=== PATIENT | female | born 1955 | race Caucasian/White ===

== ENCOUNTER → 2018-12-07 | Outpatient (CLI) | payer BC ==
--- NOTE | 2018-12-07 13:22 | US ---
EXAMINATION TYPE: US pelvis complete transvag DATE OF EXAM: 12/07/2018 COMPARISON: NONE CLINICAL HISTORY: R10.9 Abd pain, R10.2 Pelvic/perineal pain. UTI. Patient states she had bulge in v agina region. Tubal ligation. TECHNIQUE: Transabdominal (TA). Transabdominal sonographic images of the pelvis were acquired. Transvaginal sonographic images were attempted. Due to enlarged bulge at vagina region, transvaginal ultrasound was deferred. Date of LMP: [employer]IVE, EXAM MEASUREMENTS: Uterus: Not visualized Endometrial Stripe: Not visualized Right Ovary: Not visualized Left Ovary: Not visualized 1. Uterus: Not visualized 2. Endometrium: Not visualized 3. Right Ovary: Obscured by overlying bowel gas 4. Left Ovary: Obscured by overlying bowel gas 5. Bilateral Adnexa: Peristalsing bowel 6. Posterior cul-de-sac: Peristalsing bowel IMPRESSION: The uterus nor ovaries are identified in the pelvis with transabdominal approach. Overlyi ng peristalsing bowel is noted. During attempt to perform transvaginal imaging the patient reveals a large vaginal bulge with uterine prolapse noted therefore transvaginal imaging could not be performed to evaluate the uterus and ovaries.
--- NOTE | 2018-12-07 13:26 | US ---
EXAMINATION TYPE: US abdomen complete DATE OF EXAM: 12/07/2018 COMPARISON: NONE CLINICAL HISTORY: R10.9 Abd pain, R10.2 Pelvic/perineal pain. NPO, UTI EXAM MEASUREMENTS: Liver Length: 15.9 cm Gallbladder Wall: 0.2 cm CBD: 0.2 cm Spleen: 9.2 cm Right Kidney: 10.2 x 5.1 x 3.4 cm Left Kidney: 10.0 x 4.3 x 3.5 cm Pancreas: Within normal limits Liver: wnl Gallbladder: wnl Evidence for sonographic Mir's sign: neg CBD: wnl Spleen: wnl Right Kidney: No hydronephrosis nor nephrolithiasis. Left Kidney: No hydronephrosis nor nephrolithiasis. / Upper IVC: wnl Abd Aorta: Severe atherosclerosis seen throughout mid and distal portion of Aorta The liver is homogenous. The intrahepatic portion of the IVC and proximal abdominal aorta are within normal limits. There is no evidence of cholelithiasis. Common bile duct is unremarkable. The visu alized portions of the pancreas are homogenous. The spleen is unremarkable. Kidneys are symmetric a nd free of hydronephrosis. No renal lesions are seen. IMPRESSION: 1. No hydronephrosis nor nephrolithiasis in this patient with urinary tract infection and abdominal p ain. 2. Atherosclerosis of the abdominal aorta most notable mid and distally.
== END | disposition home or self-care (01) ==
LOC: RADUSWWP 12:02
PROVIDERS: ATTEND Internal Medicine
DX: I70.0 Atherosclerosis of aorta (principal); R10.2 Pelvic and perineal pain
CPT/HCPCS: 76700; 76856

== ENCOUNTER 2024-04-13 14:32 | Inpatient (IN) | payer MEDICARE ==
--- NOTE | 2024-04-13 15:13 | ED ---
Weakness HPI - General Chief complaint: Weakness Stated complaint: Weakness Time Seen by Provider: 04/13/24 14:59 Source: patient, RN notes reviewed, old records reviewed Mode of arrival: EMS Limitations: no limitations - History of Present Illness Initial comments: This 68-year-old female with recently diagnosed cancer found in the spine with chronic back pain. Patient having multiple complaints today weakness weight loss not eating and drinking well worsening symptoms for months now. MD Complaint: generalized weakness, focal weakness -: days(s) Location: generalized Severity: severe Severity scale (1-10): 10 Quality: numbness Consistency: constant Improves with: none Worsens with: none Context: recent illness, history of similar Associated Symptoms: confusion, other (0) - Related Data Home Medications Medication Instructions Recorded Confirmed ALPRAZolam [Xanax] 0.25 mg PO BID PRN 04/13/24 04/13/24 Escitalopram [Lexapro] 10 mg PO DIRECTED 04/13/24 04/13/24 HYDROcodone/APAP 5-325MG [[place] 1 tab PO BID 04/13/24 04/13/24 5-325] metroNIDAZOLE [Flagyl] 500 mg PO BID 04/13/24 04/13/24 Allergies Allergy/AdvReac Type Severity Reaction Status Date / Time No Known Allergies Allergy Verified 04/13/24 20:56 Review of Systems ROS Statement: Those systems with pertinent positive or pertinent negative responses have been documented in the HPI. ROS Other: All systems not noted in ROS Statement are negative. Past Medical History Past Medical History: Cancer History of Any Multi-Drug Resistant Organisms: None Reported Past Surgical History: No Surgical Hx Reported Past Psychological History: No Psychological Hx Reported Smoking Status: Never smoker Past Alcohol Use History: None Reported Past Drug Use History: None Reported General Exam Limitations: no limitations General appearance: alert, in no apparent distress Head exam: Present: atraumatic, normocephalic, normal inspection Eye exam: Present: normal appearance, PERRL, EOMI. Absent: scleral icterus, conjunctival injection, periorbital swelling ENT exam: Present: normal exam, mucous membranes moist Neck exam: Present: normal inspection. Absent: tenderness, meningismus, lymphadenopathy Respiratory exam: Present: normal lung sounds bilaterally. Absent: respiratory distress, wheezes, rales, rhonchi, stridor Cardiovascular Exam: Present: regular rate, normal rhythm, normal heart sounds. Absent: systolic murmur, diastolic murmur, rubs, gallop, clicks GI/Abdominal exam: Present: soft, normal bowel sounds. Absent: distended, tenderness, guarding, rebound, rigid Extremities exam: Present: normal inspection, full ROM, normal capillary refill. Absent: tenderness, pedal edema, joint swelling, calf tenderness Back exam: Present: normal inspection Neurological exam: Present: alert, oriented X3, CN II-XII intact Psychiatric exam: Present: normal affect, normal mood Skin exam: Present: warm, dry, intact, normal color. Absent: rash Course Vital Signs 04/13/24 04/13/24 04/13/24 14:36 18:47 20:09 Temperature 97.0 F L 99.2 F 98.5 F Pulse Rate 101 H 113 H 106 H Pulse Rate [ Left] Respiratory 16 14 16 Rate Blood Pressure 155/76 178/82 158/93 Blood Pressure [Left Arm] O2 Sat by Pulse 93 L 91 L 94 L Oximetry 04/13/24 04/14/24 04/14/24 22:55 00:21 05:57 Temperature 98.8 F 98.8 F Pulse Rate 92 90 93 Pulse Rate [ Left] Respiratory 22 20 Rate Blood Pressure 175/88 168/82 153/84 Blood Pressure [Left Arm] O2 Sat by Pulse 98 97 97 Oximetry 04/14/24 04/14/24 04/14/24 09:03 13:49 14:16 Temperature 99.0 F 98.6 F Pulse Rate 80 91 Pulse Rate [ 94 Left] Respiratory 16 18 16 Rate Blood Pressure 141/71 149/87 Blood Pressure 164/90 [Left Arm] O2 Sat by Pulse 97 96 97 Oximetry - Reevaluation(s) Reevaluation #1: 04/13/24 19:56 Records reviewed Reevaluation #2: 04/13/24 19:56 Patient's pain is improved Reevaluation #3: 04/13/24 19:57 Patient informed of results questions answered Reevaluation #4: Was pt. sent in by a medical professional or institution (, PA, DOGMAN/WOMAN, urgent care, hospital, or assisted...) When possible be specific @ -no Did you speak to anyone other than the patient for history (EMS, parent, family, police, friend...)? What history was obtained from this source @ -no Did you review nursing and triage notes (agree or disagree)? Why? @ -agree Are old charts reviewed (outside hosp., previous admission, EMS record, old EKG, old radiological studies, urgent care reports/EKG's, assisted records)? Report findings @ -yes Differential Diagnosis (chest pain, altered mental status, abdominal pain women, abdominal pain men, vaginal bleeding, weakness, fever, dyspnea, syncope, headache, dizziness, GI bleed, back pain, seizure, CVA, palpatations, mental health, musculoskeletal)? @ -prior EKG interpreted by me (3pts min.). @ -yes X-rays interpreted by me (1pt min.). @ -no CT interpreted by me (1pt min.). @ -Yes significant cancer burden with metastasis U/S interpreted by me (1pt. min.). @ -no What testing was considered but not performed or refused? (CT, X-rays, U/S, labs)? Why? @ -none What meds were considered but not given or refused? Why? @ -none Did you discuss the management of the patient with other professionals (professionals i.e. , PA, DOGMAN/WOMAN, lab, RT, psych nurse, psychotherapist social worker, manager financial planning, teacher, liaison officer, shoe caser)? Give summary @ -no Was smoking cessation discussed for >3mins.? @ -no Was critical care preformed (if so, how long)? @ -yes31 Were there social determinants of health that impacted care today? How? (Delores elessness, low income, unemployed, alcoholism, drug addiction, transportation, low edu. Level, literacy, decrease access to med. care, snf, rehab)? @ -none Was there de-escalation of care discussed even if they declined (Discuss DNR or withdrawal of care, Hospice)? DNR status @ -no What co-morbidities impacted this encounter? (DM, HTN, Smoking, COPD, CAD, Cancer, CVA, ARF, Chemo, Hep., AIDS, mental health diagnosis, sleep apnea, morbid obesity)? @ -none Was patient admitted / discharged? Hospital course, mention meds given and route, prescriptions, significant lab abnormalities, going to OR and other pertinent info. @ - 68 female to ER for evaluation of new diagnosis of cancer found with chronic back pain patient does have what appears to be a metastatic cancer that is concern for multiple myeloma will admit for pain control weight loss nausea vomiting diarrhea symptom management admitted Undiagnosed new problem with uncertain prognosis? @ -no Drug Therapy requiring intensive monitoring for toxicity (Heparin, Nitro, Insulin, Cardizem)? @ -no Were any procedures done? @ -no Diagnosis/symptom? @ -Metastatic cancer Acute, or Chronic, or Acute on Chronic? @ -Acute Uncomplicated (without systemic symptoms) or Complicated (systemic symptoms)? @ -Complicated Side effects of treatment? @ -no Exacerbation, Progression, or Severe Exacerbation? @ -exacerbation Poses a threat to life or bodily function? How? (Chest pain, USA, ME, pneumonia, PE, COPD, DKA, ARF, appy, cholecystitis, CVA, Diverticulitis, Homicidal, Suicidal, threat to staff... and all critical care pts) @ -yes significant cancer burden Reevaluation #5: Differential Back Pain: Strain, zoster, cauda equina syndrome, epidural abscess, vertebral osteomyelitis, discitis, fracture, subluxation, disc herniation, DJD, spinal stenosis, dissection, AAA, pancreatitis, peptic ulcer disease, pyelonephritis, kidney stone, this is not meant to be an all-inclusive list. - Consultations Consultation #1: Spoke with [facility] who agrees to admit this patient EKG Findings - EKG Comments: EKG Findings:: EKG is sinus tachycardia 102 [place] 146 QRS 97 QTc 4 - EKG Results: EKG: interpreted by LICHA Medical Decision Making - Medical Decision Making 68 female to ER for evaluation of new diagnosis of cancer found with chronic back pain patient does have what appears to be a metastatic cancer that is concern for multiple myeloma will admit for pain control weight loss nausea vomiting diarrhea symptom management - Lab Data Result diagrams: 04/14/24 03:45 04/17/24 05:03 Lab Results 04/13/24 04/13/24 04/13/24 Range/Units 15:44 15:44 15:44 WBC 10.1 (3.8-10.6) k/uL RBC 4.43 (3.80-5.40) m/uL Hgb 12.6 (11.4-16.0) gm/dL Hct 38.7 (34.0-46.0) % MCV 87.5 (80.0-100.0) fL MCH 28.5 (25.0-35.0) pg MCHC 32.6 (31.0-37.0) g/dL RDW 13.1 (11.5-15.5) % Plt Count 290 (150-450) k/uL MPV 7.5 Neutrophils % 78 % Lymphocytes % 13 % Monocytes % 5 % Eosinophils % 0 % Basophils % 0 % Neutrophils # 7.8 H (1.3-7.7) k/uL Lymphocytes # 1.3 (1.0-4.8) k/uL Monocytes # 0.5 (0-1.0) k/uL Eosinophils # 0.0 (0-0.7) k/uL Basophils # 0.0 (0-0.2) k/uL PT 12.0 (10.0-12.5) sec INR 1.1 (<1.2) APTT 20.1 L (22.0-30.0) sec Sodium (137-145) mmol/L Potassium (3.5-5.1) mmol/L Chloride (98-107) mmol/L Carbon Dioxide (22-30) mmol/L Anion Gap mmol/L BUN (7-17) mg/dL Creatinine (0.52-1.04) mg/dL Est GFR (CKD-EPI)AfAm (>60 ml/min/1.73 sqM) Est GFR (CKD-EPI)NonAf (>60 ml/min/1.73 sqM) Glucose (74-99) mg/dL Lactic Ac Sepsis Rflx Plasma Lactic Acid Fr[place] 3.0 H* (0.7-2.0) mmol/L Calcium (8.4-10.2) mg/dL Phosphorus (2.5-4.5) mg/dL Magnesium (1.6-2.3) mg/dL Total Bilirubin (0.2-1.3) mg/dL AST (14-36) U/L ALT (4-34) U/L Alkaline Phosphatase (38-126) U/L Troponin I (0.000-0.034) ng/mL NT-Pro-B Natriuret Pep pg/mL Total Protein (6.3-8.2) g/dL Albumin (3.5-5.0) g/dL TSH (0.465-4.680) mIU/L 02/01/2504/13/24 04/13/24 Range/Units 15:44 15:51 16:51 WBC (3.8-10.6) k/uL RBC (3.80-5.40) m/uL Hgb (11.4-16.0) gm/dL Hct (34.0-46.0) % MCV (80.0-100.0) fL MCH (25.0-35.0) pg MCHC (31.0-37.0) g/dL RDW (11.5-15.5) % Plt Count (150-450) k/uL MPV Neutrophils % % Lymphocytes % % Monocytes % % Eosinophils % % Basophils % % Neutrophils # (1.3-7.7) k/uL Lymphocytes # (1.0-4.8) k/uL Monocytes # (0-1.0) k/uL Eosinophils # (0-0.7) k/uL Basophils # (0-0.2) k/uL PT (10.0-12.5) sec INR (<1.2) APTT (22.0-30.0) sec Sodium 139 (137-145) mmol/L Potassium 4.0 (3.5-5.1) mmol/L Chloride 95 L (98-107) mmol/L Carbon Dioxide 33 H (22-30) mmol/L Anion Gap 11 mmol/L BUN 30 H (7-17) mg/dL Creatinine 0.99 (0.52-1.04) mg/dL Est GFR (CKD-EPI)AfAm 67 (>60 ml/min/1.73 sqM) Est GFR (CKD-EPI)NonAf 58 (>60 ml/min/1.73 sqM) Glucose 106 H (74-99) mg/dL Lactic Ac Sepsis Rflx Y Plasma Lactic Acid [place] (0.7-2.0) mmol/L Calcium 16.8 H* (8.4-10.2) mg/dL Phosphorus 5.0 H (2.5-4.5) mg/dL Magnesium 1.5 L (1.6-2.3) mg/dL Total Bilirubin 0.8 (0.2-1.3) mg/dL AST 114 H (14-36) U/L ALT 53 H (4-34) U/L Alkaline Phosphatase 128 H (38-126) U/L Troponin I <0.012 (0.000-0.034) ng/mL NT-Pro-B Natriuret Pep 2770 pg/mL Total Protein 7.3 (6.3-8.2) g/dL Albumin 4.5 (3.5-5.0) g/dL TSH 0.726 (0.465-4.680) mIU/L - EKG Data -: EKG Interpreted by Me (EKG is Sinus tachycardia 102 IL 146 QRS 97 QTc 420) - Radiology Data Radiology results: report reviewed (CT brain does show lytic lesions, CT chest abdomen pelvis does show liver lesions back lesions concern for multiple m yeloma), image reviewed Critical Care Time Critical Care Time: Yes Total Critical Care Time: 31 Disposition Clinical Impression: Multiple myeloma, Dehydration, Cancer, metastatic, Bone lesion, Liver lesion, Hypercalcemia Disposition: ADMITTED IP TO THIS [facility] Condition: Serious Is patient prescribed a controlled substance at d/c from ED?: No Time of Disposition: 20:00
[2024-04-13 16:02] LABS: Basophils % (A) 0 %; Eosinophils % (A) 0 %; HCT 38.7 % (34.0-46.0); HGB 12.6 gm/dL (11.4-16.0); Lymphocytes # (A) 1.3 k/uL (1.0-4.8); Lymphocytes % (A) 13 %; MCH 28.5 pg (25.0-35.0); MCHC 32.6 g/dL (31.0-37.0); MCV 87.5 fL (80.0-100.0); Mean Platelet Volume 7.5; Monocytes # (A) 0.5 k/uL (0-1.0); Monocytes % (A) 5 %; Neutrophils # (A) 7.8 k/uL (1.3-7.7); Neutrophils % (A) 78 %; Platelet Count 290 k/uL (150-450); RBC 4.43 m/uL (3.80-5.40); RDW 13.1 % (11.5-15.5); WBC 10.1 k/uL (3.8-10.6)
[2024-04-13 16:12] LABS: INR 1.1 (<1.2)
[2024-04-13 16:19] LABS: Partial Thromboplastin Time 20.1 sec (22.0-30.0)
[2024-04-13] MEDS: SODIUM CHLORIDE 0.9% 1,000 ML IV STA (16:26)
[2024-04-13 16:33] LABS: African American GFR (CKD) 67 (>60 ml/min/1.73 sqM); Albumin 4.5 g/dL (3.5-5.0); Alkaline Phosphatase 128 U/L (38-126); Anion Gap 11 mmol/L; Blood Urea Nitrogen 30 mg/dL (7-17); Carbon Dioxide 33 mmol/L (22-30); Chloride 95 mmol/L (98-107); Glucose 106 mg/dL (74-99); Magnesium 1.5 mg/dL (1.6-2.3); Non-African American GFR(CKD) 58 (>60 ml/min/1.73 sqM); Sodium 139 mmol/L (137-145); Total Bilirubin 0.8 mg/dL (0.2-1.3); Total Protein 7.3 g/dL (6.3-8.2)
[2024-04-13 16:40] LABS: NT-Pro-B-Type Natriuretic Pept 2770 pg/mL
[2024-04-13 16:52] LABS: ALT 53 U/L (4-34); AST 114 U/L (14-36); Calcium 16.8 mg/dL (8.4-10.2)
[2024-04-13] MEDS ORDERED: ONDANSETRON 4 MG/2 ML VIAL IVP PRN (17:57)
[2024-04-13] MEDS ORDERED: HYDROmorphone 1 MG/ML 1 ML SYRINGE IVP PRN (17:57)
[2024-04-13] MEDS ORDERED: NALOXONE 0.4 MG/ML 1 ML VIAL IV PRN (17:57)
[2024-04-13] MEDS: DEXTROSE 5%-0.45% NACL 1,000 ML IV SCH (18:33)
--- NOTE | 2024-04-13 18:37 | CT ---
EXAMINATION TYPE: CT brain wo con DATE OF EXAM: 04/13/2024 6:24 PM COMPARISON: None. CLINICAL INDICATION: Female, 68 years old with history of ams,ca, Increased generalized weakness and abdominal pain Pt was diagnosed with CA on Friday at PCP. CA to "bones, back mets to liver" TECHNIQUE: CT of the brain is performed utilizing 3 mm thick sections through the posterior fossa and 3 mm thick sections through the remaining calvarium. Study is performed within 24 hours of arrival to the hospital. Contrast used: mL of , (none if empty) CT DLP: Combined DLP of 2015.8 mGycm, Automated exposure control for dose reduction was used. FINDINGS: No abnormal hyperdensity is present to suggest an acute intracranial hemorrhage. No mass lesion is evident. No acute infarcts are evident. Hypodensity within the right parietal-occipital region. Subcortical infarct or vasogenic edema could be considered. Additional workup with MRI with contrast is recommended. Underlying metastasis is not excluded. Ventricles and sulci are appropriate for the patient age. Paranasal sinuses and mastoid air cells within the [id number] are clear. Hyperostosis frontalis internus, a normal variant is present. IMPRESSION: 1. Multiple hypoechoic lytic areas throughout the skull. Correlate for metastasis. Consider multiple myeloma. 2. Hypodensity within the right parietal-occipital region. Subcortical infarct or vasogenic edema cou ld be considered. Additional workup with MRI with contrast is recommended. Underlying metastasis is n ot excluded. [facility], Workstation: [facility], 04/13/2024 6:35 PM
--- NOTE | 2024-04-13 18:49 | CT ---
EXAMINATION TYPE: CT ChestAbdPelvis w con DATE OF EXAM: 04/13/2024 6:25 PM COMPARISON: None. CLINICAL INDICATION: Female, 68 years old with history of CA, Increased generalized weakness and abdo vidya pain Pt was diagnosed with CA on Friday at PCP. CA to "bones, back mets to liver" TECHNIQUE: CT ChestAbdPelvis w con , with sagittal coronal reformats. If MIP/3-D images were created, there are created on a separate workstation. Contrast used:80 ml mL of Isovue 300 with IV Contrast, (none if empty) Oral contrast used: without Oral Contrast (none if empty) CT DLP: Combined DLP of 2015.8 mGycm, Automated exposure control for dose reduction was used. FINDINGS: CT CHEST: There are couple of expansile lesions within left ribs. Note is made of a few lytic areas w ithin the lower cervical and upper thoracic vertebral bodies metastasis. Portion of the thyroid visualized is normal. No suspicious lung nodules or focal infiltrates are present. No enlarged mediastinal or hilar adenopathy is evident. The ascending aorta diameter at the level of the main pulmonary artery is 3.2 cm. The main pulmonary artery diameter at the bifurcation is 2.[address] ABDOMEN: Liver: Multiple hypodensities are scattered throughout the liver suspicious for metastatic disease. Spleen: Normal Pancreas: Normal Adrenal glands: The adrenal glands are normal. Gallbladder: Normal Kidneys: No masses are evident. No hydronephrosis is present. No cysts are present. No renal stone s are evident Aorta: Vascular calcification is within the aorta. Inferior vena cava: Normal. CT PELVIS: Loops of bowel within the abdomen and pelvis are normal. This study is without oral contrast limi ts bowel evaluation. Appendix: Not identified. No dilated tubular structures or inflammatory changes evident. Urinary bladder: Normal. Genitourinary structures: Posterior is present. Uterus is retroverted. Adnexa appear normal Osseous structures: There is extensive lytic lesions within the pelvis including the anterior right p ubic symphysis, lateral anterior superior iliac spine, posterior medial right iliac wing. Additional lumbar vertebral body lytic lesions with cortical erosion are evident. Expansile left rib lesions may be present. Additional lytic areas are within the lower cervical and within the thoracic vertebral b odies suspicious for lytic metastasis. Multiple lytic lesions are within the calvarium, see CT report same date. Metastasis likely present. Consider multiple myeloma. IMPRESSION: 1. Multiple osseous metastasis. Multiple myeloma should be considered. 2. Multiple hypodense hepatic lesions suspicious for metastatic disease. [facility], Workstation: [facility], 04/13/2024 6:47 PM
[2024-04-14 07:26] LABS: Appearance,Urine Clear (Clear); Bacteria,Urine Rare /hpf; Bilirubin,Urine Negative (Negative); Blood,Urine Small (Negative); Color,Urine Light Yellow; Glucose,Urine (UA) Negative (Negative); Ketones,Urine Negative (Negative); Leukocyte Esterase,Urine Large (Negative); Nitrite,Urine Negative (Negative); PH, Urine 5.5 (5.0-8.0); Protein,Urine Trace (Negative); RBC,Urine 3 /hpf (0-5); Specific Gravity,Urine 1.032 (1.001-1.035); Squamous Epithelial Cell,Urine 1 /hpf (0-4); Urobilinogen,Urine <2.0 mg/dL (<2.0); WBC,Urine 35 /hpf (0-5)
[2024-04-14 08:40] LABS: Basophils # (A) 0.05 X 10*3/uL (0.00-0.10); Basophils % (A) 0.6 %; Eosinophils # (A) 0.01 X 10*3/uL (0.04-0.35); Eosinophils % (A) 0.1 %; HCT 35.9 % (37.2-46.3); HGB 11.4 g/dL (12.0-15.0); Lymphocytes # (A) 1.41 X 10*3/uL (0.90-5.00); Lymphocytes % (A) 16.8 %; MCH 28.6 pg (27.0-32.0); MCHC 31.8 g/dL (32.0-37.0); Mean Platelet Volume 10.1 FL (9.5-12.2); Monocytes % (A) 8.3 %; NRBC Per 100 WBC 0 X 10*3/uL (0.00-0.01); Neutrophils # (A) 6.15 X 10*3/uL (1.80-7.70); Neutrophils % (A) 73.1 %; Platelet Count 295 X 10*3/uL (140-440); RBC 3.99 X 10*6/uL (4.10-5.20); RDW 12.8 % (11.5-14.5); WBC 8.41 X 10*3/uL (4.50-10.00)
[2024-04-14 08:54] LABS: Magnesium 1.9 mg/dL (1.5-2.4); Phosphorus 4.6 mg/dL (2.4-5.1)
[2024-04-14 09:59] LABS: ALT 53 U/L (8-44); AST 103 U/L (13-35); Albumin/Globulin Ratio 1.74 Ratio (1.60-3.17); Alkaline Phosphatase 143 U/L (41-126); BUN/Creat Ratio 21.92 Ratio (12.00-20.00); Blood Urea Nitrogen 26.3 mg/dL (9.0-27.0); Calcium 17.1 mg/dL (8.7-10.3); Carbon Dioxide 29.1 mmol/L (21.6-31.8); Chloride 98 mmol/L (96-109); Globulin 2.3 g/dL (1.6-3.3); Glucose 120 mg/dL (70-110); Potassium 3.2 mmol/L (3.5-5.5); Sodium 141 mmol/L (135-145); Total Bilirubin 0.3 mg/dL (0.3-1.2); Total Protein 6.3 g/dL (6.2-8.2)
[2024-04-14] MEDS: ZOLEDRONIC ACID 4 MG in SODIUM CHLORIDE 0.9% 100 ML IV ONE (10:02)
[2024-04-14] MEDS: SODIUM CHLORIDE 0.9% 1,000 ML IV SCH (10:55)
[2024-04-14] MEDS: traMADol 50 MG TAB PO SCH (10:56)
[2024-04-14] MEDS: SENNOSIDES-DOCUSATE SODIUM 1 EACH TAB PO SCH (10:57)
[2024-04-14] MEDS ORDERED: HYDROmorphone 0.5 MG/0.5 ML SYRINGE IVP PRN (14:07)
[2024-04-14] MEDS ORDERED: HYDROcodone/APAP 5-325MG 1 EACH TAB PO PRN (14:07)
[2024-04-14 15:08] LABS: Protein, Total 6.2 g/dL (6.2-8.2)
[2024-04-14 15:11] LABS: Immunoglobulin M 45.3 mg/dL (40.0-280.0)
[2024-04-14] MEDS: HYDROmorphone 1 MG/ML 1 ML SYRINGE IVP STA (15:51)
[2024-04-14 16:06] LABS: Carcinoembryonic Antigen 5.5 ng/mL (0.0-4.9)
--- NOTE | 2024-04-14 17:50 | P.CONS ---
History of Present Illness - Reason for Consult Consult date: 04/14/24 hypercalcemia, bone and liver lesion Requesting physician: Jay Lilly - Chief Complaint sudden onset confusion and weakness - History of Present Illness Mrs. Greene is a pleasant 68-year-old female that we have been consulted to see because of hypercalcemia-calcium level 16.8-, imaging showing bone and liver lesions. Son and daughter at the bedside. Patient does have mild confusion but she is able to answer many questions on her own. It is her daughter ropes to keep the story straight. This was of very sudden onset, patient reported a backache and did not feel very good at the end of last week, by Friday patient was not eating or drinking, this progressed to her not being able to walk, lost all of her strength, the family could not even get her up to stand. She was very weak, not sleeping well but rather lethargic. No bowel movement for almost 2 weeks. They had to call EMS to bring the patient to the hospital. Patient has no history of malignancy. Patient has not had colonoscopy, mammogram. There is no family history of malignancy, however there is autoimmune disease. Patient and family are denying any known fevers, sweats, nausea or vomiting, chest pain, swelling or bleeding. There are reports of abdominal tenderness, and co nstipation. On admission calcium noted to be 16.8. Lactic acid elevated at 3. Mildly lino vated LFTs, alk phos increased, phosphorus 5, magnesium 1.5. As of today mild anemia, hemoglobin 11.4, calcium 17.1, phosphorus and magnesium have normalized. Patient's family did not feel she is any worse but, she is not any better. CT of the chest abdomen and pelvis with contrast is reporting expansile lesions within the left ribs, few lytic areas within the lower cervical and upper thoracic vertebra. No lung nodules or mediastinal adenopathy. Multiple hypodensities throughout the liver. Review of Systems 10 point ROS is neg except as stated in HPI-some information provided by the family Past Medical History History of Any Multi-Drug Resistant Organisms: None Reported Past Surgical History: No Surgical Hx Reported Past Psychological History: No Psychological Hx Reported Smoking Status: Never smoker Past Alcohol Use History: None Reported Past Drug Use History: None Reported Medications and Allergies Home Medications Medication Instructions Recorded Confirmed Type ALPRAZolam [Xanax] 0.25 mg PO BID PRN 04/13/24 04/13/24 History Escitalopram [Lexapro] 10 mg PO DIRECTED 04/13/24 04/13/24 History HYDROcodone/APAP 5-325MG [[place] 1 tab PO BID 04/13/24 04/13/24 History 5-325] metroNIDAZOLE [Flagyl] 500 mg PO BID 04/13/24 04/13/24 History Allergies Allergy/AdvReac Type Severity Reaction Status Date / Time No Known Allergies Allergy Verified 04/13/24 20:56 Physical Exam Vitals: Vital Signs Temp Pulse Resp BP Pulse Ox 04/14/24 09:03 99.0 F 80 16 141/71 97 04/14/24 05:57 98.8 F 93 20 153/84 97 04/14/24 00:21 90 168/82 97 04/13/24 22:55 98.8 F 92 22 175/88 98 04/13/24 20:09 98.5 F 106 H 16 158/93 94 L 04/13/24 18:47 99.2 F 113 H 14 178/82 91 L 04/13/24 14:36 97.0 F L 101 H 16 155/76 93 L - Constitutional General appearance: average body habitus, cooperative, no acute distress - EENT Dry mucous membranes, coated tongue Eyes: anicteric sclerae, EOMI ENT: hearing grossly normal - Neck Neck: no lymphadenopathy - Respiratory Respiratory: bilateral: CTA - Cardiovascular Rhythm: regular Heart sounds: normal: S1, S2 Abnormal Heart Sounds: no systolic murmur, no diastolic murmur, no rub, no S3 Gallop, no S4 Gallop, no click, no other leg Peripheral Edema: bilateral: None - Gastrointestinal Mildly distended abdomen, tender to palpation, no masses palpated, hypoactive bowel sounds General gastrointestinal: soft - Musculoskeletal Musculoskeletal: generalized weakness - Psychiatric Patient is drowsy but alert, she is oriented to self place and time, her daughter does help keep her on track with the timing of events but overall pa tient judgment is intact Results CBC & Chem 7: 04/14/24 03:45 04/14/24 03:45 Labs: Abnormal Lab Results - Last 24 Hours (Table) 04/13/24 04/13/24 04/13/24 Range/Units 15:44 15:44 15:44 RBC (4.10-5.20) X 10*6/uL Hgb (12.0-15.0) g/dL Hct (37.2-46.3) % MCHC (32.0-37.0) g/dL Immature Gran # (0.00-0.04) X 10*3/uL Neutrophils # 7.8 H (1.3-7.7) k/uL Eosinophils # (0.04-0.35) X 10*3/uL APTT 20.1 L (22.0-30.0) sec Potassium (3.5-5.5) mmol/L Chloride (98-107) mmol/L Carbon Dioxide (22-30) mmol/L Anion Gap (4.00-12.00) mmol/L BUN (7-17) mg/dL Est GFR (CKD-EPI) (>=60) BUN/Creatinine Ratio (12.00-20.00) Ratio Glucose (74-99) mg/dL Plasma Lactic Acid [place] 3.0 H* (0.7-2.0) mmol/L Calcium (8.4-10.2) mg/dL Phosphorus (2.5-4.5) mg/dL Magnesium (1.6-2.3) mg/dL AST (14-36) U/L ALT (4-34) U/L Alkaline Phosphatase (38-126) U/L Urine Protein (Negative) Urine Blood (Negative) Ur Leukocyte Esterase (Negative) Urine WBC (0-5) /hpf Urine Bacteria (None) /hpf 04/13/24 04/13/24 04/14/24 Range/Units 15:51 19:49 03:45 RBC 3.99 L (4.10-5.20) X 10*6/uL Hgb 11.4 L (12.0-15.0) g/dL Hct 35.9 L (37.2-46.3) % MCHC 31.8 L (32.0-37.0) g/dL Immature Gran # 0.09 H (0.00-0.04) X 10*3/uL Neutrophils # (1.3-7.7) k/uL Eosinophils # 0.01 L (0.04-0.35) X 10*3/uL APTT (22.0-30.0) sec Potassium (3.5-5.5) mmol/L Chloride 95 L (98-107) mmol/L Carbon Dioxide 33 H (22-30) mmol/L Anion Gap (4.00-12.00) mmol/L BUN 30 H (7-17) mg/dL Est GFR (CKD-EPI) (>=60) BUN/Creatinine Ratio (12.00-20.00) Ratio Glucose 106 H (74-99) mg/dL Plasma Lactic Acid [place] 2.5 H* (0.7-2.0) mmol/L Calcium 16.8 H* (8.4-10.2) mg/dL Phosphorus 5.0 H (2.5-4.5) mg/dL Magnesium 1.5 L (1.6-2.3) mg/dL AST 114 H (14-36) U/L ALT 53 H (4-34) U/L Alkaline Phosphatase 128 H (38-126) U/L Urine Protein (Negative) Urine Blood (Negative) Ur Leukocyte Esterase (Negative) Urine WBC (0-5) /hpf Urine Bacteria (None) /hpf 04/14/24 04/14/24 Range/Units 03:45 06:00 RBC (4.10-5.20) X 10*6/uL Hgb (12.0-15.0) g/dL Hct (37.2-46.3) % MCHC (32.0-37.0) g/dL Immature Gran # (0.00-0.04) X 10*3/uL Neutrophils # (1.3-7.7) k/uL Eosinophils # (0.04-0.35) X 10*3/uL APTT (22.0-30.0) sec Potassium 3.2 L (3.5-5.5) mmol/L Chloride (98-107) mmol/L Carbon Dioxide (22-30) mmol/L Anion Gap 13.90 H (4.00-12.00) mmol/L BUN (7-17) mg/dL Est GFR (CKD-EPI) 49 L (>=60) BUN/Creatinine Ratio 21.92 H (12.00-20.00) Ratio Glucose 120 H (74-99) mg/dL Plasma Lactic Acid [place] (0.7-2.0) mmol/L Calcium 17.1 A* (8.4-10.2) mg/dL Phosphorus (2.5-4.5) mg/dL Magnesium (1.6-2.3) mg/dL AST 103 H (14-36) U/L ALT 53 H (4-34) U/L Alkaline Phosphatase 143 H (38-126) U/L Urine Protein Trace H (Negative) Urine Blood Small H (Negative) Ur Leukocyte Esterase Large H (Negative) Urine WBC 35 H (0-5) /hpf Urine Bacteria Rare H (None) /hpf CT scan - abdomen: report reviewed CT scan - chest: report reviewed CT scan - pelvis: report reviewed Assessment and Plan (1) Bone lesion Current Visit: Yes Status: Acute Code(s): M89.9 - DISORDER OF BONE, UNSPECIFIED SNOMED Code(s): 919823713 (2) Liver lesion Current Visit: Yes Status: Acute Code(s): K76.9 - LIVER DISEASE, UNSPECIFIED SNOMED Code(s): 119231837 (3) Hypercalcemia Current Visit: Yes Status: Acute Code(s): E83.52 - HYPERCALCEMIA SNOMED Code(s): 71557812 Plan: Hypercalcemia, bone lesions, liver lesions -Events leading up to hospital presentation as stated in HPI. -Patient presenting with constellation of symptoms most consistent with significant hypercalcemia-confusion, constipation, abdominal pain, restlessness. Ca++ 16.8 on admit -Imaging showing bone and liver lesions. Discussed with patient and family concerns for malignancy -Labs to workup monoclonal gammopathy ordered, tumor markers ordered -Zometa ordered stat for hypercalcemia. IV fluids increased. Calcium level twice daily. -Tramadol ordered for pain as patient has a significant fear of narcotics. -Stool softeners ordered for constipation -Interventional radiology consulted for biopsy of liver lesions -Will follow up, further recommendations to follow Doctor attests: I performed a history and physical examination of this patient, developed impression and plan of care. Discussed with dictator. I agree with dictators note, documented as a scribe.
[2024-04-14 18:46] LABS: Cancer Antigen 19-9 23.8 U/mL (0.0-34.9)
[2024-04-14] MEDS: CALCITONIN INJ 200 UNIT/ML (MDV) VIAL SQ ONE (20:39)
--- NOTE | 2024-04-15 00:38 | HP ---
HISTORY AND PHYSICAL CHIEF COMPLAINTS: Weakness, back pain, and weight loss. HISTORY OF PRESENT ILLNESS: This 68-year-old woman with no significant medical issues, was not feeling well over the past several weeks. The patient had significant weakness, weight loss. The patient is being evaluated for cancer and the patient came to [facility] and the patient had a chest, abdomen, and pelvis CT scan which was reviewed personally by me and showed multiple hypodensities in the liver and osseous metastasis. The patient is cleared for liver biopsy today. There is no history of any fever, rigors, or chills at this time. The calcium is elevated. UA noted. PAST MEDICAL HISTORY: No history of heart disease or strokes in the family. Otherwise, history of weight loss and other symptoms as mentioned earlier. HOME MEDICATIONS: Reviewed include Lexapro. Dose and rest of medications reviewed. ALLERGIES: None. FAMILY HISTORY: No history of heart disease or stroke. SOCIAL HISTORY: No history of smoking or alcohol. REVIEW OF SYSTEMS: A 14-point review of systems is negative except as mentioned earlier. PHYSICAL EXAMINATION: VITAL SIGNS: Pulse 93, blood pressure 153/84, and respirations 20. HEENT: Conjunctivae normal. NECK: No JVD. CARDIOVASCULAR: S1, S2. RESPIRATIONS: Breath sounds diminished at the bases. ABDOMEN: Soft. Diffuse hepatomegaly present, otherwise no ascites. LEGS: No edema. NERVOUS SYSTEM: Emaciated and weak. LABORATORY DATA: WBC 8.5 and hemoglobin 11.4. Rest of the labs are noted. Calcium 17.1. ASSESSMENT: 1. Metastatic malignancy with bones and liver, primary unknown for liver biopsy. 2. Severe weakness and pain and back pain. 3. Severe hypercalcemia. 4. Anemia. 5. Rule out urinary tract infection. 6. Elevated AST and ALT. RECOMMENDATION: This 68-year-old woman, who presented with multiple complex medical issues. We will monitor the patient closely. Continue the current medications. Continue with IR biopsy. Hematology and Oncology consultation. I would also recommend empiric antibiotics as well as pain management. Prognosis maybe guarded because of multiple complex medical issues. Further recommendations to follow. MMODL / IJN: [id number] /
--- NOTE | 2024-04-15 07:50 | CT ---
EXAMINATION TYPE: CT biopsy liver DATE OF EXAM: 04/14/2024 3:00 PM COMPARISON: CT CLINICAL INDICATION:Female, 68 years old with history of See IR consult for order details.; Scattered metastatic masses TECHNIQUE: CT guided percutaneous biopsy of using coaxial method. One or more CT dose reduction strategies were utilized during this examination. Total CT dose 2554 mGycm. FINDINGS: The procedure was explained to the patient including risks of bleeding, bruising, infection, damage t o nearby organs and need for additional therapy including potential surgery. All questions were answ ered and consent was obtained. The previous studies were reviewed. The patient was placed on the CT couch in the supine position. The overlying skin was marked and prepped using sterile method. Timeout was taken per protocol. Follo wing administration of local anesthesia a 17 gauge coaxial needle was introduced on the left hepatic lobe lesion. The coaxial needle tip was directed into the mass with CT guidance. Multiple 18 gauge coaxial biopsies were then obtained. Following the procedure the needle was removed and sterile dr essing was applied to the percutaneous site. Post biopsy imaging demonstrated no evidence of hemorrh age. Patient was taken for postprocedure observation in stable condition. IMPRESSIONS: Status post percutaneous left hepatic lobe mass biopsy as described above. Samples were fragmented, a ttention on Pathology results. [facility] Billie Gtz, , 04/15/2024 7:48 AM
[2024-04-15] MEDS: metroNIDAZOLE 500 MG TAB PO SCH (12:12)
[2024-04-15 12:43] LABS: Free Kappa Lt Chain Qnt, Serum 2.36 mg/dL (0.33-1.94); Free Lambda Lt Chain Qnt, Seru 1.89 mg/dL (0.57-2.63)
--- NOTE | 2024-04-15 15:04 | P.PN ---
Subjective This is a pleasant 68 years old female who was recently admitted for generalized weakness and abdominal pain, her PCP recently diagnosed her with metastasis to the bone and liver. On admission patient was severely dehydrated secondary to hypercalcemia with acute kidney injury. She has evidence of multiple osseous metastatic disease and multiple liver lesions suspicious for metastatic disease with unknown primary source. She underwent liver biopsy and result is pending Also on CT of the brain she has possible right parieto-occipital lesion which could be infarct versus vasogenic edema. Currently patient lying in bed complaining from pain in her back about 7/10, she did not have bowel movement she has poor appetite and she looks little de pressed. Multiple family members at bedside No chest pain or dyspnea. No diarrhea or urinary symptoms. She is getting normal saline at 150 mL/h. She is hemodynamically stable Hemoglobin 11.4, creatinine slightly elevated at 1.2, calcium 17, 15.2. Calcium came down today to 12.6. Patient received zoledronic acid and calcitonin. Hematology/oncology team also following closely CA 19-9 is is negative g, CA 15-[address] of the chest abdomen and pelvis showing multiple osseous metastatic lesions and multiple metastatic liver lesions CT of the brain showing lytic lesions of the skull but there is hypodensity in the right parieto-occipital region which could be subcortical infarct versus vasogenic edema EKG showing sinus tachycardia in [address]-T changes Objective - Vital Signs Vital signs: Vital Signs Temp 98.8 F 04/15/24 12:09 Pulse 85 04/15/24 12:09 Resp 17 04/15/24 12:09 BP 179/75 04/15/24 12:09 Pulse Ox 98 04/15/24 12:09 FiO2 Intake & Output 04/14/24 04/15/24 04/15/24 18:59 06:59 18:59 Intake Total 300 Output Total 900 Balance 300 -900 Weight 56.699 kg Intake: Intake, IV Titration 300 Amount Sodium Chloride 0.9% 1, 300 000 ml @ 150 mls/hr IV . Q6H40M [facility] Rx#:[id number] Output: Urine 900 Other: Voiding Method Diaper Diaper Incontinent Incontinent External Catheter External Catheter # Voids 2 - Exam -GENERAL: The patient is alert and oriented x3, not in any acute distress. Well developed, well nourished. Generally weak HEENT: Pupils are round and equally reacting to light. EOMI. No scleral icterus. No conjunctival pallor. Normocephalic, atraumatic. No pharyngeal erythema. No thyromegaly. CARDIOVASCULAR: S1 and S2 present. No murmurs, rubs, or gallops. PULMONARY: Chest is clear to auscultation, no wheezing , no crackles. ABDOMEN: Soft, nontender, nondistended, normoactive bowel sounds. No palpable organomegaly. MUSCULOSKELETAL: No joint swelling or deformity. EXTREMITIES: No cyanosis, clubbing, or pedal edema. NEUROLOGICAL: Gross neurological examination did not reveal any focal deficits. SKIN: No rashes. no petechiae. - Labs CBC & Chem 7: 04/14/24 03:45 04/14/24 03:45 Labs: Abnormal Lab Results - Last 24 Hours (Table) 04/14/24 04/14/24 04/14/24 Range/Units 09:09 09:14 18:35 Calcium 15.2 H* (8.4-10.2) mg/dL Carcinoembryonic Ag 5.5 H (0.0-4.9) ng/mL Free [place] LC, Quant 2.36 H (0.33-1.94) mg/dL 04/15/24 Range/Units 04:56 Calcium 12.6 H (8.4-10.2) mg/dL Carcinoembryonic Ag (0.0-4.9) ng/mL Free [place] LC, Quant (0.33-1.94) mg/dL Assessment and Plan Assessment: Hypercalcemia, improving Mild acute kidney injury improving Multiple osseous metastatic lesions unknown primary source Multiple liver metastatic lesion s/p liver biopsy Right parieto-occipital lesion could be acute infarct versus vasogenic edema Plan: Continue with normal saline Follow-up liver biopsy Pain management Start dexamethasone and consult neurology service for possible occipital lesion versus acute infarct versus metastatic disease Start Remeron to help with appetite and depression, discussed with the patient and family and they agreeable Further recommendation based on the clinical course GI prophylaxis Pepcid DVT prophylaxis mechanical, there is relative contraindication for subcu heparin because of the brain lesions
[2024-04-15] MEDS: DEXAMETHASONE SOD PHOSPHATE 4 MG/ML 1 ML VIAL IVP SCH (15:25)
--- NOTE | 2024-04-15 18:47 | P.PN ---
Subjective Progress Note Date: 04/15/24 Principal diagnosis: Hypercalcemia, liver and bone lesions In follow-up today patient is less lethargic, her family feels that she has improved, less belly pain and distention, she still has not had a bowel movement. She feels more clear and thinking. No fevers, nausea, vomiting, new pain to report. Objective - Vital Signs Vital signs: Vital Signs Temp 98.6 F 04/15/24 16:29 Pulse 88 04/15/24 16:29 Resp 17 04/15/24 16:29 BP 177/74 04/15/24 16:29 Pulse Ox 99 04/15/24 16:29 FiO2 Intake & Output 04/14/24 04/15/24 04/15/24 18:59 06:59 18:59 Intake Total 300 1020 Output Total 900 1200 Balance 300 -900 -180 Weight 56.699 kg Intake: Intake, IV Titration 300 Amount Sodium Chloride 0.9% 1, 300 000 ml @ 150 mls/hr IV . Q6H40M [facility] Rx#:[id number] Oral 1020 Output: Urine 900 1200 Other: Voiding Method Diaper Diaper Incontinent Incontinent External Catheter External Catheter # Voids 2 - Constitutional General appearance: Present: average body habitus, cooperative, no acute distress - EENT Eyes: Present: anicteric sclerae, EOMI ENT: Present: hearing grossly normal - Respiratory Respiratory: bilateral: CTA - Cardiovascular Rhythm: regular Heart sounds: normal: S1, S2 Abnormal Heart Sounds: Absent: systolic murmur, diastolic murmur, rub, S3 Gallop, S4 Gallop, click, other - Peripheral edema leg Peripheral Edema: bilateral: None - Gastrointestinal General gastrointestinal: Present: decreased bowel sounds, soft, tenderness (Less tender on exam today) - Neurologic Neurologic: Present: CNII-XII intact - Musculoskeletal Musculoskeletal: Present: generalized weakness - Psychiatric Psychiatric: Present: A&O x's 3, appropriate affect, intact judgment & insight - Labs CBC & Chem 7: 04/14/24 03:45 04/14/24 03:45 Labs: Abnormal Lab Results - Last 24 Hours (Table) 04/14/24 04/14/24 04/15/24 Range/Units 09:09 18:35 04:56 Calcium 15.2 H* 12.6 H (8.4-10.2) mg/dL Free [place] LC, Quant 2.36 H (0.33-1.94) mg/dL Assessment and Plan (1) Bone lesion Current Visit: Yes Status: Acute Priority: High Code(s): M89.9 - DISORDER OF BONE, UNSPECIFIED SNOMED Code(s): 407786128 (2) Liver lesion Current Visit: Yes Status: Acute Priority: High Code(s): K76.9 - LIVER DISEASE, UNSPECIFIED SNOMED Code(s): 633844416 (3) Hypercalcemia Current Visit: Yes Status: Acute Priority: High Code(s): E83.52 - HYPERCALCEMIA SNOMED Code(s): 43212646 Plan: Hypercalcemia, bone lesions, liver lesions -Events leading up to hospital presentation as stated in consult. -Patient presenting with constellation of symptoms most consistent with significant hypercalcemia-confusion, constipation, abdominal pain, restlessness. Ca++ 16.8 on admit -Imaging showing bone and liver lesions. Discussed with patient and family concerns for malignancy -Labs to workup monoclonal gammopathy ordered, no significantly abnormal results, few test still pending. Tumor markers are nondiagnostic/negative. -Interventional radiology has performed liver biopsy, pending pathology -Zometa given for hypercalcemia. Calcitonin dose given today. Patient continues on IV fluids. Calcium level today 12.6 -Tramadol ordered for pain as patient has a significant fear of narcotics. -Stool softeners ordered for constipation -Flagyl reordered for [employer] infection, patient was on prior to admission. She had 3 more days left. -Will follow up, further recommendations to follow Doctor attests: I performed a history and physical examination of this patient, developed impression and plan of care. Discussed with dictator. I agree with dictators note, documented as a scribe.
[2024-04-15] MEDS: FAMOTIDINE 20 MG/2 ML VIAL IV SCH (22:04)
[2024-04-15] MEDS: MIRTAZAPINE 15 MG TAB PO SCH (22:09)
[2024-04-15] MEDS: NYSTATIN 100,000 UNIT/ML SUSP 500,000 UNIT/5 ML CUP PO SCH (22:25)
[2024-04-16] MEDS: amLODIPine 5 MG TAB PO SCH (09:15)
--- NOTE | 2024-04-16 11:39 | P.CNNES ---
History of Present Illness Consult date: 04/16/24 Requesting physician: Parker E Sheet Reason for Consult: ct head infarct vs vasogenic edema History of Present Illness: This is a 68-year-old woman who presents to the emergency department for her generalized weakness and unable to obtain her CT imaging as an outpatient. Some of the history is obtained from the patient's daughters who are bedside. It seems that the patient in the last month or so has been having lower back pain and she had MRI of her spine as an outpatient and was found that she had spinal lesion with lesions also involving her organs. Concern for multiple myeloma. She was scheduled to have CT of chest abdomen pelvis as an outpatient for further evaluation but could not because of her generalized weakness as a result her family brought her to the hospital. Seems that she had a liver biopsy this past Friday and pending result. Seems that the patient has been confused than baseline. Seems that she had CT of the head and there is concern for lesions in the brain and concern for vasogenic edema versus stroke. Has been healthy until most recently but has not followed up with primary care physician for 25 years. Does not have any history of stroke. According to the family members since she has been on steroids her strength is improved. She is having some neuropathic pain whenever someone touches her or with IV line but her daughter feels today is better than yesterday. Some of the workup during this hospital visit consisted of: Calcium is 16.8 on presentation and currently is 12.6. Her AST and ALT are elevated AST more than ALT of 114 over 53 Phosphorus level is 5.0, magnesium is 1.5 and no signs improved CT of the head is reported as multiple hypoechoic lytic area throughout the skull. Correlate for metastasis. Consider multiple myeloma. Hypodensity within the right parietaloccipital region. Subcortical infarct or vasogenic edema could be considered. I personally reviewed the CAT scan and I do agree there is multiple lytic lesion in the skull. I do agree that the patient has hypodensity over the right occipital temporal region in my opinion. CT chest abdomen pelvis is reported as multiple osseous metastatic cysts. Multiple myeloma should be considered. Multiple hypodense hepatic lesions suspicious for metastatic disease. Review of Systems As per HPI. Past Medical History Past Medical History: Cancer History of Any Multi-Drug Resistant Organisms: None Reported Past Surgical History: No Surgical Hx Reported Past Psychological History: No Psychological Hx Reported Smoking Status: Never smoker Past Alcohol Use History: None Reported Past Drug Use History: None Reported Medications and Allergies Home Medications Medication Instructions Recorded Confirmed Type ALPRAZolam [Xanax] 0.25 mg PO BID PRN 04/13/24 04/13/24 History Escitalopram [Lexapro] 10 mg PO DIRECTED 04/13/24 04/13/24 History HYDROcodone/APAP 5-325MG [[place] 1 tab PO BID 04/13/24 04/13/24 History 5-325] metroNIDAZOLE [Flagyl] 500 mg PO BID 04/13/24 04/13/24 History Allergies Allergy/AdvReac Type Severity Reaction Status Date / Time No Known Allergies Allergy Verified 04/13/24 20:56 Physical Examination - Vital Signs Vital Signs: Vital Signs Temp Pulse Resp BP Pulse Ox 04/16/24 07:33 97 04/16/24 07:03 98.0 F 78 14 158/79 97 04/16/24 04:00 98.0 F 76 16 157/74 98 04/16/24 00:00 98.0 F 79 16 159/71 96 04/15/24 20:00 98.4 F 86 16 177/84 98 04/15/24 16:29 98.6 F 88 17 177/74 99 04/15/24 12:09 98.8 F 85 17 179/75 98 Intake and Output 04/15/24 04/16/24 04/16/24 22:59 06:59 14:59 Intake Total 1020 590 Output Total 1200 Balance -180 590 Intake: Oral 1020 590 Output: Urine 1200 Other: Voiding Method Diaper Incontinent External Catheter General: Lying in bed and is not in acute distress. Neuro: Patient is mildly drowsy but is awake able to voice. Is oriented to self and place. She was able to weakly state the current year on the second attempt. She is following simple commands appropriately. No aphasia Pupils are round about 3 to 4 mm equal and reactive to light. Visual gorman are full to confrontation. Extraocular movements intact no nystagmus. Normal facial sensation to touch. No facial weakness. No dysarthria. Tongue is midline move [id number] with any difficulty The motor: Strength patient had some effort related but her strength was equal throughout upper and lower 5 -. Sensation is normal to touch throughout Cerebellar is normal [id number] bilaterally Plantars are mute. Results - Laboratory Findings CBC and BMP: 04/14/24 03:45 04/14/24 03:45 Abnormal Lab Findings: Abnormal Labs 04/13/24 04/13/24 04/13/24 15:44 15:44 15:44 RBC Hgb Hct MCHC Immature Gran # Neutrophils # 7.8 H Eosinophils # APTT 20.1 L Potassium Chloride Carbon Dioxide Anion Gap BUN Est GFR (CKD-EPI) BUN/Creatinine Ratio Glucose Plasma Lactic Acid Fransico 3.0 H* Calcium Phosphorus Magnesium AST ALT Alkaline Phosphatase Carcinoembryonic Ag Urine Protein Urine Blood Ur Leukocyte Esterase Urine WBC Urine Bacteria Free [place]croft LC, Quant 04/13/24 04/13/24 04/14/24 15:51 19:49 03:45 RBC 3.99 L Hgb 11.4 L Hct 35.9 L MCHC 31.8 L Immature Gran # 0.09 H Neutrophils # Eosinophils # 0.01 L APTT Potassium Chloride 95 L Carbon Dioxide 33 H Anion Gap BUN 30 H Est GFR (CKD-EPI) BUN/Creatinine Ratio Glucose 106 H Plasma Lactic Acid Fransico 2.5 H* Calcium 16.8 H* Phosphorus 5.0 H Magnesium 1.5 L AST 114 H ALT 53 H Alkaline Phosphatase 128 H Carcinoembryonic Ag Urine Protein Urine Blood Ur Leukocyte Esterase Urine WBC Urine Bacteria Free [place] LC, Quant 04/14/24 04/14/24 04/14/24 03:45 06:00 09:09 RBC Hgb Hct MCHC Immature Gran # Neutrophils # Eosinophils # APTT Potassium 3.2 L Chloride Carbon Dioxide Anion Gap 13.90 H BUN Est GFR (CKD-EPI) 49 L BUN/Creatinine Ratio 21.92 H Glucose 120 H Plasma Lactic Acid Fransico Calcium 17.1 A* Phosphorus Magnesium AST 103 H ALT 53 H Alkaline Phosphatase 143 H Carcinoembryonic Ag Urine Protein Trace H Urine Blood Small H Ur Leukocyte Esterase Large H Urine WBC 35 H Urine Bacteria Rare H Free Cloudcroft LC, Quant 2.36 H 04/14/24 04/14/24 04/15/24 09:14 18:35 04:56 RBC Hgb Hct MCHC Immature Gran # Neutrophils # Eosinophils # APTT Potassium Chloride Carbon Dioxide Anion Gap BUN Est GFR (CKD-EPI) BUN/Creatinine Ratio Glucose Plasma Lactic Acid Fransico Calcium 15.2 H* 12.6 H Phosphorus Magnesium AST ALT Alkaline Phosphatase Carcinoembryonic Ag 5.5 H Urine Protein Urine Blood Ur Leukocyte Esterase Urine WBC Urine Bacteria Free Cloudcroft LC, Quant Assessment and Plan Assessment: This is a 68-year-old woman with recent suspicious of multiple myeloma with mets who presented emergency department because of generalized weakness confusion. Was found to have hypercalcemia with multiple osseous metastasis as well as multiple hypodense hepatic lesion. Also has lytic lesions on the skull with hypodensity over the right posterior region over the parietal occipital and in my opinion I felt was more occipital temporal region concerning for vasogenic edema vs cva. Hypodensity over the right posterior region concerning for vasogenic edema versus stroke. Likely multiple myeloma with metastasis to the liver (hypercalcemia, multiple lytic lesion) Altered mental status likely due to metabolic encephalopathy as well as due to above Hypercalcemia likely due to multiple myeloma Liver lesion status post biopsy on 04/14/2024 Transaminitis due to her metastasis to the liver Plan: I ordered MRI of the brain with and without I ordered a routine EEG for any seizure or discharges which is I feel is unlikely Ordered ammonia level Oncology team is on board I placed the patient on gabapentin 300 mg 1 tablet 3 times daily as needed since she is having some neuropathic pain and the family does not want her to be on it scheduled and just wanted on as needed. Patient is on Decadron 4 mg every 6 hours. I will defer modification of steroids to the oncology team Defer the rest of the medical management to primary and other specialist The plan discussed with the patient and her children who are bedside Thank you for the consultation. Time with Patient: Greater than 30
[2024-04-16 12:23] LABS: ALT 41 U/L (4-34); AST 61 U/L (14-36); African American GFR (CKD) 78 (>60 ml/min/1.73 sqM); Albumin 3.2 g/dL (3.5-5.0); Albumin/Globulin Ratio 1.3; Alkaline Phosphatase 103 U/L (38-126); Anion Gap 8 mmol/L; Blood Urea Nitrogen 25 mg/dL (7-17); Calcium 9.4 mg/dL (8.4-10.2); Carbon Dioxide 26 mmol/L (22-30); Chloride 103 mmol/L (98-107); Globulin 2.4 g/dL; Glucose 96 mg/dL (74-99); Non-African American GFR(CKD) 67 (>60 ml/min/1.73 sqM); Potassium 2.9 mmol/L (3.5-5.1); Sodium 137 mmol/L (137-145); Total Bilirubin 0.5 mg/dL (0.2-1.3); Total Protein 5.6 g/dL (6.3-8.2)
[2024-04-16] MEDS: hydrALAZINE HCL 25 MG TAB PO PRN (13:11)
[2024-04-16 13:14] LABS: Albumin 3.59 g/dL (3.80-4.90); Gamma Globulin 0.75 g/dL (0.70-1.50)
[2024-04-16 13:24] VITALS: BMI 21.4
[2024-04-16] MEDS: POTASSIUM CHLORIDE ER 20 MEQ TAB.ER PO SCH (13:52)
--- NOTE | 2024-04-16 15:27 | MR ---
INDICATION: Patient age:Female; 68 years old; Reason for study: brain mets. Also rule out cva. has cancer mets; [facility]. COMPARISON: CT brain 04/13/2024. TECHNIQUE: Multi planar, multi sequence imaging was performed through the brain. The patient was then given 5.5 cc of Gadobutrol intravenously and multi planar, T1 fat-saturation images were obtained. FINDINGS: The ibanez-white junctions, ventricular system, basal cisterns appear unremarkable. Age-appropriate cer ebral parenchymal volume. Falx calcifications corresponding to prior CT. Diffusion-weighted imaging s hows no evidence of restricted diffusion to suggest acute/subacute infarct. Intracranial arterial en w voids are maintained. Midline structures show no abnormality. Regions of T2 hyperintense vasogenic edema within the bilateral parietal and occipital lobes posteriorly. The right is slightly greater th an left. The susceptibility weighted images do not reveal any evidence for micro-hemorrhage. Left par ietal developmental venous anomaly. There is diffuse smooth pachymeningeal enhancement. Innumerable T1 hypointense/T2 hyperintense lesions throughout the calvarium. These demonstrate T2 hyp erintensity. Additional involvement of the visualized cervical vertebral bodies C2-C4. These lesions demonstrate enhancement on postcontrast imaging. No definitive extension through the inner table. Gamaliel ateral aphakia. Trace right mastoid effusion. Mild mucosal thickening of the inferior paranasal sinus es and ethmoid sinuses. IMPRESSION: 1. No evidence of acute/subacute infarct. 2. Diffuse innumerable enhancing calvarial and cervical vertebral body lesions consistent with metast asis. 3. Vasogenic edema identified within the bilateral posterior parietal and occipital lobes. No corresp onding abnormal enhancement. This could represent posterior reversible encephalopathy syndrome versus other etiologies such as hypoglycemia, gliomatosis cerebri versus other. Metastasis is thought to be less likely due to lack of enhancement. 4. Nonspecific diffuse pachymeningeal smooth enhancement. 5. Left parietal developmental venous anomaly. [facility], , 04/16/2024 3:24 PM
--- NOTE | 2024-04-16 19:23 | EEG ---
ELECTROENCEPHALOGRAM REPORT CLINICAL HISTORY: This is a 68-year-old woman with altered mental status. The routine EEG is obtained to evaluate for seizure epileptiform activity. RELEVANT MEDICATION: Xanax p.r.n. EEG TYPE: This is a routine 21-channel EEG with video using the 10/20 electrode placement system. DESCRIPTION: Wakefulness is obtained. During awake state, the background consists of [id number] voltage of 6 to 6.5 hertz activity and at rare times intermixed with delta activity. There was no physiological stage 2 sleep architecture. There is no focal slowing. Interictal and ictal is none. ACTIVATION PROCEDURE: Photic stimulation did not evoke a posterior driving response. There is no abnormality during the photic stimulation. Hyperventilation is not performed. CLINICAL INTERPRETATION: This is an abnormal routine EEG. The background slowing is suggestive of mild to moderate encephalopathy. Otherwise, there is no focal slowing, epileptiform discharge, or seizure on the EEG. Clinical correlation is recommended. EMA / BRIAN: [id number] /
[2024-04-17 10:04] LABS: ALT 35 U/L (8-44); AST 60 U/L (13-35); Albumin 3.3 g/dL (3.8-4.9); Albumin/Globulin Ratio 1.74 Ratio (1.60-3.17); Alkaline Phosphatase 107 U/L (41-126); BUN/Creat Ratio 29.71 Ratio (12.00-20.00); Blood Urea Nitrogen 20.8 mg/dL (9.0-27.0); Calcium 8.2 mg/dL (8.7-10.3); Carbon Dioxide 22.4 mmol/L (21.6-31.8); Chloride 113 mmol/L (96-109); Globulin 1.9 g/dL (1.6-3.3); Glucose 117 mg/dL (70-110); Potassium 3.7 mmol/L (3.5-5.5); Sodium 145 mmol/L (135-145); Total Bilirubin <0.2 mg/dL (0.3-1.2); Total Protein 5.2 g/dL (6.2-8.2)
--- NOTE | 2024-04-17 13:48 | P.PN ---
Subjective Progress Note Date: 04/17/24 I am following-up with patient and per family members she has episodes of confusion. She is having headache in posterior region of head bilaterally and feels it is 7/10. Denies any nausea or vomiting. Denies any new weakness. Still pending liver biopsy results. Objective - Vital Signs Vital signs: Vital Signs Temp 97.6 F 04/17/24 08:00 Pulse 95 04/17/24 08:00 Resp 18 04/17/24 08:00 BP 149/80 04/17/24 08:00 Pulse Ox 97 04/17/24 08:00 FiO2 Intake & Output 04/16/24 04/17/24 04/17/24 18:59 06:59 18:59 Intake Total 2866 Output Total 900 900 Balance 1966 - Weight 56.699 kg Intake: Oral 2866 Output: Urine 900 900 Other: Voiding Method External Catheter External Catheter - Exam General: Lying in bed and is not in acute distress. Neuro: Patient is awake, alert, oriented to self and place. She new the current month but not year. She is following simple commands appropriately. No aphasia Pupils are round about 3 to 4 mm equal and reactive to light. Visual gorman are full to confrontation. Extraocular movements intact no nystagmus. Normal facial sensation to touch. No facial weakness. No dysarthria. Tongue is midline move [id number] with any difficulty The motor: Strength patient limited in the right upper extremity because shoulder pain. Otherwise lifting extremities above gravity and appears symmetrical. Sensation is normal to touch throughout Some of the workup during this hospital visit consisted of: Calcium is 16.8 on presentation and currently is 12.6. Her AST and ALT are elevated AST more than ALT of 114 over 53 Phosphorus level is 5.0, magnesium is 1.5 and no signs improved ammonia 18 CT of the head is reported as multiple hypoechoic lytic area throughout the skull. Correlate for metastasis. Consider multiple myeloma. Hypodensity within the right parietaloccipital region. Subcortical infarct or vasogenic edema could be considered. I personally reviewed the CAT scan and I do agree there is multiple lytic lesion in the skull. I do agree that the patient has hypodensity over the right occipital temporal region in my opinion. CT chest abdomen pelvis is reported as multiple osseous metastatic cysts. Multiple myeloma should be considered. Multiple hypodense hepatic lesions suspicious for metastatic disease. MRI Brain w/ and w/o: No evidence of acute/subacute infarct. Diffuse innumerable enhancing clavarial and cervical vertebral body lesion consistent with me tastatis. Vasogenic edema indentified within the bilateral posterior parietal and occipital lobes. No corresponding abnormal enhancement. This could represent posterior reversible encephalopathy syndrome vs other etiologies such as hypoglycemia, gliomatosis cerebri vs other. Metastatis is though to be less likely due to lack of enhancement. Nonspecific diffuse pachymeningeal smooth enhancement. Left parietal developemental venous anomaly. Routine EEG: Is abnormal. The background is suggestive of mild to moderate encephalopathy. Otherwise, there is no focal slowing, epileptiform discharge or seizure on the EEG. - Labs CBC & Chem 7: 04/14/24 03:45 04/17/24 05:03 Labs: Abnormal Lab Results - Last 24 Hours (Table) 04/16/24 04/17/24 Range/Units 18:24 05:03 Potassium 3.2 L (3.5-5.1) mmol/L Chloride 113 H (96-109) mmol/L BUN/Creatinine Ratio 29.71 H (12.00-20.00) Ratio Glucose 117 H (70-110) mg/dL Calcium 8.2 L (8.7-10.3) mg/dL Total Bilirubin <0.2 L (0.3-1.2) mg/dL AST 60 H (13-35) U/L Total Protein 5.2 L (6.2-8.2) g/dL Albumin 3.3 L (3.8-4.9) g/dL Assessment and Plan Assessment: This is a 68-year-old woman with recent suspicious of multiple myeloma with mets who presented emergency department because of generalized weakness confusion. Was found to have hypercalcemia with multiple osseous metastasis as well as multiple hypodense hepatic lesion. Also has lytic lesions on the skull with hypodensity over the right posterior region over the parietal occipital and in my opinion I felt was more occipital temporal region concerning for vasogenic edema vs cva. 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 Likely multiple myeloma with metastasis to the liver, clavarial and cervical body (hypercalcemia, multiple lytic lesion) Altered mental status likely due to metabolic encephalopathy as well as due to above. EEG is negative for seizure. No acute cva or enhancement. Meningeal enhancement on MRI likely due to mets Hypercalcemia likely due to multiple myeloma Cephalgia due to above Liver lesion status post biopsy on 04/14/2024 Left parietal developemental venous anomaly noted on MRI seems incidental. Transaminitis due to her metastasis to the liver Plan: MRI Brain w/ and w/o: No evidence of acute/subacute infarct. Diffuse innumerable enhancing clavarial and cervical vertebral body lesion consistent with metastatis. Vasogenic edema indentified within the bilateral posterior parietal and occipital lobes. No corresponding abnormal enhancement. This could represent posterior reversible encephalopathy syndrome vs other etiologies such as hypoglycemia, gliomatosis cerebri vs other. Metastatis is though to be less likely due to lack of enhancement. Nonspecific diffuse pachymeningeal smooth enhancement. Left parietal developemental venous anomaly. For meningeal enhancement, consider CSF study with paraneoplastic panel (CSF and serum) depending on overall prognosis of her overall condition. Recommend hospice consultation. Oncology team is on board I placed the patient on gabapentin 300 mg 1 tablet 3 times daily as needed since she is having some neuropathic pain and the family does not want her to be on it scheduled and just wanted on as needed. This can be use for headache PRN and I notified the nurse. Patient is on Decadron 4 mg every 6 hours. I will defer modification of steroids to the oncology team Defer the rest of the medical management to primary and other specialist The plan is discussed with the patient and her daughters who are at bedside. Dr. Boss will resume neurology service this Friday (04/19/2024) A.M. Time with Patient: Less than 30
[2024-04-17] MEDS: GABAPENTIN 300 MG CAP PO PRN (19:58)
--- NOTE | 2024-04-17 20:18 | P.PN ---
Subjective Progress Note Date: 04/16/24 68 years old female who was recently admitted for generalized weakness and abdominal pain, her PCP recently diagnosed her with metastasis to the bone and liver. On admission patient was severely dehydrated secondary to hypercalcemia with acute kidney injury. She has evidence of multiple osseous metastatic disease and multiple liver lesions suspicious for metastatic disease with unknown primary source. She underwent liver biopsy and result is pending Also on CT of the brain she has possible right parieto-occipital lesion which could be infarct versus vasogenic edema. Currently patient lying in bed complaining from pain in her back about 7/10, she did not have bowel movement she has poor appetite and she looks little depressed. Multiple family members at bedside No chest pain or dyspnea. No diarrhea or urinary symptoms. She is getting normal saline at 150 mL/h. She is hemodynamically stable Hemoglobin 11.4, creatinine slightly elevated at 1.2, calcium 17, 15.2. Calcium came down today to 12.6. Patient received zoledronic acid and calcitonin. Hematology/oncology team also following closely CA 19-9 is is negative g, CA 15-[address] of the chest abdomen and pelvis showing multiple osseous metastatic lesions and multiple metastatic liver lesions CT of the brain showing lytic lesions of the skull but there is hypodensity in the right parieto-occipital region which could be subcortical infarct versus vasogenic edema EKG showing sinus tachycardia in [address]-T changes Objective - Vital Signs Vital signs: Vital Signs Temp 97.8 F 04/16/24 12:40 Pulse 77 04/16/24 12:40 Resp 16 04/16/24 12:40 BP 172/84 04/16/24 12:40 Pulse Ox 97 04/16/24 12:40 FiO2 Intake & Output 04/15/24 04/16/24 04/16/24 18:59 06:59 18:59 Intake Total 1020 590 Output Total 1200 Balance -180 590 Weight 56.699 kg Intake: Oral 1020 590 Output: Urine 1200 Other: Voiding Method Diaper Diaper Incontinent Incontinent External Catheter External Catheter - Exam -GENERAL: The patient is alert and oriented x3, not in any acute distress. Well developed, well nourished. Generally weak HEENT: Pupils are round and equally reacting to light. EOMI. No scleral icterus. No conjunctival pallor. Normocephalic, atraumatic. No pharyngeal erythema. No thyromegaly. CARDIOVASCULAR: S1 and S2 present. No murmurs, rubs, or gallops. PULMONARY: Chest is clear to auscultation, no wheezing , no crackles. ABDOMEN: Soft, nontender, nondistended, normoactive bowel sounds. No palpable organomegaly. MUSCULOSKELETAL: No joint swelling or deformity. EXTREMITIES: No cyanosis, clubbing, or pedal edema. NEUROLOGICAL: Gross neurological examination did not reveal any focal deficits. SKIN: No rashes. no petechiae. - Labs CBC & Chem 7: 04/14/24 03:45 04/17/24 05:03 Labs: Abnormal Lab Results - Last 24 Hours (Table) 04/14/24 04/16/24 Range/Units 09:09 11:29 Potassium 2.9 L (3.5-5.1) mmol/L BUN 25 H (7-17) mg/dL AST 61 H (14-36) U/L ALT 41 H (4-34) U/L Total Protein 5.6 L (6.3-8.2) g/dL Albumin 3.2 L (3.5-5.0) g/dL Albumin (PEP) 3.59 L (3.80-4.90) g/dL Beta Globulins 0.51 L (0.60-1.30) g/dL Assessment and Plan Assessment: Hypercalcemia, improving Mild acute kidney injury improving Multiple osseous metastatic lesions unknown primary source Multiple liver metastatic lesion s/p liver biopsy Right parieto-occipital lesion could be acute infarct versus vasogenic edema Plan: Continue with normal saline Follow-up liver biopsy Pain management Start dexamethasone and consult neurology service for possible occipital lesion versus acute infarct versus metastatic disease Start Remeron to help with appetite and depression, discussed with the patient and family and they agreeable Further recommendation based on the clinical course GI prophylaxis Pepcid DVT prophylaxis mechanical, there is relative contraindication for subcu heparin because of the brain lesions
--- NOTE | 2024-04-17 20:22 | P.PN ---
Subjective Progress Note Date: 04/17/24 68 years old female who was recently admitted for generalized weakness and abdominal pain, her PCP recently diagnosed her with metastasis to the bone and liver. On admission patient was severely dehydrated secondary to hypercalcemia with acute kidney injury. She has evidence of multiple osseous metastatic disease and multiple liver lesions suspicious for metastatic disease with unknown primary source. She underwent liver biopsy and result is pending Also on CT of the brain she has possible right parieto-occipital lesion which could be infarct versus vasogenic edema. Currently patient lying in bed complaining from pain in her back about 7/10, she did not have bowel movement she has poor appetite and she looks little depressed. Multiple family members at bedside No chest pain or dyspnea. No diarrhea or urinary symptoms. She is getting normal saline at 150 mL/h. She is hemodynamically stable Hemoglobin 11.4, creatinine slightly elevated at 1.2, calcium 17, 15.2. Calcium came down today to 12.6. Patient received zoledronic acid and calcitonin. Hematology/oncology team also following closely CA 19-9 is is negative g, CA 15-[address] of the chest abdomen and pelvis showing multiple osseous metastatic lesions and multiple metastatic liver lesions CT of the brain showing lytic lesions of the skull but there is hypodensity in the right parieto-occipital region which could be subcortical infarct versus vasogenic edema EKG showing sinus tachycardia in [address]-T changes 04/17/2024 Patient seen and evaluated in room with family members at bedside; patient reports fair appetite; patient's daughter is at bedside and is concerned about abdominal bloating/distention; patient denies any pain Vital signs are reviewed and are stable with temperature of 97.6, pulse 95, respiration 18 and blood pressure 149/80 Lab review shows sodium 145, potassium 3.7, BUNs/creatinine of 20/0.7, blood glucose of 117 Patient is being followed by neurology---MRI Brain w/ and w/o: No evidence of acute/subacute infarct. Diffuse innumerable enhancing clavarial and cervical vertebral body lesion consistent with metastatis. Vasogenic edema indentified within the bilateral posterior parietal and occipital lobes. No corresponding abnormal enhancement. This could represent posterior reversible encephalopathy syndrome vs other etiologies such as hypoglycemia, gliomatosis cerebri vs other. Metastatis is though to be less likely due to lack of enhancement. Nonspecific diffuse pachymeningeal smooth enhancement. Left parietal developemental venous anomaly. For meningeal enhancement, neurology is recommending to consider CSF study with paraneoplastic panel (CSF and serum) depending on overall prognosis of her overall condition; currently recommending hospice. Objective - Vital Signs Vital signs: Vital Signs Temp 97.6 F 04/17/24 08:00 Pulse 95 04/17/24 08:00 Resp 18 04/17/24 08:00 BP 149/80 04/17/24 08:00 Pulse Ox 97 04/17/24 08:00 FiO2 Intake & Output 04/16/24 04/17/24 04/17/24 18:59 06:59 18:59 Intake Total 2866 Output Total 900 900 Balance 1966 - Weight 56.699 kg Intake: Oral 2866 Output: Urine 900 900 Other: Voiding Method External Catheter External Catheter - Exam -GENERAL: The patient is alert and oriented x3, not in any acute distress. Well developed, well nourished. Generally weak HEENT: Pupils are round and equally reacting to light. EOMI. No scleral icterus. No conjunctival pallor. Normocephalic, atraumatic. No pharyngeal erythema. No thyromegaly. CARDIOVASCULAR: S1 and S2 present. No murmurs, rubs, or gallops. PULMONARY: Chest is clear to auscultation, no wheezing , no crackles. ABDOMEN: Soft, nontender, nondistended, normoactive bowel sounds. No palpable organomegaly. MUSCULOSKELETAL: No joint swelling or deformity. EXTREMITIES: No cyanosis, clubbing, or pedal edema. NEUROLOGICAL: Gross neurological examination did not reveal any focal deficits. SKIN: No rashes. no petechiae. - Labs CBC & Chem 7: 04/14/24 03:45 04/17/24 05:03 Labs: Abnormal Lab Results - Last 24 Hours (Table) 04/16/24 04/17/24 Range/Units 18:24 05:03 Potassium 3.2 L (3.5-5.1) mmol/L Chloride 113 H (96-109) mmol/L BUN/Creatinine Ratio 29.71 H (12.00-20.00) Ratio Glucose 117 H (70-110) mg/dL Calcium 8.2 L (8.7-10.3) mg/dL Total Bilirubin <0.2 L (0.3-1.2) mg/dL AST 60 H (13-35) U/L Total Protein 5.2 L (6.2-8.2) g/dL Albumin 3.3 L (3.8-4.9) g/dL Assessment and Plan Assessment: Hypercalcemia, improving Mild acute kidney injury improving Multiple osseous metastatic lesions unknown primary source Multiple liver metastatic lesion s/p liver biopsy Right parieto-occipital lesion could be acute infarct versus vasogenic edema Plan: Continue with normal saline Follow-up liver biopsy Pain management Start dexamethasone and consult neurology service for possible occipital lesion versus acute infarct versus metastatic disease Start Remeron to help with appetite and depression, discussed with the patient and family and they agreeable Further recommendation based on the clinical course GI prophylaxis Pepcid DVT prophylaxis mechanical, there is relative contraindication for subcu heparin because of the brain lesions
[2024-04-17] MEDS: LACTULOSE 20 GM/30 ML CUP PO SCH (22:08)
[2024-04-17] MEDS: IBUPROFEN 400 MG TAB PO PRN (22:10)
[2024-04-18 10:12] LABS: Basophils # (A) 0.04 X 10*3/uL (0.00-0.10); Basophils % (A) 0.3 %; Eosinophils # (A) 0.01 X 10*3/uL (0.04-0.35); Eosinophils % (A) 0.1 %; HCT 35.8 % (37.2-46.3); HGB 11.2 g/dL (12.0-15.0); Lymphocytes # (A) 1.22 X 10*3/uL (0.90-5.00); Lymphocytes % (A) 8.5 %; MCH 28.4 pg (27.0-32.0); MCHC 31.3 g/dL (32.0-37.0); MCV 90.9 FL (80.0-97.0); Mean Platelet Volume 9.9 FL (9.5-12.2); Monocytes # (A) 0.59 X 10*3/uL (0.20-1.00); Monocytes % (A) 4.1 %; NRBC Per 100 WBC 0 X 10*3/uL (0.00-0.01); Neutrophils # (A) 11.84 X 10*3/uL (1.80-7.70); Neutrophils % (A) 82.7 %; Platelet Count 369 X 10*3/uL (140-440); RBC 3.94 X 10*6/uL (4.10-5.20); RDW 13.2 % (11.5-14.5); WBC 14.31 X 10*3/uL (4.50-10.00)
[2024-04-18 10:17] LABS: BUN/Creat Ratio 22.62 Ratio (12.00-20.00); Blood Urea Nitrogen 18.1 mg/dL (9.0-27.0); Calcium 7.7 mg/dL (8.7-10.3); Carbon Dioxide 20.9 mmol/L (21.6-31.8); Chloride 112 mmol/L (96-109); Glucose 109 mg/dL (70-110); Potassium 3.1 mmol/L (3.5-5.5); Sodium 146 mmol/L (135-145)
--- NOTE | 2024-04-18 17:18 | P.PN ---
Subjective Progress Note Date: 04/18/24 68 years old female who was recently admitted for generalized weakness and abdominal pain, her PCP recently diagnosed her with metastasis to the bone and liver. On admission patient was severely dehydrated secondary to hypercalcemia with acute kidney injury. She has evidence of multiple osseous metastatic disease and multiple liver lesions suspicious for metastatic disease with unknown primary source. She underwent liver biopsy and result is pending Also on CT of the brain she has possible right parieto-occipital lesion which could be infarct versus vasogenic edema. Currently patient lying in bed complaining from pain in her back about 7/10, she did not have bowel movement she has poor appetite and she looks little depressed. Multiple family members at bedside No chest pain or dyspnea. No diarrhea or urinary symptoms. She is getting normal saline at 150 mL/h. She is hemodynamically stable Hemoglobin 11.4, creatinine slightly elevated at 1.2, calcium 17, 15.2. Calcium came down today to 12.6. Patient received zoledronic acid and calcitonin. Hematology/oncology team also following closely CA 19-9 is is negative g, CA 15-[address] of the chest abdomen and pelvis showing multiple osseous metastatic lesions and multiple metastatic liver lesions CT of the brain showing lytic lesions of the skull but there is hypodensity in the right parieto-occipital region which could be subcortical infarct versus vasogenic edema EKG showing sinus tachycardia in [address]-T changes 04/17/2024 Patient seen and evaluated in room with family members at bedside; patient reports fair appetite; patient's daughter is at bedside and is concerned about abdominal bloating/distention; patient denies any pain Vital signs are reviewed and are stable with temperature of 97.6, pulse 95, respiration 18 and blood pressure 149/80 Lab review shows sodium 145, potassium 3.7, BUNs/creatinine of 20/0.7, blood glucose of 117 Patient is being followed by neurology---MRI Brain w/ and w/o: No evidence of acute/subacute infarct. Diffuse innumerable enhancing clavarial and cervical vertebral body lesion consistent with metastatis. Vasogenic edema indentified within the bilateral posterior parietal and occipital lobes. No corresponding abnormal enhancement. This could represent posterior reversible encephalopathy syndrome vs other etiologies such as hypoglycemia, gliomatosis cerebri vs other. Metastatis is though to be less likely due to lack of enhancement. Nonspecific diffuse pachymeningeal smooth enhancement. Left parietal developemental venous anomaly. For meningeal enhancement, neurology is recommending to consider CSF study with paraneoplastic panel (CSF and serum) depending on overall prognosis of her overall condition; currently recommending hospice. 04/18/2024 Patient is seen and evaluated with multiple family members at bedside; no further complaint of headache Vital signs are reviewed and remained stable Lab review shows WBC of 14.31, hemoglobin of 11 and platelet count of 369, sodium 146, potassium 3.1, BUNs/creatinine of 18.1/0.8 -Patient received potassium per protocol; encouraged to increase fluid intake Patient and family await revisit by oncology team for further plan of care Objective - Vital Signs Vital signs: Vital Signs Temp 97.8 F 04/18/24 08:00 Pulse 85 04/18/24 08:27 Resp 17 04/18/24 08:00 BP 191/84 04/18/24 08:27 Pulse Ox 95 04/18/24 08:00 FiO2 Intake & Output 04/17/24 04/18/24 04/18/24 18:59 06:59 18:59 Intake Total 2140 590 480 Output Total 1600 700 Balance 540 -110 480 Intake: Intake, IV Titration 1900 Amount Sodium Chloride 0.9% 1, 1900 000 ml @ 150 mls/hr IV . Q6H40M [facility] Rx#:[id number] Oral 240 590 480 Output: Urine 1600 700 Other: Voiding Method External Catheter External Catheter # Voids 2 # Bowel Movements 1 - Exam -GENERAL: The patient is alert and oriented x3, not in any acute distress. Well developed, well nourished. Generally weak HEENT: Pupils are round and equally reacting to light. EOMI. No scleral icterus. No conjunctival pallor. Normocephalic, atraumatic. No pharyngeal erythema. No thyromegaly. CARDIOVASCULAR: S1 and S2 present. No murmurs, rubs, or gallops. PULMONARY: Chest is clear to auscultation, no wheezing , no crackles. ABDOMEN: Soft, nontender, nondistended, normoactive bowel sounds. No palpable organomegaly. MUSCULOSKELETAL: No joint swelling or deformity. EXTREMITIES: No cyanosis, clubbing, or pedal edema. NEUROLOGICAL: Gross neurological examination did not reveal any focal deficits. SKIN: No rashes. no petechiae. - Labs CBC & Chem 7: 04/18/24 06:43 04/18/24 06:43 Labs: Abnormal Lab Results - Last 24 Hours (Table) 04/18/24 04/18/24 Range/Units 06:43 06:43 WBC 14.31 H (4.50-10.00) X 10*3/uL RBC 3.94 L (4.10-5.20) X 10*6/uL Hgb 11.2 L (12.0-15.0) g/dL Hct 35.8 L (37.2-46.3) % MCHC 31.3 L (32.0-37.0) g/dL Immature Gran # 0.61 H (0.00-0.04) X 10*3/uL Neutrophils # 11.84 H (1.80-7.70) X 10*3/uL Eosinophils # 0.01 L (0.04-0.35) X 10*3/uL Sodium 146 H (135-145) mmol/L Potassium 3.1 L (3.5-5.5) mmol/L Chloride 112 H (96-109) mmol/L Carbon Dioxide 20.9 L (21.6-31.8) mmol/L Anion Gap 13.10 H (4.00-12.00) mmol/L BUN/Creatinine Ratio 22.62 H (12.00-20.00) Ratio Calcium 7.7 L (8.7-10.3) mg/dL Assessment and Plan Assessment: Hypercalcemia, improving Mild acute kidney injury improving Multiple osseous metastatic lesions unknown primary source Multiple liver metastatic lesion s/p liver biopsy Right parieto-occipital lesion could be acute infarct versus vasogenic edema Plan: Continue with normal saline Follow-up liver biopsy Pain management Start dexamethasone and consult neurology service for possible occipital lesion versus acute infarct versus metastatic disease Start Remeron to help with appetite and depression, discussed with the patient and family and they agreeable Further recommendation based on the clinical course GI prophylaxis Pepcid DVT prophylaxis mechanical, there is relative contraindication for subcu heparin because of the brain lesions
[2024-04-18] MEDS: NITROGLYCERIN SL TABS 0.4 MG TAB SUBLINGUAL STA (22:05)
--- NOTE | 2024-04-18 22:29 | XR ---
EXAM: XR Chest, 1 View CLINICAL HISTORY: ITS.REASON XR Reason: SOB, left side chest pain TECHNIQUE: Frontal view of the chest. COMPARISON: No relevant prior studies available. FINDINGS: Lungs: Mild changes COPD trace left pleural fluid. No consolidation. Pleural space: See above. Heart: Unremarkable. No cardiomegaly. Mediastinum: Unremarkable. Normal mediastinal contour. Bones/joints: Unremarkable. No acute fracture. IMPRESSION: Trace left pleural effusion Mild changes COPD
--- NOTE | 2024-04-19 11:25 | P.PN ---
Subjective 68 years old female who was recently admitted for generalized weakness and abdominal pain, her PCP recently diagnosed her with metastasis to the bone and liver. On admission patient was severely dehydrated secondary to hypercalcemia with acute kidney injury. She has evidence of multiple osseous metastatic disease and multiple liver lesions suspicious for metastatic disease with unknown primary source. She underwent liver biopsy and result is pending Also on CT of the brain she has possible right parieto-occipital lesion which could be infarct versus vasogenic edema. Currently patient lying in bed complaining from pain in her back about 7/10, she did not have bowel movement she has poor appetite and she looks little depressed. Multiple family members at bedside No chest pain or dyspnea. No diarrhea or urinary symptoms. She is getting normal saline at 150 mL/h. She is hemodynamically stable Hemoglobin 11.4, creatinine slightly elevated at 1.2, calcium 17, 15.2. Calcium came down today to 12.6. Patient received zoledronic acid and calcitonin. Hematology/oncology team also following closely CA 19-9 is is negative g, CA 15-[address] of the chest abdomen and pelvis showing multiple osseous metastatic lesions and multiple metastatic liver lesions CT of the brain showing lytic lesions of the skull but there is hypodensity in the right parieto-occipital region which could be subcortical infarct versus vasogenic edema EKG showing sinus tachycardia in [address]-T changes 04/17/2024 Patient seen and evaluated in room with family members at bedside; patient reports fair appetite; patient's daughter is at bedside and is concerned about abdominal bloating/distention; patient denies any pain Vital signs are reviewed and are stable with temperature of 97.6, pulse 95, respiration 18 and blood pressure 149/80 Lab review shows sodium 145, potassium 3.7, BUNs/creatinine of 20/0.7, blood glucose of 117 Patient is being followed by neurology---MRI Brain w/ and w/o: No evidence of acute/subacute infarct. Diffuse innumerable enhancing clavarial and cervical vertebral body lesion consistent with metastatis. Vasogenic edema indentified within the bilateral posterior parietal and occipital lobes. No corresponding abnormal enhancement. This could represent posterior reversible encephalopathy syndrome vs other etiologies such as hypoglycemia, gliomatosis cerebri vs other. Metastatis is though to be less likely due to lack of enhancement. Nonspecific diffuse pachymeningeal smooth enhancement. Left parietal developemental venous anomaly. For meningeal enhancement, neurology is recommending to consider CSF study with paraneoplastic panel (CSF and serum) depending on overall prognosis of her overall condition; currently recommending hospice. 04/18/2024 Patient is seen and evaluated with multiple family members at bedside; no further complaint of headache Vital signs are reviewed and remained stable Lab review shows WBC of 14.31, hemoglobin of 11 and platelet count of 369, sodium 146, potassium 3.1, BUNs/creatinine of 18.1/0.8 -Patient received potassium per protocol; encouraged to increase fluid intake Patient and family await revisit by oncology team for further plan of care 04/19 Patient had some breathing difficulty last night but she feels better today. No dyspnea or chest pain She participated with therapy today, she feels better but she feels tired easily. Patient's wants to go home soon, family at bedside She has some pain in the back clavicle and ribs but she declines pain medication and prefers to be treated naturally No IV fluid. Liver biopsy is pending at this discussed with the patient and family Patient to be continued on her amiodarone Dexamethasone were discontinued Objective - Vital Signs Vital signs: Vital Signs Temp 98.4 F 04/19/24 07:02 Pulse 86 04/19/24 07:02 Resp 16 04/19/24 07:02 BP 160/74 04/19/24 07:02 Pulse Ox 94 L 04/19/24 07:02 FiO2 Intake & Output 04/18/24 04/19/24 04/19/24 18:59 06:59 18:59 Intake Total 2520 Output Total 2600 1700 Balance -80 -1700 Intake: Intake, IV Titration 1800 Amount Sodium Chloride 0.9% 1, 1800 000 ml @ 150 mls/hr IV . Q6H40M [facility] Rx#:[id number] Oral 720 Output: Urine 2600 1700 Other: Voiding Method External Catheter Diaper External Catheter - Exam -GENERAL: The patient is alert and oriented x3, not in any acute distress. Well developed, well nourished. Generally weak HEENT: Pupils are round and equally reacting to light. EOMI. No scleral icterus. No conjunctival pallor. Normocephalic, atraumatic. No pharyngeal erythema. No thyromegaly. CARDIOVASCULAR: S1 and S2 present. No murmurs, rubs, or gallops. PULMONARY: Chest is clear to auscultation, no wheezing , no crackles. ABDOMEN: Soft, nontender, nondistended, normoactive bowel sounds. No palpable organomegaly. MUSCULOSKELETAL: No joint swelling or deformity. EXTREMITIES: No cyanosis, clubbing, or pedal edema. NEUROLOGICAL: Gross neurological examination did not reveal any focal deficits. SKIN: No rashes. no petechiae. - Labs CBC & Chem 7: 04/18/24 06:43 04/18/24 06:43 Assessment and Plan Assessment: Hypercalcemia, improving Mild acute kidney injury improving Multiple osseous metastatic lesions unknown primary source Multiple liver metastatic lesion s/p liver biopsy Right parieto-occipital lesion could be acute infarct versus vasogenic edema Plan: IV fluid was discontinued Steroids were discontinued per consultants Follow-up liver biopsy Pain management. Patient declines pain medication and she wants to be treated naturally Continue with Remeron to help with appetite and depression, discussed with the patient and family and they agreeable Further recommendation based on the clinical course GI prophylaxis Pepcid DVT prophylaxis mechanical, there is relative contraindication for subcu heparin because of the brain lesions
--- NOTE | 2024-04-19 16:33 | P.PN ---
Subjective Progress Note Date: 04/19/24 Principal diagnosis: Hypercalcemia, liver and bone lesions In follow-up today patient is much more alert, she got to the bathroom with walker and standby assistance. Reports pain in the abd if standing too long in one place. Had a bowel movement yesterday. No fevers, nausea, vomiting. She is having headache, feels ridges on her skull that are new. Objective - Vital Signs Vital signs: Vital Signs Temp 98.4 F 04/19/24 07:02 Pulse 86 04/19/24 07:02 Resp 16 04/19/24 07:02 BP 160/74 04/19/24 07:02 Pulse Ox 94 L 04/19/24 07:02 FiO2 Intake & Output 04/18/24 04/19/24 04/19/24 18:59 06:59 18:59 Intake Total 2520 Output Total 2600 1700 Balance -80 -1700 Intake: Intake, IV Titration 1800 Amount Sodium Chloride 0.9% 1, 1800 000 ml @ 150 mls/hr IV . Q6H40M [facility] Rx#:[id number] Oral 720 Output: Urine 2600 1700 Other: Voiding Method External Catheter Diaper External Catheter - Constitutional General appearance: Present: average body habitus, cooperative, mild distress - EENT Eyes: Present: anicteric sclerae, EOMI ENT: Present: hearing grossly normal - Respiratory Details: Increased RR when pt is anxious - Cardiovascular Details: radial pulse 2+, regular - Gastrointestinal General gastrointestinal: Present: soft, tenderness - Neurologic Neurologic: Present: CNII-XII intact - Musculoskeletal Musculoskeletal: Present: generalized weakness - Psychiatric Psychiatric: Present: A&O x's 3, appropriate affect, intact judgment & insight - Labs CBC & Chem 7: 04/18/24 06:43 04/18/24 06:43 - Imaging and Cardiology MRI - head: report reviewed Assessment and Plan (1) Bone lesion Current Visit: Yes Status: Acute Priority: High Code(s): M89.9 - DISORDER OF BONE, UNSPECIFIED SNOMED Code(s): 546762809 (2) Liver lesion Current Visit: Yes Status: Acute Priority: High Code(s): K76.9 - LIVER DISEASE, UNSPECIFIED SNOMED Code(s): 849972715 (3) Hypercalcemia Current Visit: Yes Status: Acute Priority: High Code(s): E83.52 - HYPERCALCEMIA SNOMED Code(s): 20739974 Plan: Hypercalcemia, bone lesions, liver lesions -Events leading up to hospital presentation as stated in consult. -Patient presenting with constellation of symptoms most consistent with significant hypercalcemia-confusion, constipation, abdominal pain, restlessness. Ca++ 16.8 on admit -Imaging showing bone and liver lesions. Discussed with patient and family concerns for malignancy -Labs to workup monoclonal gammopathy ordered, no significantly abnormal results, few test still pending. Tumor markers are nondiagnostic/negative. -Interventional radiology has performed liver biopsy, pending pathology -Zometa given for hypercalcemia. Calcitonin given. Calcium level today 7.7 -Tramadol ordered for pain as patient has a significant fear of narcotics. -Stool softeners ordered for constipation, pt had BM on 04/18 -Flagyl reordered for [employer] infection, patient was on prior to admission. She had 3 more days left, this has been completed. -Will follow up, further recommendations to follow Abn CT head imaging -Patient has been seen by Neurology for CT of the head-infarct versus vasogenic edema. There are hypoechoic lytic lesions in the skull. There is a reported hypodensity in the right parietal occipital region. Neurology has reviewed the images, it is felt there is a hypodensity in the right occipital temporal region. -Dexamethasone has been started for the edema. -Recommending repeat MRI of the brain in 3 to 4 weeks. -Neurology recommending CSF studies if neuro symptoms persist or progress. -Patient is on gabapentin as needed for headaches.
[2024-04-19] MEDS: polyethylene glycoL 3350 17 GM POWD.PACK PO SCH (22:35)
[2024-04-20 08:42] LABS: Blood Urea Nitrogen 17.1 mg/dL (9.0-27.0); Calcium 6.6 mg/dL (8.7-10.3); Carbon Dioxide 24.3 mmol/L (21.6-31.8); Chloride 105 mmol/L (96-109); Glucose 131 mg/dL (70-110); Magnesium 1.2 mg/dL (1.5-2.4); Potassium 3.4 mmol/L (3.5-5.5); Sodium 142 mmol/L (135-145)
[2024-04-20 08:45] LABS: Basophils # (A) 0.05 X 10*3/uL (0.00-0.10); Basophils % (A) 0.4 %; Eosinophils # (A) 0.01 X 10*3/uL (0.04-0.35); Eosinophils % (A) 0.1 %; HCT 28.8 % (37.2-46.3); HGB 9.1 g/dL (12.0-15.0); Lymphocytes # (A) 1.22 X 10*3/uL (0.90-5.00); Lymphocytes % (A) 10.3 %; MCH 28.6 pg (27.0-32.0); MCHC 31.6 g/dL (32.0-37.0); MCV 90.6 FL (80.0-97.0); Monocytes # (A) 0.48 X 10*3/uL (0.20-1.00); Monocytes % (A) 4.1 %; NRBC Per 100 WBC 0 X 10*3/uL (0.00-0.01); Neutrophils # (A) 9.61 X 10*3/uL (1.80-7.70); Neutrophils % (A) 81.1 %; Platelet Count 289 X 10*3/uL (140-440); RBC 3.18 X 10*6/uL (4.10-5.20); RDW 13.5 % (11.5-14.5); WBC 11.84 X 10*3/uL (4.50-10.00)
--- NOTE | 2024-04-20 09:31 | P.PN ---
Subjective 68 years old female who was recently admitted for generalized weakness and abdominal pain, her PCP recently diagnosed her with metastasis to the bone and liver. On admission patient was severely dehydrated secondary to hypercalcemia with acute kidney injury. She has evidence of multiple osseous metastatic disease and multiple liver lesions suspicious for metastatic disease with unknown primary source. She underwent liver biopsy and result is pending Also on CT of the brain she has possible right parieto-occipital lesion which could be infarct versus vasogenic edema. Currently patient lying in bed complaining from pain in her back about 7/10, she did not have bowel movement she has poor appetite and she looks little depressed. Multiple family members at bedside No chest pain or dyspnea. No diarrhea or urinary symptoms. She is getting normal saline at 150 mL/h. She is hemodynamically stable Hemoglobin 11.4, creatinine slightly elevated at 1.2, calcium 17, 15.2. Calcium came down today to 12.6. Patient received zoledronic acid and calcitonin. Hematology/oncology team also following closely CA 19-9 is is negative g, CA 15-[address] of the chest abdomen and pelvis showing multiple osseous metastatic lesions and multiple metastatic liver lesions CT of the brain showing lytic lesions of the skull but there is hypodensity in the right parieto-occipital region which could be subcortical infarct versus vasogenic edema EKG showing sinus tachycardia in [address]-T changes 04/17/2024 Patient seen and evaluated in room with family members at bedside; patient reports fair appetite; patient's daughter is at bedside and is concerned about abdominal bloating/distention; patient denies any pain Vital signs are reviewed and are stable with temperature of 97.6, pulse 95, respiration 18 and blood pressure 149/80 Lab review shows sodium 145, potassium 3.7, BUNs/creatinine of 20/0.7, blood glucose of 117 Patient is being followed by neurology---MRI Brain w/ and w/o: No evidence of acute/subacute infarct. Diffuse innumerable enhancing clavarial and cervical vertebral body lesion consistent with metastatis. Vasogenic edema indentified within the bilateral posterior parietal and occipital lobes. No corresponding abnormal enhancement. This could represent posterior reversible encephalopathy syndrome vs other etiologies such as hypoglycemia, gliomatosis cerebri vs other. Metastatis is though to be less likely due to lack of enhancement. Nonspecific diffuse pachymeningeal smooth enhancement. Left parietal developemental venous anomaly. For meningeal enhancement, neurology is recommending to consider CSF study with paraneoplastic panel (CSF and serum) depending on overall prognosis of her overall condition; currently recommending hospice. 04/18/2024 Patient is seen and evaluated with multiple family members at bedside; no further complaint of headache Vital signs are reviewed and remained stable Lab review shows WBC of 14.31, hemoglobin of 11 and platelet count of 369, sodium 146, potassium 3.1, BUNs/creatinine of 18.1/0.8 -Patient received potassium per protocol; encouraged to increase fluid intake Patient and family await revisit by oncology team for further plan of care 04/19 Patient had some breathing difficulty last night but she feels better today. No dyspnea or chest pain She participated with therapy today, she feels better but she feels tired easily. Patient's wants to go home soon, family at bedside She has some pain in the back clavicle and ribs but she declines pain medication and prefers to be treated naturally No IV fluid. Liver biopsy is pending at this discussed with the patient and family Patient to be continued on her amiodarone Dexamethasone were discontinued 04/20 Patient awake alert She feels little short of breath but no respiratory distress no use of accessory muscles. No chest pain, no leg pain or worsening swelling She was on 2 L oxygen since admission on and off with saturation about 94% plus minus. No worsening hypoxia as of now. No worsening breathing rate. No chest pain. We will check chest x-ray. She still complains from right side lower chest pains since admission, no worsening, this is related to her metastatic disease. Low magnesium and potassium been replaced Liver biopsy was checked and still pending Review of systems CONSTITUTIONAL: No fever, no malaise, no fatigue. HEENT: No recent visual problems or hearing problems. Denied any sore throat. CARDIOVASCULAR: No orthopnea, PND, no palpitations, no syncope. HEMATOLOGICAL: Denies any bleeding or petechiae. GENITOURINARY: Denies any burning micturition, frequency, or urgency. ENDOCRINE: Denies any polyuria or polydipsia. Active Medications Generic Name Dose Route Start Last Admin Trade Name Freq PRN Reason Stop Dose Admin Hydrocodone Bitart/Acetaminophen 1 each 04/14/24 14:07 Hydrocodone/Apap 5-325mg 1 Each Tab PO Q6HR PRN Moderate Pain (Scale 4 to 6) Amlodipine Besylate 5 mg 04/16/24 09:00 04/19/24 10:37 Amlodipine 5 Mg Tab PO 5 mg DAILY [facility] Administration Dexamethasone Sodium Phosphate 4 mg 04/15/24 15:00 04/20/24 03:57 Dexamethasone Sod Phosphate 4 Mg/Ml 1 Ml Vial IVP 4 mg Q6H [facility] Administration Famotidine 20 mg 04/15/24 21:00 04/19/24 22:34 Famotidine 20 Mg/2 Ml Vial IV 20 mg Q12HR [facility] Administration Gabapentin 300 mg 04/16/24 11:23 04/19/24 22:34 Gabapentin 300 Mg Cap PO 300 mg TID PRN Administration neuropathic pain Hydralazine HCl 25 mg 04/15/24 14:49 04/19/24 23:05 Hydralazine Hcl 25 Mg Tab PO 25 mg QID PRN Administration Blood Pressure - High Magnesium Sulfate/Dextrose 1 100 mls @ 100 mls/hr 04/20/24 09:30 gm/ IV Solution IVPB 04/20/24 11:29 Q1H [facility] Ibuprofen 400 mg 04/17/24 20:59 04/17/24 22:10 Ibuprofen 400 Mg Tab PO 400 mg TID PRN Administration Headache Lactulose 20 gm 04/17/24 20:30 04/19/24 03:58 Lactulose 20 Gm/30 Ml Cup PO 20 gm DAILY [facility] Administration Naloxone HCl 0.2 mg 04/13/24 17:57 Naloxone 0.4 Mg/Ml 1 Ml Vial IV Q2M PRN Opioid Reversal Nystatin 500,000 unit 04/15/24 22:00 04/19/24 22:35 Nystatin 100,000 Unit/Ml Susp 500,000 Unit/5 Ml Cup PO Not Given QID [facility] Protocol Ondansetron HCl 4 mg 04/13/24 17:57 Ondansetron 4 Mg/2 Ml Vial IVP Q8HR PRN Nausea And Vomiting Polyethylene Glycol 17 gm 04/19/24 21:00 04/19/24 22:35 Polyethylene Glycol 3350 17 Gm Powd.Pack PO 17 gm HS [facility] Administration Tramadol HCl 50 mg 04/14/24 10:45 04/19/24 22:43 Tramadol 50 Mg Tab PO 50 mg TID [facility] Administration Objective - Vital Signs Vital signs: Vital Signs Temp 97.7 F 04/20/24 07:30 Pulse 79 04/20/24 07:30 Resp 18 04/20/24 07:30 BP 152/67 04/20/24 07:30 Pulse Ox 95 04/20/24 07:30 FiO2 Intake & Output 04/19/24 04/20/24 04/20/24 18:59 06:59 18:59 Output Total 900 1600 Balance -900 -1600 Weight 56.699 kg Output: Urine 900 1600 Other: Voiding Method Toilet Toilet Diaper Diaper External Catheter External Catheter # Voids 1 - Exam -GENERAL: The patient is alert and oriented x3, not in any acute distress. Well developed, well nourished. Generally weak HEENT: Pupils are round and equally reacting to light. EOMI. No scleral icterus. No conjunctival pallor. Normocephalic, atraumatic. No pharyngeal erythema. No thyromegaly. CARDIOVASCULAR: S1 and S2 present. No murmurs, rubs, or gallops. PULMONARY: Chest is clear to auscultation, no wheezing , no crackles. ABDOMEN: Soft, nontender, nondistended, normoactive bowel sounds. No palpable organomegaly. MUSCULOSKELETAL: No joint swelling or deformity. EXTREMITIES: No cyanosis, clubbing, or pedal edema. NEUROLOGICAL: Gross neurological examination did not reveal any focal deficits. SKIN: No rashes. no petechiae. - Labs CBC & Chem 7: 04/20/24 04:14 04/20/24 04:14 Labs: Abnormal Lab Results - Last 24 Hours (Table) 04/20/24 04/20/24 Range/Units 04:14 04:14 WBC 11.84 H (4.50-10.00) X 10*3/uL RBC 3.18 L (4.10-5.20) X 10*6/uL Hgb 9.1 L (12.0-15.0) g/dL Hct 28.8 L (37.2-46.3) % MCHC 31.6 L (32.0-37.0) g/dL Immature Gran # 0.47 H (0.00-0.04) X 10*3/uL Neutrophils # 9.61 H (1.80-7.70) X 10*3/uL Eosinophils # 0.01 L (0.04-0.35) X 10*3/uL Potassium 3.4 L (3.5-5.5) mmol/L Anion Gap 12.70 H (4.00-12.00) mmol/L BUN/Creatinine Ratio 28.50 H (12.00-20.00) Ratio Glucose 131 H (70-110) mg/dL Calcium 6.6 L (8.7-10.3) mg/dL Magnesium 1.2 L (1.5-2.4) mg/dL Assessment and Plan Assessment: Hypercalcemia, improving sob , rule out out pna , vs others Mild acute kidney injury improving Multiple osseous metastatic lesions unknown primary source Multiple liver metastatic lesion s/p liver biopsy Right parieto-occipital lesion could be acute infarct versus vasogenic edema Plan: off IV fluid Check chest x-ray, monitor breathing pattern closely On dexamethasone Follow-up liver biopsy Pain management. Patient declines pain medication and she wants to be treated naturally Continue with Remeron to help with appetite and depression, discussed with the patient and family and they agreeable Further recommendation based on the clinical course GI prophylaxis Pepcid DVT prophylaxis mechanical, there is relative contraindication for subcu heparin because of the brain lesions
--- NOTE | 2024-04-20 10:24 | XR ---
EXAMINATION TYPE: XR chest 2V DATE OF EXAM: 04/20/2024 10:18 AM COMPARISON: Chest radiograph 04/18/2024 TECHNIQUE: XR chest 2V Frontal and lateral views of the chest. CLINICAL INDICATION:Female, 68 years old with history of worsening dyspnea; FINDINGS: Lungs/Pleura: The left costophrenic angle again. No focal consolidation or pneumothorax. Hyperinflati on with chronic senescent parenchymal change. Pulmonary vascularity: Unremarkable. Heart/mediastinum: Cardiomediastinal silhouette is unremarkable. Atherosclerotic calcifications are seen in the aorta. Musculoskeletal: No acute osseous pathology. Expansile left lateral sixth and eighth rib lesions. IMPRESSION: 1. Similar trace left pleural effusion. 2. COPD changes. 3. Expansile left lateral sixth and eighth rib lesion as seen on prior CT. [facility], , 04/20/2024 10:21 AM
[2024-04-20] MEDS: POTASSIUM CHLORIDE ER 20 MEQ TAB.ER PO STA (11:05)
[2024-04-20] MEDS: MAGNESIUM SULFATE-D5W PMX 1 GM in DEXTROSE/WATER 1 100ML.BAG IVPB SCH (11:05)
--- NOTE | 2024-04-20 15:53 | P.PN ---
Subjective Progress Note Date: 04/20/24 Principal diagnosis: Hypercalcemia, liver and bone lesions In follow-up today patient is up in chair, she has been to bathroom with walker and assist, she cont on medications to promote BM, denies abd pain, she is having muscle spasms at times. No reported BAIRD today. No fevers, nausea, vomiting. Objective - Vital Signs Vital signs: Vital Signs Temp 98.6 F 04/20/24 12:08 Pulse 73 04/20/24 12:08 Resp 18 04/20/24 12:08 BP 154/69 04/20/24 12:08 Pulse Ox 99 04/20/24 12:08 FiO2 Intake & Output 04/19/24 04/20/24 04/20/24 18:59 06:59 18:59 Intake Total 540 Output Total 900 1600 300 Balance -900 -1600 240 Weight 56.699 kg Intake: Oral 540 Output: Urine 900 1600 300 Other: Voiding Method Toilet Toilet External Catheter Diaper Diaper External Catheter External Catheter # Voids 1 - Constitutional General appearance: Present: average body habitus, cooperative, no acute dis tress - EENT Eyes: Present: anicteric sclerae, EOMI ENT: Present: hearing grossly normal - Respiratory Respiratory: bilateral: CTA - Cardiovascular Rhythm: regular Heart sounds: normal: S1, S2 Abnormal Heart Sounds: Absent: systolic murmur, diastolic murmur, rub, S3 Gallop, S4 Gallop, click, other - Gastrointestinal General gastrointestinal: Present: soft - Integumentary Integumentary: Present: normal - Neurologic Neurologic: Present: CNII-XII intact - Musculoskeletal Musculoskeletal: Present: generalized weakness - Psychiatric Psychiatric Comment(s): anxious Psychiatric: Present: A&O x's 3, intact judgment & insight - Labs CBC & Chem 7: 04/20/24 04:14 04/20/24 04:14 Labs: Abnormal Lab Results - Last 24 Hours (Table) 04/20/24 04/20/24 Range/Units 04:14 04:14 WBC 11.84 H (4.50-10.00) X 10*3/uL RBC 3.18 L (4.10-5.20) X 10*6/uL Hgb 9.1 L (12.0-15.0) g/dL Hct 28.8 L (37.2-46.3) % MCHC 31.6 L (32.0-37.0) g/dL Immature Gran # 0.47 H (0.00-0.04) X 10*3/uL Neutrophils # 9.61 H (1.80-7.70) X 10*3/uL Eosinophils # 0.01 L (0.04-0.35) X 10*3/uL Potassium 3.4 L (3.5-5.5) mmol/L Anion Gap 12.70 H (4.00-12.00) mmol/L BUN/Creatinine Ratio 28.50 H (12.00-20.00) Ratio Glucose 131 H (70-110) mg/dL Calcium 6.6 L (8.7-10.3) mg/dL Magnesium 1.2 L (1.5-2.4) mg/dL Assessment and Plan (1) Bone lesion Current Visit: Yes Status: Acute Priority: High Code(s): M89.9 - DISORDER OF BONE, UNSPECIFIED SNOMED Code(s): 352561852 (2) Liver lesion Current Visit: Yes Status: Acute Priority: High Code(s): K76.9 - LIVER DISEASE, UNSPECIFIED SNOMED Code(s): 704439477 (3) Hypercalcemia Current Visit: Yes Status: Acute Priority: High Code(s): E83.52 - HYPERCALCEMIA SNOMED Code(s): 76327506 Plan: Hypercalcemia, bone lesions, liver lesions -Events leading up to hospital presentation as stated in consult. -Patient presenting with constellation of symptoms most consistent with significant hypercalcemia-confusion, constipation, abdominal pain, restlessness. Ca++ 16.8 on admit -Imaging showing bone and liver lesions. Discussed with patient and family concerns for malignancy -Labs to workup monoclonal gammopathy ordered, no significantly abnormal results, few test still pending. Tumor markers are nondiagnostic/negative. -Interventional radiology has performed liver biopsy. Preliminary results suspecting lymphoid malignancy or myeloma. Pending hematopathologist review of case. Reviewed this with pt and daughter -Zometa given for hypercalcemia. Calcitonin given. Calcium level was down -Tramadol ordered for pain as patient has a significant fear of narcotics. -Stool softeners ordered for constipation, pt had BM on 04/18. Additional meds ordered to promote BM -Flagyl reordered for [employer] infection, patient was on prior to admission. She had 3 more days left, this has been completed. -Will follow up, further recommendations to follow Abn CT head imaging -Patient has been seen by Neurology for CT of the head-infarct versus vasogenic edema. There are hypoechoic lytic lesions in the skull. There is a reported h ypodensity in the right parietal occipital region. Neurology has reviewed the images, it is felt there is a hypodensity in the right occipital temporal region. -Dexamethasone has been started for the edema. -Recommending repeat MRI of the brain in 3 to 4 weeks. -Neurology recommending CSF studies if neuro symptoms persist or progress. Neuro symptoms are currently stable. Pending final diagnosis-will consider CSF examination. -Patient is on gabapentin as needed for headaches.
--- NOTE | 2024-04-21 12:57 | P.PN ---
Subjective Progress Note Date: 04/21/24 68 years old female who was recently admitted for generalized weakness and abdominal pain, her PCP recently diagnosed her with metastasis to the bone and liver. On admission patient was severely dehydrated secondary to hypercalcemia with acute kidney injury. She has evidence of multiple osseous metastatic disease and multiple liver lesions suspicious for metastatic disease with unknown primary source. She underwent liver biopsy and result is pending Also on CT of the brain she has possible right parieto-occipital lesion which could be infarct versus vasogenic edema. Currently patient lying in bed complaining from pain in her back about 7/10, she did not have bowel movement she has poor appetite and she looks little depressed. Multiple family members at bedside No chest pain or dyspnea. No diarrhea or urinary symptoms. She is getting normal saline at 150 mL/h. She is hemodynamically stable Hemoglobin 11.4, creatinine slightly elevated at 1.2, calcium 17, 15.2. Calcium came down today to 12.6. Patient received zoledronic acid and calcitonin. Hematology/oncology team also following closely CA 19-9 is is negative g, CA 15-[address] of the chest abdomen and pelvis showing multiple osseous metastatic lesions and multiple metastatic liver lesions CT of the brain showing lytic lesions of the skull but there is hypodensity in the right parieto-occipital region which could be subcortical infarct versus vasogenic edema EKG showing sinus tachycardia in [address]-T changes 04/17/2024 Patient seen and evaluated in room with family members at bedside; patient reports fair appetite; patient's daughter is at bedside and is concerned about abdominal bloating/distention; patient denies any pain Vital signs are reviewed and are stable with temperature of 97.6, pulse 95, respiration 18 and blood pressure 149/80 Lab review shows sodium 145, potassium 3.7, BUNs/creatinine of 20/0.7, blood glucose of 117 Patient is being followed by neurology---MRI Brain w/ and w/o: No evidence of acute/subacute infarct. Diffuse innumerable enhancing clavarial and cervical v ertebral body lesion consistent with metastatis. Vasogenic edema indentified within the bilateral posterior parietal and occipital lobes. No corresponding abnormal enhancement. This could represent posterior reversible encephalopathy syndrome vs other etiologies such as hypoglycemia, gliomatosis cerebri vs other. Metastatis is though to be less likely due to lack of enhancement. Nonspecific diffuse pachymeningeal smooth enhancement. Left parietal developemental venous anomaly. For meningeal enhancement, neurology is recommending to consider CSF study with paraneoplastic panel (CSF and serum) depending on overall prognosis of her overall condition; currently recommending hospice. 04/18/2024 Patient is seen and evaluated with multiple family members at bedside; no further complaint of headache Vital signs are reviewed and remained stable Lab review shows WBC of 14.31, hemoglobin of 11 and platelet count of 369, sodium 146, potassium 3.1, BUNs/creatinine of 18.1/0.8 -Patient received potassium per protocol; encouraged to increase fluid intake Patient and family await revisit by oncology team for further plan of care 04/19 Patient had some breathing difficulty last night but she feels better today. No dyspnea or chest pain She participated with therapy today, she feels better but she feels tired easily. Patient's wants to go home soon, family at bedside She has some pain in the back clavicle and ribs but she declines pain medication and prefers to be treated naturally No IV fluid. Liver biopsy is pending at this discussed with the patient and family Patient to be continued on her amiodarone Dexamethasone were discontinued 04/20 Patient awake alert She feels little short of breath but no respiratory distress no use of accessory muscles. No chest pain, no leg pain or worsening swelling She was on 2 L oxygen since admission on and off with saturation about 94% plus minus. No worsening hypoxia as of now. No worsening breathing rate. No chest pain. We will check chest x-ray. She still complains from right side lower chest pains since admission, no worsening, this is related to her metastatic disease. Low magnesium and potassium been replaced Liver biopsy was checked and still pending /. Patient seen and examined. Complaining of lethargic and weakness. Gets short of breath on exertion. REVIEW OF SYSTEMS: CONSTITUTIONAL: No fever, no malaise,. CARDIOVASCULAR: No chest pain, no palpitations, no syncope. PULMONARY: As mentioned above GASTROINTESTINAL: No diarrhea, no nausea, no vomiting, no abdominal pain. NEUROLOGICAL: No headaches, no weakness, PHYSICAL EXAMINATION: GENERAL: The patient is alert, ill looking HEENT: Pupils are round and equally reacting to light. EOMI. No scleral icterus. No conjunctival pallor. Normocephalic, atraumatic. No pharyngeal erythema. No thyromegaly. CARDIOVASCULAR: S1 and S2 present. No murmurs, rubs, or gallops. PULMONARY: Chest is clear to auscultation, no wheezing or crackles. ABDOMEN: Soft, nontender, nondistended, normoactive bowel sounds. No palpable organomegaly. MUSCULOSKELETAL: No joint swelling or deformity. EXTREMITIES: No cyanosis, clubbing, or pedal edema. NEUROLOGICAL: Gross neurological examination did not reveal any focal deficits. SKIN: No rashes. Assessment and plan Hypercalcemia, improving sob , rule out out pna , vs others Mild acute kidney injury improving Multiple osseous metastatic lesions unknown primary source Multiple liver metastatic lesion s/p liver biopsy Right parieto-occipital lesion could be acute infarct versus vasogenic edema Monitor vital signs Monitor CBC Monitor CMP Continue Decadron Continue Neurontin Continue pain control Liver biopsy results pending Oncology following Labs and medication were reviewed.. Continue same treatment. Continue with symptomatic treatment. Resume home medication. Monitor labs and vitals. DVT and GI prophylaxis. Further recommendations as per clinical course of the patient Dictation was produced using [employer] dictation software. please excuse any grammatical, word or spelling errors. Objective - Vital Signs Vital signs: Vital Signs Temp 98.4 F 04/21/24 07:26 Pulse 67 04/21/24 07:26 Resp 17 04/21/24 07:26 BP 165/80 04/21/24 07:26 Pulse Ox 98 04/21/24 07:26 FiO2 Intake & Output 04/20/24 04/21/24 04/21/24 18:59 06:59 18:59 Intake Total 1060 240 Output Total 600 2200 1 Balance 460 -1960 -1 Intake: Oral 1060 240 Output: Urine 600 2200 Stool 1 Other: Voiding Method External Catheter External Catheter Toilet # Voids 1 - Labs CBC & Chem 7: 04/20/24 04:14 04/20/24 04:14
[2024-04-22 08:19] VITALS: RESP 16
[2024-04-22 09:13] LABS: Basophils # (A) 0.03 X 10*3/uL (0.00-0.10); Basophils % (A) 0.3 %; Eosinophils # (A) 0.01 X 10*3/uL (0.04-0.35); Eosinophils % (A) 0.1 %; HCT 29.3 % (37.2-46.3); HGB 9.2 g/dL (12.0-15.0); Lymphocytes # (A) 1.04 X 10*3/uL (0.90-5.00); Lymphocytes % (A) 9.2 %; MCH 28.3 pg (27.0-32.0); MCHC 31.4 g/dL (32.0-37.0); MCV 90.2 FL (80.0-97.0); Mean Platelet Volume 9.9 FL (9.5-12.2); Monocytes # (A) 0.53 X 10*3/uL (0.20-1.00); Monocytes % (A) 4.7 %; NRBC Per 100 WBC 0 X 10*3/uL (0.00-0.01); Neutrophils # (A) 9.14 X 10*3/uL (1.80-7.70); Neutrophils % (A) 81.2 %; Platelet Count 355 X 10*3/uL (140-440); RBC 3.25 X 10*6/uL (4.10-5.20); RDW 13.8 % (11.5-14.5); WBC 11.26 X 10*3/uL (4.50-10.00)
[2024-04-22 09:41] LABS: ALT 47 U/L (8-44); AST 92 U/L (13-35); Albumin 3.4 g/dL (3.8-4.9); Alkaline Phosphatase 145 U/L (41-126); Calcium 6.7 mg/dL (8.7-10.3); Carbon Dioxide 24.2 mmol/L (21.6-31.8); Chloride 106 mmol/L (96-109); Glucose 104 mg/dL (70-110); Potassium 5.1 mmol/L (3.5-5.5); Sodium 141 mmol/L (135-145); Total Bilirubin <0.2 mg/dL (0.3-1.2); Total Protein 5.4 g/dL (6.2-8.2)
--- NOTE | 2024-04-22 10:08 | P.PN ---
Subjective Progress Note Date: 04/21/24 Patient was initially seen by Dr. Kulwinder Reese. Please refer to his note for details. Patient is a 68-year-old female with multiple myeloma with metastasis. MRI shows PRES and likely hypercalcemia induced. EEG was negative for seizure discharges. Patient also has meningeal enhancement. Patient currently on high- dose steroids dexamethasone 4 mg IV push every 6 hours. Family curious why patient is on high-dose steroids. Patient's daughter was also present by the bedside. Patient states pain is li zulma in the back. Patient denies any dizziness, no headache. Denies any numbness or tingling. No neurological issues at this point. Patient does complain of some bump on the back of the scalp on the left side. Some of the workup during this hospital visit consisted of: Calcium is 16.8 on presentation and currently is 12.6. Her AST and ALT are elevated AST more than ALT of 114 over 53 Phosphorus level is 5.0, magnesium is 1.5 and no signs improved ammonia 18 CT of the head is reported as multiple hypoechoic lytic area throughout the skull. Correlate for metastasis. Consider multiple myeloma. Hypodensity within the right parietaloccipital region. Subcortical infarct or vasogenic edema could be considered. I personally reviewed the CAT scan and I do agree there is multiple lytic lesion in the skull. I do agree that the patient has hypodensity over the right occipital temporal region in my opinion. CT chest abdomen pelvis is reported as multiple osseous metastatic cysts. Multiple myeloma should be considered. Multiple hypodense hepatic lesions farmer spicious for metastatic disease. MRI Brain w/ and w/o: No evidence of acute/subacute infarct. Diffuse innumerable enhancing clavarial and cervical vertebral body lesion consistent with metastatis. Vasogenic edema indentified within the bilateral posterior parietal and occipital lobes. No corresponding abnormal enhancement. This could represent posterior reversible encephalopathy syndrome vs other etiologies such as hypoglycemia, gliomatosis cerebri vs other. Metastatis is though to be less likely due to lack of enhancement. Nonspecific diffuse pachymeningeal smooth enhancement. Left parietal developemental venous anomaly. Routine EEG: Is abnormal. The background is suggestive of mild to moderate encephalopathy. Otherwise, there is no focal slowing, epileptiform discharge or seizure on the EEG. Objective - Vital Signs Vital signs: Vital Signs Temp 97.8 F 04/21/24 20:00 Pulse 76 04/21/24 20:00 Resp 16 04/21/24 20:00 BP 134/57 04/21/24 20:00 Pulse Ox 98 04/21/24 20:00 FiO2 Intake & Output 04/21/24 04/21/24 04/22/24 06:59 18:59 06:59 Intake Total 240 200 Output Total 2200 1 Balance -1960 199 Intake: Oral 240 200 Output: Urine 2200 Stool 1 Other: Voiding Method External Catheter Toilet # Voids 1 - Exam Patient's mental status, speech and language functions are normal. Cranial ner ves are normal. Visual gorman are full. Face is symmetric. Extraocular muscles intact. On muscle strength testing, the strength is normal in the upper limbs. Ankle dorsiflexion 5. Hip flexion 4-3+ bilaterally. Sensations equal. No ataxia for [id number] testing. - Labs CBC & Chem 7: 04/22/24 05:31 04/22/24 05:31 Assessment and Plan Assessment: This is a 68-year-old woman with recent suspicious of multiple myeloma with mets who presented emergency department because of generalized weakness confusion. Was found to have hypercalcemia with multiple osseous metastasis as well as multiple hypodense hepatic lesion. Also has lytic lesions on the skull with hypodensity over the right posterior region over the parietal occipital Probable PRES with vasogenic edema in bilateral posterior occipital region on MRI Brain. Etiology uncertain, perhaps due to hypercalcemia. Patient also has somewhat elevated blood pressures. Possible multiple myeloma with metastasis to the liver, clavarial and cervical body (hypercalcemia, multiple lytic lesion). Liver biopsy revealed atypical lymphoid proliferation, concerning for lymphoma. Altered mental status likely due to metabolic encephalopathy as well as due to above. EEG is negative for seizure. No acute cva or enhancement. Meningeal enhancement on MRI likely due to mets Hypercalcemia likely due to multiple myeloma Cephalgia due to above Liver lesion status post biopsy on 04/14/2024 Left parietal developemental venous anomaly noted on MRI seems incidental. Transaminitis due to her metastasis to the liver Plan: MRI Brain w/ and w/o: No evidence of acute/subacute infarct. Diffuse innumerable enhancing clavarial and cervical vertebral body lesion consistent with metastatis. Vasogenic edema indentified within the bilateral posterior parietal and occipital lobes. No corresponding abnormal enhancement. This could represent posterior reversible encephalopathy syndrome vs other etiologies such as hypoglycemia, gliomatosis cerebri vs other. Metastatis is though to be less likely due to lack of enhancement. Nonspecific diffuse pachymeningeal smooth enhancement. Left parietal developemental venous anomaly. For meningeal enhancement, consider CSF study with paraneoplastic panel (CSF and serum) depending on overall prognosis of her overall condition. Recommend hospice consultation. Oncology team is on board I placed the patient on gabapentin 300 mg 1 tablet 3 times daily as needed since she is having some neuropathic pain and the family does not want her to be on it scheduled and just wanted on as needed. This can be use for headache PRN and I notified the nurse. Patient is on Decadron 4 mg every 6 hours. Steroids is not really indicated for PRES. May consider tapering it down if given for vasogenic cerebral edema. Patient also concerned about some scalp lesion, and some protuberance was noted in the left posterior occipital region. Uncertain if related to underlying scalp metastatic/lytic lesion. Defer the rest of the medical management to primary and other specialist
--- NOTE | 2024-04-22 13:12 | P.PN ---
Subjective Progress Note Date: 04/22/24 68 years old female who was recently admitted for generalized weakness and abdominal pain, her PCP recently diagnosed her with metastasis to the bone and liver. On admission patient was severely dehydrated secondary to hypercalcemia with acute kidney injury. She has evidence of multiple osseous metastatic disease and multiple liver lesions suspicious for metastatic disease with unknown primary source. She underwent liver biopsy and result is pending Also on CT of the brain she has possible right parieto-occipital lesion which could be infarct versus vasogenic edema. Currently patient lying in bed complaining from pain in her back about 7/10, she did not have bowel movement she has poor appetite and she looks little depressed. Multiple family members at bedside No chest pain or dyspnea. No diarrhea or urinary symptoms. She is getting normal saline at 150 mL/h. She is hemodynamically stable Hemoglobin 11.4, creatinine slightly elevated at 1.2, calcium 17, 15.2. Calcium came down today to 12.6. Patient received zoledronic acid and calcitonin. Hematology/oncology team also following closely CA 19-9 is is negative g, CA 15-[address] of the chest abdomen and pelvis showing multiple osseous metastatic lesions and multiple metastatic liver lesions CT of the brain showing lytic lesions of the skull but there is hypodensity in the right parieto-occipital region which could be subcortical infarct versus vasogenic edema EKG showing sinus tachycardia in [address]-T changes 04/17/2024 Patient seen and evaluated in room with family members at bedside; patient reports fair appetite; patient's daughter is at bedside and is concerned about abdominal bloating/distention; patient denies any pain Vital signs are reviewed and are stable with temperature of 97.6, pulse 95, respiration 18 and blood pressure 149/80 Lab review shows sodium 145, potassium 3.7, BUNs/creatinine of 20/0.7, blood glucose of 117 Patient is being followed by neurology---MRI Brain w/ and w/o: No evidence of acute/subacute infarct. Diffuse innumerable enhancing clavarial and cervical v ertebral body lesion consistent with metastatis. Vasogenic edema indentified within the bilateral posterior parietal and occipital lobes. No corresponding abnormal enhancement. This could represent posterior reversible encephalopathy syndrome vs other etiologies such as hypoglycemia, gliomatosis cerebri vs other. Metastatis is though to be less likely due to lack of enhancement. Nonspecific diffuse pachymeningeal smooth enhancement. Left parietal developemental venous anomaly. For meningeal enhancement, neurology is recommending to consider CSF study with paraneoplastic panel (CSF and serum) depending on overall prognosis of her overall condition; currently recommending hospice. 04/18/2024 Patient is seen and evaluated with multiple family members at bedside; no further complaint of headache Vital signs are reviewed and remained stable Lab review shows WBC of 14.31, hemoglobin of 11 and platelet count of 369, sodium 146, potassium 3.1, BUNs/creatinine of 18.1/0.8 -Patient received potassium per protocol; encouraged to increase fluid intake Patient and family await revisit by oncology team for further plan of care 04/19 Patient had some breathing difficulty last night but she feels better today. No dyspnea or chest pain She participated with therapy today, she feels better but she feels tired easily. Patient's wants to go home soon, family at bedside She has some pain in the back clavicle and ribs but she declines pain medication and prefers to be treated naturally No IV fluid. Liver biopsy is pending at this discussed with the patient and family Patient to be continued on her amiodarone Dexamethasone were discontinued 04/20 Patient awake alert She feels little short of breath but no respiratory distress no use of accessory muscles. No chest pain, no leg pain or worsening swelling She was on 2 L oxygen since admission on and off with saturation about 94% plus minus. No worsening hypoxia as of now. No worsening breathing rate. No chest pain. We will check chest x-ray. She still complains from right side lower chest pains since admission, no worsening, this is related to her metastatic disease. Low magnesium and potassium been replaced Liver biopsy was checked and still pending /. Patient seen and examined. Complaining of lethargic and weakness. Gets short of breath on exertion. 04/22. Patient seen and examined. Patient breathing is improved, currently not requiring any oxygen. States she feels much better. Denies any shortness of breath. REVIEW OF SYSTEMS: CONSTITUTIONAL: No fever, no malaise,. CARDIOVASCULAR: No chest pain, no palpitations, no syncope. PULMONARY: As mentioned above GASTROINTESTINAL: No diarrhea, no nausea, no vomiting, no abdominal pain. NEUROLOGICAL: No headaches, no weakness, PHYSICAL EXAMINATION: GENERAL: The patient is alert, ill looking HEENT: Pupils are round and equally reacting to light. EOMI. No scleral icterus. No conjunctival pallor. Normocephalic, atraumatic. No pharyngeal erythema. No thyromegaly. CARDIOVASCULAR: S1 and S2 present. No murmurs, rubs, or gallops. PULMONARY: Chest is clear to auscultation, no wheezing or crackles. ABDOMEN: Soft, nontender, nondistended, normoactive bowel sounds. No palpable organomegaly. MUSCULOSKELETAL: No joint swelling or deformity. EXTREMITIES: No cyanosis, clubbing, or pedal edema. NEUROLOGICAL: Gross neurological examination did not reveal any focal deficits. SKIN: No rashes. Assessment and plan Hypercalcemia, improving sob , rule out out pna , vs others Mild acute kidney injury improving Multiple osseous metastatic lesions unknown primary source Multiple liver metastatic lesion s/p liver biopsy Right parieto-occipital lesion could be acute infarct versus vasogenic edema Monitor vital signs Monitor CBC Monitor CMP Continue Decadron, dose decreased to 4 mg twice a day Continue Neurontin Continue pain control Liver biopsy results pending Oncology following Labs and medication were reviewed.. Continue same treatment. Continue with symptomatic treatment. Resume home medication. Monitor labs and vitals. DVT and GI prophylaxis. Further recommendations as per clinical course of the patient Dictation was produced using [employer] dictation software. please excuse any grammatical, word or spelling errors. Objective - Vital Signs Vital signs: Vital Signs Temp 98.4 F 04/22/24 11:31 Pulse 78 04/22/24 11:31 Resp 16 04/22/24 11:31 BP 154/79 04/22/24 11:31 Pulse Ox 95 04/22/24 11:31 FiO2 Intake & Output 04/21/24 04/22/24 04/22/24 18:59 06:59 18:59 Intake Total 200 1797 Output Total 1 800 Balance 199 -800 1797 Intake: Oral 200 1797 Output: Urine 800 Stool 1 Other: Voiding Method Toilet Toilet External Catheter # Voids 1 5 - Labs CBC & Chem 7: 04/22/24 05:31 04/22/24 05:31 Labs: Abnormal Lab Results - Last 24 Hours (Table) 04/22/24 04/22/24 Range/Units 05:31 05:31 WBC 11.26 H (4.50-10.00) X 10*3/uL RBC 3.25 L (4.10-5.20) X 10*6/uL Hgb 9.2 L (12.0-15.0) g/dL Hct 29.3 L (37.2-46.3) % MCHC 31.4 L (32.0-37.0) g/dL Immature Gran # 0.51 H (0.00-0.04) X 10*3/uL Neutrophils # 9.14 H (1.80-7.70) X 10*3/uL Eosinophils # 0.01 L (0.04-0.35) X 10*3/uL Creatinine 0.5 L (0.6-1.5) mg/dL BUN/Creatinine Ratio 34.00 H (12.00-20.00) Ratio Calcium 6.7 L (8.7-10.3) mg/dL Total Bilirubin <0.2 L (0.3-1.2) mg/dL AST 92 H (13-35) U/L ALT 47 H (8-44) U/L Alkaline Phosphatase 145 H (41-126) U/L Total Protein 5.4 L (6.2-8.2) g/dL Albumin 3.4 L (3.8-4.9) g/dL
--- NOTE | 2024-04-22 16:23 | P.PN ---
Subjective Progress Note Date: 04/22/24 Principal diagnosis: Hypercalcemia, liver and bone lesions In follow-up today patient is up in chair, she has been to bathroom with walker and assist, no new symptoms to report today. She is anxious but states she is learning to manage it. Objective - Vital Signs Vital signs: Vital Signs Temp 99.1 F 04/22/24 08:18 Pulse 87 04/22/24 08:18 Resp 16 04/22/24 08:18 BP 147/70 04/22/24 08:18 Pulse Ox 94 L 04/22/24 08:18 FiO2 Intake & Output 04/21/24 04/22/24 04/22/24 18:59 06:59 18:59 Intake Total 200 717 Output Total 1 800 Balance 199 -800 717 Intake: Oral 200 717 Output: Urine 800 Stool 1 Other: Voiding Method Toilet Toilet External Catheter # Voids 1 - Constitutional General appearance: Present: average body habitus, cooperative, no acute distress - EENT Eyes: Present: anicteric sclerae, EOMI ENT: Present: hearing grossly normal - Respiratory Details: resp unlabored at rest - Cardiovascular Details: skin warm, well perfused - Peripheral edema leg Peripheral Edema: bilateral: None - Integumentary Integumentary: Present: normal - Neurologic Neurologic: Present: CNII-XII intact - Musculoskeletal Musculoskeletal: Present: generalized weakness, strength equal bilaterally - Psychiatric Psychiatric: Present: A&O x's 3, appropriate affect, intact judgment & insight - Labs CBC & Chem 7: 04/22/24 05:31 04/22/24 05:31 Labs: Abnormal Lab Results - Last 24 Hours (Table) 04/22/24 04/22/24 Range/Units 05:31 05:31 WBC 11.26 H (4.50-10.00) X 10*3/uL RBC 3.25 L (4.10-5.20) X 10*6/uL Hgb 9.2 L (12.0-15.0) g/dL Hct 29.3 L (37.2-46.3) % MCHC 31.4 L (32.0-37.0) g/dL Immature Gran # 0.51 H (0.00-0.04) X 10*3/uL Neutrophils # 9.14 H (1.80-7.70) X 10*3/uL Eosinophils # 0.01 L (0.04-0.35) X 10*3/uL Creatinine 0.5 L (0.6-1.5) mg/dL BUN/Creatinine Ratio 34.00 H (12.00-20.00) Ratio Calcium 6.7 L (8.7-10.3) mg/dL Total Bilirubin <0.2 L (0.3-1.2) mg/dL AST 92 H (13-35) U/L ALT 47 H (8-44) U/L Alkaline Phosphatase 145 H (41-126) U/L Total Protein 5.4 L (6.2-8.2) g/dL Albumin 3.4 L (3.8-4.9) g/dL Assessment and Plan (1) Bone lesion Current Visit: Yes Status: Acute Priority: High Code(s): M89.9 - DISORDER OF BONE, UNSPECIFIED SNOMED Code(s): 200281912 (2) Liver lesion Current Visit: Yes Status: Acute Priority: High Code(s): K76.9 - LIVER DISEASE, UNSPECIFIED SNOMED Code(s): 133589739 (3) Hypercalcemia Current Visit: Yes Status: Resolved Priority: High Code(s): E83.52 - HYPERCALCEMIA SNOMED Code(s): 16524853 Plan: Hypercalcemia, bone lesions, liver lesions -Events leading up to hospital presentation as stated in consult. -Patient presenting with constellation of symptoms most consistent with significant hypercalcemia-confusion, constipation, abdominal pain, restlessness. Ca++ 16.8 on admit -Imaging showing bone and liver lesions. Discussed with patient and family concerns for malignancy -Labs to workup monoclonal gammopathy ordered, no significantly abnormal results. Tumor markers are nondiagnostic/negative. -Interventional radiology has performed liver biopsy. Preliminary results suspecting lymphoid malignancy or myeloma. Pending hematopathologist review of case, pending addendum -Zometa given for hypercalcemia. Calcitonin given. Calcium level down -Tramadol ordered for pain as patient has a significant fear of narcotics. -Stool softeners ordered for constipation, documented BM on 04/18. Additional meds ordered to promote BM -Flagyl for [employer] infection was completed during admission. Abn CT head imaging -Patient has been seen by Neurology for CT of the head-infarct versus vasogenic edema. There are hypoechoic lytic lesions in the skull. There is a reported hypodensity in the right parietal occipital region. Neurology has reviewed the images, it is felt there is a hypodensity in the right occipital temporal region. -Dexamethasone was started for the edema. Discussed with Neurologist today, steroids not useful for reducing edema in PRES. Steroid taper started. -Recommending repeat MRI of the brain in 3 to 4 weeks. Will plan for this outpt -Neurology recommending CSF studies if neuro symptoms persist or progress. Neuro symptoms are currently stable. Pending final diagnosis-will consider CSF examination. -Patient using gabapentin as needed for headaches. She has not c/o BAIRD for several days now.
[2024-04-22] MEDS: DEXAMETHASONE SOD PHOSPHATE 4 MG/ML 1 ML VIAL IVP SCH (21:05)
[2024-04-23 07:23] VITALS: BP 195/84; PULSE 76; TEMP 97.9
--- NOTE | 2024-04-23 11:49 | P.PN ---
Subjective Progress Note Date: 04/22/24 04/22/2024: Patient was seen for follow-up. Patient is walking with a walker to the bathroom. Patient's daughter was also present. Patient states she feels fine. Offers no complaints. Denies any headache or dizziness. 04/21/2024: Patient was initially seen by Dr. Kulwinder Reese. Please refer to his note for details. Patient is a 68-year-old female with multiple myeloma with metastasis. MRI shows PRES and likely hypercalcemia induced. EEG was negative for seizure discharges. Patient also has meningeal enhancement. Patient currently on high- dose steroids dexamethasone 4 mg IV push every 6 hours. Family curious why patient is on high-dose steroids. Patient's daughter was also present by the bedside. Patient states pain is likely in the back. Patient denies any dizziness, no headache. Denies any numbness or tingling. No neurological issues at this point. Patient does complain of some bump on the back of the scalp on the left side. Some of the workup during this hospital visit consisted of: Calcium is 16.8 on presentation and currently is 12.6. Her AST and ALT are elevated AST more than ALT of 114 over 53 Phosphorus level is 5.0, magnesium is 1.5 and no signs improved ammonia 18 CT of the head is reported as multiple hypoechoic lytic area throughout the skull. Correlate for metastasis. Consider multiple myeloma. Hypodensity within the right parietaloccipital region. Subcortical infarct or vasogenic edema could be considered. I personally reviewed the CAT scan and I do agree there is multiple lytic lesion in the skull. I do agree that the patient has hypodensity over the right occipital temporal region in my opinion. CT chest abdomen pelvis is reported as multiple osseous metastatic cysts. Multiple myeloma should be considered. Multiple hypodense hepatic lesions suspicious for metastatic disease. MRI Brain w/ and w/o: No evidence of acute/subacute infarct. Diffuse innumerable enhancing clavarial and cervical vertebral body lesion consistent with metastatis. Vasogenic edema indentified within the bilateral posterior parietal and occipital lobes. No corresponding abnormal enhancement. This could re present posterior reversible encephalopathy syndrome vs other etiologies such as hypoglycemia, gliomatosis cerebri vs other. Metastatis is though to be less likely due to lack of enhancement. Nonspecific diffuse pachymeningeal smooth enhancement. Left parietal developemental venous anomaly. Routine EEG: Is abnormal. The background is suggestive of mild to moderate encephalopathy. Otherwise, there is no focal slowing, epileptiform discharge or seizure on the EEG. Objective - Vital Signs Vital signs: Vital Signs Temp 98.4 F 04/22/24 11:31 Pulse 78 04/22/24 11:31 Resp 16 04/22/24 11:31 BP 154/79 04/22/24 11:31 Pulse Ox 95 04/22/24 11:31 FiO2 Intake & Output 04/21/24 04/22/24 04/22/24 18:59 06:59 18:59 Intake Total 200 2277 Output Total 1 800 1 Balance 199 -800 2276 Intake: Oral 200 2277 Output: Urine 800 Stool 1 1 Other: Voiding Method Toilet Toilet Toilet External Catheter External Catheter # Voids 1 5 - Exam Patient's mental status, speech and language functions are normal. Cranial nerv es are normal. Visual gorman are full. Face is symmetric. Extraocular muscles intact. On muscle strength testing, the strength is normal in the upper limbs. Ankle dorsiflexion 5. Hip flexion 4-3+ bilaterally. Sensations equal. No ataxia for [id number] testing. - Labs CBC & Chem 7: 04/22/24 05:31 04/22/24 05:31 Labs: Abnormal Lab Results - Last 24 Hours (Table) 04/22/24 04/22/24 Range/Units 05:31 05:31 WBC 11.26 H (4.50-10.00) X 10*3/uL RBC 3.25 L (4.10-5.20) X 10*6/uL Hgb 9.2 L (12.0-15.0) g/dL Hct 29.3 L (37.2-46.3) % MCHC 31.4 L (32.0-37.0) g/dL Immature Gran # 0.51 H (0.00-0.04) X 10*3/uL Neutrophils # 9.14 H (1.80-7.70) X 10*3/uL Eosinophils # 0.01 L (0.04-0.35) X 10*3/uL Creatinine 0.5 L (0.6-1.5) mg/dL BUN/Creatinine Ratio 34.00 H (12.00-20.00) Ratio Calcium 6.7 L (8.7-10.3) mg/dL Total Bilirubin <0.2 L (0.3-1.2) mg/dL AST 92 H (13-35) U/L ALT 47 H (8-44) U/L Alkaline Phosphatase 145 H (41-126) U/L Total Protein 5.4 L (6.2-8.2) g/dL Albumin 3.4 L (3.8-4.9) g/dL Assessment and Plan Assessment: This is a 68-year-old woman with suspicious of multiple myeloma with mets who presented emergency department because of generalized weakness confusion. Was found to have hypercalcemia with multiple osseous metastasis as well as multiple hypodense hepatic lesion. Also has lytic lesions on the skull with hypodensity over the right posterior region over the parietal occipital Probable PRES with vasogenic edema in bilateral posterior occipital region on MRI Brain. Etiology uncertain, perhaps due to hypercalcemia. Patient also has somewhat elevated blood pressures. Possible multiple myeloma with metastasis to the liver, clavarial and cervical body (hypercalcemia, multiple lytic lesion). Liver biopsy revealed atypical lymphoid proliferation, concerning for lymphoma. Altered mental status likely due to metabolic encephalopathy as well as due to above. EEG is negative for seizure. No acute cva or enhancement. Meningeal enhancement on MRI likely due to mets Hypercalcemia likely due to multiple myeloma Cephalgia due to above Liver lesion status post biopsy on 04/14/2024 Left parietal developemental venous anomaly noted on MRI seems incidental. Transaminitis due to her metastasis to the liver Plan: MRI Brain w/ and w/o: No evidence of acute/subacute infarct. Diffuse innumerable enhancing clavarial and cervical vertebral body lesion consistent with metastatis. Vasogenic edema indentified within the bilateral posterior parietal and occipital lobes. No corresponding abnormal enhancement. This could represent posterior reversible encephalopathy syndrome vs other etiologies such as hypoglycemia, gliomatosis cerebri vs other. Metastatis is though to be less likely due to lack of enhancement. Nonspecific diffuse pachymeningeal smooth enhancement. Left parietal developemental venous anomaly. Patient to undergo repeat MRI of the brain with and without contrast in 4 weeks. For meningeal enhancement, consider CSF study with paraneoplastic panel (CSF and serum) depending on overall prognosis of her overall condition. Patient denies any headache or dizziness. Liver biopsy revealed atypical lymphoid proliferation. Final assessment pending additional studies and hematopathology consultation. Discussed with oncology team in detail. There is no indication for dexamethasone for vasogenic edema from PRES. Patient's dexamethasone has been tapered down to 4 mg twice daily from (4 times daily). Can be tapered off in the next week or so. Dr. Reese started patient on gabapentin 300 mg 1 tablet 3 times daily as needed since she is having some neuropathic pain and the family does not want her to be on it scheduled and just wanted on as needed. This can be use for headache PRN and I notified the nurse. Patient also concerned about some scalp lesion, and some protuberance was noted in the left posterior occipital region. Uncertain if related to underlying scalp metastatic/lytic lesion. Defer the rest of the medical management to primary and other specialist
--- NOTE | 2024-04-23 13:00 | P.DS ---
Providers Date of admission: 04/13/24 17:58 Expected date of discharge: 04/23/24 Attending physician: Tor Calderón Consults: 04/13/24 17:57 Consult Physician Routine Consulting Provider: [place] Consult Reason/Comments: [place]new Do you want consulting provider notified?: Yes 04/15/24 14:48 Consult Physician Routine Consulting Provider: Kulwinder Reese Consult Reason/Comments: ct of head : Infarct vs vasogenic edema Do you want consulting provider notified?: Yes Primary care physician: Donnie Hart MD Hospital Course: Discharge diagnoses; Hypercalcemia, improving sob , rule out out pna , vs others Mild acute kidney injury improving Multiple osseous metastatic lesions unknown primary source Multiple liver metastatic lesion s/p liver biopsy Right parieto-occipital lesion could be acute infarct versus vasogenic edema Hospital course; 68 years old female who was recently admitted for generalized weakness and abdominal pain, her PCP recently diagnosed her with metastasis to the bone and liver. On admission patient was severely dehydrated secondary to hypercalcemia with acute kidney injury. She has evidence of multiple osseous metastatic disease and multiple liver lesions suspicious for metastatic disease with unknown primary source. She underwent liver biopsy and result is pending Also on CT of the brain she has possible right parieto-occipital lesion which c ould be infarct versus vasogenic edema. Currently patient lying in bed complaining from pain in her back about 7/10, she did not have bowel movement she has poor appetite and she looks little depresse d. Multiple family members at bedside No chest pain or dyspnea. No diarrhea or urinary symptoms. She is getting normal saline at 150 mL/h. She is hemodynamically stable Hemoglobin 11.4, creatinine slightly elevated at 1.2, calcium 17, 15.2. Calcium came down today to 12.6. Patient received zoledronic acid and calcitonin. Hematology/oncology team also following closely CA 19-9 is is negative g, CA 15-[address] of the chest abdomen and pelvis showing multiple osseous metastatic lesions and multiple metastatic liver lesions CT of the brain showing lytic lesions of the skull but there is hypodensity in the right parieto-occipital region which could be subcortical infarct versus vasogenic edema EKG showing sinus tachycardia in [address]-T changes 04/17/2024 Patient seen and evaluated in room with family members at bedside; patient reports fair appetite; patient's daughter is at bedside and is concerned about abdominal bloating/distention; patient denies any pain Vital signs are reviewed and are stable with temperature of 97.6, pulse 95, respiration 18 and blood pressure 149/80 Lab review shows sodium 145, potassium 3.7, BUNs/creatinine of 20/0.7, blood glucose of 117 Patient is being followed by neurology---MRI Brain w/ and w/o: No evidence of acute/subacute infarct. Diffuse innumerable enhancing clavarial and cervical vertebral body lesion consistent with metastatis. Vasogenic edema indentified within the bilateral posterior parietal and occipital lobes. No corresponding abnormal enhancement. This could represent posterior reversible encephalopathy syndrome vs other etiologies such as hypoglycemia, gliomatosis cerebri vs other. Metastatis is though to be less likely due to lack of enhancement. Nonspecific diffuse pachymeningeal smooth enhancement. Left parietal developemental venous anomaly. For meningeal enhancement, neurology is recommending to consider CSF study with paraneoplastic panel (CSF and serum) depending on overall prognosis of her overall condition; currently recommending hospice. 04/18/2024 Patient is seen and evaluated with multiple family members at bedside; no further complaint of headache Vital signs are reviewed and remained stable Lab review shows WBC of 14.31, hemoglobin of 11 and platelet count of 369, sodium 146, potassium 3.1, BUNs/creatinine of 18.1/0.8 -Patient received potassium per protocol; encouraged to increase fluid intake Patient and family await revisit by oncology team for further plan of care 04/19 Patient had some breathing difficulty last night but she feels better today. No dyspnea or chest pain She participated with therapy today, she feels better but she feels tired easily. Patient's wants to go home soon, family at bedside She has some pain in the back clavicle and ribs but she declines pain medication and prefers to be treated naturally No IV fluid. Liver biopsy is pending at this discussed with the patient and family Patient to be continued on her amiodarone Dexamethasone were discontinued 04/20 Patient awake alert She feels little short of breath but no respiratory distress no use of accessory muscles. No chest pain, no leg pain or worsening swelling She was on 2 L oxygen since admission on and off with saturation about 94% plus minus. No worsening hypoxia as of now. No worsening breathing rate. No chest pain. We will check chest x-ray. She still complains from right side lower chest pains since admission, no worsening, this is related to her metastatic disease. Low magnesium and potassium been replaced Liver biopsy was checked and still pending /. Patient seen and examined. Complaining of lethargic and weakness. Gets short of breath on exertion. 04/22. Patient seen and examined. Patient breathing is improved, currently not requiring any oxygen. States she feels much better. Denies any shortness of breath. 04/23. Patient seen and examined. Liver biopsy results are still pending. Hematology oncology recommend outpatient follow-up. Patient to be discharged on tapering dose of Decadron, 1 tablet of 4 mg twice daily for 5 days followed by 1 tablet 4 mg daily, followed by half tablet 4 mg for 5 days then stop PHYSICAL EXAMINATION: GENERAL: The patient is alert and oriented x3, ill looking HEENT: Pupils are round and equally reacting to light. EOMI. No scleral icterus. No conjunctival pallor. Normocephalic, atraumatic. No pharyngeal erythema. No thyromegaly. CARDIOVASCULAR: S1 and S2 present. No murmurs, rubs, or gallops. PULMONARY: Chest is clear to auscultation, no wheezing or crackles. ABDOMEN: Soft, nontender, nondistended, normoactive bowel sounds. No palpable organomegaly. MUSCULOSKELETAL: No joint swelling or deformity. EXTREMITIES: No cyanosis, clubbing, or pedal edema. NEUROLOGICAL: Gross neurological examination did not reveal any focal deficits. SKIN: No rashes. Dictation was produced using [employer] dictation software. please excuse any grammatical, word or spelling errors. Patient Condition at Discharge: Serious Plan - Discharge Summary New Discharge Prescriptions: New amLODIPine [Norvasc] 5 mg PO DAILY 30 Days #30 tab dexAMETHasone [Decadron] 4 mg PO BID #18 tablet Gabapentin [Neurontin] 300 mg PO TID PRN 10 Days #30 cap PRN Reason: neuropathic pain Continue HYDROcodone/APAP 5-325MG [[place] 5-325] 1 tab PO BID ALPRAZolam [Xanax] 0.25 mg PO BID PRN PRN Reason: Anxiety Escitalopram [Lexapro] 10 mg PO DIRECTED Discontinued metroNIDAZOLE [Flagyl] 500 mg PO BID Discharge Medication List ALPRAZolam [Xanax] 0.25 mg PO BID PRN 04/13/24 [History] Escitalopram [Lexapro] 10 mg PO DIRECTED 04/13/24 [History] HYDROcodone/APAP 5-325MG [[place] 5-325] 1 tab PO BID 04/13/24 [History] Gabapentin [Neurontin] 300 mg PO TID PRN 10 Days #30 cap 04/23/24 [Rx] amLODIPine [Norvasc] 5 mg PO DAILY 30 Days #30 tab 04/23/24 [Rx] dexAMETHasone [Decadron] 4 mg PO BID #18 tablet 04/23/24 [Rx] Follow up Appointment(s)/Referral(s): Donnie Hart MD [Primary Care Provider] - 1-2 days Willy Kwok MD [STAFF PHYSICIAN] - 1 Week Activity/Diet/Wound Care/Special Instructions: Tapering of Decadron; 1 tablet twice daily for 5 days, 1 tablet daily for 5 days Half tablet daily for 5 days and stop Discharge Disposition: HOME WITH HOME HEALTH SERVICES
== END 2024-04-23 12:28 | disposition home health service (06) | DRG 640 ==
LOC: EC 14:32 → 5NMEDONC 17:58
PROVIDERS: ADMIT Hospitalist; ATTEND Hospitalist
PROC: 0FB23ZX Excision of Left Lobe Liver, Percutaneous Approach, Diagnostic (ICD-10-PCS; principal; 2024-04-15)
DX: E83.52 Hypercalcemia (principal); G93.41 Metabolic encephalopathy; G93.6 Cerebral edema; C78.7 Secondary malignant neoplasm of liver and intrahepatic bile duct; C90.00 Multiple myeloma not having achieved remission; C79.51 Secondary malignant neoplasm of bone; C80.1 Malignant (primary) neoplasm, unspecified; D64.9 Anemia, unspecified; R63.4 Abnormal weight loss; N17.9 Acute kidney failure, unspecified; N39.0 Urinary tract infection, site not specified; G89.29 Other chronic pain; E86.0 Dehydration; K59.00 Constipation, unspecified; R45.1 Restlessness and agitation; R03.0 Elevated blood-pressure reading, without diagnosis of hypertension; R94.01 Abnormal electroencephalogram [EEG]; R20.0 Anesthesia of skin; Z68.21 Body mass index [BMI] 21.0-21.9, adult; Z28.310 Unvaccinated for COVID-19
CPT/HCPCS: 36415; 47000; 51798; 70450; 70553; 71045; 71046; 71260; 74177; 77012; 80048; 80053; 81001; 82140; 82310; 82378; 82784; 83605; 83735; 83880; 83883; 84100; 84132; 84165; 84443; 84484; 85025; 85610; 85730; 86300; 86301; 86334; 88307; 88341; 88342; 93005; 94760; 95816; 96361; 96365; 99284; 99291

== ENCOUNTER → 2024-04-30 | Outpatient (CLI) | payer MEDICARE ==
--- NOTE | 2024-05-02 08:46 | PE ---
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 Images are reviewed on the computer in the coronal, axial, and sagittal planes. Reconstructed rotating images are created on independent workstation and reviewed on the computer. A non-contrast CT is performed in conjunction with the PET scan. Glucose level 98 mg/dL CT DLP: 333.35 mGycm, Automated exposure control for dose reduction was used. COMPARISON: CT 04/13/2024, PET/CT None, MRI: 04/16/2024 FINDINGS: Mediastinal SUV mean is 1.8. Hepatic parenchyma SUV mean is 2.3. SKULL BASE AND NECK: No suspicious radiotracer activity. CHEST, MEDIASTINUM, AND HILAR REGION: FDG avid nonenlarged right axillary lymph node with a maximum SUV of 14.2. FDG avid subcentimeter right supraclavicular lymph node with a maximum SUV of 8.1. FDG avid and not enlarged left mammary lymph node with a maximum SUV of 8.4. ABDOMEN AND PELVIS: Innumerable FDG avid bilobar hepatic hypodense lesions. Example includes the previously biopsied inferior left hepatic lobe 2.0 cm lesion with a maximum SUV of 18.8. FDG avid left para-aortic adenopathy measuring up to 2.0 cm with a maximum SUV of 16.2. Additional FDG avid enlarged left iliac chain lymph nodes. FDG avid right obturator lymph node with a maximum SUV of 11.4. FDG avid right inguinal lymph node with a maximum SUV of 6.5. MUSCULOSKELETAL STRUCTURES: Extensive FDG avid osseous lytic lesions involving the calvarium, spine, clavicles, scapula, ribs, st ernum, pelvic bones, and femurs. A few demonstrate expanded soft tissue destructive appearance Examples include right iliac bone large soft tissue destructive FDG avid lesion with a maximum SUV of 16.4. Anterior left iliac bone expansile destructive soft tissue FDG avid lesion with a max SUV of 17.5. Posterior right eighth rib expansile destructive soft tissue FDG avid lesion with a maximum SUV of 17 .6. Right scapular FDG avid lesion with a maximum SUV of 17.0. Sella FDG avid lesion with a maximum SUV of 14.3. FDG avid L3 vertebral body lesion with a maximum SUV of 16.1. FDG avid L1 vertebral body lesion with a max SUV of 16.1. This demonstrate pathologic fracture with p osterior retropulsion of approximately 6 to 7 mm. There is near complete height loss centrally. Addit ional suspected pathologic fracture of the T11 vertebral body with a max SUV of 14.6. There is approx imately 2 mm of retropulsion. Mild central height loss. OTHER CT: Bilateral aphakia. Bilateral carotid bulb calcifications. Atherosclerotic calcification of the aorta and its branches. Mild coronary artery calcifications. Pessary device. IMPRESSION: 1. Extensive FDG avid metastasis throughout the osseous structures and liver. Additional metastatic lymphadenopathy with FDG avid para-aortic, left iliac chain, right obturator, right inguinal , and ri ght axillary, left mammary, and right supraclavicular lymph nodes. 2. There is a pathologic fracture of the L1 vertebral body with approximately 6 to 7 mm of retropuls ion. Additional suspected pathologic fracture of the T11 vertebral body. [facility], , 05/02/2024 8:44 AM
== END | disposition home or self-care (01) ==
LOC: RADPETMAIN 13:57
PROVIDERS: ATTEND Internal Medicine
DX: S32.018A Other fracture of first lumbar vertebra, initial encounter for closed fracture (principal); C22.0 Liver cell carcinoma; C77.3 Secondary and unspecified malignant neoplasm of axilla and upper limb lymph nodes; X58.XXXA Exposure to other specified factors, initial encounter
CPT/HCPCS: 78815; A9552

== ENCOUNTER 2024-05-15 14:32 | Inpatient (IN) | payer MEDICARE ==
--- NOTE | 2024-05-15 15:04 | ED ---
Weakness HPI - General Source: patient, family, RN notes reviewed Mode of arrival: EMS Limitations: no limitations <Sofía Britt - Last Filed: 05/15/24 15:02> - General Source: patient, family, RN notes reviewed Limitations: no limitations <Emmanuel Elliott - Last Filed: 05/15/24 17:11> - General Chief complaint: Weakness Stated complaint: fever confusion Time Seen by Provider: 05/15/24 14:45 - History of Present Illness Initial comments: Quick [id number] female with a recent diagnosis of non-Hodgkin's a follow- up presenting to emergency room via EMS with daughter for complaints of generalized weakness. Daughter states that over the past 3 days patient has been experiencing intermittent fevers hide ranging up to 102.7 that responds to Tylenol. Patient has been overall weak with a decrease in oral intake, confuse d. Patient was advised by Dr. Kwok, to report to the ER. Additionally, patient states that she has had dark and sticky stools over the past few weeks. Denies blood thinner use. (Sofía Britt) Patient is a 68-year-old female present to the emergency department with irineo lloyd for not feeling well. Onset of symptoms was 2 days ago. Patient has discomfort on the right side of her abdomen. Decreased appetite and decreased oral intake. Decreased urination. Patient recently diagnosed with lymphoma. No treatment started yet. Patient has had fever at home. Patient has had chills and fatigue. Generalized weakness. Daughter states patient seems a little confused as well. (Emmanuel Elliott) - Related Data Home Medications Medication Instructions Recorded Confirmed ALPRAZolam [Xanax] 0.25 mg PO BID PRN 04/13/24 04/13/24 Escitalopram [Lexapro] 10 mg PO DIRECTED 04/13/24 04/13/24 Previous Rx's Medication Instructions Recorded Gabapentin [Neurontin] 300 mg PO TID PRN 10 Days #30 cap 04/23/24 Lactulose [Cephulac] 20 gm PO DAILY 10 Days #300 ml 04/23/24 amLODIPine [Norvasc] 5 mg PO DAILY 30 Days #30 tab 04/23/24 dexAMETHasone [Decadron] 4 mg PO BID #18 tablet 04/23/24 traMADol HCl [Ultram] 50 mg PO TID PRN 4 Days #12 tab 04/23/24 Allergies Allergy/AdvReac Type Severity Reaction Status Date / Time No Known Allergies Allergy Verified 04/13/24 20:56 Review of Systems ROS Other: All systems not noted in ROS Statement are negative. <Sofía Britt - Last Filed: 05/15/24 15:02> ROS Other: All systems not noted in ROS Statement are negative. Constitutional: Reports: as per HPI, fever, chills Eyes: Denies: eye pain ENT: Denies: ear pain, congestion Respiratory: Denies: cough, dyspnea Cardiovascular: Denies: chest pain Endocrine: Reports: fatigue Gastrointestinal: Reports: abdominal pain. Denies: vomiting Genitourinary: Reports: as per HPI Musculoskeletal: Denies: back pain Neurological: Denies: headache <Emmanuel Elliott - Last Filed: 05/15/24 17:11> ROS Statement: Those systems with pertinent positive or pertinent negative responses have been documented in the HPI. Past Medical History Past Medical History: Cancer Additional Past Medical History / Comment(s): t11 l1 compression fracture History of Any Multi-Drug Resistant Organisms: None Reported Past Surgical History: No Surgical Hx Reported Past Psychological History: No Psychological Hx Reported Smoking Status: Never smoker Past Alcohol Use History: None Reported Past Drug Use History: None Reported <Sofía Britt - Last Filed: 05/15/24 15:02> General Exam Limitations: no limitations <Sofía Britt - Last Filed: 05/15/24 15:02> Limitations: no limitations General appearance: alert, in no apparent distress Head exam: Present: normocephalic Eye exam: Present: normal appearance Neck exam: Present: normal inspection Respiratory exam: Present: normal lung sounds bilaterally Cardiovascular Exam: Present: regular rate, normal rhythm GI/Abdominal exam: Present: soft, tenderness (Mild right-sided abdominal tenderness), normal bowel sounds. Absent: distended, guarding, rebound, rigid, pulsatile mass Extremities exam: Present: normal inspection Back exam: Present: CVA tenderness (R) Neurological exam: Present: alert. Absent: motor sensory deficit Psychiatric exam: Present: flat affect Skin exam: Present: normal color <Emmanuel Elliott - Last Filed: 05/15/24 17:11> - General Exam Comments Initial Comments: Visual Physical Exam Vital signs reviewed General: Well-appearing, nontoxic, no acute distress. Head: Normocephalic, atraumatic Eyes: PERRLA, EOMI ENT: Airway patent Chest: Nonlabored breathing Skin: No visual rash, normal skin tone Neuro: Alert and oriented 3 Musculoskeletal: No gross abnormalities (Sofía Britt) Course Vital Signs 05/15/24 05/15/24 14:45 16:44 Temperature 98.1 F Pulse Rate 99 96 Respiratory 20 17 Rate Blood Pressure 101/59 112/67 O2 Sat by Pulse 91 L 98 Oximetry EKG Findings - EKG Results: EKG: interpreted by ERMD, sinus rhythm, normal axis, normal QRS, normal ST/T <Emmanuel Elliott - Last Filed: 05/15/24 17:11> Medical Decision Making <Sofía Britt - Last Filed: 05/15/24 15:02> - Lab Data Result diagrams: 05/15/24 15:03 05/15/24 15:03 <Emmanuel Elliott - Last Filed: 05/15/24 17:11> - Medical Decision Making I completed the quick note portion of this chart signed Sofía Britt PA-C (Sofía Britt) CT scan of the abdomen pelvis shows infiltrate right lower lobe, bony metastasis and liver metastasis. Chest x-ray interpreted by myself does not reveal acute process. Was pt. sent in by a medical professional or institution ([facility], [facility], urgent care, hospital, or fdc...) When possible be specific @ -No Did you speak to anyone other than the patient for history (EMS, parent, family, police, friend...)? What history was obtained from this source @ -Daughter is present helps provide history of patient having lymphoma Did you review nursing and triage notes (agree or disagree)? Why? @ -I reviewed and agree with nursing and triage notes Were old charts reviewed (outside hosp., previous admission, EMS record, old EKG, old radiological studies, urgent care reports/EKG's, fdc records)? Report findings @ -No old charts were reviewed Differential Diagnosis (chest pain, altered mental status, abdominal pain women, abdominal pain men, vaginal bleeding, weakness, fever, dyspnea, syncope, headache, dizziness, GI bleed, back pain, seizure, CVA, palpatations, mental health, musculoskeletal)? @ -Differential Fever: Pneumonia, viral URI, endocarditis, myocarditis, pericarditis, otitis, sinusitis, peritonsillar Abscess, retropharyngeal Abscess, epiglottitis, peritonitis, appendicitis, Lizzette cystitis, diverticulitis, hepatitis, colitis, UTI, PID, TOA, pyelonephritis, prostatitis, epididymitis, meningitis, encephalitis, pulmonary embolism, CVA, thyroid storm, pancreatitis, adrenal crisis, cavernous sinus thrombosis, this is not meant to be an all-inclusive list. EKG interpreted by me (3pts min.). @ -As above X-rays interpreted by me (1pt min.). @ -Chest x-ray does not reveal acute abnormality CT interpreted by me (1pt min.). @ -See above U/S interpreted by me (1pt. min.). @ -None done What testing was considered but not performed or refused? (CT, X-rays, U/S, labs )? Why? @ -None What meds were considered but not given or refused? Why? @ -None Did you discuss the management of the patient with other professionals (professionals i.e. , PA, [employer], lab, RT, psych nurse, psychologist social, lump room supervisor, teacher, employment security officer, lining caser)? Give summary @ -Case was discussed with practitioner Keisha Leigh who will admit covering Dr. Hernandez. Was smoking cessation discussed for >3mins.? @ -No Was critical care preformed (if so, how long)? @ -No Were there social determinants of health that impacted care today? How? (Homelessness, low income, unemployed, alcoholism, drug addiction, transportation, low edu. Level, literacy, decrease access to med. care, assisted, re hab)? @ -No Was there de-escalation of care discussed even if they declined (Discuss DNR or withdrawal of care, Hospice)? DNR status @ -No What co-morbidities impacted this encounter? (DM, HTN, Smoking, COPD, CAD, Cancer, CVA, ARF, Chemo, Hep., AIDS, mental health diagnosis, sleep apnea, morbid obesity)? @ -Recent diagnosis of lymphoma Was patient admitted / discharged? Hospital course, mention meds given and route, prescriptions, significant lab abnormalities, going to OR and other pertinent info. @ -Patient presents with generalized weakness and fevers. Patient has nonspecific abdominal discomfort. Questionable pneumonia on CT scan diagnosed at 1700 . Patient will be admitted. Patient and family updated. Admission orders written. Undiagnosed new problem with uncertain prognosis? @ -No Drug Therapy requiring intensive monitoring for toxicity (Heparin, Nitro, Insulin, Cardizem)? @ -No Were any procedures done? @ -No Diagnosis/symptom? @ -Pneumonia Acute, or Chronic, or Acute on Chronic? @ -Acute Uncomplicated (without systemic symptoms) or Complicated (systemic symptoms)? @ -Complicated with hyponatremia Side effects of treatment? @ -No Exacerbation, Progression, or Severe Exacerbation? @ -No Poses a threat to life or bodily function? How? (Chest pain, [place], [place], pneumonia, PE, COPD, DKA, ARF, appy, cholecystitis, CVA, Diverticulitis, Homicidal, Suicidal, threat to staff... and all critical care pts) @ -No (Emmanuel Elliott) - Lab Data Lab Results 05/15/24 05/15/24 05/15/24 Range/Units 15:03 15:03 15:03 WBC 6.4 (3.8-10.6) k/uL RBC 2.95 L (3.80-5.40) m/uL Hgb 8.4 L D (11.4-16.0) gm/dL Hct 27.0 L (34.0-46.0) % MCV 91.6 (80.0-100.0) fL MCH 28.3 (25.0-35.0) pg MCHC 30.9 L (31.0-37.0) g/dL RDW 15.9 H (11.5-15.5) % Plt Count 483 H (150-450) k/uL MPV 7.5 Neutrophils % 79 % Lymphocytes % 13 % Monocytes % 5 % Eosinophils % 0 % Basophils % 0 % Neutrophils # 5.1 (1.3-7.7) k/uL Lymphocytes # 0.8 L (1.0-4.8) k/uL Monocytes # 0.4 (0-1.0) k/uL Eosinophils # 0.0 (0-0.7) k/uL Basophils # 0.0 (0-0.2) k/uL Hypochromasia Slight Poikilocytosis Slight PT 12.0 (10.0-12.5) sec INR 1.1 (<1.2) APTT 23.8 (22.0-30.0) sec Sodium 130 L (137-145) mmol/L Potassium 4.2 (3.5-5.1) mmol/L Chloride 96 L (98-107) mmol/L Carbon Dioxide 22 (22-30) mmol/L Anion Gap 12 mmol/L BUN 15 (7-17) mg/dL Creatinine 0.52 (0.52-1.04) mg/dL Est GFR (CKD-EPI)AfAm >90 (>60 ml/min/1.73 sqM) Est GFR (CKD-EPI)NonAf >90 (>60 ml/min/1.73 sqM) Glucose 96 (74-99) mg/dL Plasma Lactic Acid Fransico (0.7-2.0) mmol/L Calcium 8.4 (8.4-10.2) mg/dL Magnesium 2.1 (1.6-2.3) mg/dL Total Bilirubin 0.7 (0.2-1.3) mg/dL AST 60 H (14-36) U/L ALT 16 (4-34) U/L Alkaline Phosphatase 188 H (38-126) U/L Troponin I (0.000-0.034) ng/mL Total Protein 6.0 L (6.3-8.2) g/dL Albumin 3.5 (3.5-5.0) g/dL Influenza Type A (PCR) (Not Detectd) Influenza Type B (PCR) (Not Detectd) RSV (PCR) (Not Detectd) SARS-CoV-2 (PCR) (Not Detectd) 05/15/24 05/15/24 05/15/24 Range/Units 15:03 15:03 15:03 WBC (3.8-10.6) k/uL RBC (3.80-5.40) m/uL Hgb (11.4-16.0) gm/dL Hct (34.0-46.0) % MCV (80.0-100.0) fL MCH (25.0-35.0) pg MCHC (31.0-37.0) g/dL RDW (11.5-15.5) % Plt Count (150-450) k/uL MPV Neutrophils % % Lymphocytes % % Monocytes % % Eosinophils % % Basophils % % Neutrophils # (1.3-7.7) k/uL Lymphocytes # (1.0-4.8) k/uL Monocytes # (0-1.0) k/uL Eosinophils # (0-0.7) k/uL Basophils # (0-0.2) k/uL Hypochromasia Poikilocytosis PT (10.0-12.5) sec INR (<1.2) APTT (22.0-30.0) sec Sodium (137-145) mmol/L Potassium (3.5-5.1) mmol/L Chloride (98-107) mmol/L Carbon Dioxide (22-30) mmol/L Anion Gap mmol/L BUN (7-17) mg/dL Creatinine (0.52-1.04) mg/dL Est GFR (CKD-EPI)AfAm (>60 ml/min/1.73 sqM) Est GFR (CKD-EPI)NonAf (>60 ml/min/1.73 sqM) Glucose (74-99) mg/dL Plasma Lactic Acid Fransico 1.1 (0.7-2.0) mmol/L Calcium (8.4-10.2) mg/dL Magnesium (1.6-2.3) mg/dL Total Bilirubin (0.2-1.3) mg/dL AST (14-36) U/L ALT (4-34) U/L Alkaline Phosphatase (38-126) U/L Troponin I 0.012 (0.000-0.034) ng/mL Total Protein (6.3-8.2) g/dL Albumin (3.5-5.0) g/dL Influenza Type A (PCR) Not Detected (Not Detectd) Influenza Type B (PCR) Not Detected (Not Detectd) RSV (PCR) Not Detected (Not Detectd) SARS-CoV-2 (PCR) Not Detected (Not Detectd) Disposition <Sofía Britt - Last Filed: 05/15/24 15:02> Is patient prescribed a controlled substance at d/c from ED?: No Time of Disposition: 17:11 <Emmanuel Elliott - Last Filed: 05/15/24 17:11> Clinical Impression: Pneumonia Disposition: ADMITTED IP TO THIS HOSP Referrals: Donnie Hart MD [Primary Care Provider] - 1-2 days
--- NOTE | 2024-05-15 15:37 | XR ---
EXAMINATION TYPE: XR chest 2V DATE OF EXAM: 05/15/2024 3:13 PM COMPARISON: 04/20/2024 CLINICAL INDICATION: Female, 68 years old with history of Weakness: Shortness of breath TECHNIQUE: XR chest 2V views of the chest are obtained. FINDINGS: Scattered senescent parenchymal changes noted. Hyperinflation compatible with COPD. No evidence for infiltrate. No evidence for atelectasis. Heart size is stable. Mediastinal structures are stable and grossly unremarkable. No evidence for hilar prominence. Degenerative changes dorsal spine. IMPRESSION: 1. No evidence for acute pulmonary disease. [facility], , 05/15/2024 3:35 PM
[2024-05-15 16:14] LABS: INR 1.1 (<1.2); Partial Thromboplastin Time 23.8 sec (22.0-30.0)
[2024-05-15 16:16] LABS: ALT 16 U/L (4-34); AST 60 U/L (14-36); African American GFR (CKD) >90 (>60 ml/min/1.73 sqM); Albumin 3.5 g/dL (3.5-5.0); Alkaline Phosphatase 188 U/L (38-126); Anion Gap 12 mmol/L; Blood Urea Nitrogen 15 mg/dL (7-17); Calcium 8.4 mg/dL (8.4-10.2); Carbon Dioxide 22 mmol/L (22-30); Chloride 96 mmol/L (98-107); Glucose 96 mg/dL (74-99); Magnesium 2.1 mg/dL (1.6-2.3); Non-African American GFR(CKD) >90 (>60 ml/min/1.73 sqM); Potassium 4.2 mmol/L (3.5-5.1); Sodium 130 mmol/L (137-145); Total Bilirubin 0.7 mg/dL (0.2-1.3)
[2024-05-15 16:31] LABS: Basophils % (A) 0 %; Eosinophils % (A) 0 %; Hypochromasia Slight; Lymphocytes # (A) 0.8 k/uL (1.0-4.8); Lymphocytes % (A) 13 %; MCH 28.3 pg (25.0-35.0); MCHC 30.9 g/dL (31.0-37.0); MCV 91.6 fL (80.0-100.0); Mean Platelet Volume 7.5; Monocytes # (A) 0.4 k/uL (0-1.0); Monocytes % (A) 5 %; Neutrophils # (A) 5.1 k/uL (1.3-7.7); Neutrophils % (A) 79 %; Platelet Count 483 k/uL (150-450); Poikilocytosis Slight; RBC 2.95 m/uL (3.80-5.40); RDW 15.9 % (11.5-15.5); WBC 6.4 k/uL (3.8-10.6)
[2024-05-15 16:32] LABS: HGB 8.4 gm/dL (11.4-16.0)
[2024-05-15 16:38] LABS: Influenza A Not Detected (Not Detectd); Influenza B Not Detected (Not Detectd); RSV Not Detected (Not Detectd)
[2024-05-15] MEDS: SODIUM CHLORIDE 0.9% 1,000 ML IV STA (16:46)
--- NOTE | 2024-05-15 16:48 | CT ---
EXAMINATION TYPE: CT abdomen pelvis w con DATE OF EXAM: 05/15/2024 4:39 PM COMPARISON: The recent PET/CT from 04/30/2024 CLINICAL INDICATION: Female, 68 years old with history of r abp, hx nonhodgkins lymphoma. pt with fev er at home confusion. skin pale warm dry. resp symm unlabored. c/o back pain right falnk rad to abdo men TECHNIQUE:CT scan of the abdomen and pelvis is performed without Oral Contrast and with IV Contrast, patient injected with 100ml mL of Isovue 300. CT DLP: 616.9 mGycm, Automated exposure control for dose reduction was used. FINDINGS: LUNG BASES-: No visible nodule. Patchy density right lower lobe may reflect developing atelectasis an d/or infiltrate. LIVER/GB: No calcified gallstones. Numerous scattered hepatic lesions compatible with metastatic di sease the largest measuring approximately 1.8 cm. Biliary tree is of normal caliber. PANCREAS: No inflammation. No distinct mass. SPLEEN: No splenic enlargement. No lesion seen. ADRENALS: No nodule. No thickening. KIDNEYS/BLADDER: No hydronephrosis. No nephrolithiasis. Tiny renal cysts noted. Urinary bladder dany ssly unremarkable. BOWEL: Normal appendix. Normal bowel caliber. No inflammation. GENITAL ORGANS: Pessary noted to be in place. Uterus is free of mass as are the ovaries. LYMPH NODES: No greater than 1cm abdominal or pelvic lymph nodes are appreciated. AORTA: Extensive atheromatous change noted about the abdominal aorta and iliac vessels. OSSEOUS STRUCTURES: Bony metastases seen throughout the visualized axial and appendicular skeleton wi thout destructive bone lesion of the right iliac wing which has been described on recent PET/CT. Agai n noted are pathologic compression fractures at T11 and L1 with bony retropulsion of approximately 4 mm at each level. No definite evidence of cord compression. OTHER: No significant additional abnormality is seen. IMPRESSION: 1. No acute intra-abdominal or intrapelvic process seen at this time. 2. Bony metastases as well as liver metastases as discussed. 3. Mild patchy density right lower lobe could reflect developing atelectasis and/or infiltrate. [facility], , 05/15/2024 4:46 PM
[2024-05-15] MEDS ORDERED: PNEUMONIA PROTOCOL UTILIZED 1 EACH MISC PO PRN (17:12)
[2024-05-15] MEDS: ACETAMINOPHEN IV (For NPO) 700 MG in EMPTY BAG 1 BAG IVPB STA (17:13)
[2024-05-15] MEDS: SODIUM CHLORIDE 0.9% 1,000 ML IV SCH (17:35)
[2024-05-15 17:57] LABS: Appearance,Urine Clear (Clear); Bilirubin,Urine Negative (Negative); Blood,Urine Negative (Negative); Color,Urine Colorless; Glucose,Urine (UA) Negative (Negative); Hyaline Casts,Urine 1 /lpf (0-2); Ketones,Urine 1+ (Negative); Leukocyte Esterase,Urine Moderate (Negative); Nitrite,Urine Negative (Negative); PH, Urine 5.5 (5.0-8.0); Protein,Urine Negative (Negative); RBC,Urine 3 /hpf (0-5); Specific Gravity,Urine 1.017 (1.001-1.035); Squamous Epithelial Cell,Urine <1 /hpf (0-4); Urobilinogen,Urine <2.0 mg/dL (<2.0); WBC,Urine 2 /hpf (0-5)
[2024-05-15] MEDS: AZITHROMYCIN 500 MG in SODIUM CHLORIDE 0.9% 250 ML IVPB STA (18:55)
[2024-05-15] MEDS: HYDROcodone/APAP 5-325MG 1 EACH TAB PO PRN (23:54)
[2024-05-15] MEDS: guaiFENesin-DM 100-10MG/5ML 10 ML CUP PO PRN (23:54)
[2024-05-16] MEDS: ACETAMINOPHEN TAB 325 MG TAB PO PRN (07:12)
--- NOTE | 2024-05-16 08:27 | XR ---
EXAMINATION TYPE: XR chest 2V DATE OF EXAM: 05/16/2024 8:21 AM COMPARISON: Chest radiographs from 05/15/2024, PET/CT 04/30/2024 TECHNIQUE: XR chest 2V Frontal and lateral views of the chest. CLINICAL INDICATION:Female, 68 years old with history of pneumonia; FINDINGS: Lungs/Pleura: Blunting of the left costophrenic angle. No pneumothorax. Biapical pleural thickening. Hyperinflation with flattening of the hemidiaphragms. Bilateral upper lung reticular opacities with r ight greater than left. Pulmonary vascularity: Unremarkable. Heart/mediastinum: Cardiomediastinal silhouette is unremarkable. Musculoskeletal: No acute osseous pathology. Expansile left lateral sixth and eighth rib lesions. IMPRESSION: 1. Bilateral upper lung reticular opacities concerning for pneumonia. 2. Similar trace left pleural effusion. 3. Expansile left lateral sixth and eighth rib lesion as seen on prior CT. [facility], , 05/16/2024 8:25 AM
[2024-05-16] MEDS: AZITHROMYCIN 500 MG TAB PO SCH (09:20)
[2024-05-16] MEDS: traMADol 50 MG TAB PO SCH (09:58)
[2024-05-16 13:22] LABS: Basophils % (A) 0 %; Eosinophils % (A) 0 %; HCT 26.2 % (34.0-46.0); Hypochromasia Moderate; Lymphocytes # (A) 0.7 k/uL (1.0-4.8); Lymphocytes % (A) 13 %; MCH 28.4 pg (25.0-35.0); MCHC 30.4 g/dL (31.0-37.0); MCV 93.6 fL (80.0-100.0); Mean Platelet Volume 7.5; Monocytes # (A) 0.3 k/uL (0-1.0); Monocytes % (A) 5 %; Neutrophils # (A) 4.4 k/uL (1.3-7.7); Neutrophils % (A) 79 %; Platelet Count 533 k/uL (150-450); Poikilocytosis Slight; WBC 5.6 k/uL (3.8-10.6)
[2024-05-16 13:37] LABS: African American GFR (CKD) >90 (>60 ml/min/1.73 sqM); Anion Gap 11 mmol/L; Blood Urea Nitrogen 7 mg/dL (7-17); Calcium 7.9 mg/dL (8.4-10.2); Carbon Dioxide 22 mmol/L (22-30); Chloride 101 mmol/L (98-107); Glucose 73 mg/dL (74-99); Non-African American GFR(CKD) >90 (>60 ml/min/1.73 sqM); Potassium 3.3 mmol/L (3.5-5.1); Sodium 134 mmol/L (137-145)
--- NOTE | 2024-05-16 14:09 | CT ---
EXAMINATION TYPE: CT chest wo con CT DLP: 184.10 mGycm, Automated exposure control for dose reduction was used. DATE OF EXAM: 05/16/2024 1:57 PM COMPARISON: . Chest radiograph 05/16/2024, PET/CT 04/30/2024 CLINICAL INDICATION:Female, 68 years old with history of SOB; PHH, Pneumonia TECHNIQUE: Multiple axial images were obtained through the chest without IV contrast. Lack of IV or o ral contrast limits evaluation of solid and hollow organ viscera. . Coronal and sagittal reformats re viewed. FINDINGS: LUNGS/ PLEURA: Small bilateral pleural effusions with associated atelectasis. Development of bilater al upper lobe reticular opacities seen on chest radiograph the same date. Mild centrilobular emphysem atous changes. AIRWAY: Patent and unremarkable.. HEART: Size within normal limits.No pericardial effusion. Mild coronary artery calcifications present . MEDIASTINUM: Stable enlarged precarinal lymph node measuring 1.7 cm. VASCULATURE: No aortic aneurysm. Mild atherosclerotic calcification of the aorta and its branches. MUSCULOSKELETAL: No acute osseous abnormalities. Scoliotic curvature of the thoracic spine. Redemonst ration of expansile sclerotic lesion involving the left lateral third, sixth, and eighth ribs. Destru ctive soft tissue lesion involving the posterior right eighth rib redemonstrated. Redemonstration of destructive pathologic lesions involving the T11 and L1 vertebral bodies. There is again 4 mm retropu lsion is approximately 60% height loss. Redemonstration of subtle sclerotic lesion involving the ster num. SOFT TISSUES/LYMPH NODES: Unremarkable. LOWER NECK: No significant findings. UPPER ABDOMEN: No significant findings. IMPRESSION: 1. Development of bilateral upper lobe reticular opacities concerning for pneumonia. 2. Small bilateral pleural effusions with associated atelectasis. 3. Demonstration of multiple destructive osseous metastasis including the ribs with pathologic fractu res of the T11 and L1 vertebral bodies again. 4. Stable enlarged nonspecific mediastinal lymph node. Not FDG avid on prior PET/CT. [facility], , 05/16/2024 2:07 PM
--- NOTE | 2024-05-16 14:48 | P.CNPUL ---
History of Present Illness Consult date: 05/16/24 Reason for consult: dyspnea, pneumonia History of present illness: This is a 68-year-old female patient was diagnosed having diffuse B-cell lymph antoinette. Diagnosed with established by liver biopsy that was done initially at [facility] and findings were also confirmed by liver biopsy that was done at [facility]. Noted the patient has extensive disease and her previous PET scan that was done on 05/01/2024 showed extensive FDG uptake in metastases throughout the osseous structures and the liver in addition to metastatic lymphadenopathy in the para-aortic, left iliac, right obturator and right inguinal and right axillary and left mammary and supraclavicular area. The patient also has pathologic compression fracture of the L1 spine. The patient has not started treatment yet. She presented to the hospital because of ongoing fever and the patient was also found to be hypoxic and the patient is currently on 3 Suboxone by nasal cannula. She has no significant leukocytosis. She is febrile. Hemodynamically stable. No reported aspiration. Chest x-ray that was done at time of admission showed a trace left-sided pleural effusion and there is areas of reticular opacities in the upper lobes right more than left and this is a new finding compared to previous chest x-rays. Based on that, the patient was started on broad-spectrum antibiotics and the patient is currently on a combination of Rocephin and Zithromax. On today's evaluation, her white cell count is at 5.6 with a hemoglobin of 8 and a platelet count of 533. BUN is 7 with a creatinine of 0.4 and a sodium level at 134. UA is negative. Viral screen was negative. Legionella urine antigen was also done and results were also negative. No reported aspiration. No sick contacts. Review of Systems Constitutional: Reports daytime sleepiness, Reports fatigue, Reports fever, Reports weakness Eyes: denies as per HPI, denies blurred vision, denies bulging eye, denies decreased vision, denies diplopia, denies discharge, denies dry eye, denies irritation, denies itching, denies pain, denies photophobia, denies loss of peripheral vision, denies loss of vision, denies tunnel vision/blind spots Ears: deny: decreased hearing, ear discharge, earache, tinnitus Ears, nose, mouth and throat: Reports as per HPI Breasts: absent: as per HPI, change in shape, gynecomastia, masses, nipple discharge, pain, skin changes, swelling Cardiovascular: Reports as per HPI, Reports decreased exercise tolerance, Reports dyspnea on exertion Respiratory: Reports dyspnea Gastrointestinal: Reports as per HPI Genitourinary: Reports as per HPI Menstruation: Reports as per HPI Musculoskeletal: Reports low back pain, Reports muscle weakness Musculoskeletal: absent: ankle pain, ankle stiffness, ankle swelling, as per HPI, elbow pain, elbow stiffness, elbow swelling, foot pain, foot stiffness, foot swelling, hand pain, hand stiffness, hand swelling, hip pain, hip stiffness, hip swelling, knee pain, knee stiffness, knee swelling, shoulder pain , shoulder stiffness, shoulder swelling, wrist pain, wrist stiffness, wrist swelling Integumentary: Reports as per HPI Neurological: Reports as per HPI Psychiatric: Reports as per HPI Endocrine: Reports fatigue Hematologic/Lymphatic: Reports as per HPI Allergic/Immunologic: Reports as per HPI Past Medical History Past Medical History: Cancer Additional Past Medical History / Comment(s): t11 l1 compression fracture History of Any Multi-Drug Resistant Organisms: None Reported Past Surgical History: No Surgical Hx Reported Smoking Status: Former smoker Medications and Allergies Home Medications Medication Instructions Recorded Confirmed Type amLODIPine [Norvasc] 5 mg PO DAILY 30 Days #30 tab 04/23/24 05/15/24 Rx Cholecalciferol [Vitamin D3 (25 50 mcg PO DAILY 05/15/24 05/15/24 History Mcg = 1000 Iu)] Gabapentin [Neurontin] 300 mg PO TID PRN 05/15/24 05/15/24 History Gabapentin [Neurontin] 400 mg PO HS 05/15/24 05/15/24 History HYDROcodone/APAP 5-325MG [[place] 1 tab PO BID PRN 05/15/24 05/15/24 History 5-325] Multivitamins, Thera [Multivitamin 1 tab PO DAILY 05/15/24 05/15/24 History (formulary)] traMADol HCl [Ultram] 50 mg PO TID 05/15/24 05/15/24 History Allergies Allergy/AdvReac Type Severity Reaction Status Date / Time No Known Allergies Allergy Verified 05/15/24 17:30 Physical Exam Vitals: Vital Signs Temp Pulse Pulse Resp BP BP Pulse Ox 05/16/24 11:48 98.3 F 96 16 107/64 95 05/16/24 07:32 100.9 F H 118 H 16 131/76 91 L 05/16/24 06:57 101.1 F H 05/16/24 01:49 99.5 F 107 H 12 104/62 92 L 05/15/24 23:23 95 05/15/24 20:00 98.7 F 113 H 14 137/74 92 L 05/15/24 18:58 98 18 106/58 98 05/15/24 16:44 96 17 112/67 98 05/15/24 14:45 98.1 F 99 20 101/59 91 L Intake and Output 05/15/24 05/16/24 05/16/24 22:59 06:59 14:59 Intake Total 540 1560 Output Total 750 700 Balance -210 860 Intake: Oral 540 1560 Output: Urine 750 700 Other: Voiding Method External Catheter Bedside Commode External Catheter Weight 54.431 kg The patient appeared well nourished and normally developed. Vital signs as documented. Patient is currently on 3 Suboxone by nasal cannula Head exam is unremarkable. No scleral icterus or corneal arcus noted. Neck is without jugular venous distension, thyromegaly, or carotid bruits. Carotid upstrokes are brisk bilaterally. Lungs are clear to auscultation and percussion. Cardiac exam reveals the PMI to be normally sized and situated. Rhythm is regular. First and second heart sounds normal. No murmurs, rubs or gallops. Abdominal exam reveals normal bowel sounds, no masses, no organomegaly and no aortic enlargement. Extremities are nonedematous and both femoral and pedal pulses are normal. Examination of the skin revealed no evidence of significant rashes, suspicious appearing nevi or other concerning lesions. Neurologically, the patient is awake and alert and the patient does not have any focal neurological deficit. Cranial nerves are essentially intact. Results - Laboratory Findings CBC and BMP: 05/16/24 12:50 05/16/24 12:50 PT/INR, D-dimer PT 12.0 sec (10.0-12.5) 05/15/24 15:03 INR 1.1 (<1.2) 05/15/24 15:03 Abnormal lab findings: Abnormal Labs 05/15/24 05/15/24 05/15/24 15:03 15:03 17:52 RBC 2.95 L Hgb 8.4 L D Hct 27.0 L MCHC 30.9 L RDW 15.9 H Plt Count 483 H Lymphocytes # 0.8 L Sodium 130 L Potassium Chloride 96 L Creatinine Glucose Calcium AST 60 H Alkaline Phosphatase 188 H Total Protein 6.0 L Urine Ketones 1+ H Ur Leukocyte Esterase Moderate H 05/16/24 05/16/24 12:50 12:50 RBC 2.80 L Hgb 8.0 L Hct 26.2 L MCHC 30.4 L RDW 16.0 H Plt Count 533 H Lymphocytes # 0.7 L Sodium 134 L Potassium 3.3 L Chloride Creatinine 0.41 L Glucose 73 L Calcium 7.9 L AST Alkaline Phosphatase Total Protein Urine Ketones Ur Leukocyte Esterase - Diagnostic Findings Chest x-ray: image reviewed Assessment and Plan Plan: Acute bilateral pneumonia with upper lobe predominance. The patient is febrile and the patient has new onset radicular and nodular infiltrate in the upper lobes bilaterally and the findings are quite suspicious for development of a pneumonia. Noted the patient was hospitalized back in April. Possibility of a hospital-acquired pneumonia and possibility of hospital acquired pneumonia in an immunosuppressed patient cannot be completely ruled out. Opportunistic lung infection also need to be considered. Tumor progression with involvement of the lungs and secondary tumor induced fever is also likely. Fever, likely secondary to above. No other clear source of infection at this point in time. This is most likely secondary to pneumonia. Tumor induced fever and tumor infiltration of the upper lobes is also possible. Diffuse large B-cell lymphoma, biopsy done from the liver on 2 separate occasions and the findings were consistent with lymphoma. The patient has extensive osseous metastases in addition to liver involvement and patient also has diffuse lymphadenopathy. Normocytic anemia, likely secondary to underlying lymphoma Plan Recommend broader antibiotic coverage and the patient will be placed on a combination of cefepime and vancomycin Obtain sputum Gram stain and culture Obtain blood culture Procalcitonin level CAT scan of the chest Titrate oxygen flow to maintain saturation above 90% Oncology follow-up Will continue to follow Time with Patient: Greater than 30
[2024-05-16] MEDS ORDERED: VANCOMYCIN IV PER PHARMACY 1 EACH MISC MISCELLANE PRN (14:49)
[2024-05-16] MEDS: CEFEPIME 2 GM in SODIUM CHLORIDE 0.9% 100 ML IVPB SCH (15:45)
[2024-05-16] MEDS: VANCOMYCIN 1,000 MG in SODIUM CHLORIDE 0.9% 250 ML IVPB SCH (15:45)
--- NOTE | 2024-05-16 17:48 | P.HPIM ---
History of Present Illness H&P Date: 05/15/24 Chief Complaint: Generalized weakness 68-year-old female with a recent diagnosis of non-Hodgkin's a follow-up presenting to emergency room via EMS with daughter for complaints of generalized weakness. Daughter states that over the past 3 days patient has been experiencing intermittent fevers hide ranging up to 102.7 that responds to Tylenol. Patient has been overall weak with a decrease in oral intake, confused. Patient reports discomfort on right side of her abdomen resulting in decreased appetite and decreased oral intake; marked decrease in urination; patient was advised by Dr. Kwok, to report to the ER. Additionally, patient states that she has had dark and sticky stools over the past few weeks. Denies blood thinner use. Blood work completed in ED reveals a WBC of 6.4, hemoglobin of 8.4 and platelet count of 483, sodium 130, potassium 4.2, BUNs/creatinine of 15/0.52, AST mildly elevated at 60, troponin of 0.012, UA reveals moderate leukocyte esterase without any bacteria or WBCs Viral screen is negative for influenza A and B, RSV and COVID-[address] of the abdomen and pelvis does not reveal any acute intra-abdominal or intra pelvic process; bony metastasis as well as liver metastases seen; mild patchy density right lower lobe could be atelectasis versus pneumonia Chest x-ray reveals bilateral upper lung reticular opacities concerning for pne umonia, left pleural effusion, left lateral sixth and eighth rib lesions Review of Systems REVIEW OF SYSTEMS: CONSTITUTIONAL: No fever, no malaise, no fatigue. HEENT: No recent visual problems or hearing problems. Denied any sore throat. CARDIOVASCULAR: No chest pain, orthopnea, PND, no palpitations, no syncope. PULMONARY: No shortness of breath, no cough, no hemoptysis. GASTROINTESTINAL: No diarrhea, no nausea, no vomiting, no abdominal pain. NEUROLOGICAL: No headaches, no weakness, no numbness. HEMATOLOGICAL: Denies any bleeding or petechiae. GENITOURINARY: Denies any burning micturition, frequency, or urgency. MUSCULOSKELETAL/RHEUMATOLOGICAL: Denies any joint pain, swelling, or any muscle pain. ENDOCRINE: Denies any polyuria or polydipsia. The rest of the 14-point review of systems is negative. Past Medical History Past Medical History: Cancer Additional Past Medical History / Comment(s): t11 l1 compression fracture History of Any Multi-Drug Resistant Organisms: None Reported Past Surgical History: No Surgical Hx Reported Past Psychological History: No Psychological Hx Reported Smoking Status: Never smoker Past Alcohol Use History: None Reported Past Drug Use History: None Reported Medications and Allergies Home Medications Medication Instructions Recorded Confirmed Type amLODIPine [Norvasc] 5 mg PO DAILY 30 Days #30 tab 04/23/24 05/15/24 Rx Cholecalciferol [Vitamin D3 (25 50 mcg PO DAILY 05/15/24 05/15/24 History Mcg = 1000 Iu)] Gabapentin [Neurontin] 300 mg PO TID PRN 05/15/24 05/15/24 History Gabapentin [Neurontin] 400 mg PO HS 05/15/24 05/15/24 History HYDROcodone/APAP 5-325MG [[place] 1 tab PO BID PRN 05/15/24 05/15/24 History 5-325] Multivitamins, Thera [Multivitamin 1 tab PO DAILY 05/15/24 05/15/24 History (formulary)] traMADol HCl [Ultram] 50 mg PO TID 05/15/24 05/15/24 History Allergies Allergy/AdvReac Type Severity Reaction Status Date / Time No Known Allergies Allergy Verified 05/15/24 17:30 Physical Exam Vitals: Vital Signs Temp Pulse Resp BP Pulse Ox 05/15/24 16:44 96 17 112/67 98 05/15/24 14:45 98.1 F 99 20 101/59 91 L Intake and Output 05/15/24 05/15/24 05/15/24 06:59 14:59 22:59 Other: Weight 54.431 kg General appearance: alert, in no apparent distress Head exam: Present: normocephalic Eye exam: Present: normal appearance Neck exam: Present: normal inspection Respiratory exam: Present: normal lung sounds bilaterally Cardiovascular Exam: Present: regular rate, normal rhythm GI/Abdominal exam: Present: soft, tenderness (Mild right-sided abdominal tenderness), normal bowel sounds. Absent: distended, guarding, rebound, rigid, pulsatile mass Extremities exam: Present: normal inspection Back exam: Present: CVA tenderness (R) Neurological exam: Present: alert. Absent: motor sensory deficit Psychiatric exam: Present: flat affect Skin exam: Present: normal color Results CBC & Chem 7: 05/16/24 12:50 05/16/24 12:50 Labs: Abnormal Lab Results - Last 24 Hours (Table) 05/15/24 05/15/24 05/15/24 Range/Units 15:03 15:03 17:52 RBC 2.95 L (3.80-5.40) m/uL Hgb 8.4 L D (11.4-16.0) gm/dL Hct 27.0 L (34.0-46.0) % MCHC 30.9 L (31.0-37.0) g/dL RDW 15.9 H (11.5-15.5) % Plt Count 483 H (150-450) k/uL Lymphocytes # 0.8 L (1.0-4.8) k/uL Sodium 130 L (137-145) mmol/L Chloride 96 L (98-107) mmol/L AST 60 H (14-36) U/L Alkaline Phosphatase 188 H (38-126) U/L Total Protein 6.0 L (6.3-8.2) g/dL Urine Ketones 1+ H (Negative) Ur Leukocyte Esterase Moderate H (Negative) Assessment and Plan Assessment: 1. Bilateral pneumonia -Patient has been placed on IV Rocephin and azithromycin; Legionella antigen is ordered and pending -We will continue with current antibiotics; monitor CBC, CRP and procalcitonin -Symptomatic treatment with antitussives and bronchodilators -Consult pulmonary for further evaluation and recommendations 2. Diffuse large B-cell lymphoma; imaging completed in ED reveals extensive osseous and liver metastases with diffuse lymphadenopathy -Oncology is consulted 3. Anemia; likely related to underlying lymphoma; we will monitor CBC 4. Hypertension; amlodipine 5 mg daily 6. Vitamin D deficiency; vitamin D 1000 units daily 7. Neuropathy; patient takes Neurontin 400 mg p.o. nightly 8. Chronic pain; likely related to bone metastases; [place] 5 mg twice daily; tramadol 50 mg 3 times daily DVT prophylaxis; SCDs/subcu heparin CODE STATUS; full
--- NOTE | 2024-05-16 19:00 | P.CONS ---
History of Present Illness - Reason for Consult Consult date: 05/16/24 oncological care Requesting physician: Emmanuel Elliott - Chief Complaint weakness - History of Present Illness Ms. Greene is a 68-year-old woman with recently diagnosed Lymphoma, who follows with Dr. Lali Kwok. She initially presented to [facility] on 04/13/2024 with increased weakness, abdominal pain, constipation, and lethargy. Labs on presentation were significant for a peak calcium of 17.1 uncorrected with creatinine 0.99. CBC revealed WBC 10.1 (ANC 7.8), hemoglobin 12.6 (MCV 87.5), platelets 290. CT chest/abdomen/pelvis with contrast on 04/13/2024 noted multiple lytic lesions in the axial skeleton along with multiple hypodense hepatic lesions suspicious for metastatic disease. Serum protein electrophoresis, immunofixation, and kappa to lambda light chain ratio were all normal. IgG and IgM were normal. Tumor markers including CA 19-9, CA 15-3, CA 27-29 were normal. CEA was mildly elevated at 5.5. She did receive Zometa 4 mg IV, calcitonin x 1, and IV fluids for hypercalcemia. Liver biopsy originally performed on 04/14/2024 revealed malignant hematopoietic neoplasm favoring lymphoid etiology. The original sample was noted to have limited malignant tissue and no further differentiation of the malignancy could be made. There was brain MRI performed on 04/16/2024 due to confusion that noted innumerable enhancing calvarial and cervical vertebral body lesions along with vasogenic edema in the bilateral posterior parietal and occipital lobes with no abnormal enhancement possibly representing PRES. she did have elevated blood pressures during her admission and was discharged with amlodipine. She was seen by neurology during her admission and was started on steroids and has been on a taper since discharge on 04/23/2024. PET/CT on 04/30/2024 showed extensive FDG avid metastasis throughout the osseous structures and liver. Additional metastatic lymphadenopathy with FDG avid para-aortic left iliac chain, right obturator, right inguinal and right axillary left mammary and right supraclavicular lymph nodes. Pathological fracture of the L1 vertebral body and suspected pathological fracture of the T11 vertebral body. Patient underwent repeat liver biopsy at [facility] on 05/07. 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 Patient presented to the emergency room for complaints of generalized weakness, fevers and decreased oral intake. Family states patient had periods of disorientation when her fever spiked patient. Family states patient had fevers at home up to 103. Also reports they have been noting darker pastelike stools. Upon admit CT abdomen pelvis shows no acute intra-abdominal or intrapelvic process. Bony metastases as well as liver metastases noted. Mild patchy density right lower lobe. Repeat chest x-ray showing bilateral upper lung reticular opacities concerning for pneumonia. Similar trace left pleural effusion. Expansile left lateral sixth and eighth rib lesion. Patient has been started on IV antibiotics for suspected pneumonia. Viral panel negative. UA negative for UTI. Fevers persisting. Blood and sputum cultures pending. Labs reviewed, WBC 5.6, hemoglobin 8.0, MCV 93.6, MCHC 30.4, platelets 533,000. Creatinine 0.52, GFR greater than 90. Bilirubin 0.7, AST 60, ALT 16, ALP 188. At today's visit, pt is reporting she is feeling improved since admission, but still feels very weak. She was able to tolerate a small portion of her breakfast. Denies n/v, and abd pain. Review of Systems 10 point ROS is negative except as stated in the HPI Past Medical History Past Medical History: Cancer Additional Past Medical History / Comment(s): t11 l1 compression fracture History of Any Multi-Drug Resistant Organisms: None Reported Past Surgical History: No Surgical Hx Reported Smoking Status: Former smoker Medications and Allergies Home Medications Medication Instructions Recorded Confirmed Type amLODIPine [Norvasc] 5 mg PO DAILY 30 Days #30 tab 04/23/24 05/15/24 Rx Cholecalciferol [Vitamin D3 (25 50 mcg PO DAILY 05/15/24 05/15/24 History Mcg = 1000 Iu)] Gabapentin [Neurontin] 300 mg PO TID PRN 05/15/24 05/15/24 History Gabapentin [Neurontin] 400 mg PO HS 05/15/24 05/15/24 History HYDROcodone/APAP 5-325MG [[place] 1 tab PO BID PRN 05/15/24 05/15/24 History 5-325] Multivitamins, Thera [Multivitamin 1 tab PO DAILY 05/15/24 05/15/24 History (formulary)] traMADol HCl [Ultram] 50 mg PO TID 05/15/24 05/15/24 History Allergies Allergy/AdvReac Type Severity Reaction Status Date / Time No Known Allergies Allergy Verified 05/15/24 17:30 Physical Exam Vitals: Vital Signs Temp Pulse Pulse Resp BP BP Pulse Ox 05/16/24 07:32 100.9 F H 118 H 16 131/76 91 L 05/16/24 06:57 101.1 F H 05/16/24 01:49 99.5 F 107 H 12 104/62 92 L 05/15/24 23:23 95 05/15/24 20:00 98.7 F 113 H 14 137/74 92 L 05/15/24 18:58 98 18 106/58 98 05/15/24 16:44 96 17 112/67 98 05/15/24 14:45 98.1 F 99 20 101/59 91 L Intake and Output 05/15/24 05/16/24 05/16/24 22:59 06:59 14:59 Intake Total 540 240 Output Total 750 Balance -210 240 Intake: Oral 540 240 Output: Urine 750 Other: Voiding Method External Catheter Weight 54.431 kg - Constitutional General appearance: average body habitus, no acute distress - EENT Eyes: anicteric sclerae, EOMI ENT: hearing grossly normal - Respiratory breathing is even and unlabored - Cardiovascular skin warm and dry - Gastrointestinal General gastrointestinal: soft, no tenderness - Integumentary Integumentary: no cyanotic - Musculoskeletal Musculoskeletal: generalized weakness - Psychiatric Psychiatric: A&O x's 3 Results CBC & Chem 7: 05/16/24 12:50 05/16/24 12:50 Labs: Abnormal Lab Results - Last 24 Hours (Table) 05/15/24 05/15/24 05/15/24 Range/Units 15:03 15:03 17:52 RBC 2.95 L (3.80-5.40) m/uL Hgb 8.4 L D (11.4-16.0) gm/dL Hct 27.0 L (34.0-46.0) % MCHC 30.9 L (31.0-37.0) g/dL RDW 15.9 H (11.5-15.5) % Plt Count 483 H (150-450) k/uL Lymphocytes # 0.8 L (1.0-4.8) k/uL Sodium 130 L (137-145) mmol/L Chloride 96 L (98-107) mmol/L AST 60 H (14-36) U/L Alkaline Phosphatase 188 H (38-126) U/L Total Protein 6.0 L (6.3-8.2) g/dL Urine Ketones 1+ H (Negative) Ur Leukocyte Esterase Moderate H (Negative) Chest x-ray: report reviewed CT scan - abdomen: report reviewed CT scan - pelvis: report reviewed Assessment and Plan (1) Fever Current Visit: Yes Status: Acute Priority: High Code(s): R50.9 - FEVER, UNSPECIFIED SNOMED Code(s): 065236366 (2) NHL (non-Hodgkin's lymphoma) Current Visit: Yes Status: Acute Priority: High Code(s): C85.90 - NON- HODGKIN LYMPHOMA, UNSPECIFIED, UNSPECIFIED SITE SNOMED Code(s): 991987642 (3) Pneumonia Current Visit: Yes Status: Acute Priority: High Code(s): J18.9 - PNEUMONIA, UNSPECIFIED ORGANISM SNOMED Code(s): 211217135 Plan: Fever, pneumonia: Presented to the emergency room for complaints of generalized weakness, fevers and decreased oral intake. Fevers at home up to 103. -Upon admit CT abdomen pelvis shows no acute intra-abdominal or intrapelvic process. Bony metastases as well as liver metastases noted. Mild patchy density right lower lobe. -Repeat chest x-ray showing bilateral upper lung reticular opacities concerning for pneumonia. Similar trace left pleural effusion. -Patient has been started on IV antibiotics for suspected pneumonia. Viral pa samantha negative. UA negative for UTI. Blood, urine and sputum cultures pending. -Pulmonology following Non-Hodgkin B-cell Lymphoma: -Oncology history as dictated in the HPI -Patient underwent repeat liver biopsy at [facility] on 05/07. 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 -Once fevers subside and infection is adequately treated with plan to initiate R-EPOCH -Will obtain baseline echo and place picc line Discussed diagnosis and POC with pt and family, they were agreeable to the same Anemia: Reporting darker past-like stools. Family thinks stools were dark brown, but not necessarily black -Hemoglobin 8.0, MCV 93.6, MCHC 30.4, platelets 533,000. Hgb has been slowly trending down since last admit -Could likely be anemia of inflammation r/t malignancy, superimposed by acute infection. However due to noted darker stools, will obtain nutritional studies to r/o deficiency state
[2024-05-16] MEDS: GABAPENTIN 400 MG CAP PO SCH (22:22)
[2024-05-17] MEDS: CEFEPIME 2 GM in SODIUM CHLORIDE 0.9% 100 ML IVPB SCH ×2 (03:35→15:42)
--- NOTE | 2024-05-17 07:51 | US ---
EXAMINATION TYPE: US abdomen limited DATE OF EXAM: 05/17/2024 COMPARISON: CT CLINICAL INDICATION: Female, 68 years old with history of ascites; Ascites check TECHNIQUE: Grayscale imaging of the abdomen for ascites. FINDINGS: No sizeable fluid visualized within abdomen by ultrasound IMPRESSION: No ascites visualized [facility] Billie Gtz, , 05/17/2024 7:49 AM
[2024-05-17 09:28] LABS: Carbon Dioxide 21.3 mmol/L (21.6-31.8); Chloride 102 mmol/L (96-109); Glucose 97 mg/dL (70-110); Sodium 136 mmol/L (135-145)
[2024-05-17 09:29] LABS: BUN/Creat Ratio 14.67 Ratio (12.00-20.00); Blood Urea Nitrogen 4.4 mg/dL (9.0-27.0); Calcium 7.4 mg/dL (8.7-10.3)
[2024-05-17 09:31] LABS: Basophils # (A) 0.01 X 10*3/uL (0.00-0.10); Basophils % (A) 0.2 %; Eosinophils # (A) 0.08 X 10*3/uL (0.04-0.35); Eosinophils % (A) 1.3 %; HCT 23.6 % (37.2-46.3); HGB 7.3 g/dL (12.0-15.0); Lymphocytes # (A) 0.87 X 10*3/uL (0.90-5.00); Lymphocytes % (A) 13.6 %; MCH 28.4 pg (27.0-32.0); MCHC 30.9 g/dL (32.0-37.0); MCV 91.8 FL (80.0-97.0); Mean Platelet Volume 9.3 FL (9.5-12.2); Monocytes # (A) 0.45 X 10*3/uL (0.20-1.00); NRBC Per 100 WBC 0 X 10*3/uL (0.00-0.01); Neutrophils # (A) 4.89 X 10*3/uL (1.80-7.70); Neutrophils % (A) 76.3 %; Platelet Count 529 X 10*3/uL (140-440); RBC 2.57 X 10*6/uL (4.10-5.20); RDW 16.2 % (11.5-14.5)
[2024-05-17] MEDS ORDERED: VANCOMYCIN IV PER PHARMACY 1 EACH MISC MISCELLANE PRN (11:32)
--- NOTE | 2024-05-17 11:34 | P.PN ---
Subjective 68-year-old female with a recent diagnosis of non-Hodgkin's a follow-up presenting to emergency room via EMS with daughter for complaints of generalized weakness. Daughter states that over the past 3 days patient has been experiencing intermittent fevers hide ranging up to 102.7 that responds to Tylenol. Patient has been overall weak with a decrease in oral intake, confused. Patient reports discomfort on right side of her abdomen resulting in decreased appetite and decreased oral intake; marked decrease in urination; patient was advised by Dr. Kwok, to report to the ER. Additionally, patient states that she has had dark and sticky stools over the past few weeks. Denies blood thinner use. Blood work completed in ED reveals a WBC of 6.4, hemoglobin of 8.4 and platelet count of 483, sodium 130, potassium 4.2, BUNs/creatinine of 15/0.52, AST mildly elevated at 60, troponin of 0.012, UA reveals moderate leukocyte esterase without any bacteria or WBCs Viral screen is negative for influenza A and B, RSV and COVID-[address] of the abdomen and pelvis does not reveal any acute intra-abdominal or intra pelvic process; bony metastasis as well as liver metastases seen; mild patchy density right lower lobe could be atelectasis versus pneumonia Chest x-ray reveals bilateral upper lung reticular opacities concerning for pneumonia, left pleural effusion, left lateral sixth and eighth rib lesions --Patient has been evaluated by pulmonary service and antibiotics have been transitioned to IV cefepime and vancomycin 05/17 Patient presents with pneumonia in the right lower lobe and bilateral upper lobe pneumonia and sepsis, also she has mild hypoxia. Mentation is normal Currently she is doing better, patient says her breathing is better, she is on 3 L oxygen via nasal cannula with saturating 98% Her blood pressure is stable and vital stable and she is afebrile She remains on IV vancomycin and cefepime and normal saline 100 mL/h Her abdomen was little distended today while she is sitting but no pain vomiting or diarrhea. Ultrasound showing no ascites. Hemoglobin dropping 8.4, 8.0 and today 7.3, hematology/oncology team on the case and the following closely for her non-Hodgkin lymphoma and also the doing anemia workup Daughter at bedside All questions were answered Review of systems CONSTITUTIONAL: No fever, no malaise, no fatigue. HEENT: No recent visual problems or hearing problems. denies sore throat GASTROINTESTINAL: No diarrhea, no nausea, no vomiting, no abdominal pain. Normoactive bowel sounds. NEUROLOGICAL: No headaches, no weakness, no numbness. HEMATOLOGICAL: Denies any bleeding or petechiae. GENITOURINARY: Denies any burning micturition, frequency, or urgency. MUSCULOSKELETAL/RHEUMATOLOGICAL: Denies any joint pain, swelling, or any muscle pain. ENDOCRINE: Denies any polyuria or polydipsia. Active Medications Generic Name Dose Route Start Last Admin Trade Name Freq PRN Reason Stop Dose Admin Acetaminophen 650 mg 05/15/24 17:12 05/16/24 17:28 Acetaminophen Tab 325 Mg Tab PO 650 mg Q4HR PRN Administration Fever and/ or Pain Hydrocodone Bitart/Acetaminophen 1 each 05/15/24 23:31 05/15/24 23:54 Hydrocodone/Apap 5-325mg 1 Each Tab PO 1 each Q6HR PRN Administration Pain Gabapentin 400 mg 05/16/24 22:00 05/16/24 22:22 Gabapentin 400 Mg Cap PO 400 mg HS CARMEN Administration Guaifenesin/Dextromethorphan 5 ml 05/15/24 23:31 05/15/24 23:54 Guaifenesin-Dm 100-10mg/5ml 10 Ml Cup PO 5 ml Q6HR PRN Administration Cough Sodium Chloride 1,000 mls @ 100 mls/hr 05/15/24 17:15 05/17/24 03:40 Saline 0.9% IV 100 mls/hr .Q10H CARMEN Administration Vancomycin HCl 1,000 mg/ 250 mls @ 125 mls/hr 05/16/24 15:15 05/17/24 03:36 Sodium Chloride IVPB 125 mls/hr Q12H CARMEN Administration Cefepime HCl 2 gm/ Sodium 100 mls @ 25 mls/hr 05/17/24 16:00 Chloride IVPB Q8HR CARMEN Protocol Potassium Chloride 10 meq/ IV 100 mls @ 100 mls/hr 05/17/24 11:30 Solution IVPB 05/17/24 13:29 Q1H CARMEN Miscellaneous Information 1 each 05/15/24 17:12 Pneumonia Protocol Utilized 1 Each Misc PO ONCE PRN Per Protocol Miscellaneous Information 1 each 05/18/24 14:15 Vancomycin Trough Due 1 Each Misc MISCELLANE 05/18/24 14:16 ONCE ONE Potassium Chloride 40 meq 05/17/24 11:28 Potassium Chloride Er 20 Meq Tab.Er PO 05/17/24 11:29 ONCE STA Tramadol HCl 50 mg 05/16/24 10:00 05/17/24 08:41 Tramadol 50 Mg Tab PO 50 mg TID CARMEN Administration Objective - Vital Signs Vital signs: Vital Signs Temp 99.4 F 05/17/24 07:22 Pulse 112 H 05/17/24 07:22 Resp 18 05/17/24 07:22 BP 147/71 05/17/24 07:22 Pulse Ox 98 05/17/24 07:22 FiO2 Intake & Output 05/16/24 05/17/24 05/17/24 18:59 06:59 18:59 Intake Total 1560 Output Total 700 900 Balance 860 -900 Intake: Oral 1560 Output: Urine 700 900 Other: Voiding Method Bedside Commode Bedside Commode Bedside Commode External Catheter Diaper Diaper External Catheter External Catheter # Bowel Movements 1 - Exam -GENERAL: The patient is alert and oriented x3, not in any acute distress. Well developed, well nourished. Generally weak HEENT: Pupils are round and equally reacting to light. EOMI. No scleral icterus. No conjunctival pallor. Normocephalic, atraumatic. No pharyngeal erythema. No thyromegaly. CARDIOVASCULAR: S1 and S2 present. No murmurs, rubs, or gallops. PULMONARY: Chest is clear to auscultation, no wheezing , no crackles. ABDOMEN: Soft, nontender, nondistended, normoactive bowel sounds. No palpable organomegaly. MUSCULOSKELETAL: No joint swelling or deformity. EXTREMITIES: No cyanosis, clubbing, or pedal edema. NEUROLOGICAL: Gross neurological examination did not reveal any focal deficits. SKIN: No rashes. no petechiae. - Labs CBC & Chem 7: 05/17/24 06:02 05/17/24 06:02 Labs: Abnormal Lab Results - Last 24 Hours (Table) 05/16/24 05/16/24 05/16/24 Range/Units 12:50 12:50 18:57 RBC 2.80 L (3.80-5.40) m/uL Hgb 8.0 L (11.4-16.0) gm/dL Hct 26.2 L (34.0-46.0) % MCHC 30.4 L (31.0-37.0) g/dL RDW 16.0 H (11.5-15.5) % Plt Count 533 H (150-450) k/uL MPV (9.5-12.2) FL Immature Gran # (0.00-0.04) X 10*3/uL Lymphocytes # 0.7 L (1.0-4.8) k/uL Sodium 134 L (137-145) mmol/L Potassium 3.3 L (3.5-5.1) mmol/L Carbon Dioxide (21.6-31.8) mmol/L Anion Gap (4.00-12.00) mmol/L BUN (9.0-27.0) mg/dL Creatinine 0.41 L (0.52-1.04) mg/dL Glucose 73 L (74-99) mg/dL Calcium 7.9 L (8.4-10.2) mg/dL Ferritin 2875.0 H (10.0-291.0) ng/mL 05/17/24 05/17/24 Range/Units 06:02 06:02 RBC 2.57 L (3.80-5.40) m/uL Hgb 7.3 L (11.4-16.0) gm/dL Hct 23.6 L (34.0-46.0) % MCHC 30.9 L (31.0-37.0) g/dL RDW 16.2 H (11.5-15.5) % Plt Count 529 H (150-450) k/uL MPV 9.3 L (9.5-12.2) FL Immature Gran # 0.10 H (0.00-0.04) X 10*3/uL Lymphocytes # 0.87 L (1.0-4.8) k/uL Sodium (137-145) mmol/L Potassium 3.0 L (3.5-5.1) mmol/L Carbon Dioxide 21.3 L (21.6-31.8) mmol/L Anion Gap 12.70 H (4.00-12.00) mmol/L BUN 4.4 L (9.0-27.0) mg/dL Creatinine 0.3 L (0.52-1.04) mg/dL Glucose (74-99) mg/dL Calcium 7.4 L (8.4-10.2) mg/dL Ferritin (10.0-291.0) ng/mL Microbiology - Last 24 Hours (Table) 05/15/24 16:38 Blood Culture - Preliminary Blood Assessment and Plan Assessment: 1. Bilateral pneumonia -Continue with antibiotic IV vancomycin and cefepime. We will change vancomycin to pharmacy to dose -We will continue with current antibiotics; monitor CBC, CRP and procalcitonin -Symptomatic treatment with antitussives and bronchodilators -Consult pulmonary for further evaluation and recommendations Also continue with oxygen therapy for acute hypoxic respiratory failure, mild, related to above 2. Diffuse large B-cell lymphoma; imaging completed in ED reveals extensive osseous and liver metastases with diffuse lymphadenopathy -Oncology is consulted 3. Normocytic anemia; likely related to underlying lymphoma; we will monitor CBC -hematology/oncology team on the case -Anemia workup requested 4. Hypertension; amlodipine 5 mg daily 6. Vitamin D deficiency; vitamin D 1000 units daily 7. Neuropathy; patient takes Neurontin 400 mg p.o. nightly 8. Chronic pain; likely related to bone metastases; [place] 5 mg twice daily; tramadol 50 mg 3 times daily DVT prophylaxis; SCDs/subcu heparin CODE STATUS; full
[2024-05-17 11:44] LABS: % Iron Saturation 7.74 (12.00-45.00)
[2024-05-17] MEDS: POTASSIUM CHLORIDE ER 20 MEQ TAB.ER PO STA (12:23)
[2024-05-17] MEDS: POTASSIUM CHLORIDE 10 MEQ in WATER FOR INJECTION 1 100ML.BAG IVPB SCH (12:23)
[2024-05-17] MEDS: MAGNESIUM OXIDE 400 MG TAB PO SCH (12:23)
--- NOTE | 2024-05-17 13:28 | P.PN ---
Subjective Progress Note Date: 05/17/24 This is a 68-year-old female patient was diagnosed having diffuse B-cell lymphoma. Diagnosed with established by liver biopsy that was done initially at [facility] and findings were also confirmed by liver biopsy that was done at [facility]. Noted the patient has extensive disease and her previous PET scan that was done on 05/01/2024 showed extensive FDG uptake in metastases throughout the osseous structures and the liver in addition to metastatic lymphadenopathy in the para-aortic, left iliac, right obturator and right inguinal and right axillary and left mammary and supraclavicular area. The patient also has pathologic compression fracture of the L1 spine. The p atsheri has not started treatment yet. She presented to the hospital because of ongoing fever and the patient was also found to be hypoxic and the patient is currently on 3 Suboxone by nasal cannula. She has no significant leukocytosis. She is febrile. Hemodynamically stable. No reported aspiration. Chest x-ray that was done at time of admission showed a trace left-sided pleural effusion and there is areas of reticular opacities in the upper lobes right more than left and this is a new finding compared to previous chest x-rays. Based on that, the patient was started on broad-spectrum antibiotics and the patient is currently on a combination of Rocephin and Zithromax. On today's evaluation, her white cell count is at 5.6 with a hemoglobin of 8 and a platelet count of 533. BUN is 7 with a creatinine of 0.4 and a sodium level at 134. UA is negative. Viral screen was negative. Legionella urine antigen was also done and results were also negative. No reported aspiration. No sick contacts. The patient is seen today May 17, 2024 in follow-up on the regular medical floor. She is currently resting in bed. Awake and alert in no acute distress. She is maintaining O2 saturations in the upper 90s on 3 L/min per nasal cannula. She has been afebrile. Slightly tachycardic. Still feeling quite weak. She says she is less short of breath and some less of a cough but overall not much improved. Blood cultures are pending. Urine culture revealed no growth. 7.3. Platelets 529. Sodium 136. Potassium 3.0. Bicarb 21. BUN 4.4. Creatinine 0.3. Vancomycin and cefepime. Ultrasound of the abdomen revealed no evidence of ascites. CT scan of the chest does reveal development of bilateral upper lobe reticular opacities concerning for pneumonia. Small bilateral pleural effusions with associated atelectasis. Demonstration of multiple destructive osseous metastasis including the ribs with pathologic fractures of T11 and L1 vertebral bodies. Stable enlarged nonspecific mediastinal lymph node. Not FDG avid on prior PET. Objective - Vital Signs Vital signs: Vital Signs Temp 99.4 F 05/17/24 07:22 Pulse 112 H 05/17/24 07:22 Resp 18 05/17/24 07:22 BP 147/71 05/17/24 07:22 Pulse Ox 98 05/17/24 07:22 FiO2 Intake & Output 05/16/24 05/17/24 05/17/24 18:59 06:59 18:59 Intake Total 1560 Output Total 700 900 Balance 860 -900 Intake: Oral 1560 Output: Urine 700 900 Other: Voiding Method Bedside Commode Bedside Commode Bedside Commode External Catheter Diaper Diaper External Catheter External Catheter # Bowel Movements 1 - Exam GENERAL EXAM: Alert, weak, frail 68-year-old female, on 3 L nasal cannula, fairly comfortable in no apparent distress. HEAD: Normocephalic. EYES: Normal reaction of pupils, equal size. NOSE: Clear with pink turbinates. THROAT: No erythema or exudates. NECK: No masses, no JVD. CHEST: No chest wall deformity. LUNGS: Equal air entry with lateral scattered rhonchi. CVS: S1 and S2 normal with no audible murmur, regular rhythm. ABDOMEN: No hepatosplenomegaly, normal bowel sounds, no guarding or rigidity. SPINE: No scoliosis or deformity SKIN: No rashes CENTRAL NERVOUS SYSTEM: No focal deficits, tone is normal in all 4 extremities. EXTREMITIES: There is no peripheral edema. No clubbing, no cyanosis. Peripheral pulses are intact. - Labs CBC & Chem 7: 05/17/24 06:02 05/17/24 06:02 Labs: Abnormal Lab Results - Last 24 Hours (Table) 05/16/24 05/16/24 05/16/24 Range/Units 12:50 12:50 18:57 RBC 2.80 L (3.80-5.40) m/uL Hgb 8.0 L (11.4-16.0) gm/dL Hct 26.2 L (34.0-46.0) % MCHC 30.4 L (31.0-37.0) g/dL RDW 16.0 H (11.5-15.5) % Plt Count 533 H (150-450) k/uL MPV (9.5-12.2) FL Immature Gran # (0.00-0.04) X 10*3/uL Lymphocytes # 0.7 L (1.0-4.8) k/uL Sodium 134 L (137-145) mmol/L Potassium 3.3 L (3.5-5.1) mmol/L Carbon Dioxide (21.6-31.8) mmol/L Anion Gap (4.00-12.00) mmol/L BUN (9.0-27.0) mg/dL Creatinine 0.41 L (0.52-1.04) mg/dL Glucose 73 L (74-99) mg/dL Calcium 7.9 L (8.4-10.2) mg/dL Iron 13 L (50-170) UG/DL TIBC 168 L (228-460) UG/DL % Saturation 7.74 L (12.00-45.00) Transferrin 120.0 L (204.0-354.0) mg/dL Ferritin 2875.0 H (10.0-291.0) ng/mL Vitamin B12 1525.0 H (200.0-944.0) pg/mL 05/17/24 05/17/24 Range/Units 06:02 06:02 RBC 2.57 L (3.80-5.40) m/uL Hgb 7.3 L (11.4-16.0) gm/dL Hct 23.6 L (34.0-46.0) % MCHC 30.9 L (31.0-37.0) g/dL RDW 16.2 H (11.5-15.5) % Plt Count 529 H (150-450) k/uL MPV 9.3 L (9.5-12.2) FL Immature Gran # 0.10 H (0.00-0.04) X 10*3/uL Lymphocytes # 0.87 L (1.0-4.8) k/uL Sodium (137-145) mmol/L Potassium 3.0 L (3.5-5.1) mmol/L Carbon Dioxide 21.3 L (21.6-31.8) mmol/L Anion Gap 12.70 H (4.00-12.00) mmol/L BUN 4.4 L (9.0-27.0) mg/dL Creatinine 0.3 L (0.52-1.04) mg/dL Glucose (74-99) mg/dL Calcium 7.4 L (8.4-10.2) mg/dL Iron (50-170) UG/DL TIBC (228-460) UG/DL % Saturation (12.00-45.00) Transferrin (204.0-354.0) mg/dL Ferritin (10.0-291.0) ng/mL Vitamin B12 (200.0-944.0) pg/mL Microbiology - Last 24 Hours (Table) 05/15/24 17:52 Urine Culture - Final Urine,Voided 05/15/24 16:38 Blood Culture - Preliminary Blood Assessment and Plan Assessment: Acute bilateral pneumonia with upper lobe predominance. The patient is febrile and the patient has new onset radicular and nodular infiltrate in the upper lobes bilaterally and the findings are quite suspicious for development of a pneumonia. Noted the patient was hospitalized back in April. Possibility of a hospital-acquired pneumonia in an immunosuppressed patient cannot be completely ruled out. Opportunistic lung infection also need to be considered. Tumor progression with involvement of the lungs and secondary tumor induced fever is also likely. CT scan of the chest does reveal development of bilateral upper lobe reticular opacities concerning for pneumonia. Small bilateral pleural effusions with associated atelectasis. Demonstration of multiple destructive osseous metastasis including the ribs with pathologic fractures of T11 and L1 vertebral bodies. Stable enlarged nonspecific mediastinal lymph node. Not FDG avid on prior PET. Fever, likely secondary to above. This is most likely secondary to pneumonia. Tumor induced fever and tumor infiltration of the upper lobes is also possible. Diffuse large B-cell lymphoma, biopsy done from the liver on 2 separate occasions and the findings were consistent with lymphoma. The patient has extensive osseous metastases in addition to liver involvement and patient also has diffuse lymphadenopathy. Normocytic anemia, likely secondary to underlying lymphoma Plan: The patient was seen and evaluated CT scan of the chest, labs and medications reviewed Continue cefepime and vancomycin Titrate the FiO2 as tolerated Medical oncology following We will continue to follow I have personally seen and examined the patient, performed the documentation and the assessment and plan as written. Number of minutes spent on the visit: 10 Dictation was produced using [employer] dictation software. Please excuse any grammatical, word or spelling errors.
--- NOTE | 2024-05-17 16:10 | P.PN ---
Subjective Progress Note Date: 05/17/24 Principal diagnosis: SOB, weakness. 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 She is still coughing, not able to expectorate much. Patient's daughter reports that she was doing okay until a few days after her second biopsy. Patient became progressively weaker, "cloudy" in her thinking, appetite declined, stomach pains. Now patient is having incontinence of urine and stool. Most recent fever 102.2 Fahrenheit documented yesterday afternoon. Objective - Vital Signs Vital signs: Vital Signs Temp 100.3 F H 05/17/24 14:15 Pulse 129 H 05/17/24 14:15 Resp 20 05/17/24 14:15 BP 142/77 05/17/24 14:15 Pulse Ox 93 L 05/17/24 14:15 FiO2 Intake & Output 05/16/24 05/17/24 05/17/24 18:59 06:59 18:59 Intake Total 1560 Output Total 700 900 Balance 860 -900 Weight 54.431 kg Intake: Oral 1560 Output: Urine 700 900 Other: Voiding Method Bedside Commode Bedside Commode Bedside Commode External Catheter Diaper Diaper External Catheter External Catheter # Bowel Movements 1 - Constitutional General appearance: Present: average body habitus, cooperative, no acute distress - EENT Eyes: Present: anicteric sclerae, EOMI ENT: Present: hearing grossly normal - Respiratory Details: Respirations unlabored at rest - Cardiovascular Details: Skin warm, well-perfused - Peripheral edema leg Peripheral Edema: bilateral: None - Integumentary Integumentary: Present: pale - Neurologic Neurologic: Present: CNII-XII intact - Musculoskeletal Musculoskeletal: Present: generalized weakness - Psychiatric Psychiatric: Present: A&O x's 3, appropriate affect, intact judgment & insight - Labs CBC & Chem 7: 05/17/24 06:02 05/17/24 06:02 Labs: Abnormal Lab Results - Last 24 Hours (Table) 05/16/24 05/17/24 05/17/24 Range/Units 18:57 06:02 06:02 RBC 2.57 L (4.10-5.20) X 10*6/uL Hgb 7.3 L (12.0-15.0) g/dL Hct 23.6 L (37.2-46.3) % MCHC 30.9 L (32.0-37.0) g/dL RDW 16.2 H (11.5-14.5) % Plt Count 529 H (140-440) X 10*3/uL MPV 9.3 L (9.5-12.2) FL Immature Gran # 0.10 H (0.00-0.04) X 10*3/uL Lymphocytes # 0.87 L (0.90-5.00) X 10*3/uL Potassium 3.0 L (3.5-5.5) mmol/L Carbon Dioxide 21.3 L (21.6-31.8) mmol/L Anion Gap 12.70 H (4.00-12.00) mmol/L BUN 4.4 L (9.0-27.0) mg/dL Creatinine 0.3 L (0.6-1.5) mg/dL Calcium 7.4 L (8.7-10.3) mg/dL Iron 13 L (50-170) UG/DL TIBC 168 L (228-460) UG/DL % Saturation 7.74 L (12.00-45.00) Transferrin 120.0 L (204.0-354.0) mg/dL Ferritin 2875.0 H (10.0-291.0) ng/mL Vitamin B12 1525.0 H (200.0-944.0) pg/mL Microbiology - Last 24 Hours (Table) 05/15/24 17:52 Urine Culture - Final Urine,Voided 05/15/24 16:38 Blood Culture - Preliminary Blood - Imaging and Cardiology CT scan - chest: report reviewed Assessment and Plan (1) Fever Current Visit: Yes Status: Acute Priority: High Code(s): R50.9 - FEVER, UNSPECIFIED SNOMED Code(s): 512161054 (2) NHL (non-Hodgkin's lymphoma) Current Visit: Yes Status: Acute Priority: High Code(s): C85.90 - NON- HODGKIN LYMPHOMA, UNSPECIFIED, UNSPECIFIED SITE SNOMED Code(s): 410837864 Plan: Fever -Urine culture finalized, negative -Blood cultures negative at 24 hours, awaiting finalization -Suspect fevers are secondary to lymphoma. 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 -Recommendation is for aggressive chemotherapy. They are in agreement with the same. -Echo recently done, LVEF 55 to 60% -Hepatitis panel ordered -Double lumen PICC line ordered -Standard chemo orders in place -Labs and daily follow-up Doctor attests: I performed a history and physical examination of this patient, developed impression and plan of care. Discussed with dictator. I agree with dictators note, documented as a scribe.
[2024-05-17] MEDS: SALT AND SODA MOUTHWASH 1,000 ML PO SCH (17:57)
[2024-05-17 21:12] LABS: Hepatitis A Antibody IgM Nonreactive (Nonreactive); Hepatitis B Core IgM Nonreactive (Nonreactive); Hepatitis B Surface Antigen Nonreactive (Nonreactive); Hepatitis C IgG Antibody Nonreactive (Nonreactive)
[2024-05-17 22:30] LABS: HIV 2 AB Non-Reactive (Non-Reactive); HIV AB P24 Non-Reactive (Non-Reactive); HIV P24 AG Non-Reactive (Non-Reactive)
[2024-05-18 04:50] LABS: Anisocytosis Slight; Basophils % (A) 0 %; Eosinophils # (A) 0.1 k/uL (0-0.7); Eosinophils % (A) 2 %; HCT 24.6 % (34.0-46.0); HGB 7.6 gm/dL (11.4-16.0); Hypochromasia Moderate; Lymphocytes % (A) 18 %; MCH 28.7 pg (25.0-35.0); MCHC 30.8 g/dL (31.0-37.0); MCV 93.1 fL (80.0-100.0); Mean Platelet Volume 7.2; Monocytes # (A) 0.3 k/uL (0-1.0); Monocytes % (A) 4 %; Neutrophils # (A) 4.2 k/uL (1.3-7.7); Neutrophils % (A) 73 %; Platelet Count 621 k/uL (150-450); Poikilocytosis Slight; RBC 2.64 m/uL (3.80-5.40); WBC 5.8 k/uL (3.8-10.6)
[2024-05-18 04:56] LABS: ALT 18 U/L (4-34); AST 48 U/L (14-36); African American GFR (CKD) >90 (>60 ml/min/1.73 sqM); Albumin 2.5 g/dL (3.5-5.0); Alkaline Phosphatase 178 U/L (38-126); Anion Gap 4 mmol/L; Blood Urea Nitrogen 4 mg/dL (7-17); Carbon Dioxide 27 mmol/L (22-30); Chloride 100 mmol/L (98-107); Globulin 2.4 g/dL; Glucose 103 mg/dL (74-99); Non-African American GFR(CKD) >90 (>60 ml/min/1.73 sqM); Phosphorus 1.7 mg/dL (2.5-4.5); Potassium 3.6 mmol/L (3.5-5.1); Sodium 131 mmol/L (137-145); Total Bilirubin 0.4 mg/dL (0.2-1.3); Total Protein 4.9 g/dL (6.3-8.2); Uric Acid 1.8 mg/dL (3.7-7.4)
--- NOTE | 2024-05-18 07:59 | CA ---
Transthoracic Echo Report Name: Юлия Greene Age: 68 Gender: F : 1955 Exam Date: 05/17/2024 12:48 Exam Location: [facility] Ht (in): 63 Wt (lb): 120 Ordering Physician: Donnie Timmons Attending/Referring Phys: Senior [employer] Network Engineer Otis Gandhi RDCS Procedure CPT: Indications: baseline study, prior to initiation of chemo Cardiac Hx: Technical Quality: Good Contrast 1: Total Dose (mL): Contrast 2: Total Dose (mL): MEASUREMENTS (Male / Female) Normal Values 2D ECHO LV Diastolic Diameter PLAX 4.3 cm 4.2 - 5.9 / 3.9 - 5.3 cm LV Systolic Diameter PLAX 2.9 cm IVS Diastolic Thickness 0.9 cm 0.6 - 1.0 / 0.6 - 0.9 cm LVPW Diastolic Thickness 0.8 cm 0.6 - 1.0 / 0.6 - 0.9 cm LV Relative Wall Thickness 0.4 RV Internal Dim ED PLAX 2.1 cm LVOT Diameter 1.6 cm LA Systolic Diameter LX 2.8 cm 3.0 - 4.0 / 2.7 - 3.8 cm LA Volume 32.7 cm??? 18 - 58 / 22 - 52 cm??? LA Volume Index 21.0 cm???/m??? 16 - 28 cm???/m??? DOPPLER AV Peak Velocity 141.3 cm/s AV Peak Gradient 8.0 mmHg AV Mean Velocity 106.6 cm/s AV Mean Gradient 4.9 mmHg AV Velocity Time Integral 23.6 cm MV Peak Velocity 103.7 cm/s MV Peak Gradient 4.3 mmHg MV Mean Velocity 74.0 cm/s MV Mean Gradient 2.4 mmHg MV Velocity Time Integral 18.4 cm MV Area PHT 5.0 cm??? Mitral E Point Velocity 78.3 cm/s Mitral A Point Velocity 106.3 cm/s Mitral E to A Ratio 0.7 MV Deceleration Time 159.3 ms TR Peak Velocity 260.7 cm/s TR Peak Gradient 27.2 mmHg FINDINGS Left Ventricle Left ventricular ejection fraction is estimated at 60 %. Normal Left ventricular size, wall thickness, systolic function with no obvious regional wall motion abnormalities. Patient is tachycardic Right Ventricle Normal right ventricular size and function. Unable to estimate the right ventricular systolic pressure. Right Atrium Normal right atrial size. Left Atrium Normal left atrial size. Mitral Valve Structurally normal mitral valve. No mitral stenosis. No mitral regurgitation. Aortic Valve Trileaflet aortic valve. No aortic stenosis. No aortic regurgitation. Tricuspid Valve Structurally normal tricuspid valve. No tricuspid stenosis. Trace to mild tricuspid regurgitation. Pulmonic Valve Pulmonic valve not well visualized. No pulmonic stenosis. No pulmonic regurgitation. Pericardium No pericardial effusion. Aorta Aortic root is normal size. Proximal ascending aorta is not well visualized. CONCLUSIONS Normal LV size and systolic function, no significant abnormality on the Doppler exam. No pericardial effusion Previewed by: Dr. Katrina Salgado MD (Electronically Signed) Final Date: 18 May 2024 07:58
[2024-05-18] MEDS: amLODIPine 5 MG TAB PO SCH (08:14)
[2024-05-18] MEDS: LIDOCAINE 1% INJ 10MG/ML (20 ML MDV) SQ ONE (09:07)
--- NOTE | 2024-05-18 09:14 | P.PCN ---
Date of Procedure: 05/18/24 Preoperative Diagnosis: Non-Hodgkin's lymphoma, multiple myeloma, IV access need for chemo and blood draws Postoperative Diagnosis: Same Procedure(s) Performed: Ultrasound and fluoroscopic guided left basilic vein peripherally inserted central venous dual-lumen catheter Anesthesia: local Surgeon: Prashant Benites Disposition: floor Description of Procedure: After written and informed consent was obtained the patient and all risks, benefits and competitions were described the patient was brought to the Musculoskeletal Physiotherapist and laid in a supine position with her left arm outstretched on an armboard. The area of the left arm was prepped and draped in usual sterile fashion. Timeout was performed in normal fashion. Utilizing ultrasound the basilic vein was visualized and shown to be compressible without any visible thrombus. Under ultrasound guidance the basilic vein was then cannulated with a micropuncture needle and wire was placed under direct visualization of fluoroscopy. Introducer sheath was then placed. The catheter was measured and cut to the appropriate length which was 43 cm. The catheter was then guided through the breakaway sheath and the sheath was removed with good positioning was visualized under fluoroscopy. The catheter was pulled and flushed easily. It was then secured in place in normal fashion. Patient tolerated the procedure well was sent back to his room for recovery.
--- NOTE | 2024-05-18 09:45 | IR ---
Fluoroscopy History: PICC line Chemo/blood draws, 0.3m/0.1795DAP, 5F lt basilic 43 picc [facility], , 05/18/2024 9:43 AM
--- NOTE | 2024-05-18 13:51 | P.PN ---
Subjective Progress Note Date: 05/18/24 This is a 68-year-old female patient was diagnosed having diffuse B-cell lymphoma. Diagnosed with established by liver biopsy that was done initially at [facility] and findings were also confirmed by liver biopsy that was done at [facility]. Noted the patient has extensive disease and her previous PET scan that was done on 05/01/2024 showed extensive FDG uptake in metastases throughout the osseous structures and the liver in addition to metastatic lymphadenopathy in the para-aortic, left iliac, right obturator and right inguinal and right axillary and left mammary and supraclavicular area. The patient also has pathologic compression fracture of the L1 spine. The p atsheri has not started treatment yet. She presented to the hospital because of ongoing fever and the patient was also found to be hypoxic and the patient is currently on 3 Suboxone by nasal cannula. She has no significant leukocytosis. She is febrile. Hemodynamically stable. No reported aspiration. Chest x-ray that was done at time of admission showed a trace left-sided pleural effusion and there is areas of reticular opacities in the upper lobes right more than left and this is a new finding compared to previous chest x-rays. Based on that, the patient was started on broad-spectrum antibiotics and the patient is currently on a combination of Rocephin and Zithromax. On today's evaluation, her white cell count is at 5.6 with a hemoglobin of 8 and a platelet count of 533. BUN is 7 with a creatinine of 0.4 and a sodium level at 134. UA is negative. Viral screen was negative. Legionella urine antigen was also done and results were also negative. No reported aspiration. No sick contacts. The patient is seen today May 17, 2024 in follow-up on the regular medical floor. She is currently resting in bed. Awake and alert in no acute distress. She is maintaining O2 saturations in the upper 90s on 3 L/min per nasal cannula. She has been afebrile. Slightly tachycardic. Still feeling quite weak. She says she is less short of breath and some less of a cough but overall not much improved. Blood cultures are pending. Urine culture revealed no growth. 7.3. Platelets 529. Sodium 136. Potassium 3.0. Bicarb 21. BUN 4.4. Creatinine 0.3. Vancomycin and cefepime. Ultrasound of the abdomen revealed no evidence of ascites. CT scan of the chest does reveal development of bilateral upper lobe reticular opacities concerning for pneumonia. Small bilateral pleural effusions with associated atelectasis. Demonstration of multiple destructive osseous metastasis including the ribs with pathologic fractures of T11 and L1 vertebral bodies. Stable enlarged nonspecific mediastinal lymph node. Not FDG avid on prior PET. The patient is seen today May 18, 2024 in follow-up on the regular medical floor. She is awake and alert in no acute distress. She denies any worsening shortness of breath, cough or congestion. She remains quite weak and debilitated. She is maintaining O2 saturations in the 90s on 3 L/min per nasal cannula. She did receive a left upper extremity PICC line placement today. Cultures revealed no growth. Urine culture revealed no growth. Sputum culture pending. White count 5.8. Hemoglobin 7.6. Platelets 621. Sodium 131. Potass ium 3.6. Bicarb 27. BUN 4. Creatinine 0.34. Glucose 103. Hepatitis and HIV screen was negative. She remains on cefepime and vancomycin. The plan is to start inpatient chemotherapy tomorrow. Objective - Vital Signs Vital signs: Vital Signs Temp 98.3 F 05/18/24 13:01 Pulse 94 05/18/24 13:01 Resp 16 05/18/24 13:01 BP 99/55 05/18/24 13:01 Pulse Ox 95 05/18/24 13:01 FiO2 Intake & Output 05/17/24 05/18/24 05/18/24 18:59 06:59 18:59 Intake Total 840 Output Total 700 400 600 Balance 140 -400 -600 Weight 55.59 kg Intake: Intake, IV Titration 300 Amount Cefepime 2 gm In Sodium 100 Chloride 0.9% 100 ml @ 25 mls/hr IVPB Q8HR [facility] Rx# :[id number] Potassium Chloride 10 meq 200 In Water For Injection 1 100ml.bag @ 100 mls/hr IVPB Q1H [facility] Rx#: [id number] Oral 540 Output: Urine 700 400 600 Other: Voiding Method Bedside Commode Toilet Toilet Diaper Bedside Commode Bedside Commode External Catheter Diaper Diaper External Catheter External Catheter # Bowel Movements 1 - Exam GENERAL EXAM: Alert, weak, 68-year-old female, on 3 L nasal cannula, comfortable in no apparent distress. HEAD: Normocephalic. EYES: Normal reaction of pupils, equal size. NOSE: Clear with pink turbinates. THROAT: No erythema or exudates. NECK: No masses, no JVD. CHEST: No chest wall deformity. LUNGS: Equal air entry with bilateral scattered rhonchi. CVS: S1 and S2 normal with no audible murmur, regular rhythm. ABDOMEN: No hepatosplenomegaly, normal bowel sounds, no guarding or rigidity. SPINE: No scoliosis or deformity SKIN: No rashes CENTRAL NERVOUS SYSTEM: No focal deficits, tone is normal in all 4 extremities. EXTREMITIES: There is no peripheral edema. No clubbing, no cyanosis. Peripheral pulses are intact. - Labs CBC & Chem 7: 05/18/24 03:55 05/18/24 03:55 Labs: Abnormal Lab Results - Last 24 Hours (Table) 05/18/24 05/18/24 Range/Units 03:55 03:55 RBC 2.64 L (3.80-5.40) m/uL Hgb 7.6 L (11.4-16.0) gm/dL Hct 24.6 L (34.0-46.0) % MCHC 30.8 L (31.0-37.0) g/dL RDW 16.0 H (11.5-15.5) % Plt Count 621 H (150-450) k/uL Sodium 131 L (137-145) mmol/L BUN 4 L (7-17) mg/dL Creatinine 0.34 L (0.52-1.04) mg/dL Glucose 103 H (74-99) mg/dL Uric Acid 1.8 L (3.7-7.4) mg/dL Calcium 8.0 L (8.4-10.2) mg/dL Phosphorus 1.7 L (2.5-4.5) mg/dL AST 48 H (14-36) U/L Alkaline Phosphatase 178 H (38-126) U/L Total Protein 4.9 L (6.3-8.2) g/dL Albumin 2.5 L (3.5-5.0) g/dL Microbiology - Last 24 Hours (Table) 05/17/24 12:32 Gram Stain - Preliminary Sputum Sputum Culture - Preliminary 05/15/24 16:38 Blood Culture - Preliminary Blood 05/15/24 17:52 Urine Culture - Final Urine,Voided Assessment and Plan Assessment: Acute bilateral pneumonia with upper lobe predominance. The patient is febrile and the patient has new onset radicular and nodular infiltrate in the upper lobes bilaterally and the findings are quite suspicious for development of a pneumonia. Noted the patient was hospitalized back in April. Possibility of a hospital-acquired pneumonia in an immunosuppressed patient cannot be completely ruled out. Opportunistic lung infection also need to be considered. Tumor progression with involvement of the lungs and secondary tumor induced fever is also likely. CT scan of the chest does reveal development of bilateral upper lobe reticular opacities concerning for pneumonia. Small bilateral pleural effusions with associated atelectasis. Demonstration of multiple destructive osseous metastasis including the ribs with pathologic fractures of T11 and L1 vertebral bodies. Stable enlarged nonspecific mediastinal lymph node. Not FDG avid on prior PET. Fever, likely secondary to above. This is most likely secondary to pneumonia. Tumor induced fever and tumor infiltration of the upper lobes is also possible. Diffuse large B-cell lymphoma, biopsy done from the liver on 2 separate occasions and the findings were consistent with lymphoma. The patient has extensive osseous metastases in addition to liver involvement and patient also has diffuse lymphadenopathy. Normocytic anemia, likely secondary to underlying lymphoma Plan: The patient was seen and evaluated Labs and medications reviewed Continue cefepime and vancomycin Titrate the FiO2 as tolerated Follow-up chest x-ray in a.m. Plan is to initiate inpatient chemotherapy tomorrow Left upper extremity PICC line placed We will continue to follow I have personally seen and examined the patient, performed the documentation and the assessment and plan as written. Number of minutes spent on the visit: 10 Dictation was produced using [employer] dictation software. Please excuse any grammatical, word or spelling errors.
[2024-05-18 14:44] LABS: African American GFR (CKD) >90 (>60 ml/min/1.73 sqM); Non-African American GFR(CKD) >90 (>60 ml/min/1.73 sqM)
[2024-05-18] MEDS: VANCOMYCIN TROUGH DUE 1 EACH MISC MISCELLANE ONE (15:14)
--- NOTE | 2024-05-18 15:22 | P.PN ---
Subjective Progress Note Date: 05/18/24 68-year-old female with a recent diagnosis of non-Hodgkin's a follow-up presenting to emergency room via EMS with daughter for complaints of generalized weakness. Daughter states that over the past 3 days patient has been experiencing intermittent fevers hide ranging up to 102.7 that responds to Tylenol. Patient has been overall weak with a decrease in oral intake, confused. Patient reports discomfort on right side of her abdomen resulting in decreased appetite and decreased oral intake; marked decrease in urination; patient was advised by Dr. Kwok, to report to the ER. Additionally, patient states that she has had dark and sticky stools over the past few weeks. Denies blood thinner use. Blood work completed in ED reveals a WBC of 6.4, hemoglobin of 8.4 and platelet count of 483, sodium 130, potassium 4.2, BUNs/creatinine of 15/0.52, AST mildly elevated at 60, troponin of 0.012, UA reveals moderate leukocyte esterase without any bacteria or WBCs Viral screen is negative for influenza A and B, RSV and COVID-[address] of the abdomen and pelvis does not reveal any acute intra-abdominal or intra pelvic process; bony metastasis as well as liver metastases seen; mild patchy density right lower lobe could be atelectasis versus pneumonia Chest x-ray reveals bilateral upper lung reticular opacities concerning for pneumonia, left pleural effusion, left lateral sixth and eighth rib lesions --Patient has been evaluated by pulmonary service and antibiotics have been transitioned to IV cefepime and vancomycin 05/17 Patient presents with pneumonia in the right lower lobe and bilateral upper lobe pneumonia and sepsis, also she has mild hypoxia. Mentation is normal Currently she is doing better, patient says her breathing is better, she is on 3 L oxygen via nasal cannula with saturating 98% Her blood pressure is stable and vital stable and she is afebrile She remains on IV vancomycin and cefepime and normal saline 100 mL/h Her abdomen was little distended today while she is sitting but no pain vomiting or diarrhea. Ultrasound showing no ascites. Hemoglobin dropping 8.4, 8.0 and today 7.3, hematology/oncology team on the case and the following closely for her non-Hodgkin lymphoma and also the doing anemia workup Daughter at bedside All questions were answered 05/18. Patient seen and examined. States she feels slightly better compared to yesterday. Still complaining of lethargic. Patient has poor appetite. Discussed with patient's family regarding creasing appetite. REVIEW OF SYSTEMS: CONSTITUTIONAL: No fever, no malaise,. CARDIOVASCULAR: No chest pain, no palpitations, no syncope. PULMONARY: No shortness of breath, no cough, GASTROINTESTINAL: No diarrhea, no nausea, no vomiting, no abdominal pain. NEUROLOGICAL: No headaches, no weakness, PHYSICAL EXAMINATION: GENERAL: The patient is alert and oriented x3, ill looking HEENT: Pupils are round and equally reacting to light. EOMI. No scleral icterus. No conjunctival pallor. Normocephalic, atraumatic. No pharyngeal erythema. No thyromegaly. CARDIOVASCULAR: S1 and S2 present. No murmurs, rubs, or gallops. PULMONARY: Chest is clear to auscultation, no wheezing or crackles. ABDOMEN: Soft, nontender, nondistended, normoactive bowel sounds. No palpable organomegaly. MUSCULOSKELETAL: No joint swelling or deformity. EXTREMITIES: No cyanosis, clubbing, or pedal edema. NEUROLOGICAL: Gross neurological examination did not reveal any focal deficits. SKIN: No rashes. Assessment and plan Acute hypoxic respiratory failure Bacterial pneumonia Diffuse large B-cell lymphoma Normocytic anemia Hypertension Vitamin deficiency Neuropathy Chronic pain Monitor vital signs Monitor CBC Monitor CMP Follow-up on blood cultures Continue IV cefepime and vancomycin continue IV fluids Pulmonology following Hematology oncology following Labs and medication were reviewed.. Continue same treatment. Continue with symptomatic treatment. Resume home medication. Monitor labs and vitals. DVT and GI prophylaxis. Further recommendations as per clinical course of the patient Dictation was produced using Swype dictation software. please excuse any grammatical, word or spelling errors. Objective - Vital Signs Vital signs: Vital Signs Temp 98.3 F 05/18/24 13:01 Pulse 94 05/18/24 13:01 Resp 16 05/18/24 13:01 BP 99/55 05/18/24 13:01 Pulse Ox 95 05/18/24 13:01 FiO2 Intake & Output 05/17/24 05/18/24 05/18/24 18:59 06:59 18:59 Intake Total 840 Output Total 797 157 4041 Balance 140 -400 -1150 Weight 55.59 kg Intake: Intake, IV Titration 300 Amount Cefepime 2 gm In Sodium 100 Chloride 0.9% 100 ml @ 25 mls/hr IVPB Q8HR [facility] Rx# :[id number] Potassium Chloride 10 meq 200 In Water For Injection 1 100ml.bag @ 100 mls/hr IVPB Q1H [facility] Rx#: [id number] Oral 540 Output: Urine 045 [id number] [id number] Other: Voiding Method Bedside Commode Toilet Toilet Diaper Bedside Commode Bedside Commode External Catheter Diaper Diaper External Catheter External Catheter # Bowel Movements 1 - Labs CBC & Chem 7: 05/18/24 03:55 05/18/24 14:02 Labs: Abnormal Lab Results - Last 24 Hours (Table) 05/16/24 05/18/24 05/18/24 Range/Units 18:57 03:55 03:55 RBC 2.64 L (3.80-5.40) m/uL Hgb 7.6 L (11.4-16.0) gm/dL Hct 24.6 L (34.0-46.0) % MCHC 30.8 L (31.0-37.0) g/dL RDW 16.0 H (11.5-15.5) % Plt Count 621 H (150-450) k/uL Sodium 131 L (137-145) mmol/L BUN 4 L (7-17) mg/dL Creatinine 0.34 L (0.52-1.04) mg/dL Glucose 103 H (74-99) mg/dL Uric Acid 1.8 L (3.7-7.4) mg/dL Calcium 8.0 L (8.4-10.2) mg/dL Phosphorus 1.7 L (2.5-4.5) mg/dL AST 48 H (14-36) U/L Alkaline Phosphatase 178 H (38-126) U/L Total Protein 4.9 L (6.3-8.2) g/dL Albumin 2.5 L (3.5-5.0) g/dL RBC Folate 1,187 H (280 - 791) ng/mL 05/18/24 Range/Units 14:02 RBC (3.80-5.40) m/uL Hgb (11.4-16.0) gm/dL Hct (34.0-46.0) % MCHC (31.0-37.0) g/dL RDW (11.5-15.5) % Plt Count (150-450) k/uL Sodium (137-145) mmol/L BUN (7-17) mg/dL Creatinine 0.34 L (0.52-1.04) mg/dL Glucose (74-99) mg/dL Uric Acid (3.7-7.4) mg/dL Calcium (8.4-10.2) mg/dL Phosphorus (2.5-4.5) mg/dL AST (14-36) U/L Alkaline Phosphatase (38-126) U/L Total Protein (6.3-8.2) g/dL Albumin (3.5-5.0) g/dL RBC Folate (280 - 791) ng/mL Microbiology - Last 24 Hours (Table) 05/17/24 12:32 Gram Stain - Preliminary Sputum Sputum Culture - Preliminary 05/15/24 16:38 Blood Culture - Preliminary Blood 05/15/24 17:52 Urine Culture - Final Urine,Voided
[2024-05-18] MEDS ORDERED: ONDANSETRON 4 MG/2 ML VIAL IVP PRN (15:50)
--- NOTE | 2024-05-18 15:56 | P.PN ---
Subjective Progress Note Date: 05/18/24 Principal diagnosis: SOB, weakness. 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 She is following treatment orders. PICC line placed, she tolerated well. She and her daughter had a few questions about chemo. Tmax 100.5F overnight, No N,V, chest pain, dysuria, swelling. Objective - Vital Signs Vital signs: Vital Signs Temp 98.3 F 05/18/24 13:01 Pulse 94 05/18/24 13:01 Resp 16 05/18/24 13:01 BP 99/55 05/18/24 13:01 Pulse Ox 95 05/18/24 13:01 FiO2 Intake & Output 05/17/24 05/18/24 05/18/24 18:59 06:59 18:59 Intake Total 840 Output Total 460 069 8385 Balance 140 -400 -1150 Weight 55.59 kg Intake: Intake, IV Titration 300 Amount Cefepime 2 gm In Sodium 100 Chloride 0.9% 100 ml @ 25 mls/hr IVPB Q8HR [facility] Rx# :[id number] Potassium Chloride 10 meq 200 In Water For Injection 1 100ml.bag @ 100 mls/hr IVPB Q1H [facility] Rx#: [id number] Oral 540 Output: Urine 318 [id number] [id number] Other: Voiding Method Bedside Commode Toilet Toilet Diaper Bedside Commode Bedside Commode External Catheter Diaper Diaper External Catheter External Catheter # Bowel Movements 1 - Constitutional General appearance: Present: average body habitus, cooperative, no acute distress - EENT Eyes: Present: anicteric sclerae, EOMI ENT: Present: hearing grossly normal, normal oropharynx - Respiratory Respiratory: bilateral: CTA - Cardiovascular Rhythm: regular Heart sounds: normal: S1, S2 - Peripheral edema leg Peripheral Edema: bilateral: None - Gastrointestinal General gastrointestinal: Present: soft - Neurologic Neurologic: Present: CNII-XII intact - Musculoskeletal Musculoskeletal: Present: generalized weakness, strength equal bilaterally - Psychiatric Psychiatric: Present: A&O x's 3, appropriate affect, intact judgment & insight - Labs CBC & Chem 7: 05/18/24 03:55 05/18/24 14:02 Labs: Abnormal Lab Results - Last 24 Hours (Table) 03/05/18/24 05/18/24 Range/Units 18:57 03:55 03:55 RBC 2.64 L (3.80-5.40) m/uL Hgb 7.6 L (11.4-16.0) gm/dL Hct 24.6 L (34.0-46.0) % MCHC 30.8 L (31.0-37.0) g/dL RDW 16.0 H (11.5-15.5) % Plt Count 621 H (150-450) k/uL Sodium 131 L (137-145) mmol/L BUN 4 L (7-17) mg/dL Creatinine 0.34 L (0.52-1.04) mg/dL Glucose 103 H (74-99) mg/dL Uric Acid 1.8 L (3.7-7.4) mg/dL Calcium 8.0 L (8.4-10.2) mg/dL Phosphorus 1.7 L (2.5-4.5) mg/dL AST 48 H (14-36) U/L Alkaline Phosphatase 178 H (38-126) U/L Total Protein 4.9 L (6.3-8.2) g/dL Albumin 2.5 L (3.5-5.0) g/dL RBC Folate 1,187 H (280 - 791) ng/mL 05/18/24 Range/Units 14:02 RBC (3.80-5.40) m/uL Hgb (11.4-16.0) gm/dL Hct (34.0-46.0) % MCHC (31.0-37.0) g/dL RDW (11.5-15.5) % Plt Count (150-450) k/uL Sodium (137-145) mmol/L BUN (7-17) mg/dL Creatinine 0.34 L (0.52-1.04) mg/dL Glucose (74-99) mg/dL Uric Acid (3.7-7.4) mg/dL Calcium (8.4-10.2) mg/dL Phosphorus (2.5-4.5) mg/dL AST (14-36) U/L Alkaline Phosphatase (38-126) U/L Total Protein (6.3-8.2) g/dL Albumin (3.5-5.0) g/dL RBC Folate (280 - 791) ng/mL Microbiology - Last 24 Hours (Table) 05/17/24 12:32 Gram Stain - Preliminary Sputum Sputum Culture - Preliminary 05/15/24 16:38 Blood Culture - Preliminary Blood 05/15/24 17:52 Urine Culture - Final Urine,Voided - Imaging and Cardiology ECHO report reviewed Assessment and Plan (1) Fever Current Visit: Yes Status: Acute Priority: High Code(s): R50.9 - FEVER, UNSPECIFIED SNOMED Code(s): 068622422 (2) NHL (non-Hodgkin's lymphoma) Current Visit: Yes Status: Acute Priority: High Code(s): C85.90 - NON- HODGKIN LYMPHOMA, UNSPECIFIED, UNSPECIFIED SITE SNOMED Code(s): 178858926 Plan: Fever -Urine culture finalized, negative -Blood cultures negative at 48 hours, awaiting finalization -Suspect fevers are secondary to lymphoma. 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 -Recommendation is for aggressive chemotherapy. They are in agreement with the same. -General chemo treatment edu provided, written materials given -Echo recently done, LVEF 55 to 60% -Hepatitis panel neg -Double lumen PICC placed -Standard chemo orders in place -Labs and daily follow-up -Chemo orders with plans to start treatment tomorrow Doctor attests: I performed a history and physical examination of this patient, developed impression and plan of care. Discussed with dictator. I agree with dictators note, documented as a scribe.
[2024-05-18] MEDS: OLANZapine 2.5 MG TAB PO SCH (20:44)
[2024-05-19] MEDS: VANCOMYCIN 1,000 MG in SODIUM CHLORIDE 0.9% 250 ML IVPB SCH (00:16)
[2024-05-19 03:55] LABS: Methylmalonic Acid 0.11 umol/L (<0.40)
[2024-05-19 04:14] LABS: ALT 30 U/L (4-34); AST 61 U/L (14-36); African American GFR (CKD) >90 (>60 ml/min/1.73 sqM); Albumin 2.5 g/dL (3.5-5.0); Alkaline Phosphatase 178 U/L (38-126); Anion Gap 4 mmol/L; Blood Urea Nitrogen 6 mg/dL (7-17); Carbon Dioxide 28 mmol/L (22-30); Chloride 101 mmol/L (98-107); Globulin 2.4 g/dL; Glucose 107 mg/dL (74-99); Non-African American GFR(CKD) >90 (>60 ml/min/1.73 sqM); Potassium 3.3 mmol/L (3.5-5.1); Sodium 133 mmol/L (137-145); Total Bilirubin 0.4 mg/dL (0.2-1.3); Total Protein 4.9 g/dL (6.3-8.2)
--- NOTE | 2024-05-19 08:08 | XR ---
EXAMINATION TYPE: XR chest 1V portable DATE OF EXAM: 05/19/2024 6:36 AM COMPARISON: 05/16/2024 CLINICAL INDICATION: Female, 68 years old with history of Pneumonia, TECHNIQUE: XR chest 1V portable views of the chest are obtained. FINDINGS: Demonstrated are scattered senescent parenchymal change. Reticulonodular infiltrates within the upper lobes bilaterally as well as the left lower lobe. Small left-sided effusion noted. The heart is stable. Hilar and mediastinal structures are within normal limits. Degenerative changes are seen of the dorsal spine. IMPRESSION: 1. Reticulonodular infiltrates within the upper lobes bilaterally as well as the left lower lobe. Sm all left-sided effusion noted. [facility], , 05/19/2024 8:05 AM
[2024-05-19] MEDS: predniSONE 50 MG TAB PO SCH (08:34)
[2024-05-19 08:40] LABS: Uric Acid 1.4 mg/dL (3.7-7.4)
[2024-05-19 10:08] LABS: Basophils # (A) 0.02 X 10*3/uL (0.00-0.10); Basophils % (A) 0.3 %; Eosinophils # (A) 0.09 X 10*3/uL (0.04-0.35); Eosinophils % (A) 1.4 %; HCT 22.4 % (37.2-46.3); HGB 6.9 g/dL (12.0-15.0); Lymphocytes # (A) 1.06 X 10*3/uL (0.90-5.00); Lymphocytes % (A) 16.3 %; MCH 28.9 pg (27.0-32.0); MCHC 30.8 g/dL (32.0-37.0); MCV 93.7 FL (80.0-97.0); Mean Platelet Volume 9.1 FL (9.5-12.2); Monocytes % (A) 6.1 %; NRBC Per 100 WBC 0.02 X 10*3/uL (0.00-0.01); Neutrophils # (A) 4.67 X 10*3/uL (1.80-7.70); Neutrophils % (A) 71.6 %; Platelet Count 548 X 10*3/uL (140-440); RBC 2.39 X 10*6/uL (4.10-5.20); RBC Morphology Normal (Normal); RDW 16.3 % (11.5-14.5); WBC 6.52 X 10*3/uL (4.50-10.00)
[2024-05-19] MEDS ORDERED: Potassium Replacement Protocol 1 EACH MISC MISCELLANE PRN (10:46)
[2024-05-19] MEDS: OLANZapine 2.5 MG TAB PO ONE (11:27)
[2024-05-19] MEDS: POTASSIUM CHLORIDE ER 20 MEQ TAB.ER PO SCH (11:35)
--- NOTE | 2024-05-19 13:12 | P.PN ---
Subjective Progress Note Date: 05/19/24 68-year-old female with a recent diagnosis of non-Hodgkin's a follow-up presenting to emergency room via EMS with daughter for complaints of generalized weakness. Daughter states that over the past 3 days patient has been experiencing intermittent fevers hide ranging up to 102.7 that responds to Tylenol. Patient has been overall weak with a decrease in oral intake, confused. Patient reports discomfort on right side of her abdomen resulting in decreased appetite and decreased oral intake; marked decrease in urination; patient was advised by Dr. Kwok, to report to the ER. Additionally, patient states that she has had dark and sticky stools over the past few weeks. Denies blood thinner use. Blood work completed in ED reveals a WBC of 6.4, hemoglobin of 8.4 and platelet count of 483, sodium 130, potassium 4.2, BUNs/creatinine of 15/0.52, AST mildly elevated at 60, troponin of 0.012, UA reveals moderate leukocyte esterase without any bacteria or WBCs Viral screen is negative for influenza A and B, RSV and COVID-[address] of the abdomen and pelvis does not reveal any acute intra-abdominal or intra pelvic process; bony metastasis as well as liver metastases seen; mild patchy density right lower lobe could be atelectasis versus pneumonia Chest x-ray reveals bilateral upper lung reticular opacities concerning for pneumonia, left pleural effusion, left lateral sixth and eighth rib lesions --Patient has been evaluated by pulmonary service and antibiotics have been transitioned to IV cefepime and vancomycin 05/17 Patient presents with pneumonia in the right lower lobe and bilateral upper lobe pneumonia and sepsis, also she has mild hypoxia. Mentation is normal Currently she is doing better, patient says her breathing is better, she is on 3 L oxygen via nasal cannula with saturating 98% Her blood pressure is stable and vital stable and she is afebrile She remains on IV vancomycin and cefepime and normal saline 100 mL/h Her abdomen was little distended today while she is sitting but no pain vomiting or diarrhea. Ultrasound showing no ascites. Hemoglobin dropping 8.4, 8.0 and today 7.3, hematology/oncology team on the case and the following closely for her non-Hodgkin lymphoma and also the doing anemia workup Daughter at bedside All questions were answered 05/18. Patient seen and examined. States she feels slightly better compared to yesterday. Still complaining of lethargic. Patient has poor appetite. Discussed with patient's family regarding creasing appetite. 05/19. Patient seen examined. Blood work this morning showed WB 6.52, hemoglobin 6.9, platelet count 548, sodium 133, potassium 3.3, BUN 6, creatinine 0.28. Patient is being given 1 unit of packed red blood cell. Complaining of lethargic. REVIEW OF SYSTEMS: CONSTITUTIONAL: No fever, no malaise,. CARDIOVASCULAR: No chest pain, no palpitations, no syncope. PULMONARY: No shortness of breath, no cough, GASTROINTESTINAL: No diarrhea, no nausea, no vomiting, no abdominal pain. NEUROLOGICAL: No headaches, no weakness, PHYSICAL EXAMINATION: GENERAL: The patient is alert and oriented x3, ill looking HEENT: Pupils are round and equally reacting to light. EOMI. No scleral icterus. No conjunctival pallor. Normocephalic, atraumatic. No pharyngeal erythema. No thyromegaly. CARDIOVASCULAR: S1 and S2 present. No murmurs, rubs, or gallops. PULMONARY: Coarse breath sounds bilaterally, no wheezing or crackles. ABDOMEN: Soft, nontender, nondistended, normoactive bowel sounds. No palpable organomegaly. MUSCULOSKELETAL: No joint swelling or deformity. EXTREMITIES: No cyanosis, clubbing, or pedal edema. NEUROLOGICAL: Gross neurological examination did not reveal any focal deficits. SKIN: No rashes. Assessment and plan Acute hypoxic respiratory failure Bacterial pneumonia Diffuse large B-cell lymphoma Normocytic anemia Hypertension Vitamin deficiency Neuropathy Chronic pain Monitor vital signs Monitor CBC Monitor CMP Follow-up on blood cultures Continue IV cefepime and vancomycin DC fluid Pulmonology following Hematology oncology following Consult ID Labs and medication were reviewed.. Continue same treatment. Continue with symptomatic treatment. Resume home medication. Monitor labs and vitals. DVT and GI prophylaxis. Further recommendations as per clinical course of the patient Dictation was produced using [email or web address] dictation software. please excuse any grammatical, word or spelling errors. Objective - Vital Signs Vital signs: Vital Signs Temp 98.0 F 05/19/24 12:04 Pulse 100 05/19/24 12:04 Resp 16 05/19/24 12:04 BP 132/64 05/19/24 12:04 Pulse Ox 92 L 05/19/24 12:04 FiO2 Intake & Output 05/18/24 05/19/24 05/19/24 18:59 06:59 18:59 Intake Total 500 777 477 Output Total 1600 1000 Balance -1100 -223 477 Intake: Oral 500 777 477 Blood Product 0 Unit 0 Output: Urine 1600 1000 Other: Voiding Method Toilet Toilet Toilet Bedside Commode Bedside Commode Bedside Commode Diaper Diaper Diaper External Catheter External Catheter External Catheter # Bowel Movements 1 - Labs CBC & Chem 7: 05/19/24 03:00 05/19/24 03:00 Labs: Abnormal Lab Results - Last 24 Hours (Table) 05/16/24 05/18/24 05/19/24 Range/Units 18:57 14:02 03:00 RBC (4.10-5.20) X 10*6/uL Hgb (12.0-15.0) g/dL Hct (37.2-46.3) % MCHC (32.0-37.0) g/dL RDW (11.5-14.5) % Plt Count (140-440) X 10*3/uL MPV (9.5-12.2) FL Immature Gran # (0.00-0.04) X 10*3/uL NRBC/100 WBC Diff (0.00-0.01) X 10*3/uL Sodium 133 L (137-145) mmol/L Potassium 3.3 L (3.5-5.1) mmol/L BUN 6 L (7-17) mg/dL Creatinine 0.34 L 0.28 L (0.52-1.04) mg/dL Glucose 107 H (74-99) mg/dL Uric Acid 1.4 L (3.7-7.4) mg/dL Calcium 8.0 L (8.4-10.2) mg/dL Phosphorus 2.0 L (2.5-4.5) mg/dL AST 61 H (14-36) U/L Alkaline Phosphatase 178 H (38-126) U/L Total Protein 4.9 L (6.3-8.2) g/dL Albumin 2.5 L (3.5-5.0) g/dL RBC Folate 1,187 H (280 - 791) ng/mL Crossmatch 05/19/24 05/19/24 Range/Units 03:00 10:50 RBC 2.39 L (4.10-5.20) X 10*6/uL Hgb 6.9 A* (12.0-15.0) g/dL Hct 22.4 L (37.2-46.3) % MCHC 30.8 L (32.0-37.0) g/dL RDW 16.3 H (11.5-14.5) % Plt Count 548 H (140-440) X 10*3/uL MPV 9.1 L (9.5-12.2) FL Immature Gran # 0.28 H (0.00-0.04) X 10*3/uL NRBC/100 WBC Diff 0.02 H (0.00-0.01) X 10*3/uL Sodium (137-145) mmol/L Potassium (3.5-5.1) mmol/L BUN (7-17) mg/dL Creatinine (0.52-1.04) mg/dL Glucose (74-99) mg/dL Uric Acid (3.7-7.4) mg/dL Calcium (8.4-10.2) mg/dL Phosphorus (2.5-4.5) mg/dL AST (14-36) U/L Alkaline Phosphatase (38-126) U/L Total Protein (6.3-8.2) g/dL Albumin (3.5-5.0) g/dL RBC Folate (280 - 791) ng/mL Crossmatch See Detail Microbiology - Last 24 Hours (Table) 05/17/24 12:32 Gram Stain - Final Sputum Sputum Culture - Final Mary Lou albicans 05/15/24 16:38 Blood Culture - Preliminary Blood 05/17/24 14:55 Nasal Screen MRSA/MSSA - Final Nasal Swab
--- NOTE | 2024-05-19 14:05 | P.PN ---
Subjective Progress Note Date: 05/19/24 This is a 68-year-old female patient was diagnosed having diffuse B-cell lymphoma. Diagnosed with established by liver biopsy that was done initially at [facility] and findings were also confirmed by liver biopsy that was done at [facility]. Noted the patient has extensive disease and her previous PET scan that was done on 05/01/2024 showed extensive FDG uptake in metastases throughout the osseous structures and the liver in addition to metastatic lymphadenopathy in the para-aortic, left iliac, right obturator and right inguinal and right axillary and left mammary and supraclavicular area. The patient also has pathologic compression fracture of the L1 spine. The p atsheri has not started treatment yet. She presented to the hospital because of ongoing fever and the patient was also found to be hypoxic and the patient is currently on 3 Suboxone by nasal cannula. She has no significant leukocytosis. She is febrile. Hemodynamically stable. No reported aspiration. Chest x-ray that was done at time of admission showed a trace left-sided pleural effusion and there is areas of reticular opacities in the upper lobes right more than left and this is a new finding compared to previous chest x-rays. Based on that, the patient was started on broad-spectrum antibiotics and the patient is currently on a combination of Rocephin and Zithromax. On today's evaluation, her white cell count is at 5.6 with a hemoglobin of 8 and a platelet count of 533. BUN is 7 with a creatinine of 0.4 and a sodium level at 134. UA is negative. Viral screen was negative. Legionella urine antigen was also done and results were also negative. No reported aspiration. No sick contacts. The patient is seen today May 17, 2024 in follow-up on the regular medical floor. She is currently resting in bed. Awake and alert in no acute distress. She is maintaining O2 saturations in the upper 90s on 3 L/min per nasal cannula. She has been afebrile. Slightly tachycardic. Still feeling quite weak. She says she is less short of breath and some less of a cough but overall not much improved. Blood cultures are pending. Urine culture revealed no growth. 7.3. Platelets 529. Sodium 136. Potassium 3.0. Bicarb 21. BUN 4.4. Creatinine 0.3. Vancomycin and cefepime. Ultrasound of the abdomen revealed no evidence of ascites. CT scan of the chest does reveal development of bilateral upper lobe reticular opacities concerning for pneumonia. Small bilateral pleural effusions with associated atelectasis. Demonstration of multiple destructive osseous metastasis including the ribs with pathologic fractures of T11 and L1 vertebral bodies. Stable enlarged nonspecific mediastinal lymph node. Not FDG avid on prior PET. The patient is seen today May 18, 2024 in follow-up on the regular medical floor. She is awake and alert in no acute distress. She denies any worsening shortness of breath, cough or congestion. She remains quite weak and debilitated. She is maintaining O2 saturations in the 90s on 3 L/min per nasal cannula. She did receive a left upper extremity PICC line placement today. Cultures revealed no growth. Urine culture revealed no growth. Sputum culture pending. White count 5.8. Hemoglobin 7.6. Platelets 621. Sodium 131. Potass ium 3.6. Bicarb 27. BUN 4. Creatinine 0.34. Glucose 103. Hepatitis and HIV screen was negative. She remains on cefepime and vancomycin. The plan is to start inpatient chemotherapy tomorrow. The patient is seen today May 19, 2024 in follow-up on the regular medical floor. She is sitting up in bed. Awake and alert in no acute distress. Feeling stronger today compared to yesterday. She remains on vancomycin and cefepime. His chest x-ray continues to show reticular nodular infiltrates within the upper lobes bilaterally as well as the left lower lobe. Small left- sided pleural effusion. She is receiving 1 unit of packed red blood cells today. Her hemoglobin was 6.9. Platelets 548. White count 6.5. Sodium 133. Potassium 3.3. Bicarb 28. BUN 6. Creatinine 0.28. Glucose 107. AST 61. ALT 30. Vancomycin trough 9.0. Plan is to start chemotherapy today. Objective - Vital Signs Vital signs: Vital Signs Temp 98.6 F 05/19/24 13:30 Pulse 108 H 05/19/24 13:30 Resp 18 05/19/24 13:30 BP 104/61 05/19/24 13:30 Pulse Ox 96 05/19/24 13:30 FiO2 Intake & Output 05/18/24 05/19/24 05/19/24 18:59 06:59 18:59 Intake Total 462 795 0531 Output Total 1600 1000 Balance -1100 -223 2271 Intake: Oral 017 969 0734 Blood Product 0 Unit 0 Output: Urine 1600 1000 Other: Voiding Method Toilet Toilet Toilet Bedside Commode Bedside Commode Bedside Commode Diaper Diaper Diaper External Catheter External Catheter External Catheter # Bowel Movements 1 1 - Exam GENERAL EXAM: Alert, pleasant 68-year-old female, sitting up in bed, on 3 L nasal cannula, comfortable in no apparent distress. HEAD: Normocephalic. EYES: Normal reaction of pupils, equal size. NOSE: Clear with pink turbinates. THROAT: No erythema or exudates. NECK: No masses, no JVD. CHEST: No chest wall deformity. LUNGS: Equal air entry with bilateral scattered rhonchi. CVS: S1 and S2 normal with no audible murmur, regular rhythm. ABDOMEN: No hepatosplenomegaly, normal bowel sounds, no guarding or rigidity. SPINE: No scoliosis or deformity SKIN: No rashes CENTRAL NERVOUS SYSTEM: No focal deficits, tone is normal in all 4 extremities. EXTREMITIES: There is no peripheral edema. No clubbing, no cyanosis. Peripheral pulses are intact. - Labs CBC & Chem 7: 05/19/24 03:00 05/19/24 03:00 Labs: Abnormal Lab Results - Last 24 Hours (Table) 05/16/24 05/18/24 05/19/24 Range/Units 18:57 14:02 03:00 RBC (4.10-5.20) X 10*6/uL Hgb (12.0-15.0) g/dL Hct (37.2-46.3) % MCHC (32.0-37.0) g/dL RDW (11.5-14.5) % Plt Count (140-440) X 10*3/uL MPV (9.5-12.2) FL Immature Gran # (0.00-0.04) X 10*3/uL NRBC/100 WBC Diff (0.00-0.01) X 10*3/uL Sodium 133 L (137-145) mmol/L Potassium 3.3 L (3.5-5.1) mmol/L BUN 6 L (7-17) mg/dL Creatinine 0.34 L 0.28 L (0.52-1.04) mg/dL Glucose 107 H (74-99) mg/dL Uric Acid 1.4 L (3.7-7.4) mg/dL Calcium 8.0 L (8.4-10.2) mg/dL Phosphorus 2.0 L (2.5-4.5) mg/dL AST 61 H (14-36) U/L Alkaline Phosphatase 178 H (38-126) U/L Total Protein 4.9 L (6.3-8.2) g/dL Albumin 2.5 L (3.5-5.0) g/dL RBC Folate 1,187 H (280 - 791) ng/mL Crossmatch 05/19/24 05/19/24 Range/Units 03:00 10:50 RBC 2.39 L (4.10-5.20) X 10*6/uL Hgb 6.9 A* (12.0-15.0) g/dL Hct 22.4 L (37.2-46.3) % MCHC 30.8 L (32.0-37.0) g/dL RDW 16.3 H (11.5-14.5) % Plt Count 548 H (140-440) X 10*3/uL MPV 9.1 L (9.5-12.2) FL Immature Gran # 0.28 H (0.00-0.04) X 10*3/uL NRBC/100 WBC Diff 0.02 H (0.00-0.01) X 10*3/uL Sodium (137-145) mmol/L Potassium (3.5-5.1) mmol/L BUN (7-17) mg/dL Creatinine (0.52-1.04) mg/dL Glucose (74-99) mg/dL Uric Acid (3.7-7.4) mg/dL Calcium (8.4-10.2) mg/dL Phosphorus (2.5-4.5) mg/dL AST (14-36) U/L Alkaline Phosphatase (38-126) U/L Total Protein (6.3-8.2) g/dL Albumin (3.5-5.0) g/dL RBC Folate (280 - 791) ng/mL Crossmatch See Detail Microbiology - Last 24 Hours (Table) 05/17/24 12:32 Gram Stain - Final Sputum Sputum Culture - Final Mary Lou albicans 05/15/24 16:38 Blood Culture - Preliminary Blood 05/17/24 14:55 Nasal Screen MRSA/MSSA - Final Nasal Swab Assessment and Plan Assessment: Acute bilateral pneumonia with upper lobe predominance. The patient is febrile and the patient has new onset radicular and nodular infiltrate in the upper lobes bilaterally and the findings are quite suspicious for development of a pneumonia. Noted the patient was hospitalized back in April. Possibility of a hospital-acquired pneumonia in an immunosuppressed patient cannot be completely ruled out. Opportunistic lung infection also need to be considered. Tumor progression with involvement of the lungs and secondary tumor induced fever is also likely. CT scan of the chest does reveal development of bilateral upper lobe reticular opacities concerning for pneumonia. Small bilateral pleural effusions with associated atelectasis. Demonstration of multiple destructive osseous metastasis including the ribs with pathologic fractures of T 11 and L1 vertebral bodies. Stable enlarged nonspecific mediastinal lymph node. Not FDG avid on prior PET. Fever, likely secondary to above. This is most likely secondary to pneumonia. Tumor induced fever and tumor infiltration of the upper lobes is also possible. Diffuse large B-cell lymphoma, biopsy done from the liver on 2 separate occasions and the findings were consistent with lymphoma. The patient has extensive osseous metastases in addition to liver involvement and patient also has diffuse lymphadenopathy. Normocytic anemia, likely secondary to underlying lymphoma. Hemoglobin 6.9 today receiving 1 unit of packed red blood cells Plan: The patient was seen and evaluated Chest x-ray, labs and medications reviewed Continue cefepime and vancomycin Titrate the FiO2 as tolerated Plan is to initiate inpatient chemotherapy today Left upper extremity PICC line placed Receiving 1 unit of packed red blood cells We will continue to follow I have personally seen and examined the patient, performed the documentation and the assessment and plan as written. Number of minutes spent on the visit: 10 Dictation was produced using [employer] software. Please excuse any grammatical, word or spelling errors.
--- NOTE | 2024-05-19 14:42 | P.PN ---
Subjective Progress Note Date: 05/19/24 Principal diagnosis: SOB, weakness. 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 Tolerating oral intake. She is following treatment orders. PICC line placed, pending PRBC transfusion and start of chemo today. Objective - Vital Signs Vital signs: Vital Signs Temp 98.6 F 05/19/24 13:30 Pulse 108 H 05/19/24 13:30 Resp 18 05/19/24 13:30 BP 97/54 05/19/24 14:19 Pulse Ox 96 05/19/24 13:30 FiO2 Intake & Output 05/18/24 05/19/24 05/19/24 18:59 06:59 18:59 Intake Total 610 415 8293 Output Total 1600 1000 Balance -1100 -223 2271 Intake: Oral 532 649 1234 Blood Product 0 Unit 0 Output: Urine 1600 1000 Other: Voiding Method Toilet Toilet Toilet Bedside Commode Bedside Commode Bedside Commode Diaper Diaper Diaper External Catheter External Catheter External Catheter # Bowel Movements 1 1 - Constitutional General appearance: Present: average body habitus, cooperative, no acute distress - EENT Eyes: Present: anicteric sclerae, EOMI ENT: Present: hearing grossly normal, normal oropharynx - Respiratory Details: congested cough, resp unlabored - Cardiovascular Details: skin warm, well perfused - Peripheral edema leg Peripheral Edema: bilateral: None - Integumentary Integumentary: Present: normal - Neurologic Neurologic: Present: CNII-XII intact - Musculoskeletal Musculoskeletal: Present: generalized weakness, strength equal bilaterally - Psychiatric Psychiatric: Present: A&O x's 3, appropriate affect, intact judgment & insight - Labs CBC & Chem 7: 05/19/24 03:00 05/19/24 03:00 Labs: Abnormal Lab Results - Last 24 Hours (Table) 05/18/24 05/19/24 05/19/24 Range/Units 14:02 03:00 03:00 RBC 2.39 L (4.10-5.20) X 10*6/uL Hgb 6.9 A* (12.0-15.0) g/dL Hct 22.4 L (37.2-46.3) % MCHC 30.8 L (32.0-37.0) g/dL RDW 16.3 H (11.5-14.5) % Plt Count 548 H (140-440) X 10*3/uL MPV 9.1 L (9.5-12.2) FL Immature Gran # 0.28 H (0.00-0.04) X 10*3/uL NRBC/100 WBC Diff 0.02 H (0.00-0.01) X 10*3/uL Sodium 133 L (137-145) mmol/L Potassium 3.3 L (3.5-5.1) mmol/L BUN 6 L (7-17) mg/dL Creatinine 0.34 L 0.28 L (0.52-1.04) mg/dL Glucose 107 H (74-99) mg/dL Uric Acid 1.4 L (3.7-7.4) mg/dL Calcium 8.0 L (8.4-10.2) mg/dL Phosphorus 2.0 L (2.5-4.5) mg/dL AST 61 H (14-36) U/L Alkaline Phosphatase 178 H (38-126) U/L Total Protein 4.9 L (6.3-8.2) g/dL Albumin 2.5 L (3.5-5.0) g/dL Crossmatch 05/19/24 Range/Units 10:50 RBC (4.10-5.20) X 10*6/uL Hgb (12.0-15.0) g/dL Hct (37.2-46.3) % MCHC (32.0-37.0) g/dL RDW (11.5-14.5) % Plt Count (140-440) X 10*3/uL MPV (9.5-12.2) FL Immature Gran # (0.00-0.04) X 10*3/uL NRBC/100 WBC Diff (0.00-0.01) X 10*3/uL Sodium (137-145) mmol/L Potassium (3.5-5.1) mmol/L BUN (7-17) mg/dL Creatinine (0.52-1.04) mg/dL Glucose (74-99) mg/dL Uric Acid (3.7-7.4) mg/dL Calcium (8.4-10.2) mg/dL Phosphorus (2.5-4.5) mg/dL AST (14-36) U/L Alkaline Phosphatase (38-126) U/L Total Protein (6.3-8.2) g/dL Albumin (3.5-5.0) g/dL Crossmatch See Detail Microbiology - Last 24 Hours (Table) 05/17/24 12:32 Gram Stain - Final Sputum Sputum Culture - Final Mary Lou albicans 05/15/24 16:38 Blood Culture - Preliminary Blood 05/17/24 14:55 Nasal Screen MRSA/MSSA - Final Nasal Swab - Imaging and Cardiology Chest x-ray: report reviewed Assessment and Plan (1) Fever Current Visit: Yes Status: Acute Priority: High Code(s): R50.9 - FEVER, UNSPECIFIED SNOMED Code(s): 981570196 (2) NHL (non-Hodgkin's lymphoma) Current Visit: Yes Status: Acute Priority: High Code(s): C85.90 - NON-HODG KIN LYMPHOMA, UNSPECIFIED, UNSPECIFIED SITE SNOMED Code(s): 122879052 Plan: Fever -Urine culture finalized, negative -Blood cultures are negative at 72 hours. -Mary Lou in the sputum, nasal swab negative for MRSA. Pulmonary following, pt is on abx -Suspect fevers are secondary to lymphoma. 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 Recommendation is for aggressive chemotherapy. They are in agreement with the same. Due to start today -General chemo treatment edu provided, written materials given previously, questions and concerns after review of materials reviewed today -Echo recently done, LVEF 55 to 60% -Hepatitis panel neg -Double lumen PICC placed -Standard chemo orders in place -Labs and daily follow-up -Chemo orders with plans to start today Anemia -2/2 disease process -Transfuse with 1 unit irradiated PRBCs today for Hgb 6.9.
[2024-05-19] MEDS: FAMOTIDINE 20 MG/2 ML VIAL IV SCH (16:46)
[2024-05-19] MEDS: ONDANSETRON 16 MG in SODIUM CHLORIDE 0.9% 50 ML IVPB SCH (16:47)
[2024-05-19] MEDS: [UNRECOGNIZED DRUG - OTHER] IV SCH (17:18)
[2024-05-19] MEDS: DOXORUBICIN HCL IV SCH (17:18)
[2024-05-19] MEDS: VINCRISTINE SULFATE IV SCH (17:18)
[2024-05-19] MEDS: ETOPOSIDE IV SCH (17:18)
--- NOTE | 2024-05-19 23:12 | P.CONS ---
History of Present Illness - Reason for Consult Consult date: 05/19/24 Pneumonia, immunocompromise Requesting physician: Silviano Soares - Chief Complaint Fever x few days - History of Present Illness Patient is a 68-year-old female with a past medical history significant for recent diagnosis of large B cell lymphoma however the patient n ot been on any chemotherapy yet presenting to the hospital 4 days ago for evaluation of generalized weakness that apparently was getting worse for 3 days before presentation to the hospital and the patient was also febrile with a temperature of 102 F patient was noticed to have decreased oral intake and noted to be slightly confused for the patient was brought into the on presentation to the hospital patient was afebrile however she did have fever of 101/102.2 F on 05/16/2024 and a low-grade fever on 317 as well as 05/18/2024 and a temperature of 100 degrees following 9 8 2 AM patient has been tachycardic but not hypotensive or hypoxic currently on room air patient did have a white count of 6.40 on admission creatinine has been normal urine has been negative influenza RSV COVID testing negative Vanco trough is being low nasal MRSA screen has been negative sputum is growing Mary Lou blood culture negative patient did have a chest x-ray no evidence for acute cardio also have abdominal pelvis CT no acute intra-abdominal or intrapelvic process bony metastasis as well as liver metastasis as discussed above CT of the chest small bilateral pulmonary effusion with associated atelectasis development of bilateral upper lobe reticular opacity and some emphysema patient has been treated with vancomycin and cefepime infectious he was consulted today after the patient has been in the hospital for 4 days for pneumonia pulmonary disease process Review of Systems Positive point and negatives has been mentioned in the HPI, complete review of systems was performed and all other systems are negative Past Medical History Past Medical History: Cancer Additional Past Medical History / Comment(s): t11 l1 compression fracture History of Any Multi-Drug Resistant Organisms: None Reported Past Surgical History: No Surgical Hx Reported Smoking Status: Former smoker Medications and Allergies Home Medications Medication Instructions Recorded Confirmed Type amLODIPine [Norvasc] 5 mg PO DAILY 30 Days #30 tab 04/23/24 05/15/24 Rx Cholecalciferol [Vitamin D3 (25 50 mcg PO DAILY 05/15/24 05/15/24 History Mcg = 1000 Iu)] Gabapentin [Neurontin] 300 mg PO TID PRN 05/15/24 05/15/24 History Gabapentin [Neurontin] 400 mg PO HS 05/15/24 05/15/24 History HYDROcodone/APAP 5-325MG [Cowley 1 tab PO BID PRN 05/15/24 05/15/24 History 5-325] Multivitamins, Thera [Multivitamin 1 tab PO DAILY 05/15/24 05/15/24 History (formulary)] traMADol HCl [Ultram] 50 mg PO TID 05/15/24 05/15/24 History Allergies Allergy/AdvReac Type Severity Reaction Status Date / Time No Known Allergies Allergy Verified 05/15/24 17:30 Physical Exam Vitals: Vital Signs Temp Pulse Resp BP Pulse Ox 05/19/24 12:04 98.0 F 100 16 132/64 92 L 05/19/24 07:09 98.5 F 108 H 16 123/75 93 L 05/19/24 02:00 100.0 F H 123 H 14 119/64 95 05/18/24 19:52 16 05/18/24 18:53 99.0 F 109 H 16 120/55 94 L 05/18/24 13:01 98.3 F 94 16 99/55 95 Intake and Output 05/18/24 05/19/24 05/19/24 22:59 06:59 14:59 Intake Total 500 777 477 Output Total 450 1000 Balance 50 -223 477 Intake: Oral 500 777 477 Output: Urine 450 1000 Other: Voiding Method Toilet Bedside Commode Diaper External Catheter # Bowel Movements 0 1 GENERAL DESCRIPTION: Elderly female lying in bed, no distress. No tachypnea or accessory muscle of respiration use. HEENT: Shows Pallor , no scleral icterus. Oral mucous membrane is dry. No pharyngeal erythema or thrush NECK: Trachea central, no thyromegaly. LUNGS: Unlabored breathing. Decreased breath sound at the base HEART: S1, S2, regular rate and rhythm. No loud murmur ABDOMEN: Soft, no tenderness , EXTREMITIES: No edema of feet. SKIN: No rash, no masses palpable. NEUROLOGICAL: The patient is awake, alert, oriented x3, mood and affect normal. Results CBC & Chem 7: 05/19/24 03:00 05/19/24 03:00 Labs: Abnormal Lab Results - Last 24 Hours (Table) 05/16/24 05/18/24 05/19/24 Range/Units 18:57 14:02 03:00 RBC (4.10-5.20) X 10*6/uL Hgb (12.0-15.0) g/dL Hct (37.2-46.3) % MCHC (32.0-37.0) g/dL RDW (11.5-14.5) % Plt Count (140-440) X 10*3/uL MPV (9.5-12.2) FL Immature Gran # (0.00-0.04) X 10*3/uL NRBC/100 WBC Diff (0.00-0.01) X 10*3/uL Sodium 133 L (137-145) mmol/L Potassium 3.3 L (3.5-5.1) mmol/L BUN 6 L (7-17) mg/dL Creatinine 0.34 L 0.28 L (0.52-1.04) mg/dL Glucose 107 H (74-99) mg/dL Uric Acid 1.4 L (3.7-7.4) mg/dL Calcium 8.0 L (8.4-10.2) mg/dL Phosphorus 2.0 L (2.5-4.5) mg/dL AST 61 H (14-36) U/L Alkaline Phosphatase 178 H (38-126) U/L Total Protein 4.9 L (6.3-8.2) g/dL Albumin 2.5 L (3.5-5.0) g/dL RBC Folate 1,187 H (280 - 791) ng/mL Crossmatch 05/19/24 05/19/24 Range/Units 03:00 10:50 RBC 2.39 L (4.10-5.20) X 10*6/uL Hgb 6.9 A* (12.0-15.0) g/dL Hct 22.4 L (37.2-46.3) % MCHC 30.8 L (32.0-37.0) g/dL RDW 16.3 H (11.5-14.5) % Plt Count 548 H (140-440) X 10*3/uL MPV 9.1 L (9.5-12.2) FL Immature Gran # 0.28 H (0.00-0.04) X 10*3/uL NRBC/100 WBC Diff 0.02 H (0.00-0.01) X 10*3/uL Sodium (137-145) mmol/L Potassium (3.5-5.1) mmol/L BUN (7-17) mg/dL Creatinine (0.52-1.04) mg/dL Glucose (74-99) mg/dL Uric Acid (3.7-7.4) mg/dL Calcium (8.4-10.2) mg/dL Phosphorus (2.5-4.5) mg/dL AST (14-36) U/L Alkaline Phosphatase (38-126) U/L Total Protein (6.3-8.2) g/dL Albumin (3.5-5.0) g/dL RBC Folate (280 - 791) ng/mL Crossmatch See Detail Microbiology - Last 24 Hours (Table) 05/17/24 12:32 Gram Stain - Final Sputum Sputum Culture - Final Mary Lou albicans 05/15/24 16:38 Blood Culture - Preliminary Blood 05/17/24 14:55 Nasal Screen MRSA/MSSA - Final Nasal Swab Assessment and Plan (1) Fever Current Visit: Yes Status: Acute Priority: High Code(s): R50.9 - FEVER, UNSPECIFIED SNOMED Code(s): 653603169 (2) Pneumonia Current Visit: Yes Status: Acute Priority: High Code(s): J18.9 - PNEUMONIA, UNSPECIFIED ORGANISM SNOMED Code(s): 894018852 Plan: 1patient presented to hospital with fever in this patient has been recently diagnosed with lymphoma however has not been started on chemotherapy yet before presentation to the hospital and this patient did have extensive workup including CT abdominal pelvis that has been negative CT chest did show some reticulonodular findings question of pneumonia less likely but not excluded 2-patient blood culture have been negative sputum is growing Mary Lou and MRSA nasal culture has been negative 3-we will recommend to discontinue vancomycin to decrease risk for Nephrotoxicity and continue with cefepime for now Family at bedside question answered We will follow on clinical condition and cultures to further adjust medication if needed Thank you for this consultation we will follow the patient along with you Dictation was produced using [employer] dictation software. please excuse any grammatical, word or spelling errors. Time with Patient: Greater than 30
[2024-05-20] MEDS: LORazepam 1 MG TAB PO PRN (00:08)
[2024-05-20 07:16] LABS: Basophils % (A) 0 %; Eosinophils % (A) 0 %; HCT 29.3 % (34.0-46.0); Hypochromasia Marked; Lymphocytes # (A) 0.7 k/uL (1.0-4.8); Lymphocytes % (A) 13 %; MCH 28.6 pg (25.0-35.0); MCHC 31.4 g/dL (31.0-37.0); MCV 91.2 fL (80.0-100.0); Mean Platelet Volume 6.9; Monocytes # (A) 0.2 k/uL (0-1.0); Monocytes % (A) 4 %; Neutrophils # (A) 4.3 k/uL (1.3-7.7); Neutrophils % (A) 81 %; Platelet Count 652 k/uL (150-450); Poikilocytosis Moderate; RBC 3.21 m/uL (3.80-5.40); RDW 15.5 % (11.5-15.5); WBC 5.4 k/uL (3.8-10.6)
[2024-05-20 08:03] LABS: ALT 35 U/L (4-34); AST 61 U/L (14-36); African American GFR (CKD) >90 (>60 ml/min/1.73 sqM); Albumin 2.5 g/dL (3.5-5.0); Alkaline Phosphatase 167 U/L (38-126); Anion Gap 6 mmol/L; Blood Urea Nitrogen 11 mg/dL (7-17); Calcium 7.7 mg/dL (8.4-10.2); Carbon Dioxide 24 mmol/L (22-30); Chloride 109 mmol/L (98-107); Globulin 2.5 g/dL; Glucose 165 mg/dL (74-99); Non-African American GFR(CKD) >90 (>60 ml/min/1.73 sqM); Phosphorus 2.4 mg/dL (2.5-4.5); Sodium 139 mmol/L (137-145); Total Bilirubin 0.3 mg/dL (0.2-1.3); Uric Acid 1.5 mg/dL (3.7-7.4)
[2024-05-20 08:10] LABS: HGB 9.2 gm/dL (11.4-16.0)
[2024-05-20] MEDS: VANCOMYCIN TROUGH DUE 1 EACH MISC MISCELLANE ONE (08:16)
--- NOTE | 2024-05-20 12:42 | P.PN ---
Subjective Progress Note Date: 05/20/24 This is a 68-year-old female patient was diagnosed having diffuse B-cell lymphoma. Diagnosed with established by liver biopsy that was done initially at [facility] and findings were also confirmed by liver biopsy that was done at [facility]. Noted the patient has extensive disease and her previous PET scan that was done on 05/01/2024 showed extensive FDG uptake in metastases throughout the osseous structures and the liver in addition to metastatic lymphadenopathy in the para-aortic, left iliac, right obturator and right inguinal and right axillary and left mammary and supraclavicular area. The patient also has pathologic compression fracture of the L1 spine. The p atsheri has not started treatment yet. She presented to the hospital because of ongoing fever and the patient was also found to be hypoxic and the patient is currently on 3 Suboxone by nasal cannula. She has no significant leukocytosis. She is febrile. Hemodynamically stable. No reported aspiration. Chest x-ray that was done at time of admission showed a trace left-sided pleural effusion and there is areas of reticular opacities in the upper lobes right more than left and this is a new finding compared to previous chest x-rays. Based on that, the patient was started on broad-spectrum antibiotics and the patient is currently on a combination of Rocephin and Zithromax. On today's evaluation, her white cell count is at 5.6 with a hemoglobin of 8 and a platelet count of 533. BUN is 7 with a creatinine of 0.4 and a sodium level at 134. UA is negative. Viral screen was negative. Legionella urine antigen was also done and results were also negative. No reported aspiration. No sick contacts. The patient is seen today May 17, 2024 in follow-up on the regular medical floor. She is currently resting in bed. Awake and alert in no acute distress. She is maintaining O2 saturations in the upper 90s on 3 L/min per nasal cannula. She has been afebrile. Slightly tachycardic. Still feeling quite weak. She says she is less short of breath and some less of a cough but overall not much improved. Blood cultures are pending. Urine culture revealed no growth. 7.3. Platelets 529. Sodium 136. Potassium 3.0. Bicarb 21. BUN 4.4. Creatinine 0.3. Vancomycin and cefepime. Ultrasound of the abdomen revealed no evidence of ascites. CT scan of the chest does reveal development of bilateral upper lobe reticular opacities concerning for pneumonia. Small bilateral pleural effusions with associated atelectasis. Demonstration of multiple destructive osseous metastasis including the ribs with pathologic fractures of T11 and L1 vertebral bodies. Stable enlarged nonspecific mediastinal lymph node. Not FDG avid on prior PET. The patient is seen today May 18, 2024 in follow-up on the regular medical floor. She is awake and alert in no acute distress. She denies any worsening shortness of breath, cough or congestion. She remains quite weak and debilitated. She is maintaining O2 saturations in the 90s on 3 L/min per nasal cannula. She did receive a left upper extremity PICC line placement today. Cultures revealed no growth. Urine culture revealed no growth. Sputum culture pending. White count 5.8. Hemoglobin 7.6. Platelets 621. Sodium 131. Potass ium 3.6. Bicarb 27. BUN 4. Creatinine 0.34. Glucose 103. Hepatitis and HIV screen was negative. She remains on cefepime and vancomycin. The plan is to start inpatient chemotherapy tomorrow. The patient is seen today May 19, 2024 in follow-up on the regular medical floor. She is sitting up in bed. Awake and alert in no acute distress. Feeling stronger today compared to yesterday. She remains on vancomycin and cefepime. His chest x-ray continues to show reticular nodular infiltrates within the upper lobes bilaterally as well as the left lower lobe. Small left- sided pleural effusion. She is receiving 1 unit of packed red blood cells today. Her hemoglobin was 6.9. Platelets 548. White count 6.5. Sodium 133. Potassium 3.3. Bicarb 28. BUN 6. Creatinine 0.28. Glucose 107. AST 61. ALT 30. Vancomycin trough 9.0. Plan is to start chemotherapy today. The patient is seen today May 20, 2024 in follow-up on the regular medical floor. She is awake and alert. A bit confused this morning. Good O2 saturations in the 90s on 3 L/min per nasal cannula. She is afebrile. Hemodynamically stable. To revealed no growth. Sputum culture revealed no growth. White count 5.4. Hemoglobin 9.2. Platelets 652. Sodium 139. Potassium 4.0. Bicarb 24. BUN 11. Creatinine 0.30. Glucose 165. AST 61. ALT 35. She did receive chemotherapy yesterday. Remains on high-dose steroids. Remains on Zofran. She continues on cefepime. Vancomycin was discontinued. Objective - Vital Signs Vital signs: Vital Signs Temp 98.0 F 05/20/24 12:05 Pulse 99 05/20/24 12:05 Resp 16 05/20/24 12:05 BP 144/76 05/20/24 12:05 Pulse Ox 92 L 05/20/24 12:05 FiO2 Intake & Output 05/19/24 05/20/24 05/20/24 18:59 06:59 18:59 Intake Total 2581 777 480 Output Total 1550 Balance 2581 -773 480 Intake: Oral 2271 777 480 Blood Product 310 Rc Irr As1 Unit 310 [id number] Output: Urine 1550 Other: Voiding Method Toilet Toilet Toilet Bedside Commode Bedside Commode Bedside Commode Diaper Diaper Diaper External Catheter External Catheter External Catheter # Voids 6 # Bowel Movements 1 - Exam GENERAL EXAM: Alert, somewhat confused today 68-year-old female, sitting up in bed, on 3 L nasal cannula, in no apparent distress. HEAD: Normocephalic. EYES: Normal reaction of pupils, equal size. NOSE: Clear with pink turbinates. THROAT: No erythema or exudates. NECK: No masses, no JVD. CHEST: No chest wall deformity. LUNGS: Equal air entry with bilateral scattered rhonchi. CVS: S1 and S2 normal with no audible murmur, regular rhythm. ABDOMEN: No hepatosplenomegaly, normal bowel sounds, no guarding or rigidity. SPINE: No scoliosis or deformity SKIN: No rashes CENTRAL NERVOUS SYSTEM: No focal deficits, tone is normal in all 4 extremities. EXTREMITIES: There is no peripheral edema. No clubbing, no cyanosis. Peripheral pulses are intact. - Labs CBC & Chem 7: 05/20/24 06:54 05/20/24 06:54 Labs: Abnormal Lab Results - Last 24 Hours (Table) 05/19/24 05/20/24 05/20/24 Range/Units 10:50 06:54 06:54 RBC 3.21 L (3.80-5.40) m/uL Hgb 9.2 L D (11.4-16.0) gm/dL Hct 29.3 L (34.0-46.0) % Plt Count 652 H (150-450) k/uL Lymphocytes # 0.7 L (1.0-4.8) k/uL Chloride 109 H (98-107) mmol/L Creatinine 0.30 L (0.52-1.04) mg/dL Glucose 165 H (74-99) mg/dL Uric Acid 1.5 L (3.7-7.4) mg/dL Calcium 7.7 L (8.4-10.2) mg/dL Phosphorus 2.4 L (2.5-4.5) mg/dL AST 61 H (14-36) U/L ALT 35 H (4-34) U/L Alkaline Phosphatase 167 H (38-126) U/L Total Protein 5.0 L (6.3-8.2) g/dL Albumin 2.5 L (3.5-5.0) g/dL Crossmatch See Detail Microbiology - Last 24 Hours (Table) 05/17/24 12:32 Gram Stain - Final Sputum Sputum Culture - Final Mary Lou albicans Assessment and Plan Assessment: Acute bilateral pneumonia with upper lobe predominance. The patient is febrile and the patient has new onset radicular and nodular infiltrate in the upper lobes bilaterally and the findings are quite suspicious for development of a pneumonia. Noted the patient was hospitalized back in April. Possibility of a hospital-acquired pneumonia in an immunosuppressed patient cannot be completely ruled out. Opportunistic lung infection also need to be considered. Tumor progression with involvement of the lungs and secondary tumor induced fever is also likely. CT scan of the chest does reveal development of bilateral upper lobe reticular opacities concerning for pneumonia. Small bilateral pleural effusions with associated atelectasis. Demonstration of multiple destructive osseous metastasis including the ribs with pathologic fractures of T11 and L1 vertebral bodies. Stable enlarged nonspecific mediastinal lymph node. Not FDG avid on prior PET Fever, likely secondary to above. This is most likely secondary to pneumonia. Tumor induced fever and tumor infiltration of the upper lobes is also possible Diffuse large B-cell lymphoma, biopsy done from the liver on 2 separate occasions and the findings were consistent with lymphoma. The patient has extensive osseous metastases in addition to liver involvement and patient also has diffuse lymphadenopathy. Initiated on chemotherapy 05/19/2024 Normocytic anemia, likely secondary to underlying lymphoma. Hemoglobin 6.9 05/19/2024 received 1 unit of packed red blood cells. Hemoglobin 9.2 Plan: The patient was seen and evaluated Somewhat confused today She did receive chemotherapy yesterday Labs and medications reviewed Continue cefepime Titrate the FiO2 as tolerated We will continue to follow I have personally seen and examined the patient, performed the documentation and the assessment and plan as written. Number of minutes spent on the visit: 10 Dictation was produced using [employer] dictation software. Please excuse any grammatical, word or spelling errors.
--- NOTE | 2024-05-20 14:06 | P.PN ---
Subjective Progress Note Date: 05/20/24 68-year-old female with a recent diagnosis of non-Hodgkin's a follow-up presenting to emergency room via EMS with daughter for complaints of generalized weakness. Daughter states that over the past 3 days patient has been experiencing intermittent fevers hide ranging up to 102.7 that responds to Tylenol. Patient has been overall weak with a decrease in oral intake, confused. Patient reports discomfort on right side of her abdomen resulting in decreased appetite and decreased oral intake; marked decrease in urination; patient was advised by Dr. Kwok, to report to the ER. Additionally, patient states that she has had dark and sticky stools over the past few weeks. Denies blood thinner use. Blood work completed in ED reveals a WBC of 6.4, hemoglobin of 8.4 and platelet count of 483, sodium 130, potassium 4.2, BUNs/creatinine of 15/0.52, AST mildly elevated at 60, troponin of 0.012, UA reveals moderate leukocyte esterase without any bacteria or WBCs Viral screen is negative for influenza A and B, RSV and COVID-[address] of the abdomen and pelvis does not reveal any acute intra-abdominal or intra pelvic process; bony metastasis as well as liver metastases seen; mild patchy density right lower lobe could be atelectasis versus pneumonia Chest x-ray reveals bilateral upper lung reticular opacities concerning for pneumonia, left pleural effusion, left lateral sixth and eighth rib lesions --Patient has been evaluated by pulmonary service and antibiotics have been transitioned to IV cefepime and vancomycin 05/17 Patient presents with pneumonia in the right lower lobe and bilateral upper lobe pneumonia and sepsis, also she has mild hypoxia. Mentation is normal Currently she is doing better, patient says her breathing is better, she is on 3 L oxygen via nasal cannula with saturating 98% Her blood pressure is stable and vital stable and she is afebrile She remains on IV vancomycin and cefepime and normal saline 100 mL/h Her abdomen was little distended today while she is sitting but no pain vomiting or diarrhea. Ultrasound showing no ascites. Hemoglobin dropping 8.4, 8.0 and today 7.3, hematology/oncology team on the case and the following closely for her non-Hodgkin lymphoma and also the doing anemia workup Daughter at bedside All questions were answered 05/18. Patient seen and examined. States she feels slightly better compared to yesterday. Still complaining of lethargic. Patient has poor appetite. Discussed with patient's family regarding creasing appetite. 05/19. Patient seen examined. Blood work this morning showed WB 6.52, hemoglobin 6.9, platelet count 548, sodium 133, potassium 3.3, BUN 6, creatinine 0.28. Patient is being given 1 unit of packed red blood cell. Complaining of lethargic. 05/20. Patient seen and examined. Initial lab work done showed WBC 5.4, bili 1.2, platelet count 652. States breathing is improved. Denies any shortness of breath at rest. Vital signs stable REVIEW OF SYSTEMS: CONSTITUTIONAL: No fever, no malaise,. CARDIOVASCULAR: No chest pain, no palpitations, no syncope. PULMONARY: Mentioned above GASTROINTESTINAL: No diarrhea, no nausea, no vomiting, no abdominal pain. NEUROLOGICAL: No headaches, no weakness, PHYSICAL EXAMINATION: GENERAL: The patient is alert and oriented x3, ill looking HEENT: Pupils are round and equally reacting to light. EOMI. No scleral icterus. No conjunctival pallor. Normocephalic, atraumatic. No pharyngeal erythema. No thyromegaly. CARDIOVASCULAR: S1 and S2 present. No murmurs, rubs, or gallops. PULMONARY: Coarse breath sounds bilaterally, no wheezing or crackles. ABDOMEN: Soft, nontender, nondistended, normoactive bowel sounds. No palpable organomegaly. MUSCULOSKELETAL: No joint swelling or deformity. EXTREMITIES: No cyanosis, clubbing, or pedal edema. NEUROLOGICAL: Gross neurological examination did not reveal any focal deficits. SKIN: No rashes. Assessment and plan Acute hypoxic respiratory failure Bacterial pneumonia Diffuse large B-cell lymphoma Normocytic anemia Hypertension Vitamin deficiency Neuropathy Chronic pain Monitor vital signs Monitor CBC Monitor CMP Follow-up on blood cultures Sputum culture growing Mary Lou Continue IV cefepime Pulmonology following Hematology oncology following ID following Labs and medication were reviewed.. Continue same treatment. Continue with symptomatic treatment. Resume home medication. Monitor labs and vitals. DVT and GI prophylaxis. Further recommendations as per clinical course of the patient Dictation was produced using [employer] dictation software. please excuse any grammatical, word or spelling errors. Objective - Vital Signs Vital signs: Vital Signs Temp 98.2 F 05/20/24 07:52 Pulse 91 05/20/24 07:52 Resp 16 05/20/24 07:52 BP 121/70 05/20/24 07:52 Pulse Ox 96 05/20/24 07:52 FiO2 Intake & Output 05/19/24 05/20/24 05/20/24 18:59 06:59 18:59 Intake Total 2581 777 480 Output Total 1550 Balance 2581 -773 480 Intake: Oral 2271 777 480 Blood Product 310 Rc Irr As1 Unit 310 [id number] Output: Urine 1550 Other: Voiding Method Toilet Toilet Bedside Commode Bedside Commode Diaper Diaper External Catheter External Catheter # Voids 6 # Bowel Movements 1 - Labs CBC & Chem 7: 05/20/24 06:54 05/20/24 06:54 Labs: Abnormal Lab Results - Last 24 Hours (Table) 05/19/24 05/20/24 05/20/24 Range/Units 10:50 06:54 06:54 RBC 3.21 L (3.80-5.40) m/uL Hgb 9.2 L D (11.4-16.0) gm/dL Hct 29.3 L (34.0-46.0) % Plt Count 652 H (150-450) k/uL Lymphocytes # 0.7 L (1.0-4.8) k/uL Chloride 109 H (98-107) mmol/L Creatinine 0.30 L (0.52-1.04) mg/dL Glucose 165 H (74-99) mg/dL Uric Acid 1.5 L (3.7-7.4) mg/dL Calcium 7.7 L (8.4-10.2) mg/dL Phosphorus 2.4 L (2.5-4.5) mg/dL AST 61 H (14-36) U/L ALT 35 H (4-34) U/L Alkaline Phosphatase 167 H (38-126) U/L Total Protein 5.0 L (6.3-8.2) g/dL Albumin 2.5 L (3.5-5.0) g/dL Crossmatch See Detail Microbiology - Last 24 Hours (Table) 05/17/24 12:32 Gram Stain - Final Sputum Sputum Culture - Final Mary Lou albicans
--- NOTE | 2024-05-20 14:42 | P.PN ---
Subjective Progress Note Date: 05/20/24 Principal diagnosis: SOB, weakness. 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 After completely arousing pt she was behaving normally, oriented x 3. No new c/o today, she is tolerating treatment well so far. Oral intake is fair, she is ambulating with someone in the room. She is following treatment orders. Objective - Vital Signs Vital signs: Vital Signs Temp 98.0 F 05/20/24 12:05 Pulse 99 05/20/24 12:05 Resp 16 05/20/24 12:05 BP 144/76 05/20/24 12:05 Pulse Ox 92 L 05/20/24 12:05 FiO2 Intake & Output 05/19/24 05/20/24 05/20/24 18:59 06:59 18:59 Intake Total 2581 777 2040 Output Total 1550 1800 Balance 2581 -773 240 Intake: Oral 2271 777 2040 Blood Product 310 Rc Irr As1 Unit 310 [id number] Output: Urine 1550 1800 Other: Voiding Method Toilet Toilet Toilet Bedside Commode Bedside Commode Bedside Commode Diaper Diaper Diaper External Catheter External Catheter External Catheter # Voids 6 # Bowel Movements 1 1 - Constitutional General appearance: Present: average body habitus, cooperative, no acute distress - EENT Eyes: Present: anicteric sclerae, EOMI ENT: Present: hearing grossly normal, normal oropharynx - Respiratory Respiratory: bilateral: CTA - Cardiovascular Rhythm: regular Heart sounds: normal: S1, S2 Abnormal Heart Sounds: Absent: systolic murmur, diastolic murmur, rub, S3 Gallop, S4 Gallop, click, other - Peripheral edema leg Peripheral Edema: bilateral: None - Gastrointestinal General gastrointestinal: Present: normal bowel sounds, soft - Integumentary Integumentary: Present: normal - Neurologic Neurologic: Present: CNII-XII intact - Musculoskeletal Musculoskeletal: Present: generalized weakness - Psychiatric Psychiatric: Present: A&O x's 3, appropriate affect, intact judgment & insight - Labs CBC & Chem 7: 05/20/24 06:54 05/20/24 06:54 Labs: Abnormal Lab Results - Last 24 Hours (Table) 05/19/24 05/20/2425 Range/Units 10:50 06:54 06:54 RBC 3.21 L (3.80-5.40) m/uL Hgb 9.2 L D (11.4-16.0) gm/dL Hct 29.3 L (34.0-46.0) % Plt Count 652 H (150-450) k/uL Lymphocytes # 0.7 L (1.0-4.8) k/uL Chloride 109 H (98-107) mmol/L Creatinine 0.30 L (0.52-1.04) mg/dL Glucose 165 H (74-99) mg/dL Uric Acid 1.5 L (3.7-7.4) mg/dL Calcium 7.7 L (8.4-10.2) mg/dL Phosphorus 2.4 L (2.5-4.5) mg/dL AST 61 H (14-36) U/L ALT 35 H (4-34) U/L Alkaline Phosphatase 167 H (38-126) U/L Total Protein 5.0 L (6.3-8.2) g/dL Albumin 2.5 L (3.5-5.0) g/dL Crossmatch See Detail Assessment and Plan (1) Fever Current Visit: Yes Status: Acute Priority: High Code(s): R50.9 - FEVER, UNSPECIFIED SNOMED Code(s): 515290023 (2) NHL (non-Hodgkin's lymphoma) Current Visit: Yes Status: Acute Priority: High Code(s): C85.90 - NON- HODGKIN LYMPHOMA, UNSPECIFIED, UNSPECIFIED SITE SNOMED Code(s): 413276334 Plan: Fever -Urine culture finalized, negative -Blood cultures are negative at 72 hours. -Mary Lou in the sputum, nasal swab negative for MRSA. Pulmonary following, pt is on abx. -Suspect fevers are secondary to lymphoma. 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 Recommendation was for aggressive chemotherapy. Pt agreed, treatment has started. -General chemo treatment edu provided, written materials given previously, no additional questions or concerns today -Echo recently done, LVEF 55 to 60% -Hepatitis panel neg -Double lumen PICC placed -Standard chemo orders in place -Labs and daily follow-up -Chemo orders with plans to start today Anemia -2/2 disease process -Transfused yesterday with 1 unit irradiated PRBCs today for Hgb 6.9, Hgb 9.2 today.
[2024-05-20 15:11] VITALS: BMI 21.7
--- NOTE | 2024-05-20 16:05 | P.PN ---
Subjective Progress Note Date: 05/20/24 Principal diagnosis: Reason for follow-up is fever possible pneumonia Patient is a 68-year-old female with a past medical history significant for recent diagnosis of large B cell lymphoma however the patient not been on any chemotherapy yet presenting to the hospital for evaluation of generalized weakness, did have a fever with concern for possible pneumonia though sputum culture have been negative. On today's evaluation that is 05/20/2024,the patient did have resolution of her fever and is afebrile this morning, patient is on 3 L nasal cannula supplemental oxygen and denies any shortness of breath no chest pain or any worsening cough.Patient denies having any nausea or vomiting, no abdominal pain and no diarrhea. Patient white count is 5.4 creatinine is 0.30 Objective - Vital Signs Vital signs: Vital Signs Temp 98.0 F 05/20/24 12:05 Pulse 99 05/20/24 12:05 Resp 16 05/20/24 12:05 BP 144/76 05/20/24 12:05 Pulse Ox 92 L 05/20/24 12:05 FiO2 Intake & Output 05/19/24 05/20/24 05/20/24 18:59 06:59 18:59 Intake Total 2581 777 2040 Output Total 1550 1800 Balance 2581 -773 240 Weight 55.59 kg Intake: Oral 2271 777 2040 Blood Product 310 Rc Irr As1 Unit 310 [id number] Output: Urine 1550 1800 Other: Voiding Method Toilet Toilet Toilet Bedside Commode Bedside Commode Bedside Commode Diaper Diaper Diaper External Catheter External Catheter External Catheter # Voids 6 # Bowel Movements 1 1 - Exam GENERAL DESCRIPTION: An elderly female lying in bed in no distress RESPIRATORY SYSTEM: Unlabored breathing , decreased breath sounds at bases HEART: S1 S2 regular rate and rhythm , ABDOMEN: Soft , no tenderness EXTREMITIES: No edema feet - Labs CBC & Chem 7: 05/20/24 06:54 05/20/24 06:54 Labs: Abnormal Lab Results - Last 24 Hours (Table) 05/19/24 05/20/24 05/20/24 Range/Units 10:50 06:54 06:54 RBC 3.21 L (3.80-5.40) m/uL Hgb 9.2 L D (11.4-16.0) gm/dL Hct 29.3 L (34.0-46.0) % Plt Count 652 H (150-450) k/uL Lymphocytes # 0.7 L (1.0-4.8) k/uL Chloride 109 H (98-107) mmol/L Creatinine 0.30 L (0.52-1.04) mg/dL Glucose 165 H (74-99) mg/dL Uric Acid 1.5 L (3.7-7.4) mg/dL Calcium 7.7 L (8.4-10.2) mg/dL Phosphorus 2.4 L (2.5-4.5) mg/dL AST 61 H (14-36) U/L ALT 35 H (4-34) U/L Alkaline Phosphatase 167 H (38-126) U/L Total Protein 5.0 L (6.3-8.2) g/dL Albumin 2.5 L (3.5-5.0) g/dL Crossmatch See Detail Assessment and Plan (1) Fever Current Visit: Yes Status: Acute Priority: High Code(s): R50.9 - FEVER, UNSPECIFIED SNOMED Code(s): 668580716 (2) Pneumonia Current Visit: Yes Status: Acute Priority: High Code(s): J18.9 - PNEUMONIA, UNSPECIFIED ORGANISM SNOMED Code(s): 033957546 Plan: 1patient presented to hospital with fever in this patient has been recently diagnosed with lymphoma however has not been started on chemotherapy yet before presentation to the hospital and this patient did have extensive workup including CT abdominal pelvis that has been negative CT chest did show some reticulonodular findings question of pneumonia less likely but not excluded 2-patient blood culture have been negative sputum is growing Mary Lou and MRSA nasal culture has been negative 3-patient to continue with the cefepime and monitor clinical course closely Dictation was produced using [employer] dictation software. please excuse any grammatical, word or spelling errors. Time with Patient: Less than 30
[2024-05-21 11:13] LABS: Basophils % (A) 0 %; Eosinophils % (A) 0 %; HCT 34.3 % (34.0-46.0); HGB 10.3 gm/dL (11.4-16.0); Hypochromasia Moderate; Lymphocytes # (A) 0.7 k/uL (1.0-4.8); Lymphocytes % (A) 8 %; MCHC 30.2 g/dL (31.0-37.0); MCV 92.8 fL (80.0-100.0); Monocytes # (A) 0.4 k/uL (0-1.0); Monocytes % (A) 5 %; Neutrophils # (A) 7.6 k/uL (1.3-7.7); Neutrophils % (A) 87 %; Platelet Count 853 k/uL (150-450); Poikilocytosis Moderate; RBC 3.69 m/uL (3.80-5.40); RDW 15.6 % (11.5-15.5); WBC 8.8 k/uL (3.8-10.6)
[2024-05-21 11:27] LABS: ALT 101 U/L (4-34); AST 145 U/L (14-36); African American GFR (CKD) >90 (>60 ml/min/1.73 sqM); Albumin/Globulin Ratio 1.1; Alkaline Phosphatase 217 U/L (38-126); Anion Gap 6 mmol/L; Blood Urea Nitrogen 19 mg/dL (7-17); Carbon Dioxide 30 mmol/L (22-30); Chloride 104 mmol/L (98-107); Globulin 2.8 g/dL; Glucose 162 mg/dL (74-99); Non-African American GFR(CKD) >90 (>60 ml/min/1.73 sqM); Potassium 3.7 mmol/L (3.5-5.1); Sodium 140 mmol/L (137-145); Total Bilirubin 0.3 mg/dL (0.2-1.3); Total Protein 5.8 g/dL (6.3-8.2)
[2024-05-21] MEDS ORDERED: polyethylene glycoL 3350 17 GM POWD.PACK PO PRN (12:00)
--- NOTE | 2024-05-21 13:17 | P.PN ---
Subjective Progress Note Date: 05/21/24 68-year-old female with a recent diagnosis of non-Hodgkin's a follow-up presenting to emergency room via EMS with daughter for complaints of generalized weakness. Daughter states that over the past 3 days patient has been experiencing intermittent fevers hide ranging up to 102.7 that responds to Tylenol. Patient has been overall weak with a decrease in oral intake, confused. Patient reports discomfort on right side of her abdomen resulting in decreased appetite and decreased oral intake; marked decrease in urination; patient was advised by Dr. Kwok, to report to the ER. Additionally, patient states that she has had dark and sticky stools over the past few weeks. Denies blood thinner use. Blood work completed in ED reveals a WBC of 6.4, hemoglobin of 8.4 and platelet count of 483, sodium 130, potassium 4.2, BUNs/creatinine of 15/0.52, AST mildly elevated at 60, troponin of 0.012, UA reveals moderate leukocyte esterase without any bacteria or WBCs Viral screen is negative for influenza A and B, RSV and COVID-[address] of the abdomen and pelvis does not reveal any acute intra-abdominal or intra pelvic process; bony metastasis as well as liver metastases seen; mild patchy density right lower lobe could be atelectasis versus pneumonia Chest x-ray reveals bilateral upper lung reticular opacities concerning for pneumonia, left pleural effusion, left lateral sixth and eighth rib lesions --Patient has been evaluated by pulmonary service and antibiotics have been transitioned to IV cefepime and vancomycin 05/17 Patient presents with pneumonia in the right lower lobe and bilateral upper lobe pneumonia and sepsis, also she has mild hypoxia. Mentation is normal Currently she is doing better, patient says her breathing is better, she is on 3 L oxygen via nasal cannula with saturating 98% Her blood pressure is stable and vital stable and she is afebrile She remains on IV vancomycin and cefepime and normal saline 100 mL/h Her abdomen was little distended today while she is sitting but no pain vomiting or diarrhea. Ultrasound showing no ascites. Hemoglobin dropping 8.4, 8.0 and today 7.3, hematology/oncology team on the case and the following closely for her non-Hodgkin lymphoma and also the doing anemia workup Daughter at bedside All questions were answered 05/18. Patient seen and examined. States she feels slightly better compared to yesterday. Still complaining of lethargic. Patient has poor appetite. Discussed with patient's family regarding creasing appetite. 05/19. Patient seen examined. Blood work this morning showed WB 6.52, hemoglobin 6.9, platelet count 548, sodium 133, potassium 3.3, BUN 6, creatinine 0.28. Patient is being given 1 unit of packed red blood cell. Complaining of lethargic. 05/20. Patient seen and examined. Initial lab work done showed WBC 5.4, bili 1.2, platelet count 652. States breathing is improved. Denies any shortness of breath at rest. Vital signs stable 05/21. Patient seen and examined. She continues to be afebrile. Blood work done this morning showed WBC 8.8, hemoglobin 0.3, platelet count 853, sodium 140, potassium 3.7, BUN 19, creatinine 0.33. Breathing is improved. Patient getting chemotherapy per hematology recommendations REVIEW OF SYSTEMS: CONSTITUTIONAL: No fever, no malaise,. CARDIOVASCULAR: No chest pain, no palpitations, no syncope. PULMONARY: Mentioned above GASTROINTESTINAL: No diarrhea, no nausea, no vomiting, no abdominal pain. NEUROLOGICAL: No headaches, no weakness, PHYSICAL EXAMINATION: GENERAL: The patient is alert and oriented x3, ill looking HEENT: Pupils are round and equally reacting to light. EOMI. No scleral icterus. No conjunctival pallor. Normocephalic, atraumatic. No pharyngeal erythema. No thyromegaly. CARDIOVASCULAR: S1 and S2 present. No murmurs, rubs, or gallops. PULMONARY: Coarse breath sounds bilaterally, no wheezing or crackles. ABDOMEN: Soft, nontender, nondistended, normoactive bowel sounds. No palpable organomegaly. MUSCULOSKELETAL: No joint swelling or deformity. EXTREMITIES: No cyanosis, clubbing, or pedal edema. NEUROLOGICAL: Gross neurological examination did not reveal any focal deficits. SKIN: No rashes. Assessment and plan Acute hypoxic respiratory failure Bacterial pneumonia Diffuse large B-cell lymphoma Normocytic anemia Hypertension Vitamin deficiency Neuropathy Chronic pain Monitor vital signs Monitor CBC Monitor CMP Follow-up on blood cultures Sputum culture growing Mary Lou Continue IV cefepime Pulmonology following Hematology oncology following ID following Labs and medication were reviewed.. Continue same treatment. Continue with symptomatic treatment. Resume home medication. Monitor labs and vitals. DVT and GI prophylaxis. Further recommendations as per clinical course of the patient Dictation was produced using [employer] dictation software. please excuse any grammatical, word or spelling errors. Objective - Vital Signs Vital signs: Vital Signs Temp 97.5 F L 05/21/24 12:00 Pulse 106 H 05/21/24 12:00 Resp 16 05/21/24 12:00 BP 159/70 05/21/24 12:00 Pulse Ox 92 L 05/21/24 12:00 FiO2 Intake & Output 05/20/24 05/21/24 05/21/24 18:59 06:59 18:59 Intake Total 2040 610 240 Output Total 1800 2000 Balance 240 -1390 240 Weight 55.59 kg Intake: Intake, IV Titration 370 Amount Cefepime 2 gm In Sodium 100 Chloride 0.9% 100 ml @ 25 mls/hr IVPB Q8HR [facility] Rx# :[id number] Etoposide 80 mg 220 DOXOrubicin HCL 16 mg vinCRIStine SULFATE 0.6 mg In Sodium Chloride 0.9 % 500 ml 500 ml @ 21.358 mls/hr IV Q24H [facility] Rx#: [id number] Ondansetron 16 mg In 50 Sodium Chloride 0.9% 50 ml @ 232 mls/hr IVPB Q24H [facility] Rx#:[id number] Oral 2040 240 240 Output: Urine 1800 2000 Other: Voiding Method Toilet Toilet Bedside Commode Bedside Commode Bedside Commode Diaper Diaper Diaper External Catheter External Catheter External Catheter # Bowel Movements 1 - Labs CBC & Chem 7: 05/21/24 10:38 05/21/24 10:38 Labs: Abnormal Lab Results - Last 24 Hours (Table) 05/21/24 05/21/24 Range/Units 10:38 10:38 RBC 3.69 L (3.80-5.40) m/uL Hgb 10.3 L (11.4-16.0) gm/dL MCHC 30.2 L (31.0-37.0) g/dL RDW 15.6 H (11.5-15.5) % Plt Count 853 H (150-450) k/uL Lymphocytes # 0.7 L (1.0-4.8) k/uL BUN 19 H (7-17) mg/dL Creatinine 0.33 L (0.52-1.04) mg/dL Glucose 162 H (74-99) mg/dL AST 145 H (14-36) U/L ALT 101 H (4-34) U/L Alkaline Phosphatase 217 H (38-126) U/L Total Protein 5.8 L (6.3-8.2) g/dL Albumin 3.0 L (3.5-5.0) g/dL Microbiology - Last 24 Hours (Table) 05/15/24 16:38 Blood Culture - Final Blood
--- NOTE | 2024-05-21 14:06 | P.PN ---
Subjective Progress Note Date: 05/21/24 This is a 68-year-old female patient was diagnosed having diffuse B-cell lymphoma. Diagnosed with established by liver biopsy that was done initially at [facility] and findings were also confirmed by liver biopsy that was done at [facility]. Noted the patient has extensive disease and her previous PET scan that was done on 05/01/2024 showed extensive FDG uptake in metastases throughout the osseous structures and the liver in addition to metastatic lymphadenopathy in the para-aortic, left iliac, right obturator and right inguinal and right axillary and left mammary and supraclavicular area. The patient also has pathologic compression fracture of the L1 spine. The p atsheri has not started treatment yet. She presented to the hospital because of ongoing fever and the patient was also found to be hypoxic and the patient is currently on 3 Suboxone by nasal cannula. She has no significant leukocytosis. She is febrile. Hemodynamically stable. No reported aspiration. Chest x-ray that was done at time of admission showed a trace left-sided pleural effusion and there is areas of reticular opacities in the upper lobes right more than left and this is a new finding compared to previous chest x-rays. Based on that, the patient was started on broad-spectrum antibiotics and the patient is currently on a combination of Rocephin and Zithromax. On today's evaluation, her white cell count is at 5.6 with a hemoglobin of 8 and a platelet count of 533. BUN is 7 with a creatinine of 0.4 and a sodium level at 134. UA is negative. Viral screen was negative. Legionella urine antigen was also done and results were also negative. No reported aspiration. No sick contacts. The patient is seen today May 17, 2024 in follow-up on the regular medical floor. She is currently resting in bed. Awake and alert in no acute distress. She is maintaining O2 saturations in the upper 90s on 3 L/min per nasal cannula. She has been afebrile. Slightly tachycardic. Still feeling quite weak. She says she is less short of breath and some less of a cough but overall not much improved. Blood cultures are pending. Urine culture revealed no growth. 7.3. Platelets 529. Sodium 136. Potassium 3.0. Bicarb 21. BUN 4.4. Creatinine 0.3. Vancomycin and cefepime. Ultrasound of the abdomen revealed no evidence of ascites. CT scan of the chest does reveal development of bilateral upper lobe reticular opacities concerning for pneumonia. Small bilateral pleural effusions with associated atelectasis. Demonstration of multiple destructive osseous metastasis including the ribs with pathologic fractures of T11 and L1 vertebral bodies. Stable enlarged nonspecific mediastinal lymph node. Not FDG avid on prior PET. The patient is seen today May 18, 2024 in follow-up on the regular medical floor. She is awake and alert in no acute distress. She denies any worsening shortness of breath, cough or congestion. She remains quite weak and debilitated. She is maintaining O2 saturations in the 90s on 3 L/min per nasal cannula. She did receive a left upper extremity PICC line placement today. Cultures revealed no growth. Urine culture revealed no growth. Sputum culture pending. White count 5.8. Hemoglobin 7.6. Platelets 621. Sodium 131. Potass ium 3.6. Bicarb 27. BUN 4. Creatinine 0.34. Glucose 103. Hepatitis and HIV screen was negative. She remains on cefepime and vancomycin. The plan is to start inpatient chemotherapy tomorrow. The patient is seen today May 19, 2024 in follow-up on the regular medical floor. She is sitting up in bed. Awake and alert in no acute distress. Feeling stronger today compared to yesterday. She remains on vancomycin and cefepime. His chest x-ray continues to show reticular nodular infiltrates within the upper lobes bilaterally as well as the left lower lobe. Small left- sided pleural effusion. She is receiving 1 unit of packed red blood cells today. Her hemoglobin was 6.9. Platelets 548. White count 6.5. Sodium 133. Potassium 3.3. Bicarb 28. BUN 6. Creatinine 0.28. Glucose 107. AST 61. ALT 30. Vancomycin trough 9.0. Plan is to start chemotherapy today. The patient is seen today May 20, 2024 in follow-up on the regular medical floor. She is awake and alert. A bit confused this morning. Good O2 saturations in the 90s on 3 L/min per nasal cannula. She is afebrile. Hemodynamically stable. To revealed no growth. Sputum culture revealed no growth. White count 5.4. Hemoglobin 9.2. Platelets 652. Sodium 139. Potassium 4.0. Bicarb 24. BUN 11. Creatinine 0.30. Glucose 165. AST 61. ALT 35. She did receive chemotherapy yesterday. Remains on high-dose steroids. Remains on Zofran. She continues on cefepime. Vancomycin was discontinued. The patient is seen today May 21, 2024 in follow-up on the regular medical floor. She is currently resting in bed. Awake and alert in no acute distress. Alert and oriented. Feeling stronger today compared to yesterday. She is maintaining good O2 saturations in the 90s on 3 L/min per nasal cannula. She was initiated on chemotherapy May 19, 2024. She remains on antibiotics in the form of cefepime. Currently on prednisone 100 mg twice daily. Continued on Zofran. White count 8.8. Hemoglobin 10.3. Platelets 853. Sodium 140. Potassium 3.7. Bicarb 30. BUN 19. Creatinine 0.33. Glucose 162. AST 145. ALT 101. Alk phos 217. Objective - Vital Signs Vital signs: Vital Signs Temp 97.5 F L 05/21/24 12:00 Pulse 106 H 05/21/24 12:00 Resp 16 05/21/24 12:00 BP 159/70 05/21/24 12:00 Pulse Ox 92 L 05/21/24 12:00 FiO2 Intake & Output 05/20/24 05/21/24 05/21/24 18:59 06:59 18:59 Intake Total 2040 610 240 Output Total 1800 2000 Balance 240 -1390 240 Weight 55.59 kg Intake: Intake, IV Titration 370 Amount Cefepime 2 gm In Sodium 100 Chloride 0.9% 100 ml @ 25 mls/hr IVPB Q8HR [facility] Rx# :[id number] Etoposide 80 mg 220 DOXOrubicin HCL 16 mg vinCRIStine SULFATE 0.6 mg In Sodium Chloride 0.9 % 500 ml 500 ml @ 21.358 mls/hr IV Q24H [facility] Rx#: [id number] Ondansetron 16 mg In 50 Sodium Chloride 0.9% 50 ml @ 232 mls/hr IVPB Q24H [facility] Rx#:[id number] Oral 2040 240 240 Output: Urine 1800 2000 Other: Voiding Method Toilet Toilet Bedside Commode Bedside Commode Bedside Commode Diaper Diaper Diaper External Catheter External Catheter External Catheter # Bowel Movements 1 - Exam GENERAL EXAM: Alert, oriented, stronger 68-year-old female, sitting up in bed, on 3 L nasal cannula, in no apparent distress. HEAD: Normocephalic. EYES: Normal reaction of pupils, equal size. NOSE: Clear with pink turbinates. THROAT: No erythema or exudates. NECK: No masses, no JVD. CHEST: No chest wall deformity. LUNGS: Equal air entry with bilateral scattered rhonchi. CVS: S1 and S2 normal with no audible murmur, regular rhythm. ABDOMEN: No hepatosplenomegaly, normal bowel sounds, no guarding or rigidity. SPINE: No scoliosis or deformity SKIN: No rashes CENTRAL NERVOUS SYSTEM: No focal deficits, tone is normal in all 4 extremities. EXTREMITIES: There is no peripheral edema. No clubbing, no cyanosis. Peripheral pulses are intact. - Labs CBC & Chem 7: 05/21/24 10:38 05/21/24 10:38 Labs: Abnormal Lab Results - Last 24 Hours (Table) 05/21/24 05/21/24 Range/Units 10:38 10:38 RBC 3.69 L (3.80-5.40) m/uL Hgb 10.3 L (11.4-16.0) gm/dL MCHC 30.2 L (31.0-37.0) g/dL RDW 15.6 H (11.5-15.5) % Plt Count 853 H (150-450) k/uL Lymphocytes # 0.7 L (1.0-4.8) k/uL BUN 19 H (7-17) mg/dL Creatinine 0.33 L (0.52-1.04) mg/dL Glucose 162 H (74-99) mg/dL AST 145 H (14-36) U/L ALT 101 H (4-34) U/L Alkaline Phosphatase 217 H (38-126) U/L Total Protein 5.8 L (6.3-8.2) g/dL Albumin 3.0 L (3.5-5.0) g/dL Microbiology - Last 24 Hours (Table) 05/15/24 16:38 Blood Culture - Final Blood Assessment and Plan Assessment: Acute bilateral pneumonia with upper lobe predominance. The patient is febrile and the patient has new onset radicular and nodular infiltrate in the upper lobes bilaterally and the findings are quite suspicious for development of a pneumonia. Noted the patient was hospitalized back in April. Possibility of a hospital-acquired pneumonia in an immunosuppressed patient cannot be completely ruled out. Opportunistic lung infection also need to be considered. Tumor progression with involvement of the lungs and secondary tumor induced fever is also likely. CT scan of the chest does reveal development of bilateral upper lobe reticular opacities concerning for pneumonia. Small bilateral pleural effusions with associated atelectasis. Demonstration of multiple destructive osseous metastasis including the ribs with pathologic fractures of T11 and L1 vertebral bodies. Stable enlarged nonspecific mediastinal lymph node. Not FDG avid on prior PET Fever, likely secondary to above. This is most likely secondary to pneumonia. Tumor induced fever and tumor infiltration of the upper lobes is also possible Diffuse large B-cell lymphoma, biopsy done from the liver on 2 separate occasions and the findings were consistent with lymphoma. The patient has extensive osseous metastases in addition to liver involvement and patient also has diffuse lymphadenopathy. Initiated on chemotherapy 05/19/2024 Normocytic anemia, likely secondary to underlying lymphoma. Hemoglobin 6.9 05/19/2024 received 1 unit of packed red blood cells. Hemoglobin 10.3 Plan: The patient was seen and evaluated Labs and medications reviewed Initiated on chemotherapy 05/19/2024 Continue cefepime Increased use of the incentive spirometer Titrate down the FiO2 as tolerated Increase her activity as tolerated We will continue to follow I have personally seen and examined the patient, performed the documentation and the assessment and plan as written. Number of minutes spent on the visit: 10 Dictation was produced using [employer] dictation software. Please excuse any grammatical, word or spelling errors.
--- NOTE | 2024-05-21 14:22 | P.PN ---
Subjective Progress Note Date: 05/21/24 No acute events overnight. Day 3 of chemo, tolerating well. Reporting some fatigue. Denies n/v/d. Tolerating oral intake Objective - Vital Signs Vital signs: Vital Signs Temp 98.1 F 05/21/24 08:00 Pulse 95 05/21/24 08:00 Resp 17 05/21/24 08:00 BP 146/74 05/21/24 08:00 Pulse Ox 95 05/21/24 08:00 FiO2 Intake & Output 05/20/24 05/21/24 05/21/24 18:59 06:59 18:59 Intake Total 2040 610 240 Output Total 1800 2000 Balance 240 -1390 240 Weight 55.59 kg Intake: Intake, IV Titration 370 Amount Cefepime 2 gm In Sodium 100 Chloride 0.9% 100 ml @ 25 mls/hr IVPB Q8HR [facility] Rx# :[id number] Etoposide 80 mg 220 DOXOrubicin HCL 16 mg vinCRIStine SULFATE 0.6 mg In Sodium Chloride 0.9 % 500 ml 500 ml @ 21.358 mls/hr IV Q24H [facility] Rx#: [id number] Ondansetron 16 mg In 50 Sodium Chloride 0.9% 50 ml @ 232 mls/hr IVPB Q24H [facility] Rx#:[id number] Oral 2040 240 240 Output: Urine 1800 2000 Other: Voiding Method Toilet Toilet Bedside Commode Bedside Commode Bedside Commode Diaper Diaper Diaper External Catheter External Catheter External Catheter # Bowel Movements 1 - Constitutional General appearance: Present: no acute distress - EENT Eyes: Present: anicteric sclerae, EOMI ENT: Present: hearing grossly normal - Respiratory Details: breathing is even and unlabored - Cardiovascular Details: skin warm and dry - Gastrointestinal General gastrointestinal: Present: soft. Absent: tenderness - Integumentary Integumentary: Absent: cyanotic, jaundiced - Musculoskeletal Musculoskeletal: Present: strength equal bilaterally - Psychiatric Psychiatric: Present: A&O x's 3 - Labs CBC & Chem 7: 05/21/24 10:38 05/21/24 10:38 Labs: Abnormal Lab Results - Last 24 Hours (Table) 05/21/24 05/21/24 Range/Units 10:38 10:38 RBC 3.69 L (3.80-5.40) m/uL Hgb 10.3 L (11.4-16.0) gm/dL MCHC 30.2 L (31.0-37.0) g/dL RDW 15.6 H (11.5-15.5) % Plt Count 853 H (150-450) k/uL Lymphocytes # 0.7 L (1.0-4.8) k/uL BUN 19 H (7-17) mg/dL Creatinine 0.33 L (0.52-1.04) mg/dL Glucose 162 H (74-99) mg/dL AST 145 H (14-36) U/L ALT 101 H (4-34) U/L Alkaline Phosphatase 217 H (38-126) U/L Total Protein 5.8 L (6.3-8.2) g/dL Albumin 3.0 L (3.5-5.0) g/dL Microbiology - Last 24 Hours (Table) 05/15/24 16:38 Blood Culture - Final Blood Assessment and Plan (1) Fever Current Visit: Yes Status: Acute Priority: High Code(s): R50.9 - FEVER, UNSPECIFIED SNOMED Code(s): 963713522 (2) NHL (non-Hodgkin's lymphoma) Current Visit: Yes Status: Acute Priority: High Code(s): C85.90 - NON- HODGKIN LYMPHOMA, UNSPECIFIED, UNSPECIFIED SITE SNOMED Code(s): 970450991 (3) Pneumonia Current Visit: Yes Status: Acute Priority: High Code(s): J18.9 - PNEUMONIA, UNSPECIFIED ORGANISM SNOMED Code(s): 530759124 Plan: Fever -Urine culture finalized, negative -Blood cultures are negative at 72 hours. -Mary Lou in the sputum, nasal swab negative for MRSA. Pulmonary following, pt is on abx. -Suspect fevers are secondary to lymphoma. 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 Recommendation was for aggressive chemotherapy. Pt agreed, treatment has started. -General chemo treatment edu provided, written materials given previously -Echo recently done, LVEF 55 to 60% -Hepatitis panel neg -Double lumen PICC placed -Standard chemo orders in place -Labs and daily follow-up -Day 3 of chemo today, tolerating treatment well Anemia -2/2 disease process -Hgb stable at 10.3 today
--- NOTE | 2024-05-21 15:58 | P.PN ---
Subjective Progress Note Date: 05/21/24 Principal diagnosis: Reason for follow-up is fever possible pneumonia Patient is a 68-year-old female with a past medical history significant for recent diagnosis of large B cell lymphoma however the patient not been on any chemotherapy yet presenting to the hospital for evaluation of generalized weakness, did have a fever with concern for possible pneumonia though sputum culture have been negative. On today's evaluation that is 05/21/2024, the patient continues to be afebrile, the patient is on 3 L current oxygen and breathing comfortably, the Pt denies having any chest pain or any worsening cough, the patient denies having any abdominal pain no vomiting or any diarrhea. Patient white count is 8.8, creatinine 0.33 Objective - Vital Signs Vital signs: Vital Signs Temp 98.1 F 05/21/24 08:00 Pulse 95 05/21/24 08:00 Resp 17 05/21/24 08:00 BP 146/74 05/21/24 08:00 Pulse Ox 95 05/21/24 08:00 FiO2 Intake & Output 05/20/24 05/21/24 05/21/24 18:59 06:59 18:59 Intake Total 2040 610 240 Output Total 1800 2000 Balance 240 -1390 240 Weight 55.59 kg Intake: Intake, IV Titration 370 Amount Cefepime 2 gm In Sodium 100 Chloride 0.9% 100 ml @ 25 mls/hr IVPB Q8HR [facility] Rx# :[id number] Etoposide 80 mg 220 DOXOrubicin HCL 16 mg vinCRIStine SULFATE 0.6 mg In Sodium Chloride 0.9 % 500 ml 500 ml @ 21.358 mls/hr IV Q24H [facility] Rx#: [id number] Ondansetron 16 mg In 50 Sodium Chloride 0.9% 50 ml @ 232 mls/hr IVPB Q24H [facility] Rx#:[id number] Oral 2040 240 240 Output: Urine 1800 2000 Other: Voiding Method Toilet Toilet Bedside Commode Bedside Commode Bedside Commode Diaper Diaper Diaper External Catheter External Catheter External Catheter # Bowel Movements 1 - Exam GENERAL DESCRIPTION: An elderly female lying in bed in no distress RESPIRATORY SYSTEM: Unlabored breathing , decreased breath sounds at bases HEART: S1 S2 regular rate and rhythm , ABDOMEN: Soft , no tenderness EXTREMITIES: No edema feet - Labs CBC & Chem 7: 05/21/24 10:38 05/21/24 10:38 Labs: Abnormal Lab Results - Last 24 Hours (Table) 05/21/24 Range/Units 10:38 RBC 3.69 L (3.80-5.40) m/uL Hgb 10.3 L (11.4-16.0) gm/dL MCHC 30.2 L (31.0-37.0) g/dL RDW 15.6 H (11.5-15.5) % Plt Count 853 H (150-450) k/uL Lymphocytes # 0.7 L (1.0-4.8) k/uL Microbiology - Last 24 Hours (Table) 05/15/24 16:38 Blood Culture - Final Blood Assessment and Plan (1) Fever Current Visit: Yes Status: Acute Priority: High Code(s): R50.9 - FEVER, UNSPECIFIED SNOMED Code(s): 731454743 (2) Pneumonia Current Visit: Yes Status: Acute Priority: High Code(s): J18.9 - PNEUMONIA, UNSPECIFIED ORGANISM SNOMED Code(s): 595124247 Plan: 1patient presented to hospital with fever in this patient has been recently diagnosed with lymphoma however has not been started on chemotherapy yet before presentation to the hospital and this patient did have extensive workup including CT abdominal pelvis that has been negative CT chest did show some reticulonodular findings question of pneumonia less likely but not excluded 2-patient blood culture have been negative sputum is growing Mary Lou and MRSA nasal culture has been negative 3-patient remains to be afebrile white count has been normal, to continue with the cefepime and monitor clinical course closely Dictation was produced using [employer] dictation software. please excuse any grammatical, word or spelling errors. Time with Patient: Less than 30
--- NOTE | 2024-05-22 06:38 | XR ---
EXAMINATION TYPE: XR chest 1V portable DATE OF EXAM: 05/22/2024 CLINICAL INDICATION: Female, 68 years old with history of Hypoxemia, progress study. History of meta static liver cancer. TECHNIQUE: Single AP portable upright view of the chest is obtained. COMPARISON: Chest x-ray from 3 days earlier and older studies. FINDINGS: Stable left-sided PICC line. Heart size is stable and upper limits of normal with atherosc lerotic thoracic aorta. Persistent small left pleural effusion and left basilar increased opacity. Pe rsistent reticular increased markings in the bilateral upper lungs. Osseous structures remain deminer alized. Diffuse metastatic disease on PET/CT less well-seen on x-ray. IMPRESSION: Overall stable findings, persistent small pleural effusion and left basilar acute infil trate and/or atelectasis. Persistent bilateral upper lung increased markings favoring chronic parench ymal fibrosis. [facility], , 05/22/2024 6:36 AM
[2024-05-22 10:08] LABS: Basophils # (A) 0.01 X 10*3/uL (0.00-0.10); Basophils % (A) 0.1 %; Eosinophils # (A) 0 X 10*3/uL (0.04-0.35); Eosinophils % (A) 0 %; HCT 28.8 % (37.2-46.3); HGB 9.1 g/dL (12.0-15.0); Lymphocytes # (A) 0.45 X 10*3/uL (0.90-5.00); Lymphocytes % (A) 6.7 %; MCH 29.1 pg (27.0-32.0); MCHC 31.6 g/dL (32.0-37.0); Mean Platelet Volume 8.5 FL (9.5-12.2); Monocytes # (A) 0.14 X 10*3/uL (0.20-1.00); Monocytes % (A) 2.1 %; NRBC Per 100 WBC 0 X 10*3/uL (0.00-0.01); Neutrophils # (A) 5.99 X 10*3/uL (1.80-7.70); Neutrophils % (A) 89.2 %; Platelet Count 589 X 10*3/uL (140-440); RBC 3.13 X 10*6/uL (4.10-5.20); RDW 15.7 % (11.5-14.5); WBC 6.72 X 10*3/uL (4.50-10.00)
[2024-05-22 10:22] LABS: Phosphorus 2.5 mg/dL (2.4-5.1); Uric Acid 1.7 mg/dL (2.9-7.7)
[2024-05-22 10:33] LABS: ALT 98 U/L (8-44); AST 80 U/L (13-35); Albumin 2.9 g/dL (3.8-4.9); Albumin/Globulin Ratio 1.26 Ratio (1.60-3.17); Alkaline Phosphatase 188 U/L (41-126); BUN/Creat Ratio 66.33 Ratio (12.00-20.00); Blood Urea Nitrogen 19.9 mg/dL (9.0-27.0); Calcium 8.1 mg/dL (8.7-10.3); Carbon Dioxide 28.1 mmol/L (21.6-31.8); Chloride 105 mmol/L (96-109); Globulin 2.3 g/dL (1.6-3.3); Glucose 122 mg/dL (70-110); Potassium 3.7 mmol/L (3.5-5.5); Sodium 145 mmol/L (135-145); Total Bilirubin <0.2 mg/dL (0.3-1.2); Total Protein 5.2 g/dL (6.2-8.2)
--- NOTE | 2024-05-22 11:32 | P.PN ---
Subjective Progress Note Date: 05/22/24 This is a 68-year-old female patient was diagnosed having diffuse B-cell lymphoma. Diagnosed with established by liver biopsy that was done initially at [facility] and findings were also confirmed by liver biopsy that was done at [facility]. Noted the patient has extensive disease and her previous PET scan that was done on 05/01/2024 showed extensive FDG uptake in metastases throughout the osseous structures and the liver in addition to metastatic lymphadenopathy in the para-aortic, left iliac, right obturator and right inguinal and right axillary and left mammary and supraclavicular area. The patient also has pathologic compression fracture of the L1 spine. The p atsheri has not started treatment yet. She presented to the hospital because of ongoing fever and the patient was also found to be hypoxic and the patient is currently on 3 Suboxone by nasal cannula. She has no significant leukocytosis. She is febrile. Hemodynamically stable. No reported aspiration. Chest x-ray that was done at time of admission showed a trace left-sided pleural effusion and there is areas of reticular opacities in the upper lobes right more than left and this is a new finding compared to previous chest x-rays. Based on that, the patient was started on broad-spectrum antibiotics and the patient is currently on a combination of Rocephin and Zithromax. On today's evaluation, her white cell count is at 5.6 with a hemoglobin of 8 and a platelet count of 533. BUN is 7 with a creatinine of 0.4 and a sodium level at 134. UA is negative. Viral screen was negative. Legionella urine antigen was also done and results were also negative. No reported aspiration. No sick contacts. The patient is seen today May 17, 2024 in follow-up on the regular medical floor. She is currently resting in bed. Awake and alert in no acute distress. She is maintaining O2 saturations in the upper 90s on 3 L/min per nasal cannula. She has been afebrile. Slightly tachycardic. Still feeling quite weak. She says she is less short of breath and some less of a cough but overall not much improved. Blood cultures are pending. Urine culture revealed no growth. 7.3. Platelets 529. Sodium 136. Potassium 3.0. Bicarb 21. BUN 4.4. Creatinine 0.3. Vancomycin and cefepime. Ultrasound of the abdomen revealed no evidence of ascites. CT scan of the chest does reveal development of bilateral upper lobe reticular opacities concerning for pneumonia. Small bilateral pleural effusions with associated atelectasis. Demonstration of multiple destructive osseous metastasis including the ribs with pathologic fractures of T11 and L1 vertebral bodies. Stable enlarged nonspecific mediastinal lymph node. Not FDG avid on prior PET. The patient is seen today May 18, 2024 in follow-up on the regular medical floor. She is awake and alert in no acute distress. She denies any worsening shortness of breath, cough or congestion. She remains quite weak and debilitated. She is maintaining O2 saturations in the 90s on 3 L/min per nasal cannula. She did receive a left upper extremity PICC line placement today. Cultures revealed no growth. Urine culture revealed no growth. Sputum culture pending. White count 5.8. Hemoglobin 7.6. Platelets 621. Sodium 131. Potass ium 3.6. Bicarb 27. BUN 4. Creatinine 0.34. Glucose 103. Hepatitis and HIV screen was negative. She remains on cefepime and vancomycin. The plan is to start inpatient chemotherapy tomorrow. The patient is seen today May 19, 2024 in follow-up on the regular medical floor. She is sitting up in bed. Awake and alert in no acute distress. Feeling stronger today compared to yesterday. She remains on vancomycin and cefepime. His chest x-ray continues to show reticular nodular infiltrates within the upper lobes bilaterally as well as the left lower lobe. Small left- sided pleural effusion. She is receiving 1 unit of packed red blood cells today. Her hemoglobin was 6.9. Platelets 548. White count 6.5. Sodium 133. Potassium 3.3. Bicarb 28. BUN 6. Creatinine 0.28. Glucose 107. AST 61. ALT 30. Vancomycin trough 9.0. Plan is to start chemotherapy today. The patient is seen today May 20, 2024 in follow-up on the regular medical floor. She is awake and alert. A bit confused this morning. Good O2 saturations in the 90s on 3 L/min per nasal cannula. She is afebrile. Hemodynamically stable. To revealed no growth. Sputum culture revealed no growth. White count 5.4. Hemoglobin 9.2. Platelets 652. Sodium 139. Potassium 4.0. Bicarb 24. BUN 11. Creatinine 0.30. Glucose 165. AST 61. ALT 35. She did receive chemotherapy yesterday. Remains on high-dose steroids. Remains on Zofran. She continues on cefepime. Vancomycin was discontinued. The patient is seen today May 21, 2024 in follow-up on the regular medical floor. She is currently resting in bed. Awake and alert in no acute distress. Alert and oriented. Feeling stronger today compared to yesterday. She is maintaining good O2 saturations in the 90s on 3 L/min per nasal cannula. She was initiated on chemotherapy May 19, 2024. She remains on antibiotics in the form of cefepime. Currently on prednisone 100 mg twice daily. Continued on Zofran. White count 8.8. Hemoglobin 10.3. Platelets 853. Sodium 140. Potassium 3.7. Bicarb 30. BUN 19. Creatinine 0.33. Glucose 162. AST 145. ALT 101. Alk phos 217. The patient is seen today May 22, 2024 in follow-up on the regular medical floor. She is sitting up in bed. Awake and alert in no acute distress. Feeling stronger today. Denies any worsening shortness of breath, cough or congestion. Maintaining good O2 saturations in the 90s 3 L/min per nasal cannula. She is afebrile. Hemodynamically stable. Receiving chemotherapy. Chest x-ray reveals overall stable findings. Persistent small pleural effusion and left basilar atelectasis. Persistent bilateral upper lung increased markings favoring chronic parenchymal fibrosis. Blood culture revealed no growth. Urine culture revealed no growth. Sputum culture revealed no growth. White count 6.7. Hemoglobin 9.1. Platelets 589. Sodium 145. Potassium 3.7. Bicarb 20. BUN 8 creatinine 0.3. Glucose 122. AST 80. ALT 98. Alk phos 188. She remains on cefepime. Objective - Vital Signs Vital signs: Vital Signs Temp 97.6 F 05/22/24 07:33 Pulse 91 05/22/24 07:33 Resp 16 05/22/24 07:33 BP 160/89 05/22/24 07:33 Pulse Ox 97 05/22/24 07:33 FiO2 Intake & Output 05/21/24 05/22/24 05/22/24 18:59 06:59 18:59 Intake Total 3400 384.938 Output Total 2700 900 Balance 700 -515.062 Intake: Intake, IV Titration 200 384.938 Amount Cefepime 2 gm In Sodium 200 100 Chloride 0.9% 100 ml @ 25 mls/hr IVPB Q8HR [facility] Rx# :[id number] Etoposide 80 mg 234.938 DOXOrubicin HCL 16 mg vinCRIStine SULFATE 0.6 mg In Sodium Chloride 0.9 % 500 ml 500 ml @ 21.358 mls/hr IV Q24H [facility] Rx#: [id number] Ondansetron 16 mg In 50 Sodium Chloride 0.9% 50 ml @ 232 mls/hr IVPB Q24H [facility] Rx#:[id number] Oral 3200 Output: Urine 2700 900 Other: Voiding Method Bedside Commode Bedside Commode Diaper Diaper External Catheter External Catheter # Bowel Movements 0 - Exam GENERAL EXAM: Alert, oriented 68-year-old female, on 3 L nasal cannula, in no apparent distress. HEAD: Normocephalic. EYES: Normal reaction of pupils, equal size. NOSE: Clear with pink turbinates. THROAT: No erythema or exudates. NECK: No masses, no JVD. CHEST: No chest wall deformity. LUNGS: Equal air entry with bilateral scattered rhonchi. CVS: S1 and S2 normal with no audible murmur, regular rhythm. ABDOMEN: No hepatosplenomegaly, normal bowel sounds, no guarding or rigidity. SPINE: No scoliosis or deformity SKIN: No rashes CENTRAL NERVOUS SYSTEM: No focal deficits, tone is normal in all 4 extremities. EXTREMITIES: There is no peripheral edema. No clubbing, no cyanosis. Peripheral pulses are intact. - Labs CBC & Chem 7: 05/22/24 05:50 05/22/24 05:50 Labs: Abnormal Lab Results - Last 24 Hours (Table) 05/21/24 05/22/24 05/22/24 Range/Units 10:38 05:50 05:50 RBC 3.13 L (4.10-5.20) X 10*6/uL Hgb 9.1 L (12.0-15.0) g/dL Hct 28.8 L (37.2-46.3) % MCHC 31.6 L (32.0-37.0) g/dL RDW 15.7 H (11.5-14.5) % Plt Count 589 H (140-440) X 10*3/uL MPV 8.5 L (9.5-12.2) FL Immature Gran # 0.13 H (0.00-0.04) X 10*3/uL Lymphocytes # 0.45 L (0.90-5.00) X 10*3/uL Monocytes # 0.14 L (0.20-1.00) X 10*3/uL Eosinophils # 0 L (0.04-0.35) X 10*3/uL BUN 19 H (7-17) mg/dL Creatinine 0.33 L 0.3 L (0.52-1.04) mg/dL BUN/Creatinine Ratio 66.33 H (12.00-20.00) Ratio Glucose 162 H 122 H (74-99) mg/dL Uric Acid 1.7 L (2.9-7.7) mg/dL Calcium 8.1 L (8.7-10.3) mg/dL Total Bilirubin <0.2 L (0.3-1.2) mg/dL AST 145 H 80 H (14-36) U/L ALT 101 H 98 H (4-34) U/L Alkaline Phosphatase 217 H 188 H (38-126) U/L Total Protein 5.8 L 5.2 L (6.3-8.2) g/dL Albumin 3.0 L 2.9 L (3.5-5.0) g/dL Albumin/Globulin Ratio 1.26 L (1.60-3.17) Ratio Assessment and Plan Assessment: Acute bilateral pneumonia with upper lobe predominance. The patient is febrile and the patient has new onset radicular and nodular infiltrate in the upper lobes bilaterally and the findings are quite suspicious for development of a pneumonia. Noted the patient was hospitalized back in April. Possibility of a hospital-acquired pneumonia in an immunosuppressed patient cannot be completely ruled out. Opportunistic lung infection also need to be considered. Tumor progression with involvement of the lungs and secondary tumor induced fever is also likely. CT scan of the chest does reveal development of bilateral upper lobe reticular opacities concerning for pneumonia. Small bilateral pleural effusions with associated atelectasis. Demonstration of multiple destructive osseous metastasis including the ribs with pathologic fractures of T11 and L1 vertebral bodies. Stable enlarged nonspecific mediastinal lymph node. Not FDG avid on prior PET Fever, likely secondary to above. This is most likely secondary to pneumonia. Tumor induced fever and tumor infiltration of the upper lobes is also possible Diffuse large B-cell lymphoma, biopsy done from the liver on 2 separate occasions and the findings were consistent with lymphoma. The patient has extensive osseous metastases in addition to liver involvement and patient also has diffuse lymphadenopathy. Initiated on chemotherapy 05/19/2024 Normocytic anemia, likely secondary to underlying lymphoma. Hemoglobin 6.9 05/19/2024 received 1 unit of packed red blood cells. Hemoglobin 9.1 Plan: The patient was seen and evaluated Chest x-ray, labs and medications reviewed Continued on chemotherapy Continued on cefepime Increased use of the incentive spirometer Titrate down the FiO2 as tolerated Increase her activity as tolerated We will continue to follow I have personally seen and examined the patient, performed the documentation and the assessment and plan as written. Number of minutes spent on the visit: 10 Dictation was produced using [employer] dictation software. Please excuse any grammatical, word or spelling errors.
--- NOTE | 2024-05-22 15:31 | P.PN ---
Subjective Progress Note Date: 05/22/24 Principal diagnosis: Reason for follow-up is fever possible pneumonia Patient is a 68-year-old female with a past medical history significant for recent diagnosis of large B cell lymphoma however the patient not been on any chemotherapy yet presenting to the hospital for evaluation of generalized weakness, did have a fever with concern for possible pneumonia though sputum culture have been negative. On today's evaluation that is 05/22/2024, patient did not have any fever and denies any chills, patient is breathing comfortably on 3 L, oxygen, patient with no chest pain or any worsening cough patient did not have any abdominal pain nausea vomiting or any loose stools. Patient white count 6.72, creatinine 0.3 Objective - Vital Signs Vital signs: Vital Signs Temp 97.6 F 05/22/24 12:23 Pulse 101 H 05/22/24 12:23 Resp 20 05/22/24 12:23 BP 132/72 05/22/24 12:23 Pulse Ox 97 05/22/24 12:23 FiO2 Intake & Output 05/21/24 05/22/24 05/22/24 18:59 06:59 18:59 Intake Total 3400 384.938 Output Total 2700 900 Balance 700 -515.062 Intake: Intake, IV Titration 200 384.938 Amount Cefepime 2 gm In Sodium 200 100 Chloride 0.9% 100 ml @ 25 mls/hr IVPB Q8HR [facility] Rx# :[id number] Etoposide 80 mg 234.938 DOXOrubicin HCL 16 mg vinCRIStine SULFATE 0.6 mg In Sodium Chloride 0.9 % 500 ml 500 ml @ 21.358 mls/hr IV Q24H [facility] Rx#: [id number] Ondansetron 16 mg In 50 Sodium Chloride 0.9% 50 ml @ 232 mls/hr IVPB Q24H [facility] Rx#:[id number] Oral 3200 Output: Urine 2700 900 Other: Voiding Method Bedside Commode Bedside Commode Bedside Commode Diaper Diaper Diaper External Catheter External Catheter External Catheter # Bowel Movements 0 - Exam GENERAL DESCRIPTION: An elderly female lying in bed in no distress RESPIRATORY SYSTEM: Unlabored breathing , decreased breath sounds at bases HEART: S1 S2 regular rate and rhythm , ABDOMEN: Soft , no tenderness EXTREMITIES: No edema feet - Labs CBC & Chem 7: 05/22/24 05:50 05/22/24 05:50 Labs: Abnormal Lab Results - Last 24 Hours (Table) 05/22/24 05/22/24 Range/Units 05:50 05:50 RBC 3.13 L (4.10-5.20) X 10*6/uL Hgb 9.1 L (12.0-15.0) g/dL Hct 28.8 L (37.2-46.3) % MCHC 31.6 L (32.0-37.0) g/dL RDW 15.7 H (11.5-14.5) % Plt Count 589 H (140-440) X 10*3/uL MPV 8.5 L (9.5-12.2) FL Immature Gran # 0.13 H (0.00-0.04) X 10*3/uL Lymphocytes # 0.45 L (0.90-5.00) X 10*3/uL Monocytes # 0.14 L (0.20-1.00) X 10*3/uL Eosinophils # 0 L (0.04-0.35) X 10*3/uL Creatinine 0.3 L (0.6-1.5) mg/dL BUN/Creatinine Ratio 66.33 H (12.00-20.00) Ratio Glucose 122 H (70-110) mg/dL Uric Acid 1.7 L (2.9-7.7) mg/dL Calcium 8.1 L (8.7-10.3) mg/dL Total Bilirubin <0.2 L (0.3-1.2) mg/dL AST 80 H (13-35) U/L ALT 98 H (8-44) U/L Alkaline Phosphatase 188 H (41-126) U/L Total Protein 5.2 L (6.2-8.2) g/dL Albumin 2.9 L (3.8-4.9) g/dL Albumin/Globulin Ratio 1.26 L (1.60-3.17) Ratio Assessment and Plan (1) Fever Current Visit: Yes Status: Acute Priority: High Code(s): R50.9 - FEVER, UNSPECIFIED SNOMED Code(s): 291775587 (2) Pneumonia Current Visit: Yes Status: Acute Priority: High Code(s): J18.9 - PNEUMONIA, UNSPECIFIED ORGANISM SNOMED Code(s): 717574439 Plan: 1patient presented to hospital with fever in this patient has been recently diagnosed with lymphoma however has not been started on chemotherapy yet before presentation to the hospital and this patient did have extensive workup including CT abdominal pelvis that has been negative CT chest did show some reticulonodular findings question of pneumonia less likely but not excluded 2-patient blood culture have been negative sputum is growing Mary Lou and MRSA nasal culture has been negative 3-patient remains to be afebrile white count has been normal, 4patient is slowly clinical improvement continue cefepime and monitor clinical course closely Dictation was produced using [employer] software. please excuse any grammatical, word or spelling errors. Time with Patient: Less than 30
--- NOTE | 2024-05-22 17:23 | P.PN ---
Progress Note - Text Progress Note Date: 05/22/24 Oncology follow up note Ms. Greene is a very pleasant 68 female here with fevers, found to have pneumonia. recently diagnosted with double hit DLBCL or burkitt's lymphoma involving liver, bones. she was stareted on C1 of R-EPOCH, today is day 3=>4. Tolerating chemo well. still on antibiotics. having some leg swelling, and her legs feel heavy. has 1+ bilateral pitting edema in LE. no other complaints. - Continue chemotherapy - Continue antibiotics - Monitor CBC; thrombocytosis likely reactive, anemia likely due to lymphoma - LE doppler to ensure no underlying DVT; suspect edema however is due to fluid retention from IVF and steroids - monitor for TLS and monitor CBC discussed with pt and family and they were agreeable. all questions answered. discussed with nursing staff.
--- NOTE | 2024-05-22 19:33 | US ---
EXAMINATION TYPE: US venous doppler duplex LE DATE OF EXAM: 05/22/2024 7:16 PM COMPARISON: NONE CLINICAL INDICATION: Female, 68 years old with history of rule out blood clot; No hx of DVT. Not taki ng blood thinners. *Patient has been having swelling bilaterally. TECHNIQUE: The lower extremity deep venous system is examined utilizing real time linear array sonog leonarda with graded compression, color doppler sonography, and spectral doppler. SIDE PERFORMED: Bilateral FINDINGS: VESSELS IMAGED: Common Femoral Vein Deep Femoral Vein Greater Saphenous Vein * Femoral Vein Popliteal Vein Small Saphenous Vein * Proximal Calf Veins (* superficial vessels) Exam is limited due to edema in both legs. Right Leg: Femoral vein appears small. It was difficult to show color flow in distal femoral vein at first, but second check does show color flow. Question possible chronic thrombus within distal femo ral vein. It was difficult to tell if the distal fem v compressed completely in transverse. No evidence of DVT in remaining veins. Left Leg: *Positive for DVT. One of the paired peroneal veins does not compress or show color flow. Thrombus noted. Color flow seen in all remaining veins. IMPRESSION: 1. Acute appearing right deep vein thrombosis within one of the paired peroneal veins. 2. Chronic appearing DVT in the distal femoral vein. Findings communicated to Tawnya Linares on 05/22/2024 7:[address] Bruno Alvarez. [facility], , 05/22/2024 7:31 PM
[2024-05-22] MEDS ORDERED: HEPARIN SODIUM 1,000 UN/ML (10ML VL) IV PRN (20:02)
[2024-05-22 20:51] LABS: Basophils % (A) 1 %; Eosinophils % (A) 0 %; HCT 31.8 % (34.0-46.0); HGB 10.1 gm/dL (11.4-16.0); Hypochromasia Moderate; Lymphocytes # (A) 0.4 k/uL (1.0-4.8); Lymphocytes % (A) 5 %; MCHC 31.9 g/dL (31.0-37.0); MCV 90.8 fL (80.0-100.0); Mean Platelet Volume 6.7; Monocytes # (A) 0.2 k/uL (0-1.0); Monocytes % (A) 3 %; Neutrophils # (A) 7.4 k/uL (1.3-7.7); Neutrophils % (A) 91 %; Platelet Count 693 k/uL (150-450); Poikilocytosis Slight; RDW 14.9 % (11.5-15.5); WBC 8.1 k/uL (3.8-10.6)
[2024-05-22 21:09] LABS: INR 1.1 (<1.2); Partial Thromboplastin Time 20.2 sec (22.0-30.0); Prothrombin Time 12.1 sec (10.0-12.5)
[2024-05-22] MEDS: HEPARIN SOD,PORK IN 0.45% NACL 25,000 UNIT in 0.45% NACL 1 250ML.BAG IV SCH (21:47)
--- NOTE | 2024-05-22 21:53 | P.PN ---
Subjective 68-year-old female with a recent diagnosis of non-Hodgkin's a follow-up presenting to emergency room via EMS with daughter for complaints of generalized weakness. Daughter states that over the past 3 days patient has been experiencing intermittent fevers hide ranging up to 102.7 that responds to Tylenol. Patient has been overall weak with a decrease in oral intake, confused. Patient reports discomfort on right side of her abdomen resulting in decreased appetite and decreased oral intake; marked decrease in urination; patient was advised by Dr. Kwok, to report to the ER. Additionally, patient states that she has had dark and sticky stools over the past few weeks. Denies blood thinner use. Blood work completed in ED reveals a WBC of 6.4, hemoglobin of 8.4 and platelet count of 483, sodium 130, potassium 4.2, BUNs/creatinine of 15/0.52, AST mildly elevated at 60, troponin of 0.012, UA reveals moderate leukocyte esterase without any bacteria or WBCs Viral screen is negative for influenza A and B, RSV and COVID-[address] of the abdomen and pelvis does not reveal any acute intra-abdominal or intra pelvic process; bony metastasis as well as liver metastases seen; mild patchy density right lower lobe could be atelectasis versus pneumonia Chest x-ray reveals bilateral upper lung reticular opacities concerning for pneumonia, left pleural effusion, left lateral sixth and eighth rib lesions --Patient has been evaluated by pulmonary service and antibiotics have been transitioned to IV cefepime and vancomycin 05/17 Patient presents with pneumonia in the right lower lobe and bilateral upper lobe pneumonia and sepsis, also she has mild hypoxia. Mentation is normal Currently she is doing better, patient says her breathing is better, she is on 3 L oxygen via nasal cannula with saturating 98% Her blood pressure is stable and vital stable and she is afebrile She remains on IV vancomycin and cefepime and normal saline 100 mL/h Her abdomen was little distended today while she is sitting but no pain vomiting or diarrhea. Ultrasound showing no ascites. Hemoglobin dropping 8.4, 8.0 and today 7.3, hematology/oncology team on the case and the following closely for her non-Hodgkin lymphoma and also the doing anemia workup Daughter at bedside All questions were answered 05/18. Patient seen and examined. States she feels slightly better compared to yesterday. Still complaining of lethargic. Patient has poor appetite. D iscussed with patient's family regarding creasing appetite. 05/19. Patient seen examined. Blood work this morning showed WB 6.52, hemoglobin 6.9, platelet count 548, sodium 133, potassium 3.3, BUN 6, creatinine 0.28. Patient is being given 1 unit of packed red blood cell. Complaining of lethargic. 05/20. Patient seen and examined. Initial lab work done showed WBC 5.4, bili 1.2, platelet count 652. States breathing is improved. Denies any shortness of breath at rest. Vital signs stable 05/21. Patient seen and examined. She continues to be afebrile. Blood work done this morning showed WBC 8.8, hemoglobin 0.3, platelet count 853, sodium 140, potassium 3.7, BUN 19, creatinine 0.33. Breathing is improved. Patient getting chemotherapy per hematology recommendations 05/22 Patient doing well She is getting chemotherapy day of Patient expecting to leave hospital on Friday as she states She feels better, breathing is stable, no chest pain no abdominal pain. Patient looks satisfied with the progress she is making. Objective - Vital Signs Vital signs: Vital Signs Temp 97.6 F 05/22/24 12:23 Pulse 101 H 05/22/24 12:23 Resp 20 05/22/24 12:23 BP 132/72 05/22/24 12:23 Pulse Ox 97 05/22/24 12:23 FiO2 Intake & Output 05/21/24 05/22/24 05/22/24 18:59 06:59 18:59 Intake Total 3400 384.938 Output Total 2700 900 Balance 700 -515.062 Intake: Intake, IV Titration 200 384.938 Amount Cefepime 2 gm In Sodium 200 100 Chloride 0.9% 100 ml @ 25 mls/hr IVPB Q8HR [facility] Rx# :[id number] Etoposide 80 mg 234.938 DOXOrubicin HCL 16 mg vinCRIStine SULFATE 0.6 mg In Sodium Chloride 0.9 % 500 ml 500 ml @ 21.358 mls/hr IV Q24H [facility] Rx#: [id number] Ondansetron 16 mg In 50 Sodium Chloride 0.9% 50 ml @ 232 mls/hr IVPB Q24H [facility] Rx#:[id number] Oral 3200 Output: Urine 2700 900 Other: Voiding Method Bedside Commode Bedside Commode Bedside Commode Diaper Diaper Diaper External Catheter External Catheter External Catheter # Bowel Movements 0 - Exam -GENERAL: The patient is alert and oriented x3, not in any acute distress. Well developed, well nourished. Generally weak HEENT: Pupils are round and equally reacting to light. EOMI. No scleral icterus. No conjunctival pallor. Normocephalic, atraumatic. No pharyngeal erythema. No thyromegaly. CARDIOVASCULAR: S1 and S2 present. No murmurs, rubs, or gallops. PULMONARY: Chest is clear to auscultation, no wheezing , no crackles. ABDOMEN: Soft, nontender, nondistended, normoactive bowel sounds. No palpable organomegaly. MUSCULOSKELETAL: No joint swelling or deformity. EXTREMITIES: No cyanosis, clubbing, or pedal edema. NEUROLOGICAL: Gross neurological examination did not reveal any focal deficits. SKIN: No rashes. no petechiae. - Labs CBC & Chem 7: 05/22/24 20:39 05/22/24 05:50 Labs: Abnormal Lab Results - Last 24 Hours (Table) 05/22/24 05/22/24 Range/Units 05:50 05:50 RBC 3.13 L (4.10-5.20) X 10*6/uL Hgb 9.1 L (12.0-15.0) g/dL Hct 28.8 L (37.2-46.3) % MCHC 31.6 L (32.0-37.0) g/dL RDW 15.7 H (11.5-14.5) % Plt Count 589 H (140-440) X 10*3/uL MPV 8.5 L (9.5-12.2) FL Immature Gran # 0.13 H (0.00-0.04) X 10*3/uL Lymphocytes # 0.45 L (0.90-5.00) X 10*3/uL Monocytes # 0.14 L (0.20-1.00) X 10*3/uL Eosinophils # 0 L (0.04-0.35) X 10*3/uL Creatinine 0.3 L (0.6-1.5) mg/dL BUN/Creatinine Ratio 66.33 H (12.00-20.00) Ratio Glucose 122 H (70-110) mg/dL Uric Acid 1.7 L (2.9-7.7) mg/dL Calcium 8.1 L (8.7-10.3) mg/dL Total Bilirubin <0.2 L (0.3-1.2) mg/dL AST 80 H (13-35) U/L ALT 98 H (8-44) U/L Alkaline Phosphatase 188 H (41-126) U/L Total Protein 5.2 L (6.2-8.2) g/dL Albumin 2.9 L (3.8-4.9) g/dL Albumin/Globulin Ratio 1.26 L (1.60-3.17) Ratio Assessment and Plan Assessment: 1. Bilateral pneumonia -Continue with antibiotic IV cefepime. -Improving and stable -Consult pulmonary for further evaluation and recommendations Also continue with oxygen therapy for acute hypoxic respiratory failure, mild, related to above -Getting chemotherapy 2. Diffuse large B-cell lymphoma; imaging completed in ED reveals extensive osseous and liver metastases with diffuse lymphadenopathy -Oncology is consulted 3. Normocytic anemia; likely related to underlying lymphoma; we will monitor CBC -hematology/oncology team on the case -Anemia workup requested 4. Hypertension; amlodipine 5 mg daily 6. Vitamin D deficiency; vitamin D 1000 units daily 7. Neuropathy; patient takes Neurontin 400 mg p.o. nightly 8. Chronic pain; likely related to bone metastases; [place] 5 mg twice daily; tramadol 50 mg 3 times daily DVT prophylaxis; SCDs/subcu heparin CODE STATUS; full
[2024-05-22] MEDS: HEPARIN SODIUM 1,000 UN/ML (10ML VL) IV ONE (21:57)
[2024-05-23 09:30] LABS: HCT 27.8 % (37.2-46.3); HGB 8.7 g/dL (12.0-15.0); MCH 28.9 pg (27.0-32.0); MCHC 31.3 g/dL (32.0-37.0); MCV 92.4 FL (80.0-97.0); Mean Platelet Volume 8.5 FL (9.5-12.2); NRBC Per 100 WBC 0 X 10*3/uL (0.00-0.01); Platelet Count 553 X 10*3/uL (140-440); RBC 3.01 X 10*6/uL (4.10-5.20); RDW 15.3 % (11.5-14.5); WBC 6.12 X 10*3/uL (4.50-10.00)
[2024-05-23 09:31] LABS: Basophils # (A) 0 X 10*3/uL (0.00-0.10); Basophils % (A) 0 %; Eosinophils # (A) 0 X 10*3/uL (0.04-0.35); Eosinophils % (A) 0 %; Lymphocytes # (A) 0.39 X 10*3/uL (0.90-5.00); Lymphocytes % (A) 6.4 %; Monocytes # (A) 0.07 X 10*3/uL (0.20-1.00); Monocytes % (A) 1.1 %; Neutrophils # (A) 5.59 X 10*3/uL (1.80-7.70); Neutrophils % (A) 91.4 %
--- NOTE | 2024-05-23 12:34 | P.PN ---
Subjective Progress Note Date: 05/23/24 This is a 68-year-old female patient was diagnosed having diffuse B-cell lymphoma. Diagnosed with established by liver biopsy that was done initially at [facility] and findings were also confirmed by liver biopsy that was done at [facility]. Noted the patient has extensive disease and her previous PET scan that was done on 05/01/2024 showed extensive FDG uptake in metastases throughout the osseous structures and the liver in addition to metastatic lymphadenopathy in the para-aortic, left iliac, right obturator and right inguinal and right axillary and left mammary and supraclavicular area. The patient also has pathologic compression fracture of the L1 spine. The p atsheri has not started treatment yet. She presented to the hospital because of ongoing fever and the patient was also found to be hypoxic and the patient is currently on 3 Suboxone by nasal cannula. She has no significant leukocytosis. She is febrile. Hemodynamically stable. No reported aspiration. Chest x-ray that was done at time of admission showed a trace left-sided pleural effusion and there is areas of reticular opacities in the upper lobes right more than left and this is a new finding compared to previous chest x-rays. Based on that, the patient was started on broad-spectrum antibiotics and the patient is currently on a combination of Rocephin and Zithromax. On today's evaluation, her white cell count is at 5.6 with a hemoglobin of 8 and a platelet count of 533. BUN is 7 with a creatinine of 0.4 and a sodium level at 134. UA is negative. Viral screen was negative. Legionella urine antigen was also done and results were also negative. No reported aspiration. No sick contacts. The patient is seen today May 17, 2024 in follow-up on the regular medical floor. She is currently resting in bed. Awake and alert in no acute distress. She is maintaining O2 saturations in the upper 90s on 3 L/min per nasal cannula. She has been afebrile. Slightly tachycardic. Still feeling quite weak. She says she is less short of breath and some less of a cough but overall not much improved. Blood cultures are pending. Urine culture revealed no growth. 7.3. Platelets 529. Sodium 136. Potassium 3.0. Bicarb 21. BUN 4.4. Creatinine 0.3. Vancomycin and cefepime. Ultrasound of the abdomen revealed no evidence of ascites. CT scan of the chest does reveal development of bilateral upper lobe reticular opacities concerning for pneumonia. Small bilateral pleural effusions with associated atelectasis. Demonstration of multiple destructive osseous metastasis including the ribs with pathologic fractures of T11 and L1 vertebral bodies. Stable enlarged nonspecific mediastinal lymph node. Not FDG avid on prior PET. The patient is seen today May 18, 2024 in follow-up on the regular medical floor. She is awake and alert in no acute distress. She denies any worsening shortness of breath, cough or congestion. She remains quite weak and debilitated. She is maintaining O2 saturations in the 90s on 3 L/min per nasal cannula. She did receive a left upper extremity PICC line placement today. Cultures revealed no growth. Urine culture revealed no growth. Sputum culture pending. White count 5.8. Hemoglobin 7.6. Platelets 621. Sodium 131. Potass ium 3.6. Bicarb 27. BUN 4. Creatinine 0.34. Glucose 103. Hepatitis and HIV screen was negative. She remains on cefepime and vancomycin. The plan is to start inpatient chemotherapy tomorrow. The patient is seen today May 19, 2024 in follow-up on the regular medical floor. She is sitting up in bed. Awake and alert in no acute distress. Feeling stronger today compared to yesterday. She remains on vancomycin and cefepime. His chest x-ray continues to show reticular nodular infiltrates within the upper lobes bilaterally as well as the left lower lobe. Small left- sided pleural effusion. She is receiving 1 unit of packed red blood cells today. Her hemoglobin was 6.9. Platelets 548. White count 6.5. Sodium 133. Potassium 3.3. Bicarb 28. BUN 6. Creatinine 0.28. Glucose 107. AST 61. ALT 30. Vancomycin trough 9.0. Plan is to start chemotherapy today. The patient is seen today May 20, 2024 in follow-up on the regular medical floor. She is awake and alert. A bit confused this morning. Good O2 saturations in the 90s on 3 L/min per nasal cannula. She is afebrile. Hemodynamically stable. To revealed no growth. Sputum culture revealed no growth. White count 5.4. Hemoglobin 9.2. Platelets 652. Sodium 139. Potassium 4.0. Bicarb 24. BUN 11. Creatinine 0.30. Glucose 165. AST 61. ALT 35. She did receive chemotherapy yesterday. Remains on high-dose steroids. Remains on Zofran. She continues on cefepime. Vancomycin was discontinued. The patient is seen today May 21, 2024 in follow-up on the regular medical floor. She is currently resting in bed. Awake and alert in no acute distress. Alert and oriented. Feeling stronger today compared to yesterday. She is maintaining good O2 saturations in the 90s on 3 L/min per nasal cannula. She was initiated on chemotherapy May 19, 2024. She remains on antibiotics in the form of cefepime. Currently on prednisone 100 mg twice daily. Continued on Zofran. White count 8.8. Hemoglobin 10.3. Platelets 853. Sodium 140. Potassium 3.7. Bicarb 30. BUN 19. Creatinine 0.33. Glucose 162. AST 145. ALT 101. Alk phos 217. The patient is seen today May 22, 2024 in follow-up on the regular medical floor. She is sitting up in bed. Awake and alert in no acute distress. Feeling stronger today. Denies any worsening shortness of breath, cough or congestion. Maintaining good O2 saturations in the 90s 3 L/min per nasal cannula. She is afebrile. Hemodynamically stable. Receiving chemotherapy. Chest x-ray reveals overall stable findings. Persistent small pleural effusion and left basilar atelectasis. Persistent bilateral upper lung increased markings favoring chronic parenchymal fibrosis. Blood culture revealed no growth. Urine culture revealed no growth. Sputum culture revealed no growth. White count 6.7. Hemoglobin 9.1. Platelets 589. Sodium 145. Potassium 3.7. Bicarb 20. BUN 8 creatinine 0.3. Glucose 122. AST 80. ALT 98. Alk phos 188. She remains on cefepime. The patient is seen today May 23, 2024 in follow-up on the regular medical floor. She is awake and alert in no acute distress. Sitting up in a chair today. Feeling stronger. Denies any worsening shortness of breath, cough or congestion. She is maintaining O2 saturation in the 90s on 3 L/min per nasal cannula. She was found to have a lower extremity DVT and has been initiated on a heparin drip. She remains on cefepime. Blood culture revealed no growth. Sputum culture revealed no growth. Urine culture revealed no growth. She is status post 1 unit of packed red blood cells this admission. Current hemoglobin 8.7. Platelets 553. White count 6.1. She is receiving inpatient chemotherapy. Remains on Zofran. Remains on Pepcid. She remains on cefepime. Objective - Vital Signs Vital signs: Vital Signs Temp 97.6 F 05/23/24 07:30 Pulse 73 05/23/24 07:30 Resp 16 05/23/24 07:30 BP 136/77 05/23/24 07:30 Pulse Ox 97 05/23/24 07:30 FiO2 Intake & Output 05/22/24 05/23/24 05/23/24 18:59 06:59 18:59 Intake Total 960 173.711 Output Total 1600 2000 700 Balance -640 -1826.289 -700 Intake: Intake, IV Titration 73.711 Amount Heparin Sod,Pork in 0.45% 73.711 NaCl 25,000 unit In 0.45 % NaCl 1 250ml.bag @ 18 UNITS/KG/HR 10.006 mls/hr IV .Q24H [facility] Rx#: [id number] Oral 960 100 Output: Urine 1600 2000 700 Other: Voiding Method Bedside Commode Diaper Diaper Diaper External Catheter External Catheter External Catheter - Exam GENERAL EXAM: Alert, pleasant 68-year-old female, sitting up in a chair, on 3 L nasal cannula, in no apparent distress. HEAD: Normocephalic. EYES: Normal reaction of pupils, equal size. NOSE: Clear with pink turbinates. THROAT: No erythema or exudates. NECK: No masses, no JVD. CHEST: No chest wall deformity. LUNGS: Equal air entry with bilateral scattered rhonchi. CVS: S1 and S2 normal with no audible murmur, regular rhythm. ABDOMEN: No hepatosplenomegaly, normal bowel sounds, no guarding or rigidity. SPINE: No scoliosis or deformity SKIN: No rashes CENTRAL NERVOUS SYSTEM: No focal deficits, tone is normal in all 4 extremities. EXTREMITIES: There is no peripheral edema. No clubbing, no cyanosis. Perip heral pulses are intact. - Labs CBC & Chem 7: 05/23/24 04:02 05/22/24 05:50 Labs: Abnormal Lab Results - Last 24 Hours (Table) 05/22/24 05/22/24 05/23/24 Range/Units 20:39 20:39 04:02 RBC 3.50 L 3.01 L (3.80-5.40) m/uL Hgb 10.1 L 8.7 L (11.4-16.0) gm/dL Hct 31.8 L 27.8 L (34.0-46.0) % MCHC 31.3 L (32.0-37.0) g/dL RDW 15.3 H (11.5-14.5) % Plt Count 693 H 553 H (150-450) k/uL MPV 8.5 L (9.5-12.2) FL Immature Gran # 0.07 H (0.00-0.04) X 10*3/uL Lymphocytes # 0.4 L 0.39 L (1.0-4.8) k/uL Monocytes # 0.07 L (0.20-1.00) X 10*3/uL Eosinophils # 0 L (0.04-0.35) X 10*3/uL APTT 20.2 L (22.0-30.0) sec 05/23/24 Range/Units 04:02 RBC (3.80-5.40) m/uL Hgb (11.4-16.0) gm/dL Hct (34.0-46.0) % MCHC (32.0-37.0) g/dL RDW (11.5-14.5) % Plt Count (150-450) k/uL MPV (9.5-12.2) FL Immature Gran # (0.00-0.04) X 10*3/uL Lymphocytes # (1.0-4.8) k/uL Monocytes # (0.20-1.00) X 10*3/uL Eosinophils # (0.04-0.35) X 10*3/uL APTT 49.6 H (22.0-30.0) sec Assessment and Plan Assessment: Acute bilateral pneumonia with upper lobe predominance. The patient is febrile and the patient has new onset radicular and nodular infiltrate in the upper l obes bilaterally and the findings are quite suspicious for development of a pneumonia. Noted the patient was hospitalized back in April. Possibility of a hospital-acquired pneumonia in an immunosuppressed patient cannot be completely ruled out. Opportunistic lung infection also need to be considered. Tumor progression with involvement of the lungs and secondary tumor induced fever is also likely. CT scan of the chest does reveal development of bilateral upper lobe reticular opacities concerning for pneumonia. Small bilateral pleural effusions with associated atelectasis. Demonstration of multiple destructive osseous metastasis including the ribs with pathologic fractures of T11 and L1 vertebral bodies. Stable enlarged nonspecific mediastinal lymph node. Not FDG avid on prior PET Fever, likely secondary to above. This is most likely secondary to pneumonia. Tumor induced fever and tumor infiltration of the upper lobes is also possible Diffuse large B-cell lymphoma, biopsy done from the liver on 2 separate occasions and the findings were consistent with lymphoma. The patient has extensive osseous metastases in addition to liver involvement and patient also has diffuse lymphadenopathy. Initiated on chemotherapy 05/19/2024 Acute DVT of the left lower extremity, initiated on a heparin drip Normocytic anemia, likely secondary to underlying lymphoma. Hemoglobin 6.9 received 1 unit of packed red blood cells. Hemoglobin 8.7 Plan: The patient was seen and evaluated Labs and medications reviewed Doppler of the lower extremities revealed positive DVT Initiated on a heparin drip Continued on chemotherapy Continued on cefepime Increased use of the incentive spirometer Titrate down the FiO2 as tolerated Increase her activity as tolerated We will continue to follow I have personally seen and examined the patient, performed the documentation and the assessment and plan as written. Number of minutes spent on the visit: 10 Dictation was produced using [employer] dictation software. Please excuse any grammatical, word or spelling errors.
[2024-05-23] MEDS: traMADol 50 MG TAB PO SCH (14:47)
--- NOTE | 2024-05-23 16:25 | P.PN ---
Subjective Progress Note Date: 05/23/24 Principal diagnosis: Reason for follow-up is fever possible pneumonia Patient is a 68-year-old female with a past medical history significant for recent diagnosis of large B cell lymphoma however the patient not been on any chemotherapy yet presenting to the hospital for evaluation of generalized weakness, did have a fever with concern for possible pneumonia though sputum culture have been negative. On today's evaluation that is 05/23/2024, Patient is afebrile patient is currently on 3 L nasal cannula oxygen and denies having any shortness of breath, the patient denies any chest pain or cough, the patient denies any nausea vomiting did not have any abdominal pain and no diarrhea. Patient white count 6.12 Objective - Vital Signs Vital signs: Vital Signs Temp 97.5 F L 05/23/24 12:12 Pulse 79 05/23/24 12:12 Resp 16 05/23/24 12:12 BP 134/73 05/23/24 12:12 Pulse Ox 98 05/23/24 12:12 FiO2 Intake & Output 05/22/24 05/23/24 05/23/24 18:59 06:59 18:59 Intake Total 960 173.711 Output Total 1600 2000 700 Balance -640 -1826.289 -700 Intake: Intake, IV Titration 73.711 Amount Heparin Sod,Pork in 0.45% 73.711 NaCl 25,000 unit In 0.45 % NaCl 1 250ml.bag @ 18 UNITS/KG/HR 10.006 mls/hr IV .Q24H [facility] Rx#: [id number] Oral 960 100 Output: Urine 1600 1999 700 Other: Voiding Method Bedside Commode Diaper Diaper Diaper External Catheter External Catheter External Catheter - Exam GENERAL DESCRIPTION: An elderly female lying in bed in no distress RESPIRATORY SYSTEM: Unlabored breathing , decreased breath sounds at bases HEART: S1 S2 regular rate and rhythm , ABDOMEN: Soft , no tenderness EXTREMITIES: No edema feet - Labs CBC & Chem 7: 05/23/24 04:02 05/22/24 05:50 Labs: Abnormal Lab Results - Last 24 Hours (Table) 05/22/24 05/22/24 05/23/24 Range/Units 20:39 20:39 04:02 RBC 3.50 L 3.01 L (3.80-5.40) m/uL Hgb 10.1 L 8.7 L (11.4-16.0) gm/dL Hct 31.8 L 27.8 L (34.0-46.0) % MCHC 31.3 L (32.0-37.0) g/dL RDW 15.3 H (11.5-14.5) % Plt Count 693 H 553 H (150-450) k/uL MPV 8.5 L (9.5-12.2) FL Immature Gran # 0.07 H (0.00-0.04) X 10*3/uL Lymphocytes # 0.4 L 0.39 L (1.0-4.8) k/uL Monocytes # 0.07 L (0.20-1.00) X 10*3/uL Eosinophils # 0 L (0.04-0.35) X 10*3/uL APTT 20.2 L (22.0-30.0) sec / Range/Units 04:02 RBC (3.80-5.40) m/uL Hgb (11.4-16.0) gm/dL Hct (34.0-46.0) % MCHC (32.0-37.0) g/dL RDW (11.5-14.5) % Plt Count (150-450) k/uL MPV (9.5-12.2) FL Immature Gran # (0.00-0.04) X 10*3/uL Lymphocytes # (1.0-4.8) k/uL Monocytes # (0.20-1.00) X 10*3/uL Eosinophils # (0.04-0.35) X 10*3/uL APTT 49.6 H (22.0-30.0) sec Assessment and Plan (1) Fever Current Visit: Yes Status: Acute Priority: High Code(s): R50.9 - FEVER, UNSPECIFIED SNOMED Code(s): 211255933 (2) Pneumonia Current Visit: Yes Status: Acute Priority: High Code(s): J18.9 - PNEUMONIA, UNSPECIFIED ORGANISM SNOMED Code(s): 000110603 Plan: 1patient presented to hospital with fever in this patient has been recently diagnosed with lymphoma however has not been started on chemotherapy yet before presentation to the hospital and this patient did have extensive workup including CT abdominal pelvis that has been negative CT chest did show some reticulonodular findings question of pneumonia less likely but not excluded 2-patient blood culture have been negative sputum is growing Mary Lou and MRSA nasal culture has been negative 3-patient remains to be afebrile white count has been normal, currently on cefepime to continue while inpatient and monitor clinical course closely Family the bedside multiple questions answered Dictation was produced using [employer] dictation software. please excuse any grammatical, word or spelling errors. Time with Patient: Less than 30
--- NOTE | 2024-05-23 18:48 | P.PN ---
Subjective 68-year-old female with a recent diagnosis of non-Hodgkin's a follow-up presenting to emergency room via EMS with daughter for complaints of generalized weakness. Daughter states that over the past 3 days patient has been experiencing intermittent fevers hide ranging up to 102.7 that responds to Tylenol. Patient has been overall weak with a decrease in oral intake, confused. Patient reports discomfort on right side of her abdomen resulting in decreased appetite and decreased oral intake; marked decrease in urination; patient was advised by Dr. Kwok, to report to the ER. Additionally, patient states that she has had dark and sticky stools over the past few weeks. Denies blood thinner use. Blood work completed in ED reveals a WBC of 6.4, hemoglobin of 8.4 and platelet count of 483, sodium 130, potassium 4.2, BUNs/creatinine of 15/0.52, AST mildly elevated at 60, troponin of 0.012, UA reveals moderate leukocyte esterase without any bacteria or WBCs Viral screen is negative for influenza A and B, RSV and COVID-[address] of the abdomen and pelvis does not reveal any acute intra-abdominal or intra pelvic process; bony metastasis as well as liver metastases seen; mild patchy density right lower lobe could be atelectasis versus pneumonia Chest x-ray reveals bilateral upper lung reticular opacities concerning for pneumonia, left pleural effusion, left lateral sixth and eighth rib lesions --Patient has been evaluated by pulmonary service and antibiotics have been transitioned to IV cefepime and vancomycin 05/17 Patient presents with pneumonia in the right lower lobe and bilateral upper lobe pneumonia and sepsis, also she has mild hypoxia. Mentation is normal Currently she is doing better, patient says her breathing is better, she is on 3 L oxygen via nasal cannula with saturating 98% Her blood pressure is stable and vital stable and she is afebrile She remains on IV vancomycin and cefepime and normal saline 100 mL/h Her abdomen was little distended today while she is sitting but no pain vomiting or diarrhea. Ultrasound showing no ascites. Hemoglobin dropping 8.4, 8.0 and today 7.3, hematology/oncology team on the case and the following closely for her non-Hodgkin lymphoma and also the doing anemia workup Daughter at bedside All questions were answered 05/18. Patient seen and examined. States she feels slightly better compared to yesterday. Still complaining of lethargic. Patient has poor appetite. D iscussed with patient's family regarding creasing appetite. 05/19. Patient seen examined. Blood work this morning showed WB 6.52, hemoglobin 6.9, platelet count 548, sodium 133, potassium 3.3, BUN 6, creatinine 0.28. Patient is being given 1 unit of packed red blood cell. Complaining of lethargic. 05/20. Patient seen and examined. Initial lab work done showed WBC 5.4, bili 1.2, platelet count 652. States breathing is improved. Denies any shortness of breath at rest. Vital signs stable 05/21. Patient seen and examined. She continues to be afebrile. Blood work done this morning showed WBC 8.8, hemoglobin 0.3, platelet count 853, sodium 140, potassium 3.7, BUN 19, creatinine 0.33. Breathing is improved. Patient getting chemotherapy per hematology recommendations 05/22 Patient doing well She is getting chemotherapy day of Patient expecting to leave hospital on Friday as she states She feels better, breathing is stable, no chest pain no abdominal pain. Patient looks satisfied with the progress she is making. 05/23 Patient continued to feel better She continue on chemotherapy Yesterday she had ultrasound of both legs showing acute on chronic DVT in the right side Patient currently on heparin drip Objective - Vital Signs Vital signs: Vital Signs Temp 97.5 F L 05/23/24 17:06 Pulse 82 05/23/24 17:06 Resp 16 05/23/24 17:06 BP 157/70 05/23/24 17:06 Pulse Ox 97 05/23/24 17:06 FiO2 Intake & Output 05/22/24 05/23/24 05/23/24 18:59 06:59 18:59 Intake Total 960 306.290 1303 Output Total 1600 1999 1899 Balance -597 -7616.289 -580 Intake: Intake, IV Titration 73.711 Amount Heparin Sod,Pork in 0.45% 73.711 NaCl 25,000 unit In 0.45 % NaCl 1 250ml.bag @ 18 UNITS/KG/HR 10.006 mls/hr IV .Q24H [facility] Rx#: [id number] Oral 823 274 0482 Output: Urine 1600 1999 1899 Other: Voiding Method Bedside Commode Diaper Diaper Diaper External Catheter External Catheter External Catheter # Bowel Movements 1 - Exam -GENERAL: The patient is alert and oriented x3, not in any acute distress. Well developed, well nourished. Generally weak HEENT: Pupils are round and equally reacting to light. EOMI. No scleral icterus. No conjunctival pallor. Normocephalic, atraumatic. No pharyngeal erythema. No thyromegaly. CARDIOVASCULAR: S1 and S2 present. No murmurs, rubs, or gallops. PULMONARY: Chest is clear to auscultation, no wheezing , no crackles. ABDOMEN: Soft, nontender, nondistended, normoactive bowel sounds. No palpable organomegaly. MUSCULOSKELETAL: No joint swelling or deformity. EXTREMITIES: No cyanosis, clubbing, or pedal edema. NEUROLOGICAL: Gross neurological examination did not reveal any focal deficits. SKIN: No rashes. no petechiae. - Labs CBC & Chem 7: 05/23/24 04:02 05/22/24 05:50 Labs: Abnormal Lab Results - Last 24 Hours (Table) 05/22/24 05/22/24 05/23/24 Range/Units 20:39 20:39 04:02 RBC 3.50 L 3.01 L (3.80-5.40) m/uL Hgb 10.1 L 8.7 L (11.4-16.0) gm/dL Hct 31.8 L 27.8 L (34.0-46.0) % MCHC 31.3 L (32.0-37.0) g/dL RDW 15.3 H (11.5-14.5) % Plt Count 693 H 553 H (150-450) k/uL MPV 8.5 L (9.5-12.2) FL Immature Gran # 0.07 H (0.00-0.04) X 10*3/uL Lymphocytes # 0.4 L 0.39 L (1.0-4.8) k/uL Monocytes # 0.07 L (0.20-1.00) X 10*3/uL Eosinophils # 0 L (0.04-0.35) X 10*3/uL APTT 20.2 L (22.0-30.0) sec 05/23/24 Range/Units 04:02 RBC (3.80-5.40) m/uL Hgb (11.4-16.0) gm/dL Hct (34.0-46.0) % MCHC (32.0-37.0) g/dL RDW (11.5-14.5) % Plt Count (150-450) k/uL MPV (9.5-12.2) FL Immature Gran # (0.00-0.04) X 10*3/uL Lymphocytes # (1.0-4.8) k/uL Monocytes # (0.20-1.00) X 10*3/uL Eosinophils # (0.04-0.35) X 10*3/uL APTT 49.6 H (22.0-30.0) sec Assessment and Plan Assessment: 1. Bilateral pneumonia -Continue with antibiotic IV cefepime. -Improving and stable -Consult pulmonary for further evaluation and recommendations Also continue with oxygen therapy for acute hypoxic respiratory failure, mild, related to above -Getting chemotherapy 2. Diffuse large B-cell lymphoma; imaging completed in ED reveals extensive osseous and liver metastases with diffuse lymphadenopathy -Oncology is consulted 3. Normocytic anemia; likely related to underlying lymphoma; we will monitor CBC -hematology/oncology team on the case -Anemia workup requested 4. Hypertension; amlodipine 5 mg daily 6. Vitamin D deficiency; vitamin D 1000 units daily 7. Neuropathy; patient takes Neurontin 400 mg p.o. nightly 8. Chronic pain; likely related to bone metastases; [place] 5 mg twice daily; tramadol 50 mg 3 times daily 9. Acute right leg DVT, started on heparin drip DVT prophylaxis; SCDs/subcu heparin CODE STATUS; full
[2024-05-24] MEDS: Apixaban Initiation Dose--VTE 5 MG TAB PO SCH (10:39)
[2024-05-24 11:42] LABS: Basophils % (A) 0 %; Eosinophils % (A) 0 %; HCT 31.5 % (34.0-46.0); HGB 9.9 gm/dL (11.4-16.0); Hypochromasia Moderate; Lymphocytes # (A) 0.3 k/uL (1.0-4.8); Lymphocytes % (A) 4 %; MCH 29.1 pg (25.0-35.0); MCHC 31.4 g/dL (31.0-37.0); MCV 92.9 fL (80.0-100.0); Mean Platelet Volume 7.4; Monocytes # (A) 0.2 k/uL (0-1.0); Monocytes % (A) 3 %; Neutrophils # (A) 7.2 k/uL (1.3-7.7); Neutrophils % (A) 93 %; Platelet Count 680 k/uL (150-450); Poikilocytosis Slight; RBC 3.39 m/uL (3.80-5.40); RDW 14.8 % (11.5-15.5); WBC 7.7 k/uL (3.8-10.6)
[2024-05-24 11:59] LABS: ALT 95 U/L (4-34); AST 59 U/L (14-36); African American GFR (CKD) >90 (>60 ml/min/1.73 sqM); Albumin 3.1 g/dL (3.5-5.0); Albumin/Globulin Ratio 1.2; Alkaline Phosphatase 203 U/L (38-126); Anion Gap 5 mmol/L; Blood Urea Nitrogen 28 mg/dL (7-17); Calcium 8.4 mg/dL (8.4-10.2); Carbon Dioxide 33 mmol/L (22-30); Chloride 100 mmol/L (98-107); Globulin 2.5 g/dL; Glucose 135 mg/dL (74-99); Non-African American GFR(CKD) >90 (>60 ml/min/1.73 sqM); Phosphorus 2.1 mg/dL (2.5-4.5); Potassium 3.3 mmol/L (3.5-5.1); Sodium 138 mmol/L (137-145); Total Bilirubin 0.4 mg/dL (0.2-1.3); Total Protein 5.6 g/dL (6.3-8.2); Uric Acid 1.6 mg/dL (3.7-7.4)
--- NOTE | 2024-05-24 12:50 | P.PN ---
Subjective 68-year-old female with a recent diagnosis of non-Hodgkin's a follow-up presenting to emergency room via EMS with daughter for complaints of generalized weakness. Daughter states that over the past 3 days patient has been experiencing intermittent fevers hide ranging up to 102.7 that responds to Tylenol. Patient has been overall weak with a decrease in oral intake, confused. Patient reports discomfort on right side of her abdomen resulting in decreased appetite and decreased oral intake; marked decrease in urination; patient was advised by Dr. Kwok, to report to the ER. Additionally, patient states that she has had dark and sticky stools over the past few weeks. Denies blood thinner use. Blood work completed in ED reveals a WBC of 6.4, hemoglobin of 8.4 and platelet count of 483, sodium 130, potassium 4.2, BUNs/creatinine of 15/0.52, AST mildly elevated at 60, troponin of 0.012, UA reveals moderate leukocyte esterase without any bacteria or WBCs Viral screen is negative for influenza A and B, RSV and COVID-[address] of the abdomen and pelvis does not reveal any acute intra-abdominal or intra pelvic process; bony metastasis as well as liver metastases seen; mild patchy density right lower lobe could be atelectasis versus pneumonia Chest x-ray reveals bilateral upper lung reticular opacities concerning for pneumonia, left pleural effusion, left lateral sixth and eighth rib lesions --Patient has been evaluated by pulmonary service and antibiotics have been transitioned to IV cefepime and vancomycin 05/17 Patient presents with pneumonia in the right lower lobe and bilateral upper lobe pneumonia and sepsis, also she has mild hypoxia. Mentation is normal Currently she is doing better, patient says her breathing is better, she is on 3 L oxygen via nasal cannula with saturating 98% Her blood pressure is stable and vital stable and she is afebrile She remains on IV vancomycin and cefepime and normal saline 100 mL/h Her abdomen was little distended today while she is sitting but no pain vomiting or diarrhea. Ultrasound showing no ascites. Hemoglobin dropping 8.4, 8.0 and today 7.3, hematology/oncology team on the case and the following closely for her non-Hodgkin lymphoma and also the doing anemia workup Daughter at bedside All questions were answered 05/18. Patient seen and examined. States she feels slightly better compared to yesterday. Still complaining of lethargic. Patient has poor appetite. D iscussed with patient's family regarding creasing appetite. 05/19. Patient seen examined. Blood work this morning showed WB 6.52, hemoglobin 6.9, platelet count 548, sodium 133, potassium 3.3, BUN 6, creatinine 0.28. Patient is being given 1 unit of packed red blood cell. Complaining of lethargic. 05/20. Patient seen and examined. Initial lab work done showed WBC 5.4, bili 1.2, platelet count 652. States breathing is improved. Denies any shortness of breath at rest. Vital signs stable 05/21. Patient seen and examined. She continues to be afebrile. Blood work done this morning showed WBC 8.8, hemoglobin 0.3, platelet count 853, sodium 140, potassium 3.7, BUN 19, creatinine 0.33. Breathing is improved. Patient getting chemotherapy per hematology recommendations 05/22 Patient doing well She is getting chemotherapy day Patient expecting to leave hospital on Friday as she states She feels better, breathing is stable, no chest pain no abdominal pain. Patient looks satisfied with the progress she is making. 05/23 Patient continued to feel better She continue on chemotherapy Yesterday she had ultrasound of both legs showing acute on chronic DVT in the right side Patient currently on heparin drip 05/24 Patient is awake and alert She feels improved. No chest pain abdominal pain. Breathing is okay. Has bilateral pitting leg edema but no discoloration. No evidence of bleeding from anywhere. She finished her chemotherapy yesterday Possible discharge in 24 hours if cleared by hematology/oncology, and she keeps improving. Family at bedside and they agreeable with the plan Objective - Vital Signs Vital signs: Vital Signs Temp 97.3 F L 05/24/24 12:00 Pulse 92 05/24/24 12:00 Resp 17 05/24/24 12:00 BP 148/71 05/24/24 12:00 Pulse Ox 93 L 05/24/24 12:00 FiO2 21 05/24/24 11:08 Intake & Output 05/23/24 05/24/24 05/24/24 18:59 06:59 18:59 Intake Total 1320 1038.768 Output Total 1900 1000 Balance -580 38.768 Intake: Intake, IV Titration 918.768 Amount Cefepime 2 gm In Sodium 100 Chloride 0.9% 100 ml @ 25 mls/hr IVPB Q8HR [facility] Rx# :[id number] Etoposide 80 mg 88 DOXOrubicin HCL 16 mg vinCRIStine SULFATE 0.6 mg In Sodium Chloride 0.9 % 500 ml 500 ml @ 21.358 mls/hr IV Q24H [facility] Rx#: [id number] Heparin Sod,Pork in 0.45% 168.768 NaCl 25,000 unit In 0.45 % NaCl 1 250ml.bag @ 18 UNITS/KG/HR 10.006 mls/hr IV .Q24H [facility] Rx#: [id number] Ondansetron 16 mg In 50 Sodium Chloride 0.9% 50 ml @ 232 mls/hr IVPB Q24H [facility] Rx#:[id number] cycloPHOSphamide 1,000 mg 512 cycloPHOSphamide 200 mg In Sodium Chloride 0.9% 250 ml @ 512 mls/hr IV ONCE ONE Rx#:[id number] Oral 1320 120 Output: Urine 1900 1000 Other: Voiding Method Diaper Diaper Toilet External Catheter External Catheter # Bowel Movements 1 - Exam -GENERAL: The patient is alert and oriented x3, not in any acute distress. Well developed, well nourished. Generally weak HEENT: Pupils are round and equally reacting to light. EOMI. No scleral icterus. No conjunctival pallor. Normocephalic, atraumatic. No pharyngeal erythema. No thyromegaly. CARDIOVASCULAR: S1 and S2 present. No murmurs, rubs, or gallops. PULMONARY: Chest is clear to auscultation, no wheezing , no crackles. ABDOMEN: Soft, nontender, nondistended, normoactive bowel sounds. No palpable organomegaly. MUSCULOSKELETAL: No joint swelling or deformity. EXTREMITIES: No cyanosis, clubbing, or pedal edema. NEUROLOGICAL: Gross neurological examination did not reveal any focal deficits. SKIN: No rashes. no petechiae. - Labs CBC & Chem 7: 05/24/24 11:23 05/24/24 11:23 Labs: Abnormal Lab Results - Last 24 Hours (Table) 05/24/24 05/24/24 05/24/24 Range/Units 06:04 11:23 11:23 RBC 3.39 L (3.80-5.40) m/uL Hgb 9.9 L (11.4-16.0) gm/dL Hct 31.5 L (34.0-46.0) % Plt Count 680 H (150-450) k/uL Lymphocytes # 0.3 L (1.0-4.8) k/uL APTT 54.5 H (22.0-30.0) sec Potassium 3.3 L (3.5-5.1) mmol/L Carbon Dioxide 33 H (22-30) mmol/L BUN 28 H (7-17) mg/dL Creatinine 0.37 L (0.52-1.04) mg/dL Glucose 135 H (74-99) mg/dL Uric Acid 1.6 L (3.7-7.4) mg/dL Phosphorus 2.1 L (2.5-4.5) mg/dL AST 59 H (14-36) U/L ALT 95 H (4-34) U/L Alkaline Phosphatase 203 H (38-126) U/L Total Protein 5.6 L (6.3-8.2) g/dL Albumin 3.1 L (3.5-5.0) g/dL Assessment and Plan Assessment: 1. Bilateral pneumonia -Continue with antibiotic IV cefepime. -Improving and stable -Consult pulmonary for further evaluation and recommendations Also continue with oxygen therapy for acute hypoxic respiratory failure, mild, related to above -Getting chemotherapy 2. Diffuse large B-cell lymphoma; imaging completed in ED reveals extensive osseous and liver metastases with diffuse lymphadenopathy -Oncology is consulted 3. Normocytic anemia; likely related to underlying lymphoma; we will monitor CBC -hematology/oncology team on the case -Anemia workup requested 4. Hypertension; amlodipine 5 mg daily 6. Vitamin D deficiency; vitamin D 1000 units daily 7. Neuropathy; patient takes Neurontin 400 mg p.o. nightly 8. Chronic pain; likely related to bone metastases; [place] 5 mg twice daily; tramadol 50 mg 3 times daily 9. Acute right leg DVT, started on heparin drip DVT prophylaxis; SCDs/subcu heparin CODE STATUS; full
--- NOTE | 2024-05-24 12:59 | P.PN ---
Subjective Progress Note Date: 05/24/24 This is a 68-year-old female patient was diagnosed having diffuse B-cell lymphoma. Diagnosed with established by liver biopsy that was done initially at [facility] and findings were also confirmed by liver biopsy that was done at [facility]. Noted the patient has extensive disease and her previous PET scan that was done on 05/01/2024 showed extensive FDG uptake in metastases throughout the osseous structures and the liver in addition to metastatic lymphadenopathy in the para-aortic, left iliac, right obturator and right inguinal and right axillary and left mammary and supraclavicular area. The patient also has pathologic compression fracture of the L1 spine. The p atsheri has not started treatment yet. She presented to the hospital because of ongoing fever and the patient was also found to be hypoxic and the patient is currently on 3 Suboxone by nasal cannula. She has no significant leukocytosis. She is febrile. Hemodynamically stable. No reported aspiration. Chest x-ray that was done at time of admission showed a trace left-sided pleural effusion and there is areas of reticular opacities in the upper lobes right more than left and this is a new finding compared to previous chest x-rays. Based on that, the patient was started on broad-spectrum antibiotics and the patient is currently on a combination of Rocephin and Zithromax. On today's evaluation, her white cell count is at 5.6 with a hemoglobin of 8 and a platelet count of 533. BUN is 7 with a creatinine of 0.4 and a sodium level at 134. UA is negative. Viral screen was negative. Legionella urine antigen was also done and results were also negative. No reported aspiration. No sick contacts. The patient is seen today May 17, 2024 in follow-up on the regular medical floor. She is currently resting in bed. Awake and alert in no acute distress. She is maintaining O2 saturations in the upper 90s on 3 L/min per nasal cannula. She has been afebrile. Slightly tachycardic. Still feeling quite weak. She says she is less short of breath and some less of a cough but overall not much improved. Blood cultures are pending. Urine culture revealed no growth. 7.3. Platelets 529. Sodium 136. Potassium 3.0. Bicarb 21. BUN 4.4. Creatinine 0.3. Vancomycin and cefepime. Ultrasound of the abdomen revealed no evidence of ascites. CT scan of the chest does reveal development of bilateral upper lobe reticular opacities concerning for pneumonia. Small bilateral pleural effusions with associated atelectasis. Demonstration of multiple destructive osseous metastasis including the ribs with pathologic fractures of T11 and L1 vertebral bodies. Stable enlarged nonspecific mediastinal lymph node. Not FDG avid on prior PET. The patient is seen today May 18, 2024 in follow-up on the regular medical floor. She is awake and alert in no acute distress. She denies any worsening shortness of breath, cough or congestion. She remains quite weak and debilitated. She is maintaining O2 saturations in the 90s on 3 L/min per nasal cannula. She did receive a left upper extremity PICC line placement today. Cultures revealed no growth. Urine culture revealed no growth. Sputum culture pending. White count 5.8. Hemoglobin 7.6. Platelets 621. Sodium 131. Potass ium 3.6. Bicarb 27. BUN 4. Creatinine 0.34. Glucose 103. Hepatitis and HIV screen was negative. She remains on cefepime and vancomycin. The plan is to start inpatient chemotherapy tomorrow. The patient is seen today May 19, 2024 in follow-up on the regular medical floor. She is sitting up in bed. Awake and alert in no acute distress. Feeling stronger today compared to yesterday. She remains on vancomycin and cefepime. His chest x-ray continues to show reticular nodular infiltrates within the upper lobes bilaterally as well as the left lower lobe. Small left- sided pleural effusion. She is receiving 1 unit of packed red blood cells today. Her hemoglobin was 6.9. Platelets 548. White count 6.5. Sodium 133. Potassium 3.3. Bicarb 28. BUN 6. Creatinine 0.28. Glucose 107. AST 61. ALT 30. Vancomycin trough 9.0. Plan is to start chemotherapy today. The patient is seen today May 20, 2024 in follow-up on the regular medical floor. She is awake and alert. A bit confused this morning. Good O2 saturations in the 90s on 3 L/min per nasal cannula. She is afebrile. Hemodynamically stable. To revealed no growth. Sputum culture revealed no growth. White count 5.4. Hemoglobin 9.2. Platelets 652. Sodium 139. Potassium 4.0. Bicarb 24. BUN 11. Creatinine 0.30. Glucose 165. AST 61. ALT 35. She did receive chemotherapy yesterday. Remains on high-dose steroids. Remains on Zofran. She continues on cefepime. Vancomycin was discontinued. The patient is seen today May 21, 2024 in follow-up on the regular medical floor. She is currently resting in bed. Awake and alert in no acute distress. Alert and oriented. Feeling stronger today compared to yesterday. She is maintaining good O2 saturations in the 90s on 3 L/min per nasal cannula. She was initiated on chemotherapy May 19, 2024. She remains on antibiotics in the form of cefepime. Currently on prednisone 100 mg twice daily. Continued on Zofran. White count 8.8. Hemoglobin 10.3. Platelets 853. Sodium 140. Potassium 3.7. Bicarb 30. BUN 19. Creatinine 0.33. Glucose 162. AST 145. ALT 101. Alk phos 217. The patient is seen today May 22, 2024 in follow-up on the regular medical floor. She is sitting up in bed. Awake and alert in no acute distress. Feeling stronger today. Denies any worsening shortness of breath, cough or congestion. Maintaining good O2 saturations in the 90s 3 L/min per nasal cannula. She is afebrile. Hemodynamically stable. Receiving chemotherapy. Chest x-ray reveals overall stable findings. Persistent small pleural effusion and left basilar atelectasis. Persistent bilateral upper lung increased markings favoring chronic parenchymal fibrosis. Blood culture revealed no growth. Urine culture revealed no growth. Sputum culture revealed no growth. White count 6.7. Hemoglobin 9.1. Platelets 589. Sodium 145. Potassium 3.7. Bicarb 20. BUN 8 creatinine 0.3. Glucose 122. AST 80. ALT 98. Alk phos 188. She remains on cefepime. The patient is seen today May 23, 2024 in follow-up on the regular medical floor. She is awake and alert in no acute distress. Sitting up in a chair today. Feeling stronger. Denies any worsening shortness of breath, cough or congestion. She is maintaining O2 saturation in the 90s on 3 L/min per nasal cannula. She was found to have a lower extremity DVT and has been initiated on a heparin drip. She remains on cefepime. Blood culture revealed no growth. Sputum culture revealed no growth. Urine culture revealed no growth. She is status post 1 unit of packed red blood cells this admission. Current hemoglobin 8.7. Platelets 553. White count 6.1. She is receiving inpatient chemotherapy. Remains on Zofran. Remains on Pepcid. She remains on cefepime. The patient is seen today May 24, 2024 in follow-up on the regular medical floor. She is up ambulating with assistance. Awake and alert in no acute distress. Feeling stronger today. Denies any worsening shortness of breath, cough or congestion. Continue good O2 saturations in the 90s on room air. She is afebrile. Hemodynamically stable. White count 7.7. Hemoglobin 9.9. Platelets 680. Sodium 138. Potassium 3.3. Bicarb 33. BUN 28. Creatinine 0.37. Glucose 135. AST 59. ALT 95. Alk phos 203. She did receive inpatient chemotherapy. She remains on cefepime. Anticoagulated with Eliquis. Objective - Vital Signs Vital signs: Vital Signs Temp 97.3 F L 05/24/24 12:00 Pulse 92 05/24/24 12:00 Resp 17 05/24/24 12:00 BP 148/71 05/24/24 12:00 Pulse Ox 93 L 05/24/24 12:00 FiO2 21 05/24/24 11:08 Intake & Output 05/23/24 05/24/24 05/24/24 18:59 06:59 18:59 Intake Total 1320 1038.768 Output Total 1900 1000 Balance -580 38.768 Intake: Intake, IV Titration 918.768 Amount Cefepime 2 gm In Sodium 100 Chloride 0.9% 100 ml @ 25 mls/hr IVPB Q8HR [facility] Rx# :[id number] Etoposide 80 mg 88 DOXOrubicin HCL 16 mg vinCRIStine SULFATE 0.6 mg In Sodium Chloride 0.9 % 500 ml 500 ml @ 21.358 mls/hr IV Q24H [facility] Rx#: [id number] Heparin Sod,Pork in 0.45% 168.768 NaCl 25,000 unit In 0.45 % NaCl 1 250ml.bag @ 18 UNITS/KG/HR 10.006 mls/hr IV .Q24H [facility] Rx#: [id number] Ondansetron 16 mg In 50 Sodium Chloride 0.9% 50 ml @ 232 mls/hr IVPB Q24H [facility] Rx#:[id number] cycloPHOSphamide 1,000 mg 512 cycloPHOSphamide 200 mg In Sodium Chloride 0.9% 250 ml @ 512 mls/hr IV ONCE ONE Rx#:[id number] Oral 1320 120 Output: Urine 1900 1000 Other: Voiding Method Diaper Diaper Toilet External Catheter External Catheter # Bowel Movements 1 - Exam GENERAL EXAM: Alert, pleasant 68-year-old female, up ambulating in her room, on room air, in no apparent distress. HEAD: Normocephalic. EYES: Normal reaction of pupils, equal size. NOSE: Clear with pink turbinates. THROAT: No erythema or exudates. NECK: No masses, no JVD. CHEST: No chest wall deformity. LUNGS: Equal air entry with bilateral scattered rhonchi. CVS: S1 and S2 normal with no audible murmur, regular rhythm. ABDOMEN: No hepatosplenomegaly, normal bowel sounds, no guarding or rigidity. SPINE: No scoliosis or deformity SKIN: No rashes CENTRAL NERVOUS SYSTEM: No focal deficits, tone is normal in all 4 extremities. EXTREMITIES: There is no peripheral edema. No clubbing, no cyanosis. Peripheral pulses are intact. - Labs CBC & Chem 7: 05/24/24 11:23 05/24/24 11:23 Labs: Abnormal Lab Results - Last 24 Hours (Table) 05/24/24 05/24/24 05/24/24 Range/Units 06:04 11:23 11:23 RBC 3.39 L (3.80-5.40) m/uL Hgb 9.9 L (11.4-16.0) gm/dL Hct 31.5 L (34.0-46.0) % Plt Count 680 H (150-450) k/uL Lymphocytes # 0.3 L (1.0-4.8) k/uL APTT 54.5 H (22.0-30.0) sec Potassium 3.3 L (3.5-5.1) mmol/L Carbon Dioxide 33 H (22-30) mmol/L BUN 28 H (7-17) mg/dL Creatinine 0.37 L (0.52-1.04) mg/dL Glucose 135 H (74-99) mg/dL Uric Acid 1.6 L (3.7-7.4) mg/dL Phosphorus 2.1 L (2.5-4.5) mg/dL AST 59 H (14-36) U/L ALT 95 H (4-34) U/L Alkaline Phosphatase 203 H (38-126) U/L Total Protein 5.6 L (6.3-8.2) g/dL Albumin 3.1 L (3.5-5.0) g/dL Assessment and Plan Assessment: Acute bilateral pneumonia with upper lobe predominance. The patient is febrile and the patient has new onset radicular and nodular infiltrate in the upper lobes bilaterally and the findings are quite suspicious for development of a pneumonia. Noted the patient was hospitalized back in April. Possibility of a hospital-acquired pneumonia in an immunosuppressed patient cannot be completely ruled out. Opportunistic lung infection also need to be considered. Tumor progression with involvement of the lungs and secondary tumor induced fever is also likely. CT scan of the chest does reveal development of bilateral upper lobe reticular opacities concerning for pneumonia. Small bilateral pleural effusions with associated atelectasis. Demonstration of multiple dest ructive osseous metastasis including the ribs with pathologic fractures of T11 and L1 vertebral bodies. Stable enlarged nonspecific mediastinal lymph node. Not FDG avid on prior PET. Remains on cefepime Fever, likely secondary to above. This is most likely secondary to pneumonia. Tumor induced fever and tumor infiltration of the upper lobes is also possible Diffuse large B-cell lymphoma, biopsy done from the liver on 2 separate occasions and the findings were consistent with lymphoma. The patient has extensive osseous metastases in addition to liver involvement and patient also has diffuse lymphadenopathy. Initiated on chemotherapy 05/19/2024 Acute DVT of the left lower extremity, initiated on a heparin drip. Transitioned to Eliquis Normocytic anemia, likely secondary to underlying lymphoma. Hemoglobin 6.9 05/19/2024 received 1 unit of packed red blood cells. Hemoglobin today is 9.9 Plan: The patient was seen and evaluated Labs and medications reviewed Improved and on room air Continued on cefepime Increased use of the incentive spirometer Increase her activity as tolerated Home once cleared by oncology This patient was seen independently by the pulmonary nurse practitioner addressing pulmonary issues I have personally seen and examined the patient, performed the documentation and the assessment and plan as written. Number of minutes spent on the visit: 25 Dictation was produced using [employer] software. Please excuse any grammatical, word or spelling errors.
[2024-05-24] MEDS: POTASSIUM CHLORIDE ER 20 MEQ TAB.ER PO STA (13:13)
[2024-05-24] MEDS: [UNRECOGNIZED DRUG - OTHER] SQ ONE (15:47)
[2024-05-24 16:21] VITALS: RESP 16
--- NOTE | 2024-05-24 16:31 | P.PN ---
Subjective Progress Note Date: 05/24/24 Principal diagnosis: Reason for follow-up is fever possible pneumonia Patient is a 68-year-old female with a past medical history significant for recent diagnosis of large B cell lymphoma however the patient not been on any chemotherapy yet presenting to the hospital for evaluation of generalized weakness, did have a fever with concern for possible pneumonia though sputum culture have been negative. On today's evaluation that is 05/24/2024, patient has been afebrile, patient is breathing comfortably and is currently on room air, patient denies having any chest pain did have some cough but mostly dry, patient denies nausea vomiting or diarrhea and no abdominal pain. Patient white count 7.7, creatinine 0.37 Objective - Vital Signs Vital signs: Vital Signs Temp 97.6 F 05/24/24 16:00 Pulse 98 05/24/24 16:00 Resp 16 05/24/24 16:00 BP 148/73 05/24/24 16:00 Pulse Ox 92 L 05/24/24 16:00 FiO2 21 05/24/24 11:08 Intake & Output 05/23/24 05/24/24 05/24/24 18:59 06:59 18:59 Intake Total 1320 1038.768 Output Total 1900 1000 Balance -580 38.768 Intake: Intake, IV Titration 918.768 Amount Cefepime 2 gm In Sodium 100 Chloride 0.9% 100 ml @ 25 mls/hr IVPB Q8HR [facility] Rx# :[id number] Etoposide 80 mg 88 DOXOrubicin HCL 16 mg vinCRIStine SULFATE 0.6 mg In Sodium Chloride 0.9 % 500 ml 500 ml @ 21.358 mls/hr IV Q24H [facility] Rx#: [id number] Heparin Sod,Pork in 0.45% 168.768 NaCl 25,000 unit In 0.45 % NaCl 1 250ml.bag @ 18 UNITS/KG/HR 10.006 mls/hr IV .Q24H [facility] Rx#: [id number] Ondansetron 16 mg In 50 Sodium Chloride 0.9% 50 ml @ 232 mls/hr IVPB Q24H [facility] Rx#:[id number] cycloPHOSphamide 1,000 mg 512 cycloPHOSphamide 200 mg In Sodium Chloride 0.9% 250 ml @ 512 mls/hr IV ONCE ONE Rx#:[id number] Oral 1320 120 Output: Urine 1900 1000 Other: Voiding Method Diaper Diaper Toilet External Catheter External Catheter # Bowel Movements 1 - Exam GENERAL DESCRIPTION: An elderly female lying in bed in no distress RESPIRATORY SYSTEM: Unlabored breathing , decreased breath sounds at bases HEART: S1 S2 regular rate and rhythm , ABDOMEN: Soft , no tenderness EXTREMITIES: No edema feet - Labs CBC & Chem 7: 05/24/24 11:23 05/24/24 11:23 Labs: Abnormal Lab Results - Last 24 Hours (Table) 05/24/24 05/24/24 05/24/24 Range/Units 06:04 11:23 11:23 RBC 3.39 L (3.80-5.40) m/uL Hgb 9.9 L (11.4-16.0) gm/dL Hct 31.5 L (34.0-46.0) % Plt Count 680 H (150-450) k/uL Lymphocytes # 0.3 L (1.0-4.8) k/uL APTT 54.5 H (22.0-30.0) sec Potassium 3.3 L (3.5-5.1) mmol/L Carbon Dioxide 33 H (22-30) mmol/L BUN 28 H (7-17) mg/dL Creatinine 0.37 L (0.52-1.04) mg/dL Glucose 135 H (74-99) mg/dL Uric Acid 1.6 L (3.7-7.4) mg/dL Phosphorus 2.1 L (2.5-4.5) mg/dL AST 59 H (14-36) U/L ALT 95 H (4-34) U/L Alkaline Phosphatase 203 H (38-126) U/L Total Protein 5.6 L (6.3-8.2) g/dL Albumin 3.1 L (3.5-5.0) g/dL Assessment and Plan (1) Fever Current Visit: Yes Status: Acute Priority: High Code(s): R50.9 - FEVER, UNSPECIFIED SNOMED Code(s): 647975726 (2) Pneumonia Current Visit: Yes Status: Acute Priority: High Code(s): J18.9 - PNEUMONIA, UNSPECIFIED ORGANISM SNOMED Code(s): 508328525 Plan: 1patient presented to hospital with fever in this patient has been recently diagnosed with lymphoma however has not been started on chemotherapy yet before presentation to the hospital and this patient did have extensive workup including CT abdominal pelvis that has been negative CT chest did show some reticulonodular findings question of pneumonia less likely but not excluded 2-patient blood culture have been negative sputum is growing Mary Lou and MRSA nasal culture has been negative 3-patient remains to be afebrile white count has been normal, patient has completed course of cefepime this morning which has been discontinued to monitor closely off antibiotic therapy Daughter at the bedside multiple questions answered Dictation was produced using [employer] dictation software. please excuse any grammatical, word or spelling errors. Time with Patient: Less than 30
--- NOTE | 2024-05-24 17:07 | P.PN ---
Subjective Progress Note Date: 05/24/24 Day 4/ of inpt chemo completed. Pt tolerated regimen very well, with no adverse side effects. BLE dopplers obtained due to leg swelling, RLE + for DVT, heparin drip was started. Pt denies CP and SOB. Denies n/v/d. Tolerating oral intake Objective - Vital Signs Vital signs: Vital Signs Temp 97.8 F 05/24/24 08:00 Pulse 90 05/24/24 08:00 Resp 16 05/24/24 08:00 BP 166/71 05/24/24 08:00 Pulse Ox 93 L 05/24/24 11:08 FiO2 21 05/24/24 11:08 Intake & Output 05/23/24 05/24/24 05/24/24 18:59 06:59 18:59 Intake Total 1320 1038.768 Output Total 1900 1000 Balance -580 38.768 Intake: Intake, IV Titration 918.768 Amount Cefepime 2 gm In Sodium 100 Chloride 0.9% 100 ml @ 25 mls/hr IVPB Q8HR [facility] Rx# :[id number] Etoposide 80 mg 88 DOXOrubicin HCL 16 mg vinCRIStine SULFATE 0.6 mg In Sodium Chloride 0.9 % 500 ml 500 ml @ 21.358 mls/hr IV Q24H [facility] Rx#: [id number] Heparin Sod,Pork in 0.45% 168.768 NaCl 25,000 unit In 0.45 % NaCl 1 250ml.bag @ 18 UNITS/KG/HR 10.006 mls/hr IV .Q24H [facility] Rx#: [id number] Ondansetron 16 mg In 50 Sodium Chloride 0.9% 50 ml @ 232 mls/hr IVPB Q24H [facility] Rx#:[id number] cycloPHOSphamide 1,000 mg 512 cycloPHOSphamide 200 mg In Sodium Chloride 0.9% 250 ml @ 512 mls/hr IV ONCE ONE Rx#:[id number] Oral 1320 120 Output: Urine 1900 1000 Other: Voiding Method Diaper Diaper Toilet External Catheter External Catheter # Bowel Movements 1 - Constitutional General appearance: Present: average body habitus, no acute distress - EENT Eyes: Present: anicteric sclerae, EOMI ENT: Present: hearing grossly normal - Respiratory Details: breathing is even and unlabored Respiratory: bilateral: CTA - Cardiovascular Rhythm: regular - Gastrointestinal General gastrointestinal: Present: soft. Absent: tenderness - Integumentary Integumentary: Absent: cyanotic, jaundiced - Musculoskeletal Musculoskeletal: Present: strength equal bilaterally - Psychiatric Psychiatric: Present: A&O x's 3 - Labs CBC & Chem 7: 05/24/24 11:23 05/24/24 11:23 Labs: Abnormal Lab Results - Last 24 Hours (Table) 05/24/24 05/24/24 05/24/24 Range/Units 06:04 11:23 11:23 RBC 3.39 L (3.80-5.40) m/uL Hgb 9.9 L (11.4-16.0) gm/dL Hct 31.5 L (34.0-46.0) % Plt Count 680 H (150-450) k/uL Lymphocytes # 0.3 L (1.0-4.8) k/uL APTT 54.5 H (22.0-30.0) sec Potassium 3.3 L (3.5-5.1) mmol/L Carbon Dioxide 33 H (22-30) mmol/L BUN 28 H (7-17) mg/dL Creatinine 0.37 L (0.52-1.04) mg/dL Glucose 135 H (74-99) mg/dL Uric Acid 1.6 L (3.7-7.4) mg/dL Phosphorus 2.1 L (2.5-4.5) mg/dL AST 59 H (14-36) U/L ALT 95 H (4-34) U/L Alkaline Phosphatase 203 H (38-126) U/L Total Protein 5.6 L (6.3-8.2) g/dL Albumin 3.1 L (3.5-5.0) g/dL - Imaging and Cardiology Venous US: report reviewed Assessment and Plan (1) Fever Current Visit: Yes Status: Acute Priority: High Code(s): R50.9 - FEVER, UNSPECIFIED SNOMED Code(s): 561097028 (2) NHL (non-Hodgkin's lymphoma) Current Visit: Yes Status: Acute Priority: High Code(s): C85.90 - NON- HODGKIN LYMPHOMA, UNSPECIFIED, UNSPECIFIED SITE SNOMED Code(s): 884290605 (3) Pneumonia Current Visit: Yes Status: Acute Priority: High Code(s): J18.9 - PNEUMONIA, UNSPECIFIED ORGANISM SNOMED Code(s): 036208643 Plan: Fever -Urine and blood cultures negative. Nasal swab negative for MRSA -Mary Lou in the sputum, Pulmonary following, pt is on abx. -Suspect fevers are secondary to lymphoma. Pulmonary and ID is following -Fevers now resolved Diffuse large B-cell lymphoma, double hit -Diagnosis and prognosis was reviewed with patient and daughter at the bedside previously. Recommendation was for aggressive chemotherapy. Pt agreed, treatment has started. -General chemo treatment edu provided, written materials given previously -Echo recently done, LVEF 55 to 60% -Hepatitis panel neg -Double lumen PICC placed -Day / chemo completed. Pt tolerated treatment well -Counts stable, WBC 7.7, hgb 9.9, plt 680. TLS labs negative DVT: -BLE venous dopplers showing chronic thrombus in RLE, and acute DVT in LLE peroneal vein -Provoked DVT r/t malignancy and decreased ambulation -Heparin drip was started -[facility] management consulted for prior auth Will plan for discharge tomorrow pending AM labs Doctor attests: I performed a history and physical examination of this patient, developed impression and plan of care. Discussed with dictator. I agree with dictators note, documented as a scribe.
[2024-05-25 07:44] VITALS: BP 133/74; PULSE 97; TEMP 97.9
[2024-05-25 08:25] LABS: HCT 28.6 % (37.2-46.3); HGB 8.8 g/dL (12.0-15.0); MCH 29.4 pg (27.0-32.0); MCHC 30.8 g/dL (32.0-37.0); MCV 95.7 FL (80.0-97.0); Mean Platelet Volume 8.6 FL (9.5-12.2); NRBC Per 100 WBC 0 X 10*3/uL (0.00-0.01); Platelet Count 509 X 10*3/uL (140-440); RBC 2.99 X 10*6/uL (4.10-5.20); RDW 14.9 % (11.5-14.5); WBC 29.83 X 10*3/uL (4.50-10.00)
[2024-05-25 08:47] LABS: ALT 102 U/L (8-44); AST 56 U/L (13-35); Alkaline Phosphatase 175 U/L (41-126); BUN/Creat Ratio 80.67 Ratio (12.00-20.00); Blood Urea Nitrogen 24.2 mg/dL (9.0-27.0); Calcium 8.3 mg/dL (8.7-10.3); Carbon Dioxide 28.4 mmol/L (21.6-31.8); Chloride 102 mmol/L (96-109); Glucose 65 mg/dL (70-110); Potassium 3.9 mmol/L (3.5-5.5); Sodium 141 mmol/L (135-145); Total Bilirubin <0.2 mg/dL (0.3-1.2); Uric Acid 1.4 mg/dL (2.9-7.7)
[2024-05-25 09:50] LABS: Basophils % (A) 0.3 %; Eosinophils # (A) 0.03 X 10*3/uL (0.04-0.35); Eosinophils % (A) 0.1 %; Lymphocytes # (A) 1.28 X 10*3/uL (0.90-5.00); Lymphocytes % (A) 4.3 %; Monocytes # (A) 0.04 X 10*3/uL (0.20-1.00); Monocytes % (A) 0.1 %; Neutrophils % (A) 90.2 %
[2024-05-25] MEDS ORDERED: ALPRAZolam 0.25 MG TAB PO PRN (11:03)
--- NOTE | 2024-05-25 11:14 | P.PN ---
Subjective Progress Note Date: 05/25/24 This is a 68-year-old female patient was diagnosed having diffuse B-cell lymphoma. Diagnosed with established by liver biopsy that was done initially at [facility] and findings were also confirmed by liver biopsy that was done at [facility]. Noted the patient has extensive disease and her previous PET scan that was done on 05/01/2024 showed extensive FDG uptake in metastases throughout the osseous structures and the liver in addition to metastatic lymphadenopathy in the para-aortic, left iliac, right obturator and right inguinal and right axillary and left mammary and supraclavicular area. The patient also has pathologic compression fracture of the L1 spine. The p atsheri has not started treatment yet. She presented to the hospital because of ongoing fever and the patient was also found to be hypoxic and the patient is currently on 3 Suboxone by nasal cannula. She has no significant leukocytosis. She is febrile. Hemodynamically stable. No reported aspiration. Chest x-ray that was done at time of admission showed a trace left-sided pleural effusion and there is areas of reticular opacities in the upper lobes right more than left and this is a new finding compared to previous chest x-rays. Based on that, the patient was started on broad-spectrum antibiotics and the patient is currently on a combination of Rocephin and Zithromax. On today's evaluation, her white cell count is at 5.6 with a hemoglobin of 8 and a platelet count of 533. BUN is 7 with a creatinine of 0.4 and a sodium level at 134. UA is negative. Viral screen was negative. Legionella urine antigen was also done and results were also negative. No reported aspiration. No sick contacts. The patient is seen today May 17, 2024 in follow-up on the regular medical floor. She is currently resting in bed. Awake and alert in no acute distress. She is maintaining O2 saturations in the upper 90s on 3 L/min per nasal cannula. She has been afebrile. Slightly tachycardic. Still feeling quite weak. She says she is less short of breath and some less of a cough but overall not much improved. Blood cultures are pending. Urine culture revealed no growth. 7.3. Platelets 529. Sodium 136. Potassium 3.0. Bicarb 21. BUN 4.4. Creatinine 0.3. Vancomycin and cefepime. Ultrasound of the abdomen revealed no evidence of ascites. CT scan of the chest does reveal development of bilateral upper lobe reticular opacities concerning for pneumonia. Small bilateral pleural effusions with associated atelectasis. Demonstration of multiple destructive osseous metastasis including the ribs with pathologic fractures of T11 and L1 vertebral bodies. Stable enlarged nonspecific mediastinal lymph node. Not FDG avid on prior PET. The patient is seen today May 18, 2024 in follow-up on the regular medical floor. She is awake and alert in no acute distress. She denies any worsening shortness of breath, cough or congestion. She remains quite weak and debilitated. She is maintaining O2 saturations in the 90s on 3 L/min per nasal cannula. She did receive a left upper extremity PICC line placement today. Cultures revealed no growth. Urine culture revealed no growth. Sputum culture pending. White count 5.8. Hemoglobin 7.6. Platelets 621. Sodium 131. Potass ium 3.6. Bicarb 27. BUN 4. Creatinine 0.34. Glucose 103. Hepatitis and HIV screen was negative. She remains on cefepime and vancomycin. The plan is to start inpatient chemotherapy tomorrow. The patient is seen today May 19, 2024 in follow-up on the regular medical floor. She is sitting up in bed. Awake and alert in no acute distress. Feeling stronger today compared to yesterday. She remains on vancomycin and cefepime. His chest x-ray continues to show reticular nodular infiltrates within the upper lobes bilaterally as well as the left lower lobe. Small left- sided pleural effusion. She is receiving 1 unit of packed red blood cells today. Her hemoglobin was 6.9. Platelets 548. White count 6.5. Sodium 133. Potassium 3.3. Bicarb 28. BUN 6. Creatinine 0.28. Glucose 107. AST 61. ALT 30. Vancomycin trough 9.0. Plan is to start chemotherapy today. The patient is seen today May 20, 2024 in follow-up on the regular medical floor. She is awake and alert. A bit confused this morning. Good O2 saturations in the 90s on 3 L/min per nasal cannula. She is afebrile. Hemodynamically stable. To revealed no growth. Sputum culture revealed no growth. White count 5.4. Hemoglobin 9.2. Platelets 652. Sodium 139. Potassium 4.0. Bicarb 24. BUN 11. Creatinine 0.30. Glucose 165. AST 61. ALT 35. She did receive chemotherapy yesterday. Remains on high-dose steroids. Remains on Zofran. She continues on cefepime. Vancomycin was discontinued. The patient is seen today May 21, 2024 in follow-up on the regular medical floor. She is currently resting in bed. Awake and alert in no acute distress. Alert and oriented. Feeling stronger today compared to yesterday. She is maintaining good O2 saturations in the 90s on 3 L/min per nasal cannula. She was initiated on chemotherapy May 19, 2024. She remains on antibiotics in the form of cefepime. Currently on prednisone 100 mg twice daily. Continued on Zofran. White count 8.8. Hemoglobin 10.3. Platelets 853. Sodium 140. Potassium 3.7. Bicarb 30. BUN 19. Creatinine 0.33. Glucose 162. AST 145. ALT 101. Alk phos 217. The patient is seen today May 22, 2024 in follow-up on the regular medical floor. She is sitting up in bed. Awake and alert in no acute distress. Feeling stronger today. Denies any worsening shortness of breath, cough or congestion. Maintaining good O2 saturations in the 90s 3 L/min per nasal cannula. She is afebrile. Hemodynamically stable. Receiving chemotherapy. Chest x-ray reveals overall stable findings. Persistent small pleural effusion and left basilar atelectasis. Persistent bilateral upper lung increased markings favoring chronic parenchymal fibrosis. Blood culture revealed no growth. Urine culture revealed no growth. Sputum culture revealed no growth. White count 6.7. Hemoglobin 9.1. Platelets 589. Sodium 145. Potassium 3.7. Bicarb 20. BUN 8 creatinine 0.3. Glucose 122. AST 80. ALT 98. Alk phos 188. She remains on cefepime. The patient is seen today May 23, 2024 in follow-up on the regular medical floor. She is awake and alert in no acute distress. Sitting up in a chair today. Feeling stronger. Denies any worsening shortness of breath, cough or congestion. She is maintaining O2 saturation in the 90s on 3 L/min per nasal cannula. She was found to have a lower extremity DVT and has been initiated on a heparin drip. She remains on cefepime. Blood culture revealed no growth. Sputum culture revealed no growth. Urine culture revealed no growth. She is status post 1 unit of packed red blood cells this admission. Current hemoglobin 8.7. Platelets 553. White count 6.1. She is receiving inpatient chemotherapy. Remains on Zofran. Remains on Pepcid. She remains on cefepime. The patient is seen today May 24, 2024 in follow-up on the regular medical floor. She is up ambulating with assistance. Awake and alert in no acute distress. Feeling stronger today. Denies any worsening shortness of breath, cough or congestion. Continue good O2 saturations in the 90s on room air. She is afebrile. Hemodynamically stable. White count 7.7. Hemoglobin 9.9. Platelets 680. Sodium 138. Potassium 3.3. Bicarb 33. BUN 28. Creatinine 0.37. Glucose 135. AST 59. ALT 95. Alk phos 203. She did receive inpatient chemotherapy. She remains on cefepime. Anticoagulated with Eliquis. The patient is seen today May 25, 2024 in follow-up on the regular medical floor. She is awake and alert in no acute distress. Sitting up in a chair. She had been up to the shower. She denies any worsening shortness of breath, cough or congestion. No fever or chills. No nausea vomiting or diarrhea. Blood culture revealed no growth. Sputum culture revealed Mary Lou only. White count 29.8. Hemoglobin 8.8. Platelets 509. Sodium 141. Potassium 3.9. Bicarb 28. BUN 24. Creatinine 0.3. Glucose 65. She completed her first round of chemotherapy. She is anticoagulated with Eliquis. Completed cefepime. Objective - Vital Signs Vital signs: Vital Signs Temp 97.9 F 05/25/24 07:30 Pulse 97 05/25/24 07:30 Resp 16 05/25/24 07:30 BP 133/74 05/25/24 07:30 Pulse Ox 91 L 05/25/24 07:30 FiO2 21 05/24/24 11:08 Intake & Output 05/24/24 05/25/24 05/25/24 18:59 06:59 18:59 Intake Total 100 590 Output Total 900 200 Balance -800 390 Intake: Intake, IV Titration 100 Amount Cefepime 2 gm In Sodium 100 Chloride 0.9% 100 ml @ 25 mls/hr IVPB Q8HR [facility] Rx# :[id number] Oral 590 Output: Urine 900 200 Other: Voiding Method Toilet Toilet # Voids 2 - Exam GENERAL EXAM: Alert, pleasant 68-year-old female, up in a chair, on room air, in no apparent distress. HEAD: Normocephalic. EYES: Normal reaction of pupils, equal size. NOSE: Clear with pink turbinates. THROAT: No erythema or exudates. NECK: No masses, no JVD. CHEST: No chest wall deformity. LUNGS: Equal air entry with no crackles, wheeze or rhonchi. CVS: S1 and S2 normal with no audible murmur, regular rhythm. ABDOMEN: No hepatosplenomegaly, normal bowel sounds, no guarding or rigidity. SPINE: No scoliosis or deformity SKIN: No rashes CENTRAL NERVOUS SYSTEM: No focal deficits, tone is normal in all 4 extremities. EXTREMITIES: There is no peripheral edema. No clubbing, no cyanosis. Peripheral pulses are intact. - Labs CBC & Chem 7: 05/25/24 04:22 05/25/24 04:22 Labs: Abnormal Lab Results - Last 24 Hours (Table) 05/24/24 05/24/24 05/25/24 Range/Units 11:23 11:23 04:22 WBC 29.83 H (4.50-10.00) X 10*3/uL RBC 3.39 L 2.99 L (3.80-5.40) m/uL Hgb 9.9 L 8.8 L (11.4-16.0) gm/dL Hct 31.5 L 28.6 L (34.0-46.0) % MCHC 30.8 L (32.0-37.0) g/dL RDW 14.9 H (11.5-14.5) % Plt Count 680 H 509 H (150-450) k/uL MPV 8.6 L (9.5-12.2) FL Immature Gran # 1.48 H (0.00-0.04) X 10*3/uL Neutrophils # 26.90 H (1.80-7.70) X 10*3/uL Lymphocytes # 0.3 L (1.0-4.8) k/uL Monocytes # 0.04 L (0.20-1.00) X 10*3/uL Eosinophils # 0.03 L (0.04-0.35) X 10*3/uL Potassium 3.3 L (3.5-5.1) mmol/L Carbon Dioxide 33 H (22-30) mmol/L BUN 28 H (7-17) mg/dL Creatinine 0.37 L (0.52-1.04) mg/dL BUN/Creatinine Ratio (12.00-20.00) Ratio Glucose 135 H (74-99) mg/dL Uric Acid 1.6 L (3.7-7.4) mg/dL Calcium (8.7-10.3) mg/dL Phosphorus 2.1 L (2.5-4.5) mg/dL Total Bilirubin (0.3-1.2) mg/dL AST 59 H (14-36) U/L ALT 95 H (4-34) U/L Alkaline Phosphatase 203 H (38-126) U/L Total Protein 5.6 L (6.3-8.2) g/dL Albumin 3.1 L (3.5-5.0) g/dL Albumin/Globulin Ratio (1.60-3.17) Ratio /25/25 Range/Units 04:22 WBC (4.50-10.00) X 10*3/uL RBC (3.80-5.40) m/uL Hgb (11.4-16.0) gm/dL Hct (34.0-46.0) % MCHC (32.0-37.0) g/dL RDW (11.5-14.5) % Plt Count (150-450) k/uL MPV (9.5-12.2) FL Immature Gran # (0.00-0.04) X 10*3/uL Neutrophils # (1.80-7.70) X 10*3/uL Lymphocytes # (1.0-4.8) k/uL Monocytes # (0.20-1.00) X 10*3/uL Eosinophils # (0.04-0.35) X 10*3/uL Potassium (3.5-5.1) mmol/L Carbon Dioxide (22-30) mmol/L BUN (7-17) mg/dL Creatinine 0.3 L (0.52-1.04) mg/dL BUN/Creatinine Ratio 80.67 H (12.00-20.00) Ratio Glucose 65 L (74-99) mg/dL Uric Acid 1.4 L (3.7-7.4) mg/dL Calcium 8.3 L (8.7-10.3) mg/dL Phosphorus (2.5-4.5) mg/dL Total Bilirubin <0.2 L (0.3-1.2) mg/dL AST 56 H (14-36) U/L ALT 102 H (4-34) U/L Alkaline Phosphatase 175 H (38-126) U/L Total Protein 5.0 L (6.3-8.2) g/dL Albumin 3.0 L (3.5-5.0) g/dL Albumin/Globulin Ratio 1.50 L (1.60-3.17) Ratio Assessment and Plan Assessment: Acute bilateral pneumonia with upper lobe predominance. The patient is febrile and the patient has new onset radicular and nodular infiltrate in the upper lobes bilaterally and the findings are quite suspicious for development of a pneumonia. Noted the patient was hospitalized back in April. Possibility of a hospital-acquired pneumonia in an immunosuppressed patient cannot be completely ruled out. Opportunistic lung infection also need to be considered. Tumor progression with involvement of the lungs and secondary tumor induced fever is also likely. CT scan of the chest does reveal development of bilateral upper lobe reticular opacities concerning for pneumonia. Small bilateral pleural effusions with associated atelectasis. Demonstration of multiple destructive osseous metastasis including the ribs with pathologic fractures of T11 and L1 vertebral bodies. Stable enlarged nonspecific mediastinal lymph node. Not FDG avid on prior PET. Completed cefepime Fever, likely secondary to above. This is most likely secondary to pneumonia. Tumor induced fever and tumor infiltration of the upper lobes is also possible Diffuse large B-cell lymphoma, biopsy done from the liver on 2 separate occasions and the findings were consistent with lymphoma. The patient has extensive osseous metastases in addition to liver involvement and patient also has diffuse lymphadenopathy. Initiated on chemotherapy 05/19/2024 Acute leukocytosis suspect secondary to above Acute DVT of the left lower extremity, remains on Eliquis Normocytic anemia, likely secondary to underlying lymphoma. Hemoglobin 6.9 05/19/2024 received 1 unit of packed red blood cells. Hemoglobin today is 8.8 Plan: The patient was seen and evaluated Labs and medications reviewed Improved and on room air Completed cefepime Continues with the incentive spirometer Increase her activity as tolerated The patient is anxious to go home Plan is for home with home care Her daughter is at the bedside, questions were answered This patient was seen independently by the pulmonary nurse practitioner add ressing pulmonary issues I have personally seen and examined the patient, performed the documentation and the assessment and plan as written. Number of minutes spent on the visit: 25 Dictation was produced using [employer] dictation software. Please excuse any grammatical, word or spelling errors.
--- NOTE | 2024-05-25 13:19 | P.PN ---
Subjective Progress Note Date: 05/25/24 Inpt chemo completed. Pt tolerated regimen very well, with no adverse side effects. Reporting fatigue today. Denies n/v. WBC increased to 29.8, she did receive G-CSF with regimen. Hgb 8.8, plt 509,000 Objective - Vital Signs Vital signs: Vital Signs Temp 97.9 F 05/25/24 07:30 Pulse 97 05/25/24 07:30 Resp 16 05/25/24 07:30 BP 133/74 05/25/24 07:30 Pulse Ox 91 L 05/25/24 07:30 FiO2 21 05/24/24 11:08 Intake & Output 05/24/24 05/25/24 05/25/24 18:59 06:59 18:59 Intake Total 100 590 Output Total 900 200 Balance -800 390 Intake: Intake, IV Titration 100 Amount Cefepime 2 gm In Sodium 100 Chloride 0.9% 100 ml @ 25 mls/hr IVPB Q8HR [facility] Rx# :[id number] Oral 590 Output: Urine 900 200 Other: Voiding Method Toilet Toilet # Voids 2 - Constitutional General appearance: Present: average body habitus, no acute distress - EENT Eyes: Present: anicteric sclerae, EOMI ENT: Present: hearing grossly normal - Respiratory Details: breathing is even and unlabored - Cardiovascular Details: skin warm and dry - Gastrointestinal General gastrointestinal: Present: soft. Absent: tenderness - Integumentary Integumentary: Absent: cyanotic - Musculoskeletal Musculoskeletal: Present: strength equal bilaterally - Psychiatric Psychiatric: Present: A&O x's 3 - Labs CBC & Chem 7: 05/25/24 04:22 05/25/24 04:22 Labs: Abnormal Lab Results - Last 24 Hours (Table) 05/24/24 05/24/24 05/25/24 Range/Units 11:23 11:23 04:22 WBC 29.83 H (4.50-10.00) X 10*3/uL RBC 3.39 L 2.99 L (3.80-5.40) m/uL Hgb 9.9 L 8.8 L (11.4-16.0) gm/dL Hct 31.5 L 28.6 L (34.0-46.0) % MCHC 30.8 L (32.0-37.0) g/dL RDW 14.9 H (11.5-14.5) % Plt Count 680 H 509 H (150-450) k/uL MPV 8.6 L (9.5-12.2) FL Immature Gran # 1.48 H (0.00-0.04) X 10*3/uL Neutrophils # 26.90 H (1.80-7.70) X 10*3/uL Lymphocytes # 0.3 L (1.0-4.8) k/uL Monocytes # 0.04 L (0.20-1.00) X 10*3/uL Eosinophils # 0.03 L (0.04-0.35) X 10*3/uL Potassium 3.3 L (3.5-5.1) mmol/L Carbon Dioxide 33 H (22-30) mmol/L BUN 28 H (7-17) mg/dL Creatinine 0.37 L (0.52-1.04) mg/dL BUN/Creatinine Ratio (12.00-20.00) Ratio Glucose 135 H (74-99) mg/dL Uric Acid 1.6 L (3.7-7.4) mg/dL Calcium (8.7-10.3) mg/dL Phosphorus 2.1 L (2.5-4.5) mg/dL Total Bilirubin (0.3-1.2) mg/dL AST 59 H (14-36) U/L ALT 95 H (4-34) U/L Alkaline Phosphatase 203 H (38-126) U/L Total Protein 5.6 L (6.3-8.2) g/dL Albumin 3.1 L (3.5-5.0) g/dL Albumin/Globulin Ratio (1.60-3.17) Ratio 03/25/25 Range/Units 04:22 WBC (4.50-10.00) X 10*3/uL RBC (3.80-5.40) m/uL Hgb (11.4-16.0) gm/dL Hct (34.0-46.0) % MCHC (32.0-37.0) g/dL RDW (11.5-14.5) % Plt Count (150-450) k/uL MPV (9.5-12.2) FL Immature Gran # (0.00-0.04) X 10*3/uL Neutrophils # (1.80-7.70) X 10*3/uL Lymphocytes # (1.0-4.8) k/uL Monocytes # (0.20-1.00) X 10*3/uL Eosinophils # (0.04-0.35) X 10*3/uL Potassium (3.5-5.1) mmol/L Carbon Dioxide (22-30) mmol/L BUN (7-17) mg/dL Creatinine 0.3 L (0.52-1.04) mg/dL BUN/Creatinine Ratio 80.67 H (12.00-20.00) Ratio Glucose 65 L (74-99) mg/dL Uric Acid 1.4 L (3.7-7.4) mg/dL Calcium 8.3 L (8.7-10.3) mg/dL Phosphorus (2.5-4.5) mg/dL Total Bilirubin <0.2 L (0.3-1.2) mg/dL AST 56 H (14-36) U/L ALT 102 H (4-34) U/L Alkaline Phosphatase 175 H (38-126) U/L Total Protein 5.0 L (6.3-8.2) g/dL Albumin 3.0 L (3.5-5.0) g/dL Albumin/Globulin Ratio 1.50 L (1.60-3.17) Ratio Assessment and Plan (1) Fever Current Visit: Yes Status: Acute Priority: High Code(s): R50.9 - FEVER, UNSPECIFIED SNOMED Code(s): 714257634 (2) NHL (non-Hodgkin's lymphoma) Current Visit: Yes Status: Acute Priority: High Code(s): C85.90 - NON- HODGKIN LYMPHOMA, UNSPECIFIED, UNSPECIFIED SITE SNOMED Code(s): 402148881 (3) Pneumonia Current Visit: Yes Status: Acute Priority: High Code(s): J18.9 - PNEUMONIA, UNSPECIFIED ORGANISM SNOMED Code(s): 630013315 Plan: Fever -Urine and blood cultures negative. Nasal swab negative for MRSA -Mary Lou in the sputum, Pulmonary following, pt is on abx. -Suspect fevers are secondary to lymphoma. Pulmonary and ID is following -Fevers now resolved Diffuse large B-cell lymphoma, double hit -Diagnosis and prognosis was reviewed with patient and daughter at the bedside previously. Recommendation was for aggressive chemotherapy. Pt agreed, treatment has started. -General chemo treatment edu provided, written materials given previously -Echo recently done, LVEF 55 to 60% -Hepatitis panel neg -Double lumen PICC placed -Day 4/ chemo completed. Pt tolerated treatment well -WBC 29.8, likely G-CSF effects. Hgb 8.8, plt 509,000. TLS labs negative DVT: -BLE venous dopplers showing chronic thrombus in RLE, and acute DVT in LLE peroneal vein -Provoked DVT r/t malignancy and decreased ambulation -Heparin drip was started -She has been transitioned to Eliquis. Care management consulted for prior auth Discussed case with admitting team. Pt is cleared for discharge from hem/onc standpoint. Supportive medications were sent from clinic. Will schedule lab encounters and clinic f/u for close monitoring Doctor attests: I performed a history and physical examination of this patient, developed impression and plan of care. Discussed with dictator. I agree with dictators note, documented as a scribe.
--- NOTE | 2024-05-25 14:50 | P.PN ---
Subjective Progress Note Date: 05/25/24 Principal diagnosis: Reason for follow-up is fever possible pneumonia Patient is a 68-year-old female with a past medical history significant for recent diagnosis of large B cell lymphoma however the patient not been on any chemotherapy yet presenting to the hospital for evaluation of generalized weakness, did have a fever with concern for possible pneumonia though sputum culture have been negative. On today's evaluation that is 05/25/2024, Patient is afebrile this morning patient denies having any chest pain shortness of breath and cough is decreased in intensity, the patient is currently on room air, patient denies any abdominal pain no diarrhea no nausea no vomiting. Patient white count is 2920 creatinine 0.3 cultures are negative. Objective - Vital Signs Vital signs: Vital Signs Temp 97.9 F 05/25/24 07:30 Pulse 97 05/25/24 07:30 Resp 16 05/25/24 07:30 BP 133/74 05/25/24 07:30 Pulse Ox 91 L 05/25/24 07:30 FiO2 21 05/24/24 11:08 Intake & Output 05/24/24 05/25/24 05/25/24 18:59 06:59 18:59 Intake Total 100 590 Output Total 900 200 Balance -800 390 Intake: Intake, IV Titration 100 Amount Cefepime 2 gm In Sodium 100 Chloride 0.9% 100 ml @ 25 mls/hr IVPB Q8HR [facility] Rx# :[id number] Oral 590 Output: Urine 900 200 Other: Voiding Method Toilet Toilet # Voids 2 - Exam GENERAL DESCRIPTION: An elderly female lying in bed in no distress RESPIRATORY SYSTEM: Unlabored breathing , decreased breath sounds at bases HEART: S1 S2 regular rate and rhythm , ABDOMEN: Soft , no tenderness EXTREMITIES: No edema feet - Labs CBC & Chem 7: 05/25/24 04:22 05/25/24 04:22 Labs: Abnormal Lab Results - Last 24 Hours (Table) 05/25/24 05/25/24 Range/Units 04:22 04:22 WBC 29.83 H (4.50-10.00) X 10*3/uL RBC 2.99 L (4.10-5.20) X 10*6/uL Hgb 8.8 L (12.0-15.0) g/dL Hct 28.6 L (37.2-46.3) % MCHC 30.8 L (32.0-37.0) g/dL RDW 14.9 H (11.5-14.5) % Plt Count 509 H (140-440) X 10*3/uL MPV 8.6 L (9.5-12.2) FL Immature Gran # 1.48 H (0.00-0.04) X 10*3/uL Neutrophils # 26.90 H (1.80-7.70) X 10*3/uL Monocytes # 0.04 L (0.20-1.00) X 10*3/uL Eosinophils # 0.03 L (0.04-0.35) X 10*3/uL Creatinine 0.3 L (0.6-1.5) mg/dL BUN/Creatinine Ratio 80.67 H (12.00-20.00) Ratio Glucose 65 L (70-110) mg/dL Uric Acid 1.4 L (2.9-7.7) mg/dL Calcium 8.3 L (8.7-10.3) mg/dL Total Bilirubin <0.2 L (0.3-1.2) mg/dL AST 56 H (13-35) U/L ALT 102 H (8-44) U/L Alkaline Phosphatase 175 H (41-126) U/L Total Protein 5.0 L (6.2-8.2) g/dL Albumin 3.0 L (3.8-4.9) g/dL Albumin/Globulin Ratio 1.50 L (1.60-3.17) Ratio Assessment and Plan (1) Fever Status: Acute Priority: High Code(s): R50.9 - FEVER, UNSPECIFIED SNOMED Code(s): 945468583 (2) Pneumonia Status: Acute Priority: High Code(s): J18.9 - PNEUMONIA, UNSPECIFIED OR GANISM SNOMED Code(s): 478566073 Plan: 1patient presented to hospital with fever in this patient has been recently diagnosed with lymphoma however has not been started on chemotherapy yet before presentation to the hospital and this patient did have extensive workup including CT abdominal pelvis that has been negative CT chest did show some reticulonodular findings question of pneumonia less likely but not excluded 2-patient blood culture have been negative sputum is growing Mary Lou and MRSA nasal culture has been negative 3-patient remains to be afebrile and has completed a course of antibiotic currently doing well off antibiotic repeat no need for antibiotic on discharge elevated white count more likely medication effect post chemo family the bedside question answered Dictation was produced using [employer] dictation software. please excuse any grammatical, word or spelling errors. Time with Patient: Less than 30
--- NOTE | 2024-05-26 01:03 | P.DS ---
Providers Date of admission: 05/15/24 17:12 Attending physician: Tor Calderón Consults: 05/15/24 17:12 Consult Physician Routine Consulting Provider: [place] Consult Reason/Comments: oncological care Do you want consulting provider notified?: Yes 05/16/24 11:08 Consult Physician Routine Consulting Provider: Carlos Henriquez Consult Reason/Comments: Pneumonia Do you want consulting provider notified?: Yes 05/19/24 11:45 Consult Physician Routine Consulting Provider: Marvin Talley Consult Reason/Comments: Penumonia Do you want consulting provider notified?: Already Contacted 05/19/24 13:11 Consult Physician Routine Consulting Provider: Marvin Talley Consult Reason/Comments: pneumonia, immunosuppressed Do you want consulting provider notified?: Yes Primary care physician: Donnie Hart MD Hospital Course: Diagnoses: 1. Bilateral pneumonia, improved currently off antibiotic 2. Diffuse large B-cell lymphoma; imaging completed in ED reveals extensive osseous and liver metastases with diffuse lymphadenopathy, s/p chemotherapy during this admission 3. Normocytic anemia; likely related to underlying lymphoma 4. Hypertension; 6. Vitamin D deficiency 7. Neuropathy 8. Chronic pain 9. Acute right leg DVT, started on heparin drip, switch to Eliquis upon discharge Hospital course: 68-year-old female with a recent diagnosis of non-Hodgkin's , came for complaints of generalized weakness. Patient was found to have bilateral and right lower lobe pneumonia. She was treated with antibiotic with cefepime and IV vancomycin, ID team are following closely as well as pulmonary team. Patient showed interval improvement and she is currently on room air over the last few days, with no respiratory symptoms like no chest pain dyspnea or coughing. No fever. No leukocytosis. Also she has evidence of metastatic disease related to her large B-cell lymphoma with lesion found in the liver and bones and diffuse lymphadenopathy. Hematology/oncology team were following. With the treatment of the infection hematology/oncology team decided to start chemotherapy over the last 2 days. She finished her therapy about 2 days ago. Also she was receiving pegfilgrastim and also she was taking prednisone per oncology team. Today she has leukocytosis related to these 2 medication effect but patient has no other new symptoms and she feels improved and since yesterday she feels ready to go home today and this is also confirmed today. Her hospital course was complicated by acute right leg DVT. She was treated with heparin drip and switched to Eliquis. Prescription for Eliquis upon discharge was addressed by hematology/oncology team. Other than that patient denies any other new complaints other than improving generalized weakness. Patient eager to go home today. Multiple family members at bedside and they agreeable as well Patient was cleared for discharge by all consultants including ID team, pulmonary and hematology/oncology team Problems and management plan were discussed with the patient and he verbalized understanding and acceptance Patient was found stable and can be discharged home in guarded prognosis however he needs follow-up as an outpatient. Patient was instructed to follow up with PCP Dr. Hart within one week and patient agrees Patient was instructed to follow-up with hematology/oncology team on 06/02. Patient was instructed to follow-up with gis specialist Dr. Ritter in 2 weeks after discharge and she agrees Physical exam -Gen: patient is a AAOx3, no distress. Generally weak CVS: S1-S2, RRR, no murmur Lungs: B/L CTA, no wheezing Abdomen: soft, no distention, no tenderness, positive bowel sounds Extremity: no leg edema or induration Time spent more than 35 minutes Plan - Discharge Summary Discharge Rx Participant: No New Discharge Prescriptions: New guaiFENesin-DM 100-10MG/5ML [Robitussin DM] 5 ml PO Q6HR PRN 5 Days #200 ml PRN Reason: Cough Apixaban [Eliquis Starter Pack (for VTE)] 5 - 10 mg PO DIRECTED 30 Days #1 each OLANZapine [ZyPREXA] 2.5 mg PO HS #30 tab ALPRAZolam [Xanax] 0.25 mg PO TID PRN 2 Days #6 tab PRN Reason: Anxiety Continue amLODIPine [Norvasc] 5 mg PO DAILY 30 Days #30 tab HYDROcodone/APAP 5-325MG [[place] 5-325] 1 tab PO BID PRN PRN Reason: Pain Multivitamins, Thera [Multivitamin (formulary)] 1 tab PO DAILY Gabapentin [Neurontin] 400 mg PO HS Gabapentin [Neurontin] 300 mg PO TID PRN PRN Reason: Pain Cholecalciferol [Vitamin D3 (25 Mcg = 1000 Iu)] 50 mcg PO DAILY Changed traMADol HCl [Ultram] 50 mg PO TID 20 Days #60 tab Discharge Medication List amLODIPine [Norvasc] 5 mg PO DAILY 30 Days #30 tab 04/23/24 [Rx] Cholecalciferol [Vitamin D3 (25 Mcg = 1000 Iu)] 50 mcg PO DAILY 05/15/24 [History] Gabapentin [Neurontin] 300 mg PO TID PRN 05/15/24 [History] Gabapentin [Neurontin] 400 mg PO HS 05/15/24 [History] HYDROcodone/APAP 5-325MG [[place] 5-325] 1 tab PO BID PRN 05/15/24 [History] Multivitamins, Thera [Multivitamin (formulary)] 1 tab PO DAILY 05/15/24 [History] Apixaban [Eliquis Starter Pack (for VTE)] 5 - 10 mg PO DIRECTED 30 Days #1 each 05/24/24 [Rx] ALPRAZolam [Xanax] 0.25 mg PO TID PRN 2 Days #6 tab 05/25/24 [Rx] OLANZapine [ZyPREXA] 2.5 mg PO HS #30 tab 05/25/24 [Rx] guaiFENesin-DM 100-10MG/5ML [Robitussin DM] 5 ml PO Q6HR PRN 5 Days #200 ml 05/25/24 [Rx] traMADol HCl [Ultram] 50 mg PO TID 20 Days #60 tab 05/25/24 [Rx] Follow up Appointment(s)/Referral(s): Zeinab Dsouza NPC [Nurse Practitioner] - 06/02/24 10:00 am (Appt is at our [address] ) Donnie Hart MD [Primary Care Provider] - 05/28/24 1:30 pm (previously scheduled appt.) Marvin Talley MD [STAFF PHYSICIAN] - As Needed Carlos Henriquez MD [STAFF PHYSICIAN] - 06/14/24 2:00 pm (appointment with Dr. House) MALVINA Visiting Nurse, [NON-STAFF] - 1 Week Patient Instructions/Handouts: Alprazolam (By mouth), Guaifenesin (By mouth), Tramadol (By mouth), Olanzapine (By mouth), Apixaban (By mouth), Non-Hodgkin Lymphoma (DC), Eating During Cancer Treatment (DC), Chemo Induced Nausea and Vomiting (DC), How to Care for Your PICC (Peripherally Inserted Central Catheter) (DC) Discharge Disposition: HOME WITH HOME HEALTH SERVICES
== END 2024-05-25 14:36 | disposition home health service (06) | DRG 871 ==
LOC: EC 14:32 → 5NMEDONC 17:12
PROVIDERS: ADMIT Hospitalist; ATTEND Hospitalist
PROC: 02HV33Z Insertion of Infusion Device into Superior Vena Cava, Percutaneous Approach (ICD-10-PCS; 2024-05-18)
PROC: 3E0W305 Introduction of Other Antineoplastic into Lymphatics, Percutaneous Approach (ICD-10-PCS; principal; 2024-05-18 09:00)
DX: A41.9 Sepsis, unspecified organism (principal); J15.9 Unspecified bacterial pneumonia; J96.01 Acute respiratory failure with hypoxia; J90 Pleural effusion, not elsewhere classified; C83.398 Diffuse large B-cell lymphoma of other extranodal and solid organ sites; C90.00 Multiple myeloma not having achieved remission; D84.9 Immunodeficiency, unspecified; I10 Essential (primary) hypertension; D63.0 Anemia in neoplastic disease; I82.451 Acute embolism and thrombosis of right peroneal vein; I82.511 Chronic embolism and thrombosis of right femoral vein; J98.11 Atelectasis; M84.48XA Pathological fracture, other site, initial encounter for fracture; D75.839 Thrombocytosis, unspecified; E83.52 Hypercalcemia; G62.9 Polyneuropathy, unspecified; G89.29 Other chronic pain; R32 Unspecified urinary incontinence; R15.9 Full incontinence of feces; Z79.01 Long term (current) use of anticoagulants; Z79.899 Other long term (current) drug therapy; Z87.891 Personal history of nicotine dependence; Z20.822 Contact with and (suspected) exposure to COVID-19
CPT/HCPCS: 36415; 36573; 71045; 71046; 71250; 74177; 76705; 80048; 80053; 80074; 80202; 81001; 82272; 82565; 82607; 82728; 82747; 83540; 83550; 83605; 83735; 83921; 84100; 84484; 84550; 85025; 85610; 85730; 86850; 86900; 86901; 86920; 87040; 87070; 87086; 87205; 87390; 87449; 87636; 93005; 93306; 93970; 94760; 96365; 96366; 96367; 96368; 99285

== ENCOUNTER 2024-06-14 12:32 | Day surgery (SDC) | payer MEDICARE ==
[~2024-06-14 12:32] MED LIST: LIDOCAINE 1% (10MG/ML) FOR IV START INTRADERMA PRN; Pre Op ABX Message 1 EACH MISC MISCELLANE ONE; fentaNYL (PF) 50 MCG/ML 2 ML AMP IV PRN
[2024-06-14] MEDS: LACTATED RINGERS 1,000 ML IV ONE (12:56)
[2024-06-14] MEDS: ONDANSETRON 4 MG/2 ML VIAL IVP ONE (12:58)
[2024-06-14] MEDS: LACTATED RINGERS 1,000 ML IV SCH (12:58)
[2024-06-14] MEDS: DEXAMETHASONE SOD PHOSPHATE 4 MG/ML 1 ML VIAL IVP STA (12:59)
[2024-06-14] MEDS: HEPARIN SODIUM,PORCINE 5,000 UNIT/ML 1 ML VIAL SQ STA (13:07)
[2024-06-14] MEDS ORDERED: ceFAZolin 2 GM in DEXTROSE 5% IN WATER 50 ML IVPB ONE (13:15)
[2024-06-14] MEDS ORDERED: MIDAZOLAM 2 MG/2 ML VIAL ONE (13:39)
[2024-06-14] MEDS ORDERED: LIDOCAINE 1% INJ 10MG/ML (20 ML MDV) ONE (13:39)
[2024-06-14] MEDS ORDERED: PROPOFOL 10 MG/ML 20 ML VIAL IV ONE (13:39)
[2024-06-14] MEDS: SODIUM CHLORIDE 0.9% 100 ML with ceFAZolin 2,000 MG IV ONE (13:44)
[2024-06-14] MEDS: HEPARIN SODIUM,PORCINE 100 UNIT/ML 5 ML VIAL IV ONE (14:15)
[2024-06-14] MEDS: LIDOCAINE 1% INJ 10MG/ML (20 ML MDV) SQ ONE ×2 (14:15)
--- NOTE | 2024-06-14 14:40 | FL ---
EXAMINATION TYPE: FL guided central line placemt Intraoperative/procedural fluoroscopic services were provided. CLINICAL INDICATION:Female, 68 years old with history of C83.398 LYMPHOMA; , [facility] FINDINGS: Single fluoroscopic image demonstrating right chest subclavian approach Mediport catheter with distal tip in the region of the low SVC. Additional left PICC line redemonstrated with distal tip in the mi d SVC. No radiographic evidence for complication. Total fluoroscopy time is 12.3 seconds. DAP: 1.1523 Gycm2 Please see the operative/procedural note for further details. [facility], , 06/14/2024 2:37 PM
[2024-06-14 14:51] VITALS: TEMP 96.8
--- NOTE | 2024-06-14 15:28 | XR ---
EXAMINATION TYPE: XR chest 1V DATE OF EXAM: 06/14/2024 3:16 PM COMPARISON: Fluoroscopic images of the same date. Chest radiograph 05/22/2024 TECHNIQUE: XR chest 1V Frontal view of the chest. CLINICAL INDICATION:Female, 68 years old with history of Pneumothorax; FINDINGS: Lungs/Pleura: No discrete pneumothorax. Trace left pleural effusion. Prominent perihilar opacities. B iapical pleural thickening. Pulmonary vascularity: Unremarkable. Heart/mediastinum: Cardiomediastinal silhouette is prominent in size. Atherosclerotic calcifications are seen in the aorta. Musculoskeletal: No acute osseous pathology. Scoliotic curvature of the visualized thoracolumbar spin e. Other findings: None Lines/Tubes: Right chest wall subclavian approach Mediport catheter distal tip at the superior cavoatrial junction . IMPRESSION: 1. Right chest wall subclavian approach Mediport catheter distal tip at the superior cavoatrial junc tion. No discrete pneumothorax. 2. Prominent bilateral lateral perihilar opacities concerning for pneumonia. [facility], , 06/14/2024 3:26 PM
[2024-06-14 15:46] VITALS: RESP 16
[2024-06-14 15:54] VITALS: BP 120/69; PULSE 90
== END 2024-06-14 16:15 | disposition home or self-care (01) ==
LOC: OR 12:32
PROVIDERS: ATTEND Surgery
DX: C83.398 Diffuse large B-cell lymphoma of other extranodal and solid organ sites (principal); I10 Essential (primary) hypertension; Z79.01 Long term (current) use of anticoagulants; Z79.899 Other long term (current) drug therapy; Z88.5 Allergy status to narcotic agent
CPT/HCPCS: 77001; 71045; C1788; J2250; J1644; J1642; J1100; J2405; J0690; J2003; J2704

== ENCOUNTER 2024-06-18 11:30 | Inpatient (IN) | payer MEDICARE ==
[2024-06-18] MEDS ORDERED: LOPERAMIDE 2 MG CAP PO PRN (12:46)
[2024-06-18] MEDS ORDERED: DOCUSATE 100 MG CAP PO PRN (12:46)
[2024-06-18] MEDS ORDERED: ONDANSETRON 4 MG/2 ML VIAL IVP PRN (13:00)
[2024-06-18] MEDS: SODIUM CHLORIDE 0.9% 1,000 ML IV SCH (13:15)
[2024-06-18 13:37] LABS: Basophils # (A) 0.05 10*3/uL (0.00-0.10); Basophils % (A) 0.5 %; Eosinophils # (A) 0.01 10*3/uL (0.04-0.35); Eosinophils % (A) 0.1 %; HCT 31.3 % (37.2-46.3); HGB 9.7 g/dL (12.0-15.0); Lymphocytes # (A) 0.58 10*3/uL (0.90-5.00); Lymphocytes % (A) 5.5 %; MCH 29.8 pg (27.0-32.0); Mean Platelet Volume 8.8 fL (9.5-12.2); Monocytes # (A) 0.06 10*3/uL (0.20-1.00); Monocytes % (A) 0.6 %; Neutrophils # (A) 9.77 10*3/uL (1.80-7.70); Neutrophils % (A) 92.8 %; Platelet Count 548 10*3/uL (140-440); RBC 3.26 10*6/uL (4.10-5.20); RDW 17.8 % (11.5-14.5); WBC 10.52 10*3/uL (4.50-10.00)
[2024-06-18 13:58] LABS: ALT 15 U/L (4-34); AST 23 U/L (14-36); African American GFR (CKD) >90 (>60 ml/min/1.73 sqM); Albumin 4.2 g/dL (3.5-5.0); Albumin/Globulin Ratio 1.5; Alkaline Phosphatase 298 U/L (38-126); Anion Gap 8 mmol/L; Blood Urea Nitrogen 11 mg/dL (7-17); Calcium 9.1 mg/dL (8.4-10.2); Carbon Dioxide 23 mmol/L (22-30); Chloride 107 mmol/L (98-107); Globulin 2.8 g/dL; Glucose 172 mg/dL (74-99); Non-African American GFR(CKD) >90 (>60 ml/min/1.73 sqM); Potassium 4.4 mmol/L (3.5-5.1); Sodium 138 mmol/L (137-145); Total Bilirubin 0.5 mg/dL (0.2-1.3)
[2024-06-18] MEDS: predniSONE 50 MG TAB PO SCH (13:58)
[2024-06-18] MEDS: FAMOTIDINE 20 MG/2 ML VIAL IV SCH (13:59)
[2024-06-18] MEDS: ONDANSETRON 16 MG in SODIUM CHLORIDE 0.9% 50 ML IVPB SCH (13:59)
[2024-06-18] MEDS: predniSONE 20 MG TAB PO SCH (14:00)
[2024-06-18] MEDS ORDERED: LACTULOSE 20 GM/30 ML CUP PO PRN (14:10)
[2024-06-18] MEDS: DOXORUBICIN HCL IV SCH (14:46)
[2024-06-18] MEDS: [UNRECOGNIZED DRUG - OTHER] IV SCH (14:46)
[2024-06-18] MEDS: VINCRISTINE SULFATE IV SCH (14:46)
[2024-06-18] MEDS: ETOPOSIDE IV SCH (14:46)
--- NOTE | 2024-06-18 14:53 | P.CONS ---
History of Present Illness - Reason for Consult Consult date: 06/18/24 Medical management - Chief Complaint Chemotherapy - History of Present Illness Patient is a 68-year-old female with a recent diagnosis of diffuse large B-cell lymphoma who underwent first cycle of chemotherapy, discharged on 05/25/2024, hypertension, peripheral neuropathy and right lower extremity DVT on Eliquis, prior history of smoking quit 14 years ago and chronic pain. Patient was admitted to the hospital for second cycle of chemotherapy with cyclophosphamide and etoposide. Patient is resting in the bed. No complaints of chest pain or shortness of breath. Patient states that she previously had mouth dryness and thrush with chemotherapy. Denied any symptoms now. No complaints of nausea vomiting abdominal pain or diarrhea. Denied any dizziness or lightheadedness. Laboratory data showed WBC 10.5 hemoglobin 9.7 and platelets 548 Sodium 138 potassium 4.4 chloride 107 bicarb is 23 BUN 11 and creatinine 0.46 and blood sugar is 172. Alk phos 298 and albumin 4.2. Review of Systems Constitutional: Patient denies any fever or chills . No generalized weakness or weight loss. Abdomen: Patient denied nausea vomiting and diarrhea and abdominal pain. Cardiovascular: Patient denies any chest pain or short of breath no palpitations. Respiratory: patient denied any cough or sputum production. No shortness of breath Neurologic: Patient denied any numbness or tingling. no headache. Musculoskeletal: Patient denies any complaints of joint swelling or deformity. Skin: Negative Psychiatric: Negative Endocrine: No heat or cold intolerance. No recent weight gain. Genitourinary: No dysuria or hematuria. All other 14 point ROS negative except the above Past Medical History Past Medical History: Cancer, Deep Vein Thrombosis (DVT), Hypertension, Pneumonia Additional Past Medical History / Comment(s): t11 l1 compression fracture, chronic back pain; recent diagnosis stage 4 non hodgkins lymphoma; recent hospitalization for weakness, pneumonia, & DVT May 2024 History of Any Multi-Drug Resistant Organisms: None Reported Past Surgical History: No Surgical Hx Reported Additional Past Surgical History / Comment(s): cataract surg Past Anesthesia/Blood Transfusion Reactions: No Reported Reaction Past Psychological History: No Psychological Hx Reported Smoking Status: Former smoker Past Alcohol Use History: None Reported Additional Past Alcohol Use History / Comment(s): quit smoking 14 yrs ago Past Drug Use History: None Reported - Past Family History Father Family Medical History: Congestive Heart Failure (CHF), Diabetes Mellitus Mother Family Medical History: Congestive Heart Failure (CHF) Sister(s) Family Medical History: Congestive Heart Failure (CHF), COPD Brother(s) Family Medical History: Congestive Heart Failure (CHF) Medications and Allergies Home Medications Medication Instructions Recorded Confirmed Type amLODIPine [Norvasc] 5 mg PO DAILY 30 Days #30 tab 04/23/24 06/18/24 Rx Gabapentin [Neurontin] 300 mg PO TID PRN 05/15/24 06/18/24 History Gabapentin [Neurontin] 400 mg PO HS 05/15/24 06/18/24 History OLANZapine [ZyPREXA] 2.5 mg PO HS #30 tab 05/25/24 06/18/24 Rx guaiFENesin-DM 100-10MG/5ML 5 ml PO Q6HR PRN 5 Days #200 ml 05/25/24 06/18/24 Rx [Robitussin DM] traMADol HCl [Ultram] 50 mg PO TID PRN 06/10/24 06/18/24 History Acetaminophen [Tylenol Extra 1,000 mg PO DAILY PRN 06/18/24 06/18/24 History Strength] Apixaban [Eliquis Starter Pack See Taper PO DIRECTED 06/18/24 06/18/24 History (for VTE)] Cholecalciferol (Vitamin D3) 50 mcg PO DAILY 06/18/24 06/18/24 History [Vitamin D3 (50 Mcg = 2000 Iu)] Lactulose 20 gm PO DAILY PRN 06/18/24 06/18/24 History Lidocaine-Prilocaine Cream [Emla 1 applic TOPICAL DAILY PRN 06/18/24 06/18/24 History Cream 2.5%/2.5%] Ondansetron [Zofran] 4 - 8 mg PO Q4H PRN 06/18/24 06/18/24 History polyethylene glycoL 3350 [Miralax] 17 gm PO DAILY 06/18/24 06/18/24 History Allergies Allergy/AdvReac Type Severity Reaction Status Date / Time hydromorphone [From Dilaudid] AdvReac Hallucinati Verified 06/18/24 13:59 ons Physical Exam Vitals: Vital Signs Temp Pulse Resp BP Pulse Ox 06/18/24 12:54 98.8 F 94 18 137/79 95 Intake and Output 0417/25 04/18/25 04/18/25 22:59 06:59 14:59 Other: Weight 54 kg PHYSICAL EXAMINATION: Patient is lying in the bed comfortably, no acute distress, awake alert and o riented.. HEENT: Normocephalic. Neck is supple. Pupils reactive. Nostrils clear. Oral cavity is moist. Neck reveals no JVD, carotid bruits, or thyromegaly. CHEST EXAMINATION: Trachea is central. Symmetrical expansion. Lung gorman clear to auscultation and percussion. CARDIAC: Normal S1, S2 with no gallops. No murmurs ABDOMEN: Soft. Bowel sounds normal. No organomegaly. No abdominal bruits. Extremities: reveal no edema. No clubbing or cyanosis Neurologically awake, alert, oriented x3 with well-coordinated movements. No focal deficits noted Skin: No rash or skin lesions. Psychiatric: Coperative. Nonsuicidal Musculoskeletal: No joint swelling or deformity. Normal range of motion. Results CBC & Chem 7: 06/18/24 11:00 06/18/24 13:13 Labs: Abnormal Lab Results - Last 24 Hours (Table) 06/18/24 06/18/24 Range/Units 11:00 13:13 WBC 10.52 H (4.50-10.00) 10*3/uL RBC 3.26 L (4.10-5.20) 10*6/uL Hgb 9.7 L (12.0-15.0) g/dL Hct 31.3 L (37.2-46.3) % MCHC 31.0 L (32.0-37.0) g/dL RDW 17.8 H (11.5-14.5) % Plt Count 548 H (140-440) 10*3/uL MPV 8.8 L (9.5-12.2) fL Immature Gran # 0.05 H (0.00-0.04) 10*3/uL Neutrophils # 9.77 H (1.80-7.70) 10*3/uL Lymphocytes # 0.58 L (0.90-5.00) 10*3/uL Monocytes # 0.06 L (0.20-1.00) 10*3/uL Eosinophils # 0.01 L (0.04-0.35) 10*3/uL Creatinine 0.46 L (0.52-1.04) mg/dL Glucose 172 H (74-99) mg/dL Alkaline Phosphatase 298 H (38-126) U/L Assessment and Plan Assessment: Diffuse large B-cell lymphoma. Patient was admitted to the hospital for second cycle of chemotherapy. Recently diagnosed acute left lower extremity DVT. On Eliquis at home. Hypertension Normocytic anemia Vitamin D deficiency Chronic pain Peripheral neuropathy nondiabetic GI prophylaxis Pepcid and patient is also on anticoagulation with Eliquis Plan: Patient will be continued on IV hydration with normal saline. Patient was started on prednisone, cyclophosphamide and etoposide. Follow-up CBC and CMP daily. Symptomatic management for nausea. Continue with home medications and Eliquis will be held tomorrow for surgical procedure. Pain management with Ultram and IV Dilaudid as needed Further recommendations based on clinical course. Thank you kindly for your consult. Time with Patient: Greater than 30
[2024-06-18] MEDS ORDERED: GABAPENTIN 300 MG CAP PO PRN (14:57)
[2024-06-18] MEDS ORDERED: guaiFENesin-DM 100-10MG/5ML 10 ML CUP PO PRN (14:57)
[2024-06-18] MEDS: SALT AND SODA MOUTHWASH 1,000 ML PO SCH (17:18)
[2024-06-18] MEDS: polyethylene glycoL 3350 17 GM POWD.PACK PO SCH ×2 (17:18→17:19)
--- NOTE | 2024-06-18 18:08 | P.HPIM ---
History of Present Illness H&P Date: 06/18/24 Chief Complaint: Inpt chemo Ms. Greene is a 68-year-old woman with recently diagnosed Lymphoma, who follows with Dr. Lali Kwok. She initially presented to [facility] on 04/13/2024 with increased weakness, abdominal pain, constipation, and lethargy. Labs on presentation were significant for a peak calcium of 17.1 uncorrected with creatinine 0.99. CBC revealed WBC 10.1 (ANC 7.8), hemoglobin 12.6 (MCV 87.5), platelets 290. CT chest/abdomen/pelvis with contrast on 04/13/2024 noted multiple lytic lesions in the axial skeleton along with multiple hypodense hepa tic lesions suspicious for metastatic disease. Serum protein electrophoresis, immunofixation, and kappa to lambda light chain ratio were all normal. IgG and IgM were normal. Tumor markers including CA 19-9, CA 15-3, CA 27-29 were normal. CEA was mildly elevated at 5.5. She did receive Zometa 4 mg IV, calcitonin x 1, and IV fluids for hypercalcemia. Liver biopsy originally performed on 04/14/2024 revealed malignant hematopoietic neoplasm favoring lymphoid etiology. The original sample was noted to have limited malignant tissue and no further differentiation of the malignancy could be made. There was brain MRI performed on 04/16/2024 due to confusion that noted innumerable enhancing calvarial and cervical vertebral body lesions along with vasogenic edema in the bilateral posterior parietal and occipital lobes with no abnormal enhancement possibly representing PRES. she did have elevated blood pressures during her admission and was discharged with amlodipine. She was seen by neurol yulisa during her admission and was started on steroids and has been on a taper since discharge on 04/23/2024. PET/CT on 04/30/2024 showed extensive FDG avid metastasis throughout the osseous structures and liver. Additional metastatic lymphadenopathy with FDG avid para-aortic left iliac chain, right obturator, right inguinal and right axillary left mammary and right supraclavicular lymph nodes. Pathological fracture of the L1 vertebral body and suspected pathological fracture of the T11 vertebral body. Patient underwent repeat liver biopsy at [place] on 05/07. 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 She completed cycle 1 of inpt chemo with EPOCH, tolerated cycle 1 well. She is readmitted for cycle 2 of R-EPOCH, receiving rituxan this morning in clinic. With addition of intrathecal MTX next week. Patient reports feeling well. Denies n/v/d, tolerating oral intake. Denies any acute bleeding. Review of Systems 10 point ROS is negative except as stated in the HPI Past Medical History Past Medical History: Cancer, Deep Vein Thrombosis (DVT), Hypertension, Pneumonia Additional Past Medical History / Comment(s): t11 l1 compression fracture, chronic back pain; recent diagnosis stage 4 non hodgkins lymphoma; recent hospitalization for weakness, pneumonia, & DVT May 2024 History of Any Multi-Drug Resistant Organisms: None Reported Past Surgical History: No Surgical Hx Reported Additional Past Surgical History / Comment(s): cataract surg Past Anesthesia/Blood Transfusion Reactions: No Reported Reaction Past Psychological History: No Psychological Hx Reported Smoking Status: Former smoker Past Alcohol Use History: None Reported Additional Past Alcohol Use History / Comment(s): quit smoking 14 yrs ago Past Drug Use History: None Reported - Past Family History Father Family Medical History: Congestive Heart Failure (CHF), Diabetes Mellitus Mother Family Medical History: Congestive Heart Failure (CHF) Sister(s) Family Medical History: Congestive Heart Failure (CHF), COPD Brother(s) Family Medical History: Congestive Heart Failure (CHF) Medications and Allergies Home Medications Medication Instructions Recorded Confirmed Type amLODIPine [Norvasc] 5 mg PO DAILY 30 Days #30 tab 04/23/24 06/18/24 Rx Gabapentin [Neurontin] 300 mg PO TID PRN 05/15/24 06/18/24 History Gabapentin [Neurontin] 400 mg PO HS 05/15/24 06/18/24 History OLANZapine [ZyPREXA] 2.5 mg PO HS #30 tab 05/25/24 06/18/24 Rx guaiFENesin-DM 100-10MG/5ML 5 ml PO Q6HR PRN 5 Days #200 ml 05/25/24 06/18/24 Rx [Robitussin DM] traMADol HCl [Ultram] 50 mg PO TID PRN 06/10/24 06/18/24 History Acetaminophen [Tylenol Extra 1,000 mg PO DAILY PRN 06/18/24 06/18/24 History Strength] Apixaban [Eliquis Starter Pack See Taper PO DIRECTED 06/18/24 06/18/24 History (for VTE)] Cholecalciferol (Vitamin D3) 50 mcg PO DAILY 06/18/24 06/18/24 History [Vitamin D3 (50 Mcg = 2000 Iu)] Lactulose 20 gm PO DAILY PRN 06/18/24 06/18/24 History Lidocaine-Prilocaine Cream [Emla 1 applic TOPICAL DAILY PRN 06/18/24 06/18/24 History Cream 2.5%/2.5%] Ondansetron [Zofran] 4 - 8 mg PO Q4H PRN 06/18/24 06/18/24 History polyethylene glycoL 3350 [Miralax] 17 gm PO DAILY 06/18/24 06/18/24 History Allergies Allergy/AdvReac Type Severity Reaction Status Date / Time hydromorphone [From Dilaudid] AdvReac Hallucinati Verified 06/18/24 13:59 ons Physical Exam Vitals: Vital Signs Temp Pulse Resp BP Pulse Ox 06/18/24 12:54 98.8 F 94 18 137/79 95 Intake and Output 06/18/24 06/18/24 06/18/24 06:59 14:59 22:59 Other: Weight 54 kg - Constitutional General appearance: average body habitus, no acute distress - EENT Eyes: anicteric sclerae, EOMI ENT: hearing grossly normal - Respiratory Respiratory: bilateral: CTA - Cardiovascular Rhythm: regular - Gastrointestinal General gastrointestinal: soft, no tenderness - Integumentary Integumentary: no cyanotic, no jaundiced - Neurologic Neurologic: CNII-XII intact - Musculoskeletal Musculoskeletal: strength equal bilaterally - Psychiatric Psychiatric: A&O x's 3 Results CBC & Chem 7: 06/18/24 11:00 06/18/24 13:13 Labs: Abnormal Lab Results - Last 24 Hours (Table) 06/18/24 06/18/24 Range/Units 11:00 13:13 WBC 10.52 H (4.50-10.00) 10*3/uL RBC 3.26 L (4.10-5.20) 10*6/uL Hgb 9.7 L (12.0-15.0) g/dL Hct 31.3 L (37.2-46.3) % MCHC 31.0 L (32.0-37.0) g/dL RDW 17.8 H (11.5-14.5) % Plt Count 548 H (140-440) 10*3/uL MPV 8.8 L (9.5-12.2) fL Immature Gran # 0.05 H (0.00-0.04) 10*3/uL Neutrophils # 9.77 H (1.80-7.70) 10*3/uL Lymphocytes # 0.58 L (0.90-5.00) 10*3/uL Monocytes # 0.06 L (0.20-1.00) 10*3/uL Eosinophils # 0.01 L (0.04-0.35) 10*3/uL Creatinine 0.46 L (0.52-1.04) mg/dL Glucose 172 H (74-99) mg/dL Alkaline Phosphatase 298 H (38-126) U/L Thrombosis Risk Factor Assmnt - DVT/VTE Prophylaxis DVT/VTE Prophylaxis: Pharmacologic Prophylaxis ordered - Choose All That Apply Any of the Below Risk Factors Present?: No Other Risk Factors: Yes Each Risk Factor Represents 2 Points: Age 61-74 years Other congenital or acquired thrombophilia - If yes, enter type in comment: No Thrombosis Risk Factor Assessment Total Risk Factor Score: 2 Thrombosis Risk Factor Assessment Level: Low Risk Assessment and Plan (1) NHL (non-Hodgkin's lymphoma) Current Visit: Yes Status: Acute Priority: High Code(s): C85.90 - NON- HODGKIN LYMPHOMA, UNSPECIFIED, UNSPECIFIED SITE SNOMED Code(s): 660313991 Plan: Diffuse large B-cell lymphoma, double hit -Oncology history as dictated in the HPI -Admitted for cycle 2 of R-EPOCH with intrathecal MTX. Received rituxan in clinic this morning. -Chemo orders and supportive medications ordered -WBC 10.5, hgb 9.7, plt 548. -Daily CBC/CMP. TLS labs ordered in the morning Doctor attests: I performed a history and physical examination of this patient, developed impression and plan of care. Discussed with dictator. I agree with dictators note, documented as a scribe.
[2024-06-18] MEDS: APIXABAN 5 MG TAB PO SCH (20:03)
[2024-06-18] MEDS: GABAPENTIN 400 MG CAP PO SCH (20:03)
[2024-06-18] MEDS: OLANZapine 2.5 MG TAB PO SCH (20:03)
[2024-06-19] MEDS: CHOLECALCIFEROL 25 MCG (1000 IU) TABLET PO SCH (08:02)
[2024-06-19] MEDS: amLODIPine 5 MG TAB PO SCH (08:02)
[2024-06-19] MEDS ORDERED: polyethylene glycoL 3350 17 GM POWD.PACK PO SCH (09:00)
[2024-06-19 10:05] LABS: ALT 12 U/L (8-44); AST 18 U/L (13-35); Albumin/Globulin Ratio 1.67 Ratio (1.60-3.17); Alkaline Phosphatase 313 U/L (41-126); Blood Urea Nitrogen 15.1 mg/dL (9.0-27.0); Calcium 9.6 mg/dL (8.7-10.3); Chloride 110 mmol/L (96-109); Globulin 2.4 g/dL (1.6-3.3); Glucose 155 mg/dL (70-110); Potassium 3.9 mmol/L (3.5-5.5); Sodium 141 mmol/L (135-145); Total Bilirubin <0.2 mg/dL (0.3-1.2); Total Protein 6.4 g/dL (6.2-8.2); Uric Acid 2.5 mg/dL (2.9-7.7)
[2024-06-19 10:23] LABS: Basophils # (A) 0 X 10*3/uL (0.00-0.10); Basophils % (A) 0 %; Eosinophils # (A) 0 X 10*3/uL (0.04-0.35); Eosinophils % (A) 0 %; HCT 29.9 % (37.2-46.3); HGB 8.9 g/dL (12.0-15.0); Lymphocytes % (A) 11.6 %; MCH 28.9 pg (27.0-32.0); MCHC 29.8 g/dL (32.0-37.0); MCV 97.1 FL (80.0-97.0); Mean Platelet Volume 8.9 FL (9.5-12.2); Monocytes # (A) 0.07 X 10*3/uL (0.20-1.00); Monocytes % (A) 1.2 %; NRBC Per 100 WBC 0 X 10*3/uL (0.00-0.01); Neutrophils # (A) 5.21 X 10*3/uL (1.80-7.70); Neutrophils % (A) 86.7 %; Platelet Count 538 X 10*3/uL (140-440); RBC 3.08 X 10*6/uL (4.10-5.20); RDW 17.7 % (11.5-14.5); WBC 6.01 X 10*3/uL (4.50-10.00)
--- NOTE | 2024-06-19 14:43 | P.PN ---
Subjective Progress Note Date: 06/19/24 Principal diagnosis: DLBCL Pt admitted for R-EPOCH, C2. Started chemo and tolerating well so far. Objective - Vital Signs Vital signs: Vital Signs Temp 98.6 F 06/19/24 12:00 Pulse 100 06/19/24 12:00 Resp 18 06/19/24 12:00 BP 136/81 06/19/24 12:00 Pulse Ox 98 06/19/24 12:00 FiO2 Intake & Output 06/18/24 06/19/24 06/19/24 18:59 06:59 18:59 Intake Total 1730 480 Balance 1730 480 Weight 54 kg 56.5 kg Intake: Intake, IV Titration 900 Amount Sodium Chloride 0.9% 1, 900 000 ml @ 75 mls/hr IV . [id number] [facility] Rx#:[id number] Oral 830 480 Other: # Voids 2 3 - Exam No acute distress. Mucosa moist. No jaundice. No respiratory distress. Regular heart rate. A&O x 3. - Labs CBC & Chem 7: 06/19/24 05:36 06/19/24 05:36 Labs: Abnormal Lab Results - Last 24 Hours (Table) 06/18/24 06/19/24 06/19/24 Range/Units 13:13 05:36 05:36 RBC 3.08 L (4.10-5.20) X 10*6/uL Hgb 8.9 L (12.0-15.0) g/dL Hct 29.9 L (37.2-46.3) % MCV 97.1 H (80.0-97.0) FL MCHC 29.8 L (32.0-37.0) g/dL RDW 17.7 H (11.5-14.5) % Plt Count 538 H (140-440) X 10*3/uL MPV 8.9 L (9.5-12.2) FL Lymphocytes # 0.70 L (0.90-5.00) X 10*3/uL Monocytes # 0.07 L (0.20-1.00) X 10*3/uL Eosinophils # 0 L (0.04-0.35) X 10*3/uL Chloride 110 H (96-109) mmol/L Carbon Dioxide 19.0 L (21.6-31.8) mmol/L Creatinine 0.46 L 0.5 L (0.52-1.04) mg/dL BUN/Creatinine Ratio 30.20 H (12.00-20.00) Ratio Glucose 172 H 155 H (74-99) mg/dL Uric Acid 2.5 L (2.9-7.7) mg/dL Total Bilirubin <0.2 L (0.3-1.2) mg/dL Alkaline Phosphatase 298 H 313 H (38-126) U/L Assessment and Plan Assessment: 1. DLBCL Plan: Ms. Greene is a very pleasant 68 yo female, pt of Dr. Willy Kwok, found to recently have large B cell lymphoma, high proliferative rate, s/p 1 cycle of R- EPOCH which she tolerated well, admitted 06/18/24 for C2 of EPOCH after receiving rituxan in clinic on day of admission. - Continue chemohterapy, tolerating well so far - Monitor CBC, CMP, Electrolytes - Prophylactic antimicrobials and antiemetics - Hydration - LP with IT MTX Discussed with pt and she was agreeable. All questions answered.
[2024-06-19] MEDS: traMADol 50 MG TAB PO PRN (20:11)
--- NOTE | 2024-06-19 21:41 | P.PN ---
Subjective Patient is a 68-year-old female with a recent diagnosis of diffuse large B-cell lymphoma who underwent first cycle of chemotherapy, discharged on 05/25/2024, hypertension, peripheral neuropathy and right lower extremity DVT on Eliquis, prior history of smoking quit 14 years ago and chronic pain. Patient was admitted to the hospital for second cycle of chemotherapy with cyclophosphamide and etoposide. Patient is resting in the bed. No complaints of chest pain or shortness of breath. Patient states that she previously had mouth dryness and thrush with chemotherapy. Denied any symptoms now. No complaints of nausea vomiting abdominal pain or diarrhea. Denied any dizziness or lightheadedness. Laboratory data showed WBC 10.5 hemoglobin 9.7 and platelets 548 Sodium 138 potassium 4.4 chloride 107 bicarb is 23 BUN 11 and creatinine 0.46 and blood sugar is 172. Alk phos 298 and albumin 4.2. 06/19/2024 Patient is sitting on the side of the bed. Awake alert and oriented x 3. Tolerating chemotherapy. No complaints of nausea or vomiting abdominal pain. No diarrhea. No cough or sputum production. Patient has been afebrile overnight. Laboratory data showed WBC 6.0 hemoglobin 8.9 and platelets 558 sodium 141 potassium 3.9 chloride 110 bicarb is 19.0 BUN 15.1 and creatinine 0.5 and blood sugar 155. Uric acid 2.5 phosphorus 3.0 Current medications reviewed. Objective - Vital Signs Vital signs: Vital Signs Temp 97.7 F 06/19/24 19:28 Pulse 104 H 06/19/24 19:28 Resp 18 06/19/24 19:28 BP 150/72 06/19/24 19:28 Pulse Ox 96 06/19/24 19:28 FiO2 Intake & Output 06/19/24 06/19/24 06/20/24 06:59 18:59 06:59 Intake Total 1730 2774 Balance 1730 2774 Weight 56.5 kg Intake: Intake, IV Titration 900 1214 Amount Etoposide 80 mg 264 DOXOrubicin HCL 16 mg vinCRIStine SULFATE 0.6 mg In Sodium Chloride 0.9 % 500 ml 500 ml @ 21.358 mls/hr IV Q24H [facility] Rx#: [id number] Ondansetron 16 mg In 50 Sodium Chloride 0.9% 50 ml @ 232 mls/hr IVPB Q24H [facility] Rx#:[id number] Sodium Chloride 0.9% 1, 900 900 000 ml @ 75 mls/hr IV . [id number] [facility] Rx#:[id number] Oral 830 1560 Other: # Voids 3 1 # Bowel Movements 1 - Exam PHYSICAL EXAMINATION: Patient is lying in the bed comfortably, no acute distress, awake alert and oriented.. HEENT: Normocephalic. Neck is supple. Pupils reactive. Nostrils clear. Oral cavity is moist. Neck reveals no JVD, carotid bruits, or thyromegaly. CHEST EXAMINATION: Trachea is central. Symmetrical expansion. Lung gorman clear to auscultation and percussion. CARDIAC: Normal S1, S2 with no gallops. No murmurs ABDOMEN: Soft. Bowel sounds normal. No organomegaly. No abdominal bruits. Extremities: reveal no edema. No clubbing or cyanosis Neurologically awake, alert, oriented x3 with well-coordinated movements. No focal deficits noted Skin: No rash or skin lesions. Psychiatric: Coperative. Nonsuicidal Musculoskeletal: No joint swelling or deformity. Normal range of motion. - Labs CBC & Chem 7: 06/19/24 05:36 06/19/24 05:36 Labs: Abnormal Lab Results - Last 24 Hours (Table) 06/19/24 06/19/24 Range/Units 05:36 05:36 RBC 3.08 L (4.10-5.20) X 10*6/uL Hgb 8.9 L (12.0-15.0) g/dL Hct 29.9 L (37.2-46.3) % MCV 97.1 H (80.0-97.0) FL MCHC 29.8 L (32.0-37.0) g/dL RDW 17.7 H (11.5-14.5) % Plt Count 538 H (140-440) X 10*3/uL MPV 8.9 L (9.5-12.2) FL Lymphocytes # 0.70 L (0.90-5.00) X 10*3/uL Monocytes # 0.07 L (0.20-1.00) X 10*3/uL Eosinophils # 0 L (0.04-0.35) X 10*3/uL Chloride 110 H (96-109) mmol/L Carbon Dioxide 19.0 L (21.6-31.8) mmol/L Creatinine 0.5 L (0.6-1.5) mg/dL BUN/Creatinine Ratio 30.20 H (12.00-20.00) Ratio Glucose 155 H (70-110) mg/dL Uric Acid 2.5 L (2.9-7.7) mg/dL Total Bilirubin <0.2 L (0.3-1.2) mg/dL Alkaline Phosphatase 313 H (41-126) U/L Assessment and Plan Assessment: Diffuse large B-cell lymphoma. Patient was admitted to the hospital for second cycle of chemotherapy. Recently diagnosed acute left lower extremity DVT. On Eliquis at home. Hypertension Normocytic anemia Vitamin D deficiency Chronic pain Peripheral neuropathy nondiabetic GI prophylaxis Pepcid and patient is also on anticoagulation with Eliquis Plan: Patient will be continued on IV hydration with normal saline. Patient was started on prednisone, cyclophosphamide and etoposide. Follow-up CBC and CMP, TLS labs daily. Symptomatic management for nausea. Continue with home medications and Eliquis will be held tomorrow for surgical procedure. Pain management with Ultram and IV Dilaudid as needed Further recommendations based on clinical course. Thank you kindly for your consult.
[2024-06-20 10:15] LABS: Basophils # (A) 0 X 10*3/uL (0.00-0.10); Basophils % (A) 0 %; Eosinophils # (A) 0 X 10*3/uL (0.04-0.35); Eosinophils % (A) 0 %; HCT 28.6 % (37.2-46.3); HGB 8.8 g/dL (12.0-15.0); Lymphocytes # (A) 0.41 X 10*3/uL (0.90-5.00); Lymphocytes % (A) 4.8 %; MCH 29.3 pg (27.0-32.0); MCHC 30.8 g/dL (32.0-37.0); MCV 95.3 FL (80.0-97.0); Mean Platelet Volume 8.7 FL (9.5-12.2); Monocytes # (A) 0.11 X 10*3/uL (0.20-1.00); Monocytes % (A) 1.3 %; NRBC Per 100 WBC 0 X 10*3/uL (0.00-0.01); Neutrophils # (A) 8.04 X 10*3/uL (1.80-7.70); Neutrophils % (A) 93.2 %; Platelet Count 458 X 10*3/uL (140-440); RDW 17.7 % (11.5-14.5); WBC 8.62 X 10*3/uL (4.50-10.00)
[2024-06-20 10:17] LABS: ALT 15 U/L (8-44); AST 19 U/L (13-35); Albumin 4.1 g/dL (3.8-4.9); Albumin/Globulin Ratio 1.86 Ratio (1.60-3.17); Alkaline Phosphatase 273 U/L (41-126); Calcium 8.8 mg/dL (8.7-10.3); Carbon Dioxide 21.1 mmol/L (21.6-31.8); Chloride 108 mmol/L (96-109); Globulin 2.2 g/dL (1.6-3.3); Glucose 137 mg/dL (70-110); LDH 280 U/L (120-246); Sodium 141 mmol/L (135-145); Total Bilirubin <0.2 mg/dL (0.3-1.2); Total Protein 6.3 g/dL (6.2-8.2); Uric Acid 2.5 mg/dL (2.9-7.7)
[2024-06-21 09:04] LABS: Basophils # (A) 0 X 10*3/uL (0.00-0.10); Basophils % (A) 0 %; Eosinophils # (A) 0 X 10*3/uL (0.04-0.35); Eosinophils % (A) 0 %; HCT 26.6 % (37.2-46.3); HGB 8.2 g/dL (12.0-15.0); Lymphocytes # (A) 0.23 X 10*3/uL (0.90-5.00); Lymphocytes % (A) 5.5 %; MCH 28.9 pg (27.0-32.0); MCHC 30.8 g/dL (32.0-37.0); MCV 93.7 FL (80.0-97.0); Monocytes # (A) 0.07 X 10*3/uL (0.20-1.00); Monocytes % (A) 1.7 %; NRBC Per 100 WBC 0 X 10*3/uL (0.00-0.01); Neutrophils # (A) 3.83 X 10*3/uL (1.80-7.70); Neutrophils % (A) 92.3 %; Platelet Count 379 X 10*3/uL (140-440); RBC 2.84 X 10*6/uL (4.10-5.20); RDW 16.9 % (11.5-14.5); WBC 4.15 X 10*3/uL (4.50-10.00)
[2024-06-21 09:09] LABS: ALT 15 U/L (8-44); AST 17 U/L (13-35); Albumin 3.7 g/dL (3.8-4.9); Albumin/Globulin Ratio 1.85 Ratio (1.60-3.17); Alkaline Phosphatase 237 U/L (41-126); Blood Urea Nitrogen 22.4 mg/dL (9.0-27.0); Calcium 8.1 mg/dL (8.7-10.3); Carbon Dioxide 22.4 mmol/L (21.6-31.8); Chloride 109 mmol/L (96-109); Glucose 125 mg/dL (70-110); Potassium 3.7 mmol/L (3.5-5.5); Sodium 141 mmol/L (135-145); Total Bilirubin 0.2 mg/dL (0.3-1.2); Total Protein 5.7 g/dL (6.2-8.2)
--- NOTE | 2024-06-21 17:29 | P.PN ---
Subjective Progress Note Date: 06/21/24 No acute events overnight. Tolerating treatment well. Had indigestion and bloating yesterday, feeling much better today. Tolerating oral intake. WBC 4.1, ANC 3.8, hgb 8.2, plt 379 Objective - Vital Signs Vital signs: Vital Signs Temp 97.9 F 06/21/24 12:00 Pulse 87 06/21/24 12:00 Resp 16 06/21/24 12:00 BP 156/76 06/21/24 12:00 Pulse Ox 96 06/21/24 12:00 FiO2 Intake & Output 06/20/24 06/21/24 06/21/24 18:59 06:59 18:59 Intake Total 2940 590 240 Balance 2940 590 240 Weight 56.5 kg Intake: Oral 2940 590 240 Other: Voiding Method Toilet # Voids 5 3 # Bowel Movements 1 - Constitutional General appearance: Present: average body habitus, no acute distress - EENT Eyes: Present: anicteric sclerae, EOMI ENT: Present: hearing grossly normal - Respiratory Details: breathing is even and unlabored - Cardiovascular Details: skin warm and dry - Gastrointestinal General gastrointestinal: Present: soft. Absent: tenderness - Integumentary Integumentary: Absent: cyanotic - Neurologic Neurologic: Present: CNII-XII intact - Musculoskeletal Musculoskeletal: Present: strength equal bilaterally - Psychiatric Psychiatric: Present: A&O x's 3 - Labs CBC & Chem 7: 06/21/24 05:01 06/21/24 05:01 Labs: Abnormal Lab Results - Last 24 Hours (Table) 06/21/24 06/21/24 Range/Units 05:01 05:01 WBC 4.15 L (4.50-10.00) X 10*3/uL RBC 2.84 L (4.10-5.20) X 10*6/uL Hgb 8.2 L (12.0-15.0) g/dL Hct 26.6 L (37.2-46.3) % MCHC 30.8 L (32.0-37.0) g/dL RDW 16.9 H (11.5-14.5) % MPV 9.0 L (9.5-12.2) FL Lymphocytes # 0.23 L (0.90-5.00) X 10*3/uL Monocytes # 0.07 L (0.20-1.00) X 10*3/uL Eosinophils # 0 L (0.04-0.35) X 10*3/uL Creatinine 0.4 L (0.6-1.5) mg/dL BUN/Creatinine Ratio 56.00 H (12.00-20.00) Ratio Glucose 125 H (70-110) mg/dL Calcium 8.1 L (8.7-10.3) mg/dL Total Bilirubin 0.2 L (0.3-1.2) mg/dL Alkaline Phosphatase 237 H (41-126) U/L Total Protein 5.7 L (6.2-8.2) g/dL Albumin 3.7 L (3.8-4.9) g/dL Assessment and Plan (1) NHL (non-Hodgkin's lymphoma) Current Visit: Yes Status: Acute Priority: High Code(s): C85.90 - NON- HODGKIN LYMPHOMA, UNSPECIFIED, UNSPECIFIED SITE SNOMED Code(s): 331032923 Plan: Diffuse large B-cell lymphoma, double hit -Oncology history as dictated in the HPI -Admitted for cycle 2 of R-EPOCH. Plan for intrathecal MTX tomorrow -Chemo orders and supportive medications ordered -Counts stable. Tolerating treatment with manageable side effects -Daily CBC/CMP Doctor attests: I performed a history and physical examination of this patient, developed impression and plan of care. Discussed with dictator. I agree with dictators note, documented as a scribe.
--- NOTE | 2024-06-21 23:17 | P.PN ---
Subjective Progress Note Date: 06/20/24 Patient is a 68-year-old female with a recent diagnosis of diffuse large B-cell lymphoma who underwent first cycle of chemotherapy, discharged on 05/25/2024, hypertension, peripheral neuropathy and right lower extremity DVT on Eliquis, prior history of smoking quit 14 years ago and chronic pain. Patient was admitted to the hospital for second cycle of chemotherapy with cyclophosphamide and etoposide. Patient is resting in the bed. No complaints of chest pain or shortness of breath. Patient states that she previously had mouth dryness and thrush with chemotherapy. Denied any symptoms now. No complaints of nausea vomiting abdominal pain or diarrhea. Denied any dizziness or lightheadedness. Laboratory data showed WBC 10.5 hemoglobin 9.7 and platelets 548 Sodium 138 potassium 4.4 chloride 107 bicarb is 23 BUN 11 and creatinine 0.46 and blood sugar is 172. Alk phos 298 and albumin 4.2. 06/19/2024 Patient is sitting on the side of the bed. Awake alert and oriented x 3. Tolerating chemotherapy. No complaints of nausea or vomiting abdominal pain. No diarrhea. No cough or sputum production. Patient has been afebrile overnight. Laboratory data showed WBC 6.0 hemoglobin 8.9 and platelets 558 sodium 141 potassium 3.9 chloride 110 bicarb is 19.0 BUN 15.1 and creatinine 0.5 and blood sugar 155. Uric acid 2.5 phosphorus 3.0 Current medications reviewed.06/20/2024 Patient is resting in the bed. Awake alert and oriented x 3. No complaints of chest pain or shortness of breath. No nausea or vomiting abdominal pain or diarrhea. No acute overnight issues. Patient is afebrile. Data show WBC 8.6 hemoglobin 8.8 and platelets 458 sodium 141 potassium 4.0 chloride 108 bicarb is 21.1 BUN 20 and creatinine 0.5 and blood sugar 101. Uric acid 137 and LDH 280. Patient has been currently on chemotherapy. Objective - Vital Signs Vital signs: Vital Signs Temp 98.3 F 06/20/24 07:46 Pulse 92 06/20/24 07:46 Resp 16 06/20/24 07:46 BP 126/69 06/20/24 07:46 Pulse Ox 96 06/20/24 07:46 FiO2 Intake & Output 06/19/24 06/20/24 06/20/24 18:59 06:59 18:59 Intake Total 2774 1140 480 Balance 2779 1140 480 Weight 57 kg Intake: Intake, IV Titration 1214 900 Amount Etoposide 80 mg 264 DOXOrubicin HCL 16 mg vinCRIStine SULFATE 0.6 mg In Sodium Chloride 0.9 % 500 ml 500 ml @ 21.358 mls/hr IV Q24H [facility] Rx#: [id number] Ondansetron 16 mg In 50 Sodium Chloride 0.9% 50 ml @ 232 mls/hr IVPB Q24H [facility] Rx#:[id number] Sodium Chloride 0.9% 1, 900 900 000 ml @ 75 mls/hr IV . [id number] [facility] Rx#:[id number] Oral 1560 240 480 Other: # Voids 1 2 # Bowel Movements 1 - Exam PHYSICAL EXAMINATION: Patient is lying in the bed comfortably, no acute distress, awake alert and oriented.. HEENT: Normocephalic. Neck is supple. Pupils reactive. Nostrils clear. Oral cavity is moist. Neck reveals no JVD, carotid bruits, or thyromegaly. CHEST EXAMINATION: Trachea is central. Symmetrical expansion. Lung gorman clear to auscultation and percussion. CARDIAC: Normal S1, S2 with no gallops. No murmurs ABDOMEN: Soft. Bowel sounds normal. No organomegaly. No abdominal bruits. Extremities: reveal no edema. No clubbing or cyanosis Neurologically awake, alert, oriented x3 with well-coordinated movements. No focal deficits noted Skin: No rash or skin lesions. Psychiatric: Coperative. Nonsuicidal Musculoskeletal: No joint swelling or deformity. Normal range of motion. - Labs CBC & Chem 7: 06/21/24 05:01 06/21/24 05:01 Labs: Abnormal Lab Results - Last 24 Hours (Table) 06/20/24 06/20/24 Range/Units 04:42 04:42 RBC 3.00 L (4.10-5.20) X 10*6/uL Hgb 8.8 L (12.0-15.0) g/dL Hct 28.6 L (37.2-46.3) % MCHC 30.8 L (32.0-37.0) g/dL RDW 17.7 H (11.5-14.5) % Plt Count 458 H (140-440) X 10*3/uL MPV 8.7 L (9.5-12.2) FL Immature Gran # 0.06 H (0.00-0.04) X 10*3/uL Neutrophils # 8.04 H (1.80-7.70) X 10*3/uL Lymphocytes # 0.41 L (0.90-5.00) X 10*3/uL Monocytes # 0.11 L (0.20-1.00) X 10*3/uL Eosinophils # 0 L (0.04-0.35) X 10*3/uL Carbon Dioxide 21.1 L (21.6-31.8) mmol/L Creatinine 0.5 L (0.6-1.5) mg/dL BUN/Creatinine Ratio 40.00 H (12.00-20.00) Ratio Glucose 137 H (70-110) mg/dL Uric Acid 2.5 L (2.9-7.7) mg/dL Total Bilirubin <0.2 L (0.3-1.2) mg/dL Alkaline Phosphatase 273 H (41-126) U/L Lactate Dehydrogenase 280 H (120-246) U/L Assessment and Plan Assessment: Diffuse large B-cell lymphoma. Patient was admitted to the hospital for second cycle of chemotherapy. Recently diagnosed acute left lower extremity DVT. On Eliquis at home. Hypertension Normocytic anemia Vitamin D deficiency Chronic pain Peripheral neuropathy nondiabetic GI prophylaxis Pepcid and patient is also on anticoagulation with Eliquis Plan: Patient will be continued on IV hydration with normal saline. Patient was started on prednisone, cyclophosphamide and etoposide. Follow-up CBC and CMP, TLS labs daily. Symptomatic management for nausea. Continue with home medications and Eliquis will be held tomorrow for surgical procedure. Pain management with Ultram and IV Dilaudid as needed Further recommendations based on clinical course. Thank you kindly for your consult.
--- NOTE | 2024-06-21 23:26 | P.PN ---
Subjective Progress Note Date: 06/21/24 Patient is a 68-year-old female with a recent diagnosis of diffuse large B-cell lymphoma who underwent first cycle of chemotherapy, discharged on 05/25/2024, hypertension, peripheral neuropathy and right lower extremity DVT on Eliquis, prior history of smoking quit 14 years ago and chronic pain. Patient was admitted to the hospital for second cycle of chemotherapy with cyclophosphamide and etoposide. Patient is resting in the bed. No complaints of chest pain or shortness of breath. Patient states that she previously had mouth dryness and thrush with chemotherapy. Denied any symptoms now. No complaints of nausea vomiting abdominal pain or diarrhea. Denied any dizziness or lightheadedness. Laboratory data showed WBC 10.5 hemoglobin 9.7 and platelets 548 Sodium 138 potassium 4.4 chloride 107 bicarb is 23 BUN 11 and creatinine 0.46 and blood sugar is 172. Alk phos 298 and albumin 4.2. 06/19/2024 Patient is sitting on the side of the bed. Awake alert and oriented x 3. Tolerating chemotherapy. No complaints of nausea or vomiting abdominal pain. No diarrhea. No cough or sputum production. Patient has been afebrile overnight. Laboratory data showed WBC 6.0 hemoglobin 8.9 and platelets 558 sodium 141 potassium 3.9 chloride 110 bicarb is 19.0 BUN 15.1 and creatinine 0.5 and blood sugar 155. Uric acid 2.5 phosphorus 3.0 Current medications reviewed. 06/20/2024 Patient is resting in the bed. Awake alert and oriented x 3. No complaints of chest pain or shortness of breath. No nausea or vomiting abdominal pain or diarrhea. No acute overnight issues. Patient is afebrile. Laboratory data show WBC 8.6 hemoglobin 8.8 and platelets 458 sodium 141 potassium 4.0 chloride 108 bicarb is 21.1 BUN 20 and creatinine 0.5 and blood sugar 101. Uric acid 137 and LDH 280. Patient has been currently on chemotherapy. 06/21/2024 Patient is sitting in the chair. Awake alert and oriented x 3. No complaints of chest pain or shortness of breath. Tolerating chemotherapy. Nausea vomiting abdominal pain or diarrhea. No cough or sputum production. Patient has been afebrile. Lab regular show WBC 4.1 hemoglobin 8.2 and platelets 379 sodium 141 potassium 3.7 chloride 109 bicarb is 22.4 BUN 22.4 and creatinine 0.4 and blood sugar 106. Calcium 8.1 alk phos 237. Oncology is on board. Objective - Vital Signs Vital signs: Vital Signs Temp 97.6 F 06/21/24 19:55 Pulse 81 06/21/24 19:55 Resp 16 06/21/24 19:55 BP 167/76 06/21/24 19:55 Pulse Ox 97 06/21/24 19:55 FiO2 Intake & Output 06/21/24 06/21/24 06/22/24 06:59 18:59 06:59 Intake Total 590 480 Balance 590 480 Weight 56.5 kg Intake: Oral 590 480 Other: Voiding Method Toilet Toilet # Voids 3 3 2 - Exam PHYSICAL EXAMINATION: Patient is lying in the bed comfortably, no acute distress, awake alert and oriented.. HEENT: Normocephalic. Neck is supple. Pupils reactive. Nostrils clear. Oral cavity is moist. Neck reveals no JVD, carotid bruits, or thyromegaly. CHEST EXAMINATION: Trachea is central. Symmetrical expansion. Lung gorman clear to auscultation and percussion. CARDIAC: Normal S1, S2 with no gallops. No murmurs ABDOMEN: Soft. Bowel sounds normal. No organomegaly. No abdominal bruits. Extremities: reveal no edema. No clubbing or cyanosis Neurologically awake, alert, oriented x3 with well-coordinated movements. No focal deficits noted Skin: No rash or skin lesions. Psychiatric: Coperative. Nonsuicidal Musculoskeletal: No joint swelling or deformity. Normal range of motion. - Labs CBC & Chem 7: 06/21/24 05:01 06/21/24 05:01 Labs: Abnormal Lab Results - Last 24 Hours (Table) 06/21/24 06/21/24 Range/Units 05:01 05:01 WBC 4.15 L (4.50-10.00) X 10*3/uL RBC 2.84 L (4.10-5.20) X 10*6/uL Hgb 8.2 L (12.0-15.0) g/dL Hct 26.6 L (37.2-46.3) % MCHC 30.8 L (32.0-37.0) g/dL RDW 16.9 H (11.5-14.5) % MPV 9.0 L (9.5-12.2) FL Lymphocytes # 0.23 L (0.90-5.00) X 10*3/uL Monocytes # 0.07 L (0.20-1.00) X 10*3/uL Eosinophils # 0 L (0.04-0.35) X 10*3/uL Creatinine 0.4 L (0.6-1.5) mg/dL BUN/Creatinine Ratio 56.00 H (12.00-20.00) Ratio Glucose 125 H (70-110) mg/dL Calcium 8.1 L (8.7-10.3) mg/dL Total Bilirubin 0.2 L (0.3-1.2) mg/dL Alkaline Phosphatase 237 H (41-126) U/L Total Protein 5.7 L (6.2-8.2) g/dL Albumin 3.7 L (3.8-4.9) g/dL Assessment and Plan Assessment: Diffuse large B-cell lymphoma. Patient was admitted to the hospital for second cycle of chemotherapy. Recently diagnosed acute left lower extremity DVT. On Eliquis at home. Hypertension Normocytic anemia Vitamin D deficiency Chronic pain Peripheral neuropathy nondiabetic GI prophylaxis Pepcid and patient is also on anticoagulation with Eliquis Plan: Patient will be continued on IV hydration with normal saline. Patient was started on prednisone, cyclophosphamide and etoposide. Follow-up CBC and CMP, TLS labs daily. Symptomatic management for nausea. Continue with home medications and Eliquis will be held tomorrow for surgical procedure. Pain management with Ultram and IV Dilaudid as needed Further recommendations based on clinical course.
[2024-06-22 08:16] LABS: ALT 19 U/L (8-44); AST 18 U/L (13-35); Albumin 3.8 g/dL (3.8-4.9); Alkaline Phosphatase 218 U/L (41-126); BUN/Creat Ratio 64.67 Ratio (12.00-20.00); Blood Urea Nitrogen 19.4 mg/dL (9.0-27.0); Calcium 8.1 mg/dL (8.7-10.3); Carbon Dioxide 21.7 mmol/L (21.6-31.8); Chloride 108 mmol/L (96-109); Glucose 123 mg/dL (70-110); Potassium 3.5 mmol/L (3.5-5.5); Sodium 143 mmol/L (135-145); Total Bilirubin 0.3 mg/dL (0.3-1.2); Total Protein 5.8 g/dL (6.2-8.2)
[2024-06-22 08:41] LABS: Basophils # (A) 0 X 10*3/uL (0.00-0.10); Basophils % (A) 0 %; Eosinophils # (A) 0 X 10*3/uL (0.04-0.35); Eosinophils % (A) 0 %; HCT 27.9 % (37.2-46.3); HGB 8.7 g/dL (12.0-15.0); Lymphocytes # (A) 0.26 X 10*3/uL (0.90-5.00); Lymphocytes % (A) 7.2 %; MCH 29.6 pg (27.0-32.0); MCHC 31.2 g/dL (32.0-37.0); MCV 94.9 FL (80.0-97.0); Mean Platelet Volume 9.1 FL (9.5-12.2); Monocytes # (A) 0.03 X 10*3/uL (0.20-1.00); Monocytes % (A) 0.8 %; NRBC Per 100 WBC 0 X 10*3/uL (0.00-0.01); Neutrophils # (A) 3.29 X 10*3/uL (1.80-7.70); Neutrophils % (A) 91.7 %; Platelet Count 374 X 10*3/uL (140-440); RBC 2.94 X 10*6/uL (4.10-5.20); RDW 16.4 % (11.5-14.5); WBC 3.59 X 10*3/uL (4.50-10.00)
[2024-06-22] MEDS: ACETAMINOPHEN TAB 500 MG TAB PO PRN (09:30)
[2024-06-22] MEDS: METHOTREXATE SODIUM (PF) 25 MG/ML 2 ML VIAL INTRATHECA ONE (12:15)
--- NOTE | 2024-06-22 12:29 | P.PCN ---
Date of Procedure: 06/22/24 Procedure(s) Performed: Preoperative diagnosis:B cell lymphoma Post operative diagnoses: Same as preop diagnosis Procedure= lumbar puncture with intrathecal chemotherapy (therapy provided by oncology department MAGNETIC TESTING TECHNICIAN Meghan chin ) Anesthesia= local infiltration with lidocaine 1% 4 mL Condition: stable Complication: none. Description of the procedure procedure risk and benefits discussed with the patient , consent signed. Patient room 528 placed in sitting position, back prepped with chlorhexidine 3 times been local infiltration of the skin and subcutaneous tissue with lidocaine 1% 4 mL for skin and subcu interstitial frustrations at L4 5 levels then 22-gauge Quincke-type needle advanced slowly at L4- 5 interlaminar space there was positive cerebrospinal fluid which was clear, no heme, no paresthesia ,total of 4 ML of clear cerebrospinal fluid collected , then chemotherapy Methotrexate was given by nurse practitioner Meghan chin ,then the needle removed and a Band-Aid applied and patient tolerated the procedure well without any complications. Last dose of Eliquis was given more than 72 hours ago.
[2024-06-22 13:44] LABS: Glucose,CSF 60 mg/dL (40-70); Total Protein,CSF 50 mg/dL (12-60)
[2024-06-22 14:52] LABS: Appearance,CSF Hazy
[2024-06-22 14:53] LABS: CSF Tube Number 1; Nucleated Cells, CSF 2 u/L (0-5); Red Blood Cell, CSF Fresh 98 %; Red Blood Cell,CSF 830 u/L (0-10)
[2024-06-22 14:54] LABS: Red Blood Cell, CSF Crenated 2 %
--- NOTE | 2024-06-22 18:43 | P.PCN ---
Date of Procedure: 06/22/24 Preoperative Diagnosis: Dbl hit DLBCL Postoperative Diagnosis: Dbl hit DLBCL Procedure(s) Performed: LP with intrathecal chemotherapy administration-prophylactic treatment Anesthesia: local Estimated Blood Loss (ml): 0 Urine output (ml): 0 Pathology: other (cytology/flow cytometry) Condition: stable Disposition: floor Indications for Procedure: Dbl hit DLBCL Description of Procedure: LP performed at bedside by Anesthesiologist, 3.5cc clear,CSF was removed. 12mg of preservative free methotrexate diluted to a volume of 2.4cc with preservative free NS was instilled over 1.5 minutes, follow by a flush of 1.1cc of sterile NS in a latex free syringe. Pt tolerated procedure overall well, no immediate complications, VSS throughout.
[2024-06-22 20:49] VITALS: RESP 16
--- NOTE | 2024-06-22 23:38 | P.PN ---
Subjective Progress Note Date: 06/22/24 Patient is a 68-year-old female with a recent diagnosis of diffuse large B-cell lymphoma who underwent first cycle of chemotherapy, discharged on 05/25/2024, hypertension, peripheral neuropathy and right lower extremity DVT on Eliquis, prior history of smoking quit 14 years ago and chronic pain. Patient was admitted to the hospital for second cycle of chemotherapy with cyclophosphamide and etoposide. Patient is resting in the bed. No complaints of chest pain or shortness of breath. Patient states that she previously had mouth dryness and thrush with chemotherapy. Denied any symptoms now. No complaints of nausea vomiting abdominal pain or diarrhea. Denied any dizziness or lightheadedness. Laboratory data showed WBC 10.5 hemoglobin 9.7 and platelets 548 Sodium 138 potassium 4.4 chloride 107 bicarb is 23 BUN 11 and creatinine 0.46 and blood sugar is 172. Alk phos 298 and albumin 4.2. 06/19/2024 Patient is sitting on the side of the bed. Awake alert and oriented x 3. Tolerating chemotherapy. No complaints of nausea or vomiting abdominal pain. No diarrhea. No cough or sputum production. Patient has been afebrile overnight. Laboratory data showed WBC 6.0 hemoglobin 8.9 and platelets 558 sodium 141 potassium 3.9 chloride 110 bicarb is 19.0 BUN 15.1 and creatinine 0.5 and blood sugar 155. Uric acid 2.5 phosphorus 3.0 Current medications reviewed. 06/20/2024 Patient is resting in the bed. Awake alert and oriented x 3. No complaints of chest pain or shortness of breath. No nausea or vomiting abdominal pain or diarrhea. No acute overnight issues. Patient is afebrile. Laboratory data show WBC 8.6 hemoglobin 8.8 and platelets 458 sodium 141 potassium 4.0 chloride 108 bicarb is 21.1 BUN 20 and creatinine 0.5 and blood sugar 101. Uric acid 137 and LDH 280. Patient has been currently on chemotherapy. 06/21/2024 Patient is sitting in the chair. Awake alert and oriented x 3. No complaints of chest pain or shortness of breath. Tolerating chemotherapy. Nausea vomiting abdominal pain or diarrhea. No cough or sputum production. Patient has been afebrile. Lab regular show WBC 4.1 hemoglobin 8.2 and platelets 379 sodium 141 potassium 3.7 chloride 109 bicarb is 22.4 BUN 22.4 and creatinine 0.4 and blood sugar 106. Calcium 8.1 alk phos 237. Oncology is on board. 06/22/2024 Patient is sitting in the chair. Awake alert and oriented x 3. No complaints of nausea or vomiting. Patient had intrathecal methotrexate today.. Patient has been afebrile. No chest pain or shortness of breath. Laboratory data showed WBC 3.5 hemoglobin 8.7 platelets 374 sodium 143 potassium 3.5 chloride 108 bicarb is 21.7 BUN 19.4 and creatinine 0.3 and blood sugar 123. Calcium 8.1. Alk phos 218 and total protein 5.8 and albumin 3.8. Oncology is following. Objective - Vital Signs Vital signs: Vital Signs Temp 98.1 F 06/22/24 07:59 Pulse 75 06/22/24 07:59 Resp 16 06/22/24 07:59 BP 166/79 06/22/24 07:59 Pulse Ox 96 06/22/24 07:59 FiO2 Intake & Output 06/21/24 06/22/24 06/22/24 18:59 06:59 18:59 Intake Total 480 1164 Balance 480 1164 Weight 57.1 kg Intake: Intake, IV Titration 1164 Amount Etoposide 80 mg 264 DOXOrubicin HCL 16 mg vinCRIStine SULFATE 0.6 mg In Sodium Chloride 0.9 % 500 ml 500 ml @ 21.358 mls/hr IV Q24H [facility] Rx#: [id number] Sodium Chloride 0.9% 1, 900 000 ml @ 75 mls/hr IV . [id number] [facility] Rx#:[id number] Oral 480 Other: Voiding Method Toilet Toilet # Voids 3 6 1 - Exam PHYSICAL EXAMINATION: Patient is lying in the bed comfortably, no acute distress, awake alert and oriented.. HEENT: Normocephalic. Neck is supple. Pupils reactive. Nostrils clear. Oral cavity is moist. Neck reveals no JVD, carotid bruits, or thyromegaly. CHEST EXAMINATION: Trachea is central. Symmetrical expansion. Lung gorman clear to auscultation and percussion. CARDIAC: Normal S1, S2 with no gallops. No murmurs ABDOMEN: Soft. Bowel sounds normal. No organomegaly. No abdominal bruits. Extremities: reveal no edema. No clubbing or cyanosis Neurologically awake, alert, oriented x3 with well-coordinated movements. No focal deficits noted Skin: No rash or skin lesions. Psychiatric: Coperative. Nonsuicidal Musculoskeletal: No joint swelling or deformity. Normal range of motion. - Labs CBC & Chem 7: 06/22/24 04:06 06/22/24 04:06 Labs: Abnormal Lab Results - Last 24 Hours (Table) 06/22/24 06/22/24 Range/Units 04:06 04:06 WBC 3.59 L (4.50-10.00) X 10*3/uL RBC 2.94 L (4.10-5.20) X 10*6/uL Hgb 8.7 L (12.0-15.0) g/dL Hct 27.9 L (37.2-46.3) % MCHC 31.2 L (32.0-37.0) g/dL RDW 16.4 H (11.5-14.5) % MPV 9.1 L (9.5-12.2) FL Lymphocytes # 0.26 L (0.90-5.00) X 10*3/uL Monocytes # 0.03 L (0.20-1.00) X 10*3/uL Eosinophils # 0 L (0.04-0.35) X 10*3/uL Anion Gap 13.30 H (4.00-12.00) mmol/L Creatinine 0.3 L (0.6-1.5) mg/dL BUN/Creatinine Ratio 64.67 H (12.00-20.00) Ratio Glucose 123 H (70-110) mg/dL Calcium 8.1 L (8.7-10.3) mg/dL Alkaline Phosphatase 218 H (41-126) U/L Total Protein 5.8 L (6.2-8.2) g/dL Assessment and Plan Assessment: Diffuse large B-cell lymphoma. Patient was admitted to the hospital for second cycle of chemotherapy. Recently diagnosed acute left lower extremity DVT. On Eliquis at home. Hypertension Normocytic anemia Vitamin D deficiency Chronic pain Peripheral neuropathy nondiabetic GI prophylaxis Pepcid and patient is also on anticoagulation with Eliquis Plan: Patient will be continued on IV hydration with normal saline. Completed prednisone, cyclophosphamide and etoposide. Intrathecal methotrexate today. Follow-up CBC and CMP, TLS labs daily. Symptomatic management for nausea. Pain management with Ultram and IV Dilaudid as needed Further recommendations based on clinical course. Time with Patient: Greater than 30
[2024-06-23 08:23] LABS: ALT 18 U/L (8-44); AST 17 U/L (13-35); Albumin 3.5 g/dL (3.8-4.9); Albumin/Globulin Ratio 1.94 Ratio (1.60-3.17); Alkaline Phosphatase 193 U/L (41-126); Blood Urea Nitrogen 19.8 mg/dL (9.0-27.0); Calcium 7.7 mg/dL (8.7-10.3); Carbon Dioxide 21.6 mmol/L (21.6-31.8); Chloride 110 mmol/L (96-109); Globulin 1.8 g/dL (1.6-3.3); Glucose 129 mg/dL (70-110); Potassium 3.6 mmol/L (3.5-5.5); Sodium 142 mmol/L (135-145); Total Bilirubin 0.3 mg/dL (0.3-1.2); Total Protein 5.3 g/dL (6.2-8.2)
[2024-06-23 08:37] LABS: Basophils # (A) 0 X 10*3/uL (0.00-0.10); Basophils % (A) 0 %; Eosinophils # (A) 0 X 10*3/uL (0.04-0.35); Eosinophils % (A) 0 %; HGB 8.3 g/dL (12.0-15.0); Lymphocytes # (A) 0.22 X 10*3/uL (0.90-5.00); Lymphocytes % (A) 5.9 %; MCH 29.6 pg (27.0-32.0); MCHC 31.9 g/dL (32.0-37.0); MCV 92.9 FL (80.0-97.0); Mean Platelet Volume 8.7 FL (9.5-12.2); Monocytes # (A) 0.01 X 10*3/uL (0.20-1.00); Monocytes % (A) 0.3 %; NRBC Per 100 WBC 0 X 10*3/uL (0.00-0.01); Neutrophils # (A) 3.47 X 10*3/uL (1.80-7.70); Neutrophils % (A) 93.3 %; Platelet Count 351 X 10*3/uL (140-440); WBC 3.72 X 10*3/uL (4.50-10.00)
--- NOTE | 2024-06-23 11:39 | P.PN ---
Subjective Progress Note Date: 06/23/24 No acute events overnight. Tolerated treatment well. IT MTX given yesterday. Tolerating oral intake. WBC 43.7, ANC 3.4, hgb 8.3, plt 351 Objective - Vital Signs Vital signs: Vital Signs Temp 98.0 F 06/23/24 07:14 Pulse 73 06/23/24 07:14 Resp 16 06/23/24 07:14 BP 162/72 06/23/24 07:14 Pulse Ox 97 06/23/24 07:14 FiO2 Intake & Output 06/22/24 06/23/24 06/23/24 18:59 06:59 18:59 Intake Total 1164 1440 Balance 1164 1440 Weight 57 kg Intake: Intake, IV Titration 1164 1200 Amount Etoposide 80 mg 264 DOXOrubicin HCL 16 mg vinCRIStine SULFATE 0.6 mg In Sodium Chloride 0.9 % 500 ml 500 ml @ 21.358 mls/hr IV Q24H [facility] Rx#: [id number] Ondansetron 16 mg In 50 Sodium Chloride 0.9% 50 ml @ 232 mls/hr IVPB Q24H [facility] Rx#:[id number] Sodium Chloride 0.9% 1, 900 900 000 ml @ 75 mls/hr IV . [id number] [facility] Rx#:[id number] cycloPHOSphamide 1,000 mg 250 cycloPHOSphamide 200 mg In Sodium Chloride 0.9% 250 ml @ 512 mls/hr IV ONCE ONE Rx#:[id number] Oral 240 Other: Voiding Method Toilet Toilet Toilet # Voids 1 1 1 - Constitutional General appearance: Present: no acute distress - EENT Eyes: Present: anicteric sclerae, EOMI ENT: Present: hearing grossly normal - Respiratory Details: breathing is even and unlabored - Cardiovascular Details: skin warm and dry - Gastrointestinal General gastrointestinal: Present: soft. Absent: tenderness - Integumentary Integumentary: Absent: cyanotic - Neurologic Neurologic: Present: CNII-XII intact - Musculoskeletal Musculoskeletal: Present: strength equal bilaterally - Psychiatric Psychiatric: Present: A&O x's 3 - Labs CBC & Chem 7: 06/23/24 03:49 06/23/24 03:49 Labs: Abnormal Lab Results - Last 24 Hours (Table) 06/22/24 06/23/24 06/23/24 Range/Units 12:15 03:49 03:49 WBC 3.72 L (4.50-10.00) X 10*3/uL RBC 2.80 L (4.10-5.20) X 10*6/uL Hgb 8.3 L (12.0-15.0) g/dL Hct 26.0 L (37.2-46.3) % MCHC 31.9 L (32.0-37.0) g/dL RDW 16.0 H (11.5-14.5) % MPV 8.7 L (9.5-12.2) FL Lymphocytes # 0.22 L (0.90-5.00) X 10*3/uL Monocytes # 0.01 L (0.20-1.00) X 10*3/uL Eosinophils # 0 L (0.04-0.35) X 10*3/uL Chloride 110 H (96-109) mmol/L Creatinine 0.3 L (0.6-1.5) mg/dL BUN/Creatinine Ratio 66.00 H (12.00-20.00) Ratio Glucose 129 H (70-110) mg/dL Calcium 7.7 L (8.7-10.3) mg/dL Alkaline Phosphatase 193 H (41-126) U/L Total Protein 5.3 L (6.2-8.2) g/dL Albumin 3.5 L (3.8-4.9) g/dL CSF RBC 830 H (0-10) u/L Assessment and Plan (1) NHL (non-Hodgkin's lymphoma) Current Visit: Yes Status: Acute Priority: High Code(s): C85.90 - NON- HODGKIN LYMPHOMA, UNSPECIFIED, UNSPECIFIED SITE SNOMED Code(s): 256926433 Plan: Diffuse large B-cell lymphoma, double hit -Oncology history as dictated in the HPI -Admitted for cycle 2 of R-EPOCH. Intrathecal MTX given on 06/22/24 -Chemo orders and supportive medications ordered -Counts remain stable. Tolerated treatment well with manageable side effects -Daily CBC/CMP Discharge today, with close clinic f/u for lab monitoring Doctor attests: I performed a history and physical examination of this patient, developed impression and plan of care. Discussed with dictator. I agree with dictators note, documented as a scribe.
[2024-06-23 12:01] VITALS: BP 162/76; PULSE 72; TEMP 97.8
[2024-06-23] MEDS: APIXABAN 5 MG TAB PO SCH (12:09)
[2024-06-23] MEDS: [UNRECOGNIZED DRUG - OTHER] SQ ONE (12:10)
--- NOTE | 2024-06-23 13:57 | P.PN ---
Subjective Patient is a 68-year-old female with a recent diagnosis of diffuse large B-cell lymphoma who underwent first cycle of chemotherapy, discharged on 05/25/2024, hypertension, peripheral neuropathy and right lower extremity DVT on Eliquis, prior history of smoking quit 14 years ago and chronic pain. Patient was admitted to the hospital for second cycle of chemotherapy with cyclophosphamide and etoposide. Patient is resting in the bed. No complaints of chest pain or shortness of breath. Patient states that she previously had mouth dryness and thrush with chemotherapy. Denied any symptoms now. No complaints of nausea vomiting abdominal pain or diarrhea. Denied any dizziness or lightheadedness. Laboratory data showed WBC 10.5 hemoglobin 9.7 and platelets 548 Sodium 138 potassium 4.4 chloride 107 bicarb is 23 BUN 11 and creatinine 0.46 and blood sugar is 172. Alk phos 298 and albumin 4.2. 06/19/2024 Patient is sitting on the side of the bed. Awake alert and oriented x 3. Tolerating chemotherapy. No complaints of nausea or vomiting abdominal pain. No diarrhea. No cough or sputum production. Patient has been afebrile overnight. Laboratory data showed WBC 6.0 hemoglobin 8.9 and platelets 558 sodium 141 potassium 3.9 chloride 110 bicarb is 19.0 BUN 15.1 and creatinine 0.5 and blood sugar 155. Uric acid 2.5 phosphorus 3.0 Current medications reviewed. 06/20/2024 Patient is resting in the bed. Awake alert and oriented x 3. No complaints of chest pain or shortness of breath. No nausea or vomiting abdominal pain or diarrhea. No acute overnight issues. Patient is afebrile. Laboratory data show WBC 8.6 hemoglobin 8.8 and platelets 458 sodium 141 potassium 4.0 chloride 108 bicarb is 21.1 BUN 20 and creatinine 0.5 and blood sugar 101. Uric acid 137 and LDH 280. Patient has been currently on chemotherapy. 06/21/2024 Patient is sitting in the chair. Awake alert and oriented x 3. No complaints of chest pain or shortness of breath. Tolerating chemotherapy. Nausea vomiting abdominal pain or diarrhea. No cough or sputum production. Patient has been afebrile. Lab regular show WBC 4.1 hemoglobin 8.2 and platelets 379 sodium 141 potassium 3.7 chloride 109 bicarb is 22.4 BUN 22.4 and creatinine 0.4 and blood sugar 106. Calcium 8.1 alk phos 237. Oncology is on board. 06/22/2024 Patient is sitting in the chair. Awake alert and oriented x 3. No complaints of nausea or vomiting. Patient had intrathecal methotrexate today.. Patient has been afebrile. No chest pain or shortness of breath. Laboratory data showed WBC 3.5 hemoglobin 8.7 platelets 374 sodium 143 potassium 3.5 chloride 108 bicarb is 21.7 BUN 19.4 and creatinine 0.3 and blood sugar 123. Calcium 8.1. Alk phos 218 and total protein 5.8 and albumin 3.8. Oncology is following. 06/23 Patient seen and examined at bedside, she is status post intrathecal chemotherapy in 06/22 Today she is doing well she is asymptomatic with no chest pain dyspnea no other new complaint. Patient has good appetite. She feels pleasant and states she has already been discharged by hematology/oncology team Family at bedside. Patient states she has Eliquis at home. Objective - Vital Signs Vital signs: Vital Signs Temp 97.8 F 06/23/24 11:42 Pulse 72 06/23/24 11:42 Resp 16 06/23/24 11:42 BP 162/76 06/23/24 11:42 Pulse Ox 100 06/23/24 11:42 FiO2 Intake & Output 06/22/24 06/23/24 06/23/24 18:59 06:59 18:59 Intake Total 1164 1440 Balance 1164 1440 Weight 57 kg Intake: Intake, IV Titration 1164 1200 Amount Etoposide 80 mg 264 DOXOrubicin HCL 16 mg vinCRIStine SULFATE 0.6 mg In Sodium Chloride 0.9 % 500 ml 500 ml @ 21.358 mls/hr IV Q24H [facility] Rx#: [id number] Ondansetron 16 mg In 50 Sodium Chloride 0.9% 50 ml @ 232 mls/hr IVPB Q24H [facility] Rx#:[id number] Sodium Chloride 0.9% 1, 900 900 000 ml @ 75 mls/hr IV . [id number] [facility] Rx#:[id number] cycloPHOSphamide 1,000 mg 250 cycloPHOSphamide 200 mg In Sodium Chloride 0.9% 250 ml @ 512 mls/hr IV ONCE ONE Rx#:[id number] Oral 240 Other: Voiding Method Toilet Toilet Toilet # Voids 1 1 1 - Exam GENERAL: The patient is alert and oriented x3, not in any acute distress. Well developed, well nourished. HEENT: Pupils are round and equally reacting to light. EOMI. No scleral icterus. No conjunctival pallor. Normocephalic, atraumatic. No pharyngeal erythema. No thyromegaly. CARDIOVASCULAR: S1 and S2 present. No murmurs, rubs, or gallops. PULMONARY: Chest is clear to auscultation, no wheezing , no crackles. ABDOMEN: Soft, nontender, nondistended, normoactive bowel sounds. No palpable or ganomegaly. MUSCULOSKELETAL: No joint swelling or deformity. EXTREMITIES: No cyanosis, clubbing, or pedal edema. NEUROLOGICAL: Gross neurological examination did not reveal any focal deficits. SKIN: No rashes. no petechiae. - Labs CBC & Chem 7: 06/23/24 03:49 06/23/24 03:49 Labs: Abnormal Lab Results - Last 24 Hours (Table) 06/22/24 06/23/24 06/23/24 Range/Units 12:15 03:49 03:49 WBC 3.72 L (4.50-10.00) X 10*3/uL RBC 2.80 L (4.10-5.20) X 10*6/uL Hgb 8.3 L (12.0-15.0) g/dL Hct 26.0 L (37.2-46.3) % MCHC 31.9 L (32.0-37.0) g/dL RDW 16.0 H (11.5-14.5) % MPV 8.7 L (9.5-12.2) FL Lymphocytes # 0.22 L (0.90-5.00) X 10*3/uL Monocytes # 0.01 L (0.20-1.00) X 10*3/uL Eosinophils # 0 L (0.04-0.35) X 10*3/uL Chloride 110 H (96-109) mmol/L Creatinine 0.3 L (0.6-1.5) mg/dL BUN/Creatinine Ratio 66.00 H (12.00-20.00) Ratio Glucose 129 H (70-110) mg/dL Calcium 7.7 L (8.7-10.3) mg/dL Alkaline Phosphatase 193 H (41-126) U/L Total Protein 5.3 L (6.2-8.2) g/dL Albumin 3.5 L (3.8-4.9) g/dL CSF RBC 830 H (0-10) u/L Assessment and Plan Assessment: Diffuse large B-cell lymphoma. Patient was admitted to the hospital for second cycle of chemotherapy. Recently diagnosed acute left lower extremity DVT. On Eliquis at home. Hypertension Normocytic anemia Vitamin D deficiency Chronic pain Peripheral neuropathy nondiabetic GI prophylaxis Pepcid and patient is also on anticoagulation with Eliquis Plan: Patient clinically is doing well Patient is being discharged today. Patient states she has all her medication at home including Eliquis Patient medically stable and can be discharged from medical perspective however she needs close outpatient follow-up.
== END 2024-06-23 12:38 | disposition home or self-care (01) | DRG 847 ==
LOC: 5NMEDONC 12:34
PROVIDERS: ADMIT Internal Medicine; ATTEND Internal Medicine
PROC: 3E0R305 Introduction of Other Antineoplastic into Spinal Canal, Percutaneous Approach (ICD-10-PCS; principal; 2024-06-22 11:30)
DX: Z51.11 Encounter for antineoplastic chemotherapy (principal); C83.30 Diffuse large B-cell lymphoma, unspecified site; I82.402 Acute embolism and thrombosis of unspecified deep veins of left lower extremity; M84.48XA Pathological fracture, other site, initial encounter for fracture; K76.89 Other specified diseases of liver; I10 Essential (primary) hypertension; D64.9 Anemia, unspecified; E55.9 Vitamin D deficiency, unspecified; Z79.01 Long term (current) use of anticoagulants; G62.9 Polyneuropathy, unspecified; E83.52 Hypercalcemia; G89.29 Other chronic pain; Z79.899 Other long term (current) drug therapy; Z82.49 Family history of ischemic heart disease and other diseases of the circulatory system; Z86.718 Personal history of other venous thrombosis and embolism; Z87.891 Personal history of nicotine dependence
CPT/HCPCS: 62270; 80053; 82945; 83615; 84100; 84157; 84550; 85025; 88108; 89050

== ENCOUNTER → 2024-08-06 | Outpatient (CLI) | payer MEDICARE | END | disposition home or self-care (01) | LOC: RADPETMAIN 14:39 | PROVIDERS: ATTEND Internal Medicine | DX: Z53.9 Procedure and treatment not carried out, unspecified reason (principal) ==

== ENCOUNTER 2024-08-10 10:37 | Day surgery (SDC) | payer MEDICARE ==
[2024-08-09 12:38] VITALS: BMI 19.8
[~2024-08-10 10:37] MED LIST changes: +LACTATED RINGERS 1,000 ML IV SCH; -LIDOCAINE 1% (10MG/ML) FOR IV START INTRADERMA PRN; -Pre Op ABX Message 1 EACH MISC MISCELLANE ONE; -fentaNYL (PF) 50 MCG/ML 2 ML AMP IV PRN
[2024-08-10] MEDS: IV FLUID CONTINUATION 1,000 ML IV ONE ×2 (11:11→12:35)
[2024-08-10 11:25] VITALS: RESP 16; TEMP 98.5
[2024-08-10] MEDS ORDERED: METHOTREXATE SODIUM (PF) 25 MG/ML 2 ML VIAL INTRATHECA ONE (12:00)
[2024-08-10] MEDS ORDERED: fentaNYL (PF) 50 MCG/ML 2 ML AMP ONE (12:06)
[2024-08-10] MEDS ORDERED: MIDAZOLAM 2 MG/2 ML VIAL ONE (12:06)
--- NOTE | 2024-08-10 12:25 | P.PCN ---
Description of Procedure: Preprocedure diagnosis. Chemotherapy for malignancy. Postprocedure diagnosis. As above. Procedure done. Lumbar puncture and collection of cerebrospinal fluid and intrathecal injection of chemotherapeutic agent. Anesthesia. Local infiltration with anesthetics. Continuous pulse ox, EKG, blood pressure and verbal communication was maintained with the patient. Versed 2 mg and fentanyl 50 mcg IV push. Start time 1206 end time 1220 Blood loss. None. Indication. Discussed the procedure, alternatives, complications which may include infection, nerve damage, paralysis, aggravation of the symptoms especially bleeding in the spine and posterior dural puncture headache with the patient. The patient understands and questions were answered. Procedure note. After getting concentration in the procedure room in sitting position. Back prepped with chlorhexidine and draped in sterile fashion. After injecting 3 mL of 1% lidocaine subcutaneously, a 22-gauge spinal needle was introduced at L45 interspace. Positive CSF, negative blood, negative paresthesia. CSF color was clear. 4 mL CSF collected in sterile container. Chemotherapeutic agent was injected by oncology nurse. Spinal needle was taken out. Disposition. Patient tolerated the procedure well. No complication. Advised patient to lay flat one-hour postprocedure. The rest of the day today try to lay flat as much as possible. Next 3 days drink lots of fluid especially caffeinated beverages, and avoid constipation cough and doing strenuous physical work. Discharged home in stable condition.
[2024-08-10 13:13] VITALS: PULSE 93
[2024-08-10 13:27] VITALS: BP 105/63
--- NOTE | 2024-08-10 14:48 | P.PCN ---
Date of Procedure: 08/10/24 Preoperative Diagnosis: Dbl hit DLBCL Postoperative Diagnosis: Dbl hit DLBCL Procedure(s) Performed: LP with prophylactic intrathecal methotrexate administration Estimated Blood Loss (ml): 0 Pathology: other (CSF sent for cytology) Disposition: same day Description of Procedure: LP performed at bedside by Anesthesiologist, 4cc clear, CSF was removed. 12mg of preservative free methotrexate diluted to a volume of 2.4cc with preservative free NS was instilled over 2 minutes, follow by a flush of 1.6 cc of sterile NS in a latex free syringe over 1 min. Pt tolerated procedure overall well, no immediate complications, VSS throughout.
== END 2024-08-10 13:36 | disposition home or self-care (01) ==
LOC: ORPAIN 10:37
PROVIDERS: ATTEND Pain Medicine Interventional Pain Medicine
DX: C83.30 Diffuse large B-cell lymphoma, unspecified site (principal)
CPT/HCPCS: 88108; 62270; J2250; J3010

== ENCOUNTER 2024-08-11 11:02 | Inpatient (IN) | payer MEDICARE ==
[~2024-08-11 11:02] MED LIST changes: -LACTATED RINGERS 1,000 ML IV SCH; +ONDANSETRON 4 MG/2 ML VIAL IVP PRN
[2024-08-11] MEDS: SODIUM CHLORIDE 0.9% 1,000 ML IV SCH (12:42)
[2024-08-11 13:01] LABS: Basophils # (A) 0.05 10*3/uL (0.00-0.10); Basophils % (A) 0.4 %; Eosinophils # (A) 0.01 10*3/uL (0.04-0.35); Eosinophils % (A) 0.1 %; HCT 26.2 % (37.2-46.3); HGB 7.8 g/dL (12.0-15.0); Lymphocytes # (A) 0.38 10*3/uL (0.90-5.00); Lymphocytes % (A) 2.9 %; MCH 28.5 pg (27.0-32.0); MCHC 29.8 g/dL (32.0-37.0); MCV 95.6 fL (80.0-97.0); Mean Platelet Volume 8.7 fL (9.5-12.2); Monocytes # (A) 0.08 10*3/uL (0.20-1.00); Monocytes % (A) 0.6 %; Neutrophils # (A) 12.47 10*3/uL (1.80-7.70); Neutrophils % (A) 95.5 %; Platelet Count 679 10*3/uL (140-440); RBC 2.74 10*6/uL (4.10-5.20); RDW 17.3 % (11.5-14.5); WBC 13.05 10*3/uL (4.50-10.00)
[2024-08-11 13:14] LABS: ALT 11 U/L (4-34); AST 18 U/L (14-36); African American GFR (CKD) >90 (>60 ml/min/1.73 sqM); Albumin 3.7 g/dL (3.5-5.0); Albumin/Globulin Ratio 1.6; Alkaline Phosphatase 154 U/L (38-126); Anion Gap 11 mmol/L; Blood Urea Nitrogen 7 mg/dL (7-17); Calcium 9.1 mg/dL (8.4-10.2); Carbon Dioxide 22 mmol/L (22-30); Chloride 108 mmol/L (98-107); Globulin 2.3 g/dL; Glucose 153 mg/dL (74-99); Non-African American GFR(CKD) >90 (>60 ml/min/1.73 sqM); Potassium 3.9 mmol/L (3.5-5.1); Sodium 141 mmol/L (137-145); Total Bilirubin 0.4 mg/dL (0.2-1.3); Uric Acid 4.1 mg/dL (3.7-7.4)
[2024-08-11] MEDS: predniSONE 20 MG TAB PO SCH (15:13)
[2024-08-11] MEDS: predniSONE 50 MG TAB PO SCH (15:13)
[2024-08-11] MEDS: ONDANSETRON 16 MG in SODIUM CHLORIDE 0.9% 50 ML IVPB SCH (15:13)
[2024-08-11] MEDS: VINCRISTINE SULFATE IV SCH (15:50)
[2024-08-11] MEDS: [UNRECOGNIZED DRUG - OTHER] IV SCH (15:50)
[2024-08-11] MEDS: ETOPOSIDE IV SCH (15:50)
[2024-08-11] MEDS: DOXORUBICIN HCL IV SCH (15:50)
[2024-08-11] MEDS ORDERED: ONDANSETRON ODT 4 MG TAB PO PRN (16:08)
[2024-08-11] MEDS ORDERED: LACTULOSE 20 GM/30 ML CUP PO PRN (16:08)
[2024-08-11] MEDS ORDERED: PETROLATUM, WHITE OINT 50 GM TUBE TOPICAL PRN (16:10)
--- NOTE | 2024-08-11 16:49 | P.HPIM ---
History of Present Illness H&P Date: 08/11/24 Chief Complaint: CIVI chemotherapy for DLBCL, dbl hit Ms. Greene is a pleasant 68-year-old female pt of Dr. Willy Kwok, diagnosed with dbl hit lymphoma 04/2024. She initially presented to [facility] on 04/13/2024 with increased weakness, abdominal pain, constipation, and lethargy. Lab investigations were significant for Ca++ 17.1, WBC 10.1 (ANC 7.8), Hgb 12.6, platelets 290. CT CAP with contrast 04/13/2024 noted multiple lytic lesions in the axial skeleton along with multiple hypodense hepatic lesions suspicious for metastatic disease. Serum protein electrophoresis, immunofixation, and kappa to lambda light chain ratio were all normal. IgG and IgM were normal. Tumor markers including CA 19-9, CA 15-3, CA 27-29 were normal. CEA was mildly elevated at 5.5. She did receive Zometa 4 mg IV, calcitonin x 1, and IV fluids for hypercalcemia. 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 The original sample was noted to have limited malignant tissue and no further differentiation of the malignancy could be made. Brain MRI performed on 04/16/2024 due to confusion that noted innumerable enhancing calvarial and cervical vertebral body lesions along with vasogenic edema in the bilateral posterior parietal and occipital lobes with no abnormal enhancement possibly representing PRES. She was seen by Neurology and started on steroid, taper. PET/CT 04/30/2024 showed extensive FDG avid metastasis throughout the osseous structures and liver. Additional metastatic lymphadenopathy with FDG avid para-aortic left iliac chain, right obturator, right inguinal and right axillary left mammary and right supraclavicular lymph nodes. Pathological fracture of the L1 vertebral body and suspected pathological fracture of the T11 vertebral body. Patient underwent repeat liver biopsy at [facility] on 05/07. 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 High grade B-cell lymphoma FISH panel was neg for MYC neg, no dbl hit lymphoma but, pt is a triple expressor. She has completed 3 cycles of R-EPOCH and prophylactic intrathecal methotrexate X3. Had IT yesterday, mAb in ofc earlier today and is now admitted for cycle EPOCH. Pt has been tolerating treatment well. Today denies fevers, sweats, LAD, oral irritation, cough, chest discomfort, N,V, abd c/o, appetite is decent, no acute changes in bowel or bladder, rashes, bleeding or swelling. She is not in any pain. Review of Systems 14 point ROS is neg Past Medical History Past Medical History: Cancer, Deep Vein Thrombosis (DVT), Hypertension, Pneumonia Additional Past Medical History / Comment(s): Diffuse large B-cell lymphoma diagnosed 2024, T11-L1 compression fracture, chronic back pain, pneumonia, and DVT legs May 2024 - admitted 07/11/24 for 4th cycle of R-EPOCH- (Rituxan done at [facility] before pt. came here) History of Any Multi-Drug Resistant Organisms: None Reported Past Surgical History: No Surgical Hx Reported Additional Past Surgical History / Comment(s): Cataract surgery, PICC line placement, PICC Line removed, Infusaport placed 06/14/24, Lumbar Puncture, liver biopsies on 04/14/24 and 05/07/24 Past Anesthesia/Blood Transfusion Reactions: No Reported Reaction Past Psychological History: No Psychological Hx Reported Smoking Status: Former smoker Past Alcohol Use History: None Reported Additional Past Alcohol Use History / Comment(s): Quit smoking 15 yrs ago. Past Drug Use History: None Reported - Past Family History Father Family Medical History: Congestive Heart Failure (CHF), Diabetes Mellitus Mother Family Medical History: Congestive Heart Failure (CHF) Sister(s) Family Medical History: Congestive Heart Failure (CHF), COPD Brother(s) Family Medical History: Congestive Heart Failure (CHF) Occupational Seizure History - Commerical Driving History Currently uses [employer] for employment (including self-employed).: No Medications and Allergies Home Medications Medication Instructions Recorded Confirmed Type Gabapentin [Neurontin] 400 mg PO HS@199905/15/24 08/11/24 History OLANZapine [ZyPREXA] 2.5 mg PO HS #30 tab 05/25/24 08/11/24 Rx traMADol HCl [Ultram] 50 mg PO BID PRN 06/10/24 08/11/24 History Acetaminophen [Tylenol Extra 1,000 mg PO DAILY@1400 PRN 06/18/24 08/11/24 History Strength] Cholecalciferol (Vitamin D3) 50 mcg PO DAILY@0800 06/18/24 08/11/24 History [Vitamin D3 (50 Mcg = 2000 Iu)] Lactulose 20 gm PO DAILY PRN 06/18/24 08/11/24 History Ondansetron [Zofran] 4 - 8 mg PO Q4H PRN 06/18/24 08/11/24 History polyethylene glycoL 3350 [Miralax] 17 gm PO DAILY@1400 06/18/24 08/11/24 History Apixaban [Eliquis] 5 mg PO BID@08,199907/12/24 08/11/24 History Lidocaine-Prilocaine Cream [Emla 1 applic TOPICAL DAILY PRN 07/19/24 08/11/24 History Cream 2.5%/2.5%] amLODIPine [Norvasc] 5 mg PO DAILY@0808/09/24 08/11/24 History Acetaminophen Tab [Tylenol Tab] 1,000 mg PO DAILY@0808/11/24 08/11/24 History traMADol HCL 50 mg PO HS@199908/11/24 08/11/24 History Allergies Allergy/AdvReac Type Severity Reaction Status Date / Time hydromorphone [From Dilaudid] AdvReac Hallucinati Verified 08/11/24 15:32 ons Physical Exam Vitals: Vital Signs Temp Pulse Resp BP Pulse Ox 08/11/24 16:00 97.9 F 101 H 14 121/72 94 L 08/11/24 11:22 97.4 F L 98 18 146/78 94 L Intake and Output 08/11/24 08/11/24 08/11/24 06:59 14:59 22:59 Other: Weight 53.524 kg - Constitutional General appearance: average body habitus, cooperative, no acute distress - EENT Eyes: anicteric sclerae, EOMI ENT: hearing grossly normal, normal oropharynx - Neck Neck: no lymphadenopathy - Respiratory Respiratory: bilateral: CTA - Cardiovascular Rhythm: regular Heart sounds: normal: S1, S2 Abnormal Heart Sounds: no systolic murmur, no diastolic murmur, no rub, no S3 Gallop, no S4 Gallop, no click, no other leg Peripheral Edema: bilateral: None - Gastrointestinal General gastrointestinal: no absent bowel sounds, no decreased bowel sounds, no distended, no hepatomegaly, no hyperactive bowel sounds, normal bowel sounds, no organomegaly, no rigid, no scaphoid, soft, no splenomegaly, no tenderness, no umbilical hernia, no ventral hernia - Integumentary Integumentary: normal - Neurologic Neurologic: CNII-XII intact - Musculoskeletal Musculoskeletal: strength equal bilaterally - Psychiatric Psychiatric: A&O x's 3, appropriate affect, intact judgment & insight Results CBC & Chem 7: 08/11/24 12:45 08/11/24 12:45 Labs: Abnormal Lab Results - Last 24 Hours (Table) 08/11/24 08/11/24 Range/Units 12:45 12:45 WBC 13.05 H (4.50-10.00) 10*3/uL RBC 2.74 L (4.10-5.20) 10*6/uL Hgb 7.8 L (12.0-15.0) g/dL Hct 26.2 L (37.2-46.3) % MCHC 29.8 L (32.0-37.0) g/dL RDW 17.3 H (11.5-14.5) % Plt Count 679 H (140-440) 10*3/uL MPV 8.7 L (9.5-12.2) fL Immature Gran # 0.06 H (0.00-0.04) 10*3/uL Neutrophils # 12.47 H (1.80-7.70) 10*3/uL Lymphocytes # 0.38 L (0.90-5.00) 10*3/uL Monocytes # 0.08 L (0.20-1.00) 10*3/uL Eosinophils # 0.01 L (0.04-0.35) 10*3/uL Chloride 108 H (98-107) mmol/L Creatinine 0.45 L (0.52-1.04) mg/dL Glucose 153 H (74-99) mg/dL Alkaline Phosphatase 154 H (38-126) U/L Total Protein 6.0 L (6.3-8.2) g/dL Thrombosis Risk Factor Assmnt - DVT/VTE Prophylaxis DVT/VTE Prophylaxis: Pharmacologic Prophylaxis ordered - Choose All That Apply Each Risk Factor Represents 2 Points: Age 61-74 years, Malignancy Each Risk Factor Represents 3 Points: History of DVT/PE Thrombosis Risk Factor Assessment Total Risk Factor Score: 7 Thrombosis Risk Factor Assessment Level: High Risk Assessment and Plan (1) Diffuse large B-cell lymphoma of extranodal site Current Visit: Yes Status: Chronic Priority: Medium Code(s): C83.398 - DIFFUSE LARGE B-CELL LYMPH OF EXTRNOD AND SOLID ORGAN SITES SNOMED Code(s): 780627255 Plan: Diffuse large B-cell lymphoma, triple expresser - Chemo orders reviewed prior to admission - Admit for cycle 4 of EPOCH. Patient received monoclonal antibody and intrathecal methotrexate prior to admit. -Home medications reconciled - DVT and GI prophylaxis -Regular diet, early and frequent ambulation, liberal fluids - Supportive care medications ordered - Labs daily -Patient will be receiving continuous IV chemotherapy for approximately 5 days. Will be scheduled for G-CSF day after she completes treatment
[2024-08-11] MEDS: PANTOPRAZOLE 40 MG TABLET PO SCH (18:00)
[2024-08-11] MEDS: SALT AND SODA MOUTHWASH 1,000 ML PO SCH (20:57)
[2024-08-11] MEDS: APIXABAN 5 MG TAB PO SCH (20:58)
[2024-08-11] MEDS: GABAPENTIN 400 MG CAP PO SCH (20:58)
[2024-08-11] MEDS: OLANZapine 2.5 MG TAB PO SCH (20:58)
[2024-08-11] MEDS: traMADol 50 MG TAB PO SCH (20:58)
[2024-08-11] MEDS: polyethylene glycoL 3350 17 GM POWD.PACK PO SCH (21:13)
--- NOTE | 2024-08-12 00:45 | CONS ---
CONSULTATION REASON FOR CONSULTATION: Regarding hypertension, other medical issues explored by Oncology. HISTORY OF PRESENT ILLNESS: This is a 68-year-old woman with a past medical history of multiple medical problems including history of DVT, hypertension, pneumonia, is admitted for chemotherapy for diffuse large B-cell lymphoma. The patient is apparently taking Ensure Clear for nutrition supplements. There is no history of fever, rigors or chills at this time. PAST MEDICAL HISTORY: Reviewed, included DVT, hypertension, pneumonia. Rest of history and rest of the chart is also reviewed. HOME MEDICATIONS: Reviewed include Ultram. Doses and rest of medications reviewed. ALLERGIES: Dilaudid. FAMILY HISTORY: History of diabetes and CHF in the family. SOCIAL HISTORY: Quit smoking 15 years ago. REVIEW OF SYSTEMS: 14-point review of systems negative except as mentioned earlier. PHYSICAL EXAMINATION: VITAL SIGNS: Pulse is 101, blood pressure 121/70, respirations 14. HEENT: Conjunctivae pale. NECK: No jugular venous distention. CARDIOVASCULAR: S1, S2. ABDOMEN: Soft. NERVOUS SYSTEM: Mild diffuse weakness. LABORATORY DATA: WBC 13.0, hemoglobin 7.8. ASSESSMENT: 1. Diffuse large B-cell lymphoma for chemotherapy. 2. Anemia. 3. History of deep venous thrombosis. 4. Hypertension. 5. History of pneumonia. 6. History of back pain and T11 to L1 compression fracture. 7. History of multiple complex medical issues. RECOMMENDATIONS: This 68-year-old woman presented with multiple complex medical issues. We will monitor the patient closely. Continue with the current medications. Resume the home medications. Monitor blood pressure closely. Otherwise, recommend nutrition supplement. We will follow the patient closely with you. MMODL / IJN: [id number] /
[2024-08-12 08:19] LABS: BUN/Creat Ratio 24.75 Ratio (12.00-20.00); Blood Urea Nitrogen 9.9 mg/dL (9.0-27.0); Carbon Dioxide 22.1 mmol/L (21.6-31.8); Chloride 111 mmol/L (96-109); Glucose 149 mg/dL (70-110); Sodium 144 mmol/L (135-145); Uric Acid 2.8 mg/dL (2.9-7.7)
[2024-08-12 08:20] LABS: ALT 12 U/L (8-44); AST 17 U/L (13-35); Albumin 3.9 g/dL (3.8-4.9); Albumin/Globulin Ratio 1.95 Ratio (1.60-3.17); Alkaline Phosphatase 147 U/L (41-126); Calcium 8.8 mg/dL (8.7-10.3); HCT 25.8 % (37.2-46.3); HGB 7.5 g/dL (12.0-15.0); MCH 28.1 pg (27.0-32.0); MCHC 29.1 g/dL (32.0-37.0); MCV 96.6 FL (80.0-97.0); Mean Platelet Volume 8.8 FL (9.5-12.2); NRBC Per 100 WBC 0 X 10*3/uL (0.00-0.01); Platelet Count 747 X 10*3/uL (140-440); RBC 2.67 X 10*6/uL (4.10-5.20); RDW 17.3 % (11.5-14.5); Total Bilirubin <0.2 mg/dL (0.3-1.2); Total Protein 5.9 g/dL (6.2-8.2); WBC 10.31 X 10*3/uL (4.50-10.00)
[2024-08-12 08:21] LABS: Basophils # (A) 0.01 X 10*3/uL (0.00-0.10); Basophils % (A) 0.1 %; Eosinophils # (A) 0 X 10*3/uL (0.04-0.35); Eosinophils % (A) 0 %; Lymphocytes # (A) 0.35 X 10*3/uL (0.90-5.00); Lymphocytes % (A) 3.4 %; Monocytes # (A) 0.08 X 10*3/uL (0.20-1.00); Monocytes % (A) 0.8 %; Neutrophils # (A) 9.73 X 10*3/uL (1.80-7.70); Neutrophils % (A) 94.3 %
[2024-08-12] MEDS: amLODIPine 5 MG TAB PO SCH (08:50)
[2024-08-12] MEDS: CHOLECALCIFEROL 25 MCG (1000 IU) TABLET PO SCH (08:50)
[2024-08-12] MEDS: ACETAMINOPHEN TAB 500 MG TAB PO SCH (08:54)
[2024-08-12] MEDS ORDERED: ACETAMINOPHEN TAB 500 MG TAB PO PRN (14:00)
--- NOTE | 2024-08-12 15:05 | P.PN ---
Subjective Progress Note Date: 08/12/24 Principal diagnosis: CIVI DLBCL In f/u today pt denies F,N,V, oral irritation, cough, SOB, she is ambulating frequently, no abd pain or bloating, she is constipated, no BM for 3 days. Denies any pain, swelling, bleeding. Feels well in general, tolerating oral intake Objective - Vital Signs Vital signs: Vital Signs Temp 98.3 F 08/12/24 12:00 Pulse 99 08/12/24 12:00 Resp 18 08/12/24 12:00 BP 119/71 08/12/24 12:00 Pulse Ox 95 08/12/24 12:00 FiO2 Intake & Output 08/11/24 08/12/24 08/12/24 18:59 06:59 18:59 Weight 53.524 kg Other: # Voids 1 1 - Constitutional General appearance: Present: average body habitus, cooperative, no acute distress - EENT Eyes: Present: anicteric sclerae, EOMI ENT: Present: hearing grossly normal, normal oropharynx - Respiratory Respiratory: bilateral: CTA - Cardiovascular Rhythm: regular Heart sounds: normal: S1, S2 Abnormal Heart Sounds: Absent: systolic murmur, diastolic murmur, rub, S3 Gallop, S4 Gallop, click, other - Peripheral edema leg Peripheral Edema: bilateral: None - Gastrointestinal General gastrointestinal: Present: normal bowel sounds, soft. Absent: absent bowel sounds, decreased bowel sounds, distended, hepatomegaly, hyperactive bowel sounds, organomegaly, rigid, scaphoid, splenomegaly, tenderness, umbilical hernia, ventral hernia - Integumentary Integumentary: Present: normal - Neurologic Neurologic: Present: CNII-XII intact - Musculoskeletal Musculoskeletal: Present: strength equal bilaterally - Psychiatric Psychiatric: Present: A&O x's 3, appropriate affect, intact judgment & insight - Labs CBC & Chem 7: 08/12/24 04:18 08/12/24 04:18 Labs: Abnormal Lab Results - Last 24 Hours (Table) 08/12/24 08/12/24 Range/Units 04:18 04:18 WBC 10.31 H (4.50-10.00) X 10*3/uL RBC 2.67 L (4.10-5.20) X 10*6/uL Hgb 7.5 L (12.0-15.0) g/dL Hct 25.8 L (37.2-46.3) % MCHC 29.1 L (32.0-37.0) g/dL RDW 17.3 H (11.5-14.5) % Plt Count 747 H (140-440) X 10*3/uL MPV 8.8 L (9.5-12.2) FL Immature Gran # 0.14 H (0.00-0.04) X 10*3/uL Neutrophils # 9.73 H (1.80-7.70) X 10*3/uL Lymphocytes # 0.35 L (0.90-5.00) X 10*3/uL Monocytes # 0.08 L (0.20-1.00) X 10*3/uL Eosinophils # 0 L (0.04-0.35) X 10*3/uL Chloride 111 H (96-109) mmol/L Creatinine 0.4 L (0.6-1.5) mg/dL BUN/Creatinine Ratio 24.75 H (12.00-20.00) Ratio Glucose 149 H (70-110) mg/dL Uric Acid 2.8 L (2.9-7.7) mg/dL Total Bilirubin <0.2 L (0.3-1.2) mg/dL Alkaline Phosphatase 147 H (41-126) U/L Total Protein 5.9 L (6.2-8.2) g/dL Assessment and Plan (1) Diffuse large B-cell lymphoma of extranodal site Current Visit: Yes Status: Chronic Priority: Medium Code(s): C83.398 - DIFFUSE LARGE B-CELL LYMPH OF EXTRNOD AND SOLID ORGAN SITES SNOMED Code(s): 796897425 Plan: Diffuse large B-cell lymphoma, triple expresser - Chemo orders reviewed prior to admission, cont as prescribed - Admit for cycle 4 of EPOCH. Patient received monoclonal antibody and intrathecal methotrexate prior to admit. -Home medications reconciled - Pt is on eliquis, GI prophylaxis -Regular diet, early and frequent ambulation, liberal fluids - Supportive care medications ordered - Labs daily -Patient will be receiving continuous IV chemotherapy for approximately 5 days. Will be scheduled for G-CSF day after she completes treatment Doctor attests: I performed a history and physical examination of this patient, developed impression and plan of care. Discussed with dictator. I agree with dictators note, documented as a scribe.
[2024-08-12] MEDS: FAMOTIDINE 20 MG/2 ML VIAL IV SCH (16:27)
[2024-08-12] MEDS: polyethylene glycoL 3350 17 GM POWD.PACK PO STA (17:28)
--- NOTE | 2024-08-12 17:44 | PN ---
PROGRESS NOTE DATE OF SERVICE: 08/12/2024 SUBJECTIVE: This is a 68-year-old woman who was admitted with diffuse large B-cell lymphoma for chemotherapy, is improving significantly. No chest pain. No palpitation. PHYSICAL EXAMINATION: VITAL SIGNS: Pulse 99, blood pressure 119/70, and respirations 18. CHEST: Clear to auscultation. CARDIOVASCULAR: S1, S2. ABDOMEN: Soft. NERVOUS SYSTEM: Nonfocal. LABORATORY DATA: Hemoglobin 7.5. The rest of the labs are noted. ASSESSMENT: 1. Diffuse large B-cell lymphoma for chemotherapy. 2. Anemia. 3. History of deep venous thrombosis. 4. Hypertension. 5. History of pneumonia. 6. History of back pain with T11-L1 compression fracture. 7. Multiple complex medical issues. RECOMMENDATIONS AND DISCUSSION: Recommend to continue current management and continue symptomatic treatment. Otherwise continue with the chemotherapy per Hematology/Oncology. Repeat labs. Closely follow. Further recommendations to follow. MMODL / IJN: [id number] /
[2024-08-13 08:38] LABS: ALT 16 U/L (8-44); AST 23 U/L (13-35); Albumin 3.8 g/dL (3.8-4.9); Albumin/Globulin Ratio 2.11 Ratio (1.60-3.17); Alkaline Phosphatase 123 U/L (41-126); Blood Urea Nitrogen 14.2 mg/dL (9.0-27.0); Calcium 8.3 mg/dL (8.7-10.3); Carbon Dioxide 22.4 mmol/L (21.6-31.8); Chloride 112 mmol/L (96-109); Globulin 1.8 g/dL (1.6-3.3); Glucose 141 mg/dL (70-110); Potassium 3.1 mmol/L (3.5-5.5); Sodium 146 mmol/L (135-145); Total Bilirubin <0.2 mg/dL (0.3-1.2); Total Protein 5.6 g/dL (6.2-8.2); Uric Acid 2.1 mg/dL (2.9-7.7)
[2024-08-13 08:46] LABS: HCT 24.1 % (37.2-46.3); MCH 27.9 pg (27.0-32.0); Mean Platelet Volume 8.7 FL (9.5-12.2); NRBC Per 100 WBC 0 X 10*3/uL (0.00-0.01); Platelet Count 707 X 10*3/uL (140-440); RBC 2.51 X 10*6/uL (4.10-5.20); RDW 17.1 % (11.5-14.5); WBC 10.17 X 10*3/uL (4.50-10.00)
[2024-08-13 10:44] LABS: Basophils # (A) 0 X 10*3/uL (0.00-0.10); Basophils % (A) 0 %; Eosinophils # (A) 0 X 10*3/uL (0.04-0.35); Eosinophils % (A) 0 %; Hypochromasia (M) 2+ (None Seen); Monocytes # (A) 0.06 X 10*3/uL (0.20-1.00); Monocytes % (A) 0.6 %; Neutrophils # (A) 9.85 X 10*3/uL (1.80-7.70); Neutrophils % (A) 96.8 %
--- NOTE | 2024-08-13 18:11 | P.PN ---
Subjective Progress Note Date: 08/13/24 No acute events overnight Reporting feeling fatigue, otherwise no acute complainsts. Denies n/v, toleratin g oral intake. Hgb 7.0 Objective - Vital Signs Vital signs: Vital Signs Temp 97.6 F 08/13/24 12:40 Pulse 88 08/13/24 12:40 Resp 16 08/13/24 12:40 BP 146/75 08/13/24 12:40 Pulse Ox 95 08/13/24 12:40 FiO2 Intake & Output 08/12/24 08/13/24 08/13/24 18:59 06:59 18:59 Intake Total 250 Balance 250 Intake: Oral 250 Other: Voiding Method Toilet Toilet # Voids 1 1 1 - Constitutional General appearance: Present: average body habitus, no acute distress - EENT Eyes: Present: anicteric sclerae, EOMI ENT: Present: hearing grossly normal - Respiratory Details: breathing is even and unlabored - Cardiovascular Details: skin warm and dry - Gastrointestinal General gastrointestinal: Present: soft. Absent: tenderness - Integumentary Integumentary: Absent: cyanotic, jaundiced - Psychiatric Psychiatric: Present: A&O x's 3 - Labs CBC & Chem 7: 08/13/24 05:08 08/13/24 05:08 Labs: Abnormal Lab Results - Last 24 Hours (Table) 08/13/24 08/13/24 Range/Units 05:08 05:08 WBC 10.17 H (4.50-10.00) X 10*3/uL RBC 2.51 L (4.10-5.20) X 10*6/uL Hgb 7.0 L (12.0-15.0) g/dL Hct 24.1 L (37.2-46.3) % MCHC 29.0 L (32.0-37.0) g/dL RDW 17.1 H (11.5-14.5) % Plt Count 707 H (140-440) X 10*3/uL MPV 8.7 L (9.5-12.2) FL Immature Gran # 0.06 H (0.00-0.04) X 10*3/uL Neutrophils # 9.85 H (1.80-7.70) X 10*3/uL Lymphocytes # 0.20 L (0.90-5.00) X 10*3/uL Monocytes # 0.06 L (0.20-1.00) X 10*3/uL Eosinophils # 0 L (0.04-0.35) X 10*3/uL Hypochromasia (manual) 2+ A (None Seen) Sodium 146 H (135-145) mmol/L Potassium 3.1 L (3.5-5.5) mmol/L Chloride 112 H (96-109) mmol/L Creatinine 0.4 L (0.6-1.5) mg/dL BUN/Creatinine Ratio 35.50 H (12.00-20.00) Ratio Glucose 141 H (70-110) mg/dL Uric Acid 2.1 L (2.9-7.7) mg/dL Calcium 8.3 L (8.7-10.3) mg/dL Total Bilirubin <0.2 L (0.3-1.2) mg/dL Total Protein 5.6 L (6.2-8.2) g/dL Assessment and Plan (1) Diffuse large B-cell lymphoma of extranodal site Current Visit: Yes Status: Chronic Priority: High Code(s): C83.398 - DIFFUSE LARGE B-CELL LYMPH OF EXTRNOD AND SOLID ORGAN SITES SNOMED Code(s): 536532230 (2) Antineoplastic chemotherapy induced anemia Current Visit: Yes Status: Acute Code(s): D64.81 - ANEMIA DUE TO ANTINEOPLASTIC CHEMOTHERAPY; T45.1X5A - ADVERSE EFFECT OF ANTINEOPLASTIC AND IMMUNOSUP DRUGS, INIT SNOMED Code(s): 453992194056162 Plan: Diffuse large B-cell lymphoma, triple expresser - Chemo orders reviewed prior to admission, cont as prescribed - Admit for cycle 4 of EPOCH. Patient received monoclonal antibody and intrathecal methotrexate prior to admit. - Home medications reconciled - Pt is on eliquis, GI prophylaxis - Regular diet, early and frequent ambulation, liberal fluids - Supportive care medications ordered - Labs daily -Patient will be receiving continuous IV chemotherapy for approximately 5 days. Will be scheduled for G-CSF day after she completes treatment
--- NOTE | 2024-08-14 06:26 | P.PN ---
Subjective Progress Note Date: 08/13/24 This is a pleasant 68-year-old female who was admitted under oncology is undergoing chemotherapy for diffuse large B-cell lymphoma and is currently on day 3 of 5. Patient reports she is passing gas and having bowel movements and reports she has been having ongoing issues with constipation. Patient is continued on a bowel regimen including lactulose and stool softeners and will continue and adjust as needed. Hemoglobin is 7.0 today with no active bleeding noted and will monitor. Transfuse per oncology is 7 or less. Sodium is elevated at 146 today and receiving normal saline, recommend to reduce the dose and follow-up on repeat. Potassium is 3.1 today and being replaced per protocol. Patient is maintained on oral steroid dosing per oncology with no history of diabetes and if becoming more elevated, would recommend adding sliding scale as needed. Patient is afebrile with no reported chest pain or shortness of breath. Patient reports tolerating diet with occasional nausea but no vomiting and is having bowel movements. Review of systems: Constitutional: No reports of fatigue, fever, or chills Cardiovascular: No reports of chest pain or palpitations Respiratory: No reports of shortness of breath or cough GI: No reports of nausea, vomiting, or diarrhea, reports passing gas and having bowel movements at this time : No reports of dysuria or retention Neurovascular: reports of generalized weakness All medications have been reviewed Physical exam: Gen: This is a pleasant 68-year-old female who is awake, alert and oriented x 3, thin built, elderly appearing, pale HEENT: Head is atraumatic, normocephalic. Pupils equal, round. Sclerae is anicteric. NECK: Supple. No JVD. No lymphadenopathy. No thyromegaly. LUNGS: Diminished breath sounds bilaterally otherwise clear to auscultation. No wheezes or rhonchi. No intercostal retractions. HEART: S1, S2 are muffled ABDOMEN: Soft. Thin. Bowel sounds are present. No masses. No tenderness. EXTREMITIES: No pedal edema. No calf tenderness. NEUROLOGICAL: Patient is awake, alert and oriented x3. Cranial nerves 2 through 12 are grossly intact. Diffusely weak Assessment: Diffuse large B-cell lymphoma, currently undergoing chemotherapy inpatient History of DVT Hypertension Elevated blood glucose, hyperglycemia likely secondary to steroid effect as patient reports no history of diabetes History of back pain with T11-L1 compression fractures Antineoplastic chemotherapy induced anemia, hemoglobin is 7.0 Former smoker Moderate calorie protein malnutrition with a BMI of 20.9 GI prophylaxis DVT prophylaxis Full code Plan: Patient is admitted under oncology undergoing chemotherapy for large B-cell lymphoma Hemoglobin is 7.0 with no active bleeding noted count is and platelets are elevated at 707 and recommend monitoring closely with follow-up labs Patient is receiving normal saline recommend to decrease the rate and follow-up on repeat labs his sodium is 146 today. Potassium 3.1 and will be replaced per protocol Patient with hyperglycemia although no history of diabetes, may need closer monitoring as patient is on steroids during treatment. May add sliding scale as needed Recommend continued bowel regimen scheduled as well as as needed Encouraged to increase activity as tolerated We will continue to follow with oncology during hospitalization. Thank you kindly for this consultation The impression and plan of care has been dictated by Nikki Mata, Nurse Practitioner as directed. Dr. Bibi MD I have performed a history and examination and MDM of this patient, discussed the same with the dictator, and agree with the dictator's assessment and plan as written ,documented as a scribe. Based on total visit time, I have performed more than 50% of the visit. Objective - Vital Signs Vital signs: Vital Signs Temp 97.9 F 08/14/24 03:48 Pulse 93 08/14/24 03:48 Resp 16 08/14/24 03:48 BP 182/73 08/14/24 03:48 Pulse Ox 96 08/14/24 03:48 FiO2 Intake & Output 08/13/24 08/13/24 08/14/24 06:59 18:59 06:59 Intake Total 250 1080 Balance 250 1080 Intake: Oral 250 1080 Other: Voiding Method Toilet Toilet Toilet # Voids 1 0 1 - Labs CBC & Chem 7: 08/13/24 05:08 08/13/24 05:08 Labs: Abnormal Lab Results - Last 24 Hours (Table) 08/13/24 08/13/24 Range/Units 05:08 05:08 WBC 10.17 H (4.50-10.00) X 10*3/uL RBC 2.51 L (4.10-5.20) X 10*6/uL Hgb 7.0 L (12.0-15.0) g/dL Hct 24.1 L (37.2-46.3) % MCHC 29.0 L (32.0-37.0) g/dL RDW 17.1 H (11.5-14.5) % Plt Count 707 H (140-440) X 10*3/uL MPV 8.7 L (9.5-12.2) FL Immature Gran # 0.06 H (0.00-0.04) X 10*3/uL Neutrophils # 9.85 H (1.80-7.70) X 10*3/uL Lymphocytes # 0.20 L (0.90-5.00) X 10*3/uL Monocytes # 0.06 L (0.20-1.00) X 10*3/uL Eosinophils # 0 L (0.04-0.35) X 10*3/uL Hypochromasia (manual) 2+ A (None Seen) Sodium 146 H (135-145) mmol/L Potassium 3.1 L (3.5-5.5) mmol/L Chloride 112 H (96-109) mmol/L Creatinine 0.4 L (0.6-1.5) mg/dL BUN/Creatinine Ratio 35.50 H (12.00-20.00) Ratio Glucose 141 H (70-110) mg/dL Uric Acid 2.1 L (2.9-7.7) mg/dL Calcium 8.3 L (8.7-10.3) mg/dL Total Bilirubin <0.2 L (0.3-1.2) mg/dL Total Protein 5.6 L (6.2-8.2) g/dL
[2024-08-14 07:30] LABS: HCT 24.9 % (37.2-46.3); HGB 7.5 g/dL (12.0-15.0); Lymphocytes # (A) 0.19 10*3/uL (0.90-5.00); Lymphocytes % (A) 3.4 %; MCH 27.9 pg (27.0-32.0); MCHC 30.1 g/dL (32.0-37.0); MCV 92.6 fL (80.0-97.0); Mean Platelet Volume 8.5 fL (9.5-12.2); Monocytes # (A) 0.01 10*3/uL (0.20-1.00); Monocytes % (A) 0.2 %; Neutrophils # (A) 5.35 10*3/uL (1.80-7.70); Neutrophils % (A) 95.5 %; Platelet Count 659 10*3/uL (140-440); RBC 2.69 10*6/uL (4.10-5.20); RDW 16.3 % (11.5-14.5)
[2024-08-14 07:58] LABS: ALT 24 U/L (4-34); AST 27 U/L (14-36); African American GFR (CKD) >90 (>60 ml/min/1.73 sqM); Albumin 3.5 g/dL (3.5-5.0); Albumin/Globulin Ratio 1.5; Alkaline Phosphatase 98 U/L (38-126); Anion Gap 9 mmol/L; Blood Urea Nitrogen 16 mg/dL (7-17); Calcium 8.2 mg/dL (8.4-10.2); Carbon Dioxide 25 mmol/L (22-30); Chloride 110 mmol/L (98-107); Globulin 2.3 g/dL; Glucose 116 mg/dL (74-99); Magnesium 1.7 mg/dL (1.6-2.3); Non-African American GFR(CKD) >90 (>60 ml/min/1.73 sqM); Sodium 144 mmol/L (137-145); Total Bilirubin 0.2 mg/dL (0.2-1.3); Total Protein 5.8 g/dL (6.3-8.2); Uric Acid 2.2 mg/dL (3.7-7.4)
[2024-08-14 08:16] LABS: Glucose,Whole Blood 115 mg/dL (70-110)
[2024-08-14] MEDS: traMADol 50 MG TAB PO PRN (09:09)
[2024-08-14] MEDS ORDERED: DEXTROSE 50% SYRINGE 50 ML IVP PRN ×2 (11:05)
[2024-08-14 12:11] LABS: Glucose,Whole Blood 178 mg/dL (70-110)
[2024-08-14] MEDS: INSULIN LISPRO (HumaLOG) 100 UNIT/ML 10 mL VL SQ SCH (12:42)
[2024-08-14] MEDS: POTASSIUM CHLORIDE ER 20 MEQ TAB.ER PO SCH (12:49)
[2024-08-14 16:23] LABS: Glucose,Whole Blood 135 mg/dL (70-110)
--- NOTE | 2024-08-14 17:56 | P.PN ---
Subjective Progress Note Date: 08/14/24 This is a pleasant 68-year-old female who was admitted under oncology is undergoing chemotherapy for diffuse large B-cell lymphoma and is currently on day 3 of 5. Patient reports she is passing gas and having bowel movements and reports she has been having ongoing issues with constipation. Patient is con tinued on a bowel regimen including lactulose and stool softeners and will continue and adjust as needed. Hemoglobin is 7.0 today with no active bleeding noted and will monitor. Transfuse per oncology is 7 or less. Sodium is elevated at 146 today and receiving normal saline, recommend to reduce the dose and follow-up on repeat. Potassium is 3.1 today and being replaced per protocol. Patient is maintained on oral steroid dosing per oncology with no history of diabetes and if becoming more elevated, would recommend adding sliding scale as needed. Patient is afebrile with no reported chest pain or shortness of breath. Patient reports tolerating diet with occasional nausea but no vomiting and is having bowel movements. 08/14/2024 Patient evaluated today on the medical floor. Patient is receiving course of IV chemotherapy. Tolerating well. Bowels have been moving, tolerating diet. Hem oglobin today was 7.5. Sodium 144, potassium 3.0. Blood glucose has been mildly elevated. Discussed with patient and daughter this is likely because of the prednisone but we will monitor blood glucose and check a hemoglobin A1C. Review of systems: Constitutional: No reports of fatigue, fever, or chills Cardiovascular: No reports of chest pain or palpitations Respiratory: No reports of shortness of breath or cough GI: No reports of nausea, vomiting, or diarrhea, reports passing gas and having bowel movements at this time : No reports of dysuria or retention Neurovascular: reports of generalized weakness All medications have been reviewed Physical exam: Gen: This is a pleasant 68-year-old female who is awake, alert and oriented x 3, thin built, elderly appearing, pale HEENT: Head is atraumatic, normocephalic. Pupils equal, round. Sclerae is anicteric. NECK: Supple. No JVD. No lymphadenopathy. No thyromegaly. LUNGS: Diminished breath sounds bilaterally otherwise clear to auscultation. No wheezes or rhonchi. No intercostal retractions. HEART: S1, S2 are muffled ABDOMEN: Soft. Thin. Bowel sounds are present. No masses. No tenderness. EXTREMITIES: No pedal edema. No calf tenderness. NEUROLOGICAL: Patient is awake, alert and oriented x3. Cranial nerves 2 through 12 are grossly intact. Diffusely weak Assessment: Diffuse large B-cell lymphoma, currently undergoing chemotherapy inpatient History of DVT Hypertension Elevated blood glucose, hyperglycemia likely secondary to steroid effect as patient reports no history of diabetes History of back pain with T11-L1 compression fractures Antineoplastic chemotherapy induced anemia, hemoglobin is 7.0 Former smoker Moderate calorie protein malnutrition with a BMI of 20.9 GI prophylaxis DVT prophylaxis Full code Plan: Patient is admitted under oncology undergoing chemotherapy for large B-cell lymphoma Hemoglobin is 7.5 with no active bleeding noted count is and platelets are elevated at 659 and recommend monitoring closely with follow-up labs Patient is receiving normal saline at 50 mls/hr. Sodium in normal range today. Potassium 3.0 and will be replaced per protocol Patient with hyperglycemia although no history of diabetes, may need closer monitoring as patient is on steroids during treatment. May add sliding scale as needed Recommend continued bowel regimen scheduled as well as as needed Encouraged to increase activity as tolerated We will continue to follow with oncology during hospitalization. Thank you kindly for this consultation The impression and plan of care has been dictated by Natalia Ramos, Nurse Practitioner as directed. Dr. Bibi MD I have performed a history and examination and MDM of this patient, discussed the same with the dictator, and agree with the dictator's assessment and plan as written ,documented as a scribe. Based on total visit time, I have performed more than 50% of the visit. Objective - Vital Signs Vital signs: Vital Signs Temp 97.4 F L 08/14/24 16:00 Pulse 83 08/14/24 16:00 Resp 20 08/14/24 16:00 BP 131/70 08/14/24 16:00 Pulse Ox 98 08/14/24 16:00 FiO2 Intake & Output 08/13/24 08/14/24 08/14/24 18:59 06:59 18:59 Intake Total 1080 Balance 1080 Intake: Oral 1080 Other: Voiding Method Toilet Toilet Toilet # Voids 0 1 - Labs CBC & Chem 7: 08/14/24 06:32 08/14/24 06:32 Labs: Abnormal Lab Results - Last 24 Hours (Table) 08/14/24 08/14/24 08/14/24 Range/Units 06:32 06:32 08:13 RBC 2.69 L (4.10-5.20) 10*6/uL Hgb 7.5 L (12.0-15.0) g/dL Hct 24.9 L (37.2-46.3) % MCHC 30.1 L (32.0-37.0) g/dL RDW 16.3 H (11.5-14.5) % Plt Count 659 H (140-440) 10*3/uL MPV 8.5 L (9.5-12.2) fL Immature Gran # 0.05 H (0.00-0.04) 10*3/uL Lymphocytes # 0.19 L (0.90-5.00) 10*3/uL Monocytes # 0.01 L (0.20-1.00) 10*3/uL Eosinophils # 0.00 L (0.04-0.35) 10*3/uL Potassium 3.0 L (3.5-5.1) mmol/L Chloride 110 H (98-107) mmol/L Creatinine 0.42 L (0.52-1.04) mg/dL Glucose 116 H (74-99) mg/dL POC Glucose (mg/dL) 115 H (70-110) mg/dL Uric Acid 2.2 L (3.7-7.4) mg/dL Calcium 8.2 L (8.4-10.2) mg/dL Total Protein 5.8 L (6.3-8.2) g/dL 08/14/24 08/14/24 Range/Units 12:10 16:21 RBC (4.10-5.20) 10*6/uL Hgb (12.0-15.0) g/dL Hct (37.2-46.3) % MCHC (32.0-37.0) g/dL RDW (11.5-14.5) % Plt Count (140-440) 10*3/uL MPV (9.5-12.2) fL Immature Gran # (0.00-0.04) 10*3/uL Lymphocytes # (0.90-5.00) 10*3/uL Monocytes # (0.20-1.00) 10*3/uL Eosinophils # (0.04-0.35) 10*3/uL Potassium (3.5-5.1) mmol/L Chloride (98-107) mmol/L Creatinine (0.52-1.04) mg/dL Glucose (74-99) mg/dL POC Glucose (mg/dL) 178 H 135 H (70-110) mg/dL Uric Acid (3.7-7.4) mg/dL Calcium (8.4-10.2) mg/dL Total Protein (6.3-8.2) g/dL Assessment and Plan Time with Patient: Less than 30
[2024-08-14 20:13] LABS: Glucose,Whole Blood 132 mg/dL (70-110)
[2024-08-15 08:15] LABS: Glucose,Whole Blood 121 mg/dL (70-110)
[2024-08-15 09:21] LABS: Basophils # (A) 0 X 10*3/uL (0.00-0.10); Basophils % (A) 0 %; Eosinophils # (A) 0 X 10*3/uL (0.04-0.35); Eosinophils % (A) 0 %; HCT 23.6 % (37.2-46.3); HGB 7.1 g/dL (12.0-15.0); Lymphocytes # (A) 0.14 X 10*3/uL (0.90-5.00); Lymphocytes % (A) 2.8 %; MCHC 30.1 g/dL (32.0-37.0); MCV 92.9 FL (80.0-97.0); Mean Platelet Volume 8.6 FL (9.5-12.2); Monocytes # (A) 0 X 10*3/uL (0.20-1.00); Monocytes % (A) 0 %; NRBC Per 100 WBC 0 X 10*3/uL (0.00-0.01); Neutrophils # (A) 4.87 X 10*3/uL (1.80-7.70); Neutrophils % (A) 96.8 %; Platelet Count 546 X 10*3/uL (140-440); RBC 2.54 X 10*6/uL (4.10-5.20); RDW 15.9 % (11.5-14.5); WBC 5.03 X 10*3/uL (4.50-10.00)
[2024-08-15 09:31] LABS: Magnesium 1.7 mg/dL (1.5-2.4); Uric Acid 2.4 mg/dL (2.9-7.7)
[2024-08-15 09:38] LABS: ALT 46 U/L (8-44); AST 35 U/L (13-35); Albumin 3.5 g/dL (3.8-4.9); Albumin/Globulin Ratio 1.84 Ratio (1.60-3.17); Alkaline Phosphatase 96 U/L (41-126); BUN/Creat Ratio 43.25 Ratio (12.00-20.00); Blood Urea Nitrogen 17.3 mg/dL (9.0-27.0); Calcium 7.6 mg/dL (8.7-10.3); Carbon Dioxide 21.8 mmol/L (21.6-31.8); Chloride 108 mmol/L (96-109); Globulin 1.9 g/dL (1.6-3.3); Glucose 116 mg/dL (70-110); Potassium 3.2 mmol/L (3.5-5.5); Sodium 143 mmol/L (135-145); Total Bilirubin <0.2 mg/dL (0.3-1.2); Total Protein 5.4 g/dL (6.2-8.2)
[2024-08-15] MEDS ORDERED: Magnesium Replacement Protocol 1 EACH MISC MISCELLANE PRN (10:42)
[2024-08-15 11:49] LABS: Glucose,Whole Blood 124 mg/dL (70-110)
[2024-08-15] MEDS: POTASSIUM CHLORIDE ER 20 MEQ TAB.ER PO SCH (13:12)
--- NOTE | 2024-08-15 14:32 | P.PN ---
Subjective Progress Note Date: 08/15/24 This is a pleasant 68-year-old female who was admitted under oncology is undergoing chemotherapy for diffuse large B-cell lymphoma and is currently on day 3 of 5. Patient reports she is passing gas and having bowel movements and reports she has been having ongoing issues with constipation. Patient is con tinued on a bowel regimen including lactulose and stool softeners and will continue and adjust as needed. Hemoglobin is 7.0 today with no active bleeding noted and will monitor. Transfuse per oncology is 7 or less. Sodium is elevated at 146 today and receiving normal saline, recommend to reduce the dose and follow-up on repeat. Potassium is 3.1 today and being replaced per protocol. Patient is maintained on oral steroid dosing per oncology with no history of diabetes and if becoming more elevated, would recommend adding sliding scale as needed. Patient is afebrile with no reported chest pain or shortness of breath. Patient reports tolerating diet with occasional nausea but no vomiting and is having bowel movements. 08/14/2024 Patient evaluated today on the medical floor. Patient is receiving course of IV chemotherapy. Tolerating well. Bowels have been moving, tolerating diet. Hem oglobin today was 7.5. Sodium 144, potassium 3.0. Blood glucose has been mildly elevated. Discussed with patient and daughter this is likely because of the prednisone but we will monitor blood glucose and check a hemoglobin A1C. 08/15/2024 Patient evaluated in follow-up of medical floor. Patient is currently undergoing a course of IV chemotherapy for her B-cell lymphoma. Patient hemoglobin A1c did come back at 6.2. Will receive potassium and magnesium supplementation today. Her bowels are moving. Review of systems: Constitutional: No reports of fatigue, fever, or chills Cardiovascular: No reports of chest pain or palpitations Respiratory: No reports of shortness of breath or cough GI: No reports of nausea, vomiting, or diarrhea, reports passing gas and having bowel movements at this time : No reports of dysuria or retention Neurovascular: reports of generalized weakness All medications have been reviewed Physical exam: Gen: This is a pleasant 68-year-old female who is awake, alert and oriented x 3, thin built, elderly appearing, pale HEENT: Head is atraumatic, normocephalic. Pupils equal, round. Sclerae is anicteric. NECK: Supple. No JVD. No lymphadenopathy. No thyromegaly. LUNGS: Diminished breath sounds bilaterally otherwise clear to auscultation. No wheezes or rhonchi. No intercostal retractions. HEART: S1, S2 are muffled ABDOMEN: Soft. Thin. Bowel sounds are present. No masses. No tenderness. EXTREMITIES: No pedal edema. No calf tenderness. NEUROLOGICAL: Patient is awake, alert and oriented x3. Cranial nerves 2 through 12 are grossly intact. Diffusely weak Assessment: Diffuse large B-cell lymphoma, currently undergoing chemotherapy inpatient History of DVT Hypertension Elevated blood glucose, hyperglycemia likely secondary to steroid effect as patient reports no history of diabetes History of back pain with T11-L1 compression fractures Antineoplastic chemotherapy induced anemia, hemoglobin is 7.0 Former smoker Moderate calorie protein malnutrition with a BMI of 20.9 GI prophylaxis DVT prophylaxis Full code Plan: Patient is admitted under oncology undergoing chemotherapy for large B-cell lymphoma Hemoglobin is 7.5 with no active bleeding noted count is and platelets are elevated at 659 and recommend monitoring closely with follow-up labs Patient is receiving normal saline at 50 mls/hr. Sodium in normal range today. Potassium 3.2 and will be replaced per protocol Patient with hyperglycemia although no history of diabetes, may need closer monitoring as patient is on steroids during treatment. Can stop the accuchecks Recommend continued bowel regimen scheduled as well as as needed Encouraged to increase activity as tolerated We will continue to follow with oncology during hospitalization. Thank you kindly for this consultation The impression and plan of care has been dictated by Nurse Starr Prac titioner as directed. Dr. Bibi MD I have performed a history and examination and MDM of this patient, discussed the same with the dictator, and agree with the dictator's assessment and plan as written ,documented as a scribe. Based on total visit time, I have performed more than 50% of the visit. Objective - Vital Signs Vital signs: Vital Signs Temp 98 F 08/15/24 08:00 Pulse 88 08/15/24 08:00 Resp 17 08/15/24 08:00 BP 146/72 08/15/24 08:00 Pulse Ox 95 08/15/24 08:00 FiO2 Intake & Output 08/14/24 08/15/24 08/15/24 18:59 06:59 18:59 Intake Total 360 Balance 360 Intake: Oral 360 Other: Voiding Method Toilet Toilet # Voids 4 3 - Labs CBC & Chem 7: 08/15/24 05:51 08/15/24 05:51 Labs: Abnormal Lab Results - Last 24 Hours (Table) 08/14/24 08/14/24 08/14/24 Range/Units 06:32 12:10 16:21 RBC (4.10-5.20) X 10*6/uL Hgb (12.0-15.0) g/dL Hct (37.2-46.3) % MCHC (32.0-37.0) g/dL RDW (11.5-14.5) % Plt Count (140-440) X 10*3/uL MPV (9.5-12.2) FL Lymphocytes # (0.90-5.00) X 10*3/uL Monocytes # (0.20-1.00) X 10*3/uL Eosinophils # (0.04-0.35) X 10*3/uL Potassium (3.5-5.1) mmol/L Anion Gap (4.00-12.00) mmol/L Creatinine (0.6-1.5) mg/dL BUN/Creatinine Ratio (12.00-20.00) Ratio Glucose (70-110) mg/dL POC Glucose (mg/dL) 178 H 135 H (70-110) mg/dL Hemoglobin A1c 6.2 H (<=6.0) % Uric Acid (2.9-7.7) mg/dL Calcium (8.7-10.3) mg/dL Total Bilirubin (0.3-1.2) mg/dL ALT (8-44) U/L Total Protein (6.2-8.2) g/dL Albumin (3.8-4.9) g/dL 08/14/24 08/14/24 08/15/24 Range/Units 18:30 20:12 05:51 RBC 2.54 L (4.10-5.20) X 10*6/uL Hgb 7.1 L (12.0-15.0) g/dL Hct 23.6 L (37.2-46.3) % MCHC 30.1 L (32.0-37.0) g/dL RDW 15.9 H (11.5-14.5) % Plt Count 546 H (140-440) X 10*3/uL MPV 8.6 L (9.5-12.2) FL Lymphocytes # 0.14 L (0.90-5.00) X 10*3/uL Monocytes # 0 L (0.20-1.00) X 10*3/uL Eosinophils # 0 L (0.04-0.35) X 10*3/uL Potassium 3.2 L (3.5-5.1) mmol/L Anion Gap (4.00-12.00) mmol/L Creatinine (0.6-1.5) mg/dL BUN/Creatinine Ratio (12.00-20.00) Ratio Glucose (70-110) mg/dL POC Glucose (mg/dL) 132 H (70-110) mg/dL Hemoglobin A1c (<=6.0) % Uric Acid (2.9-7.7) mg/dL Calcium (8.7-10.3) mg/dL Total Bilirubin (0.3-1.2) mg/dL ALT (8-44) U/L Total Protein (6.2-8.2) g/dL Albumin (3.8-4.9) g/dL 08/15/24 08/15/24 Range/Units 05:51 08:14 RBC (4.10-5.20) X 10*6/uL Hgb (12.0-15.0) g/dL Hct (37.2-46.3) % MCHC (32.0-37.0) g/dL RDW (11.5-14.5) % Plt Count (140-440) X 10*3/uL MPV (9.5-12.2) FL Lymphocytes # (0.90-5.00) X 10*3/uL Monocytes # (0.20-1.00) X 10*3/uL Eosinophils # (0.04-0.35) X 10*3/uL Potassium 3.2 L (3.5-5.1) mmol/L Anion Gap 13.20 H (4.00-12.00) mmol/L Creatinine 0.4 L (0.6-1.5) mg/dL BUN/Creatinine Ratio 43.25 H (12.00-20.00) Ratio Glucose 116 H (70-110) mg/dL POC Glucose (mg/dL) 121 H (70-110) mg/dL Hemoglobin A1c (<=6.0) % Uric Acid 2.4 L (2.9-7.7) mg/dL Calcium 7.6 L (8.7-10.3) mg/dL Total Bilirubin <0.2 L (0.3-1.2) mg/dL ALT 46 H (8-44) U/L Total Protein 5.4 L (6.2-8.2) g/dL Albumin 3.5 L (3.8-4.9) g/dL
[2024-08-15] MEDS: MAGNESIUM SULFATE-D5W PMX 1 GM in DEXTROSE/WATER 1 100ML.BAG IVPB ONE (18:30)
[2024-08-16 08:02] VITALS: BP 159/76; PULSE 78; RESP 20; TEMP 97.9
[2024-08-16 08:13] LABS: Basophils # (A) 0 X 10*3/uL (0.00-0.10); Basophils % (A) 0 %; Eosinophils # (A) 0 X 10*3/uL (0.04-0.35); Eosinophils % (A) 0 %; HCT 23.6 % (37.2-46.3); HGB 7.2 g/dL (12.0-15.0); Lymphocytes % (A) 2.2 %; MCH 27.7 pg (27.0-32.0); MCHC 30.5 g/dL (32.0-37.0); MCV 90.8 FL (80.0-97.0); Mean Platelet Volume 8.4 FL (9.5-12.2); Monocytes # (A) 0.02 X 10*3/uL (0.20-1.00); Monocytes % (A) 0.4 %; NRBC Per 100 WBC 0 X 10*3/uL (0.00-0.01); Neutrophils # (A) 4.33 X 10*3/uL (1.80-7.70); Neutrophils % (A) 96.7 %; Platelet Count 502 X 10*3/uL (140-440); RDW 15.9 % (11.5-14.5); WBC 4.48 X 10*3/uL (4.50-10.00)
[2024-08-16 08:25] LABS: BUN/Creat Ratio 42.75 Ratio (12.00-20.00); Blood Urea Nitrogen 17.1 mg/dL (9.0-27.0); Chloride 108 mmol/L (96-109); Glucose 125 mg/dL (70-110); Magnesium 2.1 mg/dL (1.5-2.4); Sodium 141 mmol/L (135-145)
[2024-08-16 08:26] LABS: ALT 48 U/L (8-44); AST 27 U/L (13-35); Albumin 3.8 g/dL (3.8-4.9); Albumin/Globulin Ratio 2.38 Ratio (1.60-3.17); Alkaline Phosphatase 96 U/L (41-126); Calcium 7.7 mg/dL (8.7-10.3); Carbon Dioxide 21.8 mmol/L (21.6-31.8); Globulin 1.6 g/dL (1.6-3.3); Total Bilirubin <0.2 mg/dL (0.3-1.2); Total Protein 5.4 g/dL (6.2-8.2); Uric Acid 2.3 mg/dL (2.9-7.7)
--- NOTE | 2024-08-16 11:12 | P.DS ---
Providers Date of admission: 08/11/24 11:02 Expected date of discharge: 08/16/24 Attending physician: Willy Kwok MD Consults: 08/11/24 16:12 Consult Physician Routine Consulting Provider: Parker Judd Consult Reason/Comments: medical management Do you want consulting provider notified?: Yes, Notify in am Placement Type Exists?: Yes Primary care physician: Donnie Hart MD - Discharge Diagnosis(es) (1) Diffuse large B-cell lymphoma of extranodal site Current Visit: Yes Status: Chronic Priority: High Hospital Course: Pt admitted for cycle 4 of R-CHOP with IT MTX day before admission. Her hospital course has been uneventful, she is doing well, c/o mild sore throat, mod fatigue,10 point ROS is otherwise negative Assessment: WD,WN,NAD, A&Ox3, oral mucosa normal, BBS CTA, S1S2, RRR, BS+, mildly distended abd, no pain, no swelling. Health Concerns: none Procedures: none Patient Condition at Discharge: Stable Plan - Discharge Summary Discharge Rx Participant: Yes New Discharge Prescriptions: No Action polyethylene glycoL 3350 [Miralax] 17 gm PO DAILY@1400 Ondansetron [Zofran] 4 - 8 mg PO Q4H PRN PRN Reason: Nausea Lidocaine-Prilocaine Cream [Emla Cream 2.5%/2.5%] 1 applic TOPICAL DAILY PRN PRN Reason: port access amLODIPine [Norvasc] 5 mg PO DAILY@0800 Acetaminophen Tab [Tylenol Tab] 1,000 mg PO DAILY@0800 Gabapentin [Neurontin] 400 mg PO HS@1999 OLANZapine [ZyPREXA] 2.5 mg PO HS #30 tab traMADol HCl [Ultram] 50 mg PO BID PRN PRN Reason: Pain Lactulose 20 gm PO DAILY PRN PRN Reason: Constipation Acetaminophen [Tylenol Extra Strength] 1,000 mg PO DAILY@1400 PRN PRN Reason: Pain Cholecalciferol (Vitamin D3) [Vitamin D3 (50 Mcg = 2000 Iu)] 50 mcg PO DAILY@0800 Apixaban [Eliquis] 5 mg PO BID@0800,2000 traMADol HCL 50 mg PO HS@1999 Discharge Medication List Gabapentin [Neurontin] 400 mg PO HS@199905/15/24 [History] OLANZapine [ZyPREXA] 2.5 mg PO HS #30 tab 05/25/24 [Rx] traMADol HCl [Ultram] 50 mg PO BID PRN 06/10/24 [History] Acetaminophen [Tylenol Extra Strength] 1,000 mg PO DAILY@1400 PRN 06/18/24 [History] Cholecalciferol (Vitamin D3) [Vitamin D3 (50 Mcg = 2000 Iu)] 50 mcg PO DAILY@0800 06/18/24 [History] Lactulose 20 gm PO DAILY PRN 06/18/24 [History] Ondansetron [Zofran] 4 - 8 mg PO Q4H PRN 06/18/24 [History] polyethylene glycoL 3350 [Miralax] 17 gm PO DAILY@1400 06/18/24 [History] Apixaban [Eliquis] 5 mg PO BID@0800,199907/12/24 [History] Lidocaine-Prilocaine Cream [Emla Cream 2.5%/2.5%] 1 applic TOPICAL DAILY PRN 07/19/24 [History] amLODIPine [Norvasc] 5 mg PO DAILY@0800 08/09/24 [History] Acetaminophen Tab [Tylenol Tab] 1,000 mg PO DAILY@0800 08/11/24 [History] traMADol HCL 50 mg PO HS@199908/11/24 [History] Follow up Appointment(s)/Referral(s): Donnie Hart MD [Primary Care Provider] - 1 Week Willy Kwok MD [STAFF PHYSICIAN] - 08/17/24 1:00 pm (WBC booster shot appt. RNs will make lab encounters and MD follow up appts when there. ) Ambulatory/Diagnostic Orders: Basic Metabolic Panel [LAB.AMB] Time Frame: 3 Days, Location: None Selected Discharge Disposition: HOME SELF-CARE Pending Studies Pending Results: none
--- NOTE | 2024-08-16 23:31 | P.PN ---
Subjective Progress Note Date: 08/16/24 This is a pleasant 68-year-old female who was admitted under oncology is undergoing chemotherapy for diffuse large B-cell lymphoma and is currently on day 3 of 5. Patient reports she is passing gas and having bowel movements and reports she has been having ongoing issues with constipation. Patient is con tinued on a bowel regimen including lactulose and stool softeners and will continue and adjust as needed. Hemoglobin is 7.0 today with no active bleeding noted and will monitor. Transfuse per oncology is 7 or less. Sodium is elevated at 146 today and receiving normal saline, recommend to reduce the dose and follow-up on repeat. Potassium is 3.1 today and being replaced per protocol. Patient is maintained on oral steroid dosing per oncology with no history of diabetes and if becoming more elevated, would recommend adding sliding scale as needed. Patient is afebrile with no reported chest pain or shortness of breath. Patient reports tolerating diet with occasional nausea but no vomiting and is having bowel movements. 08/14/2024 Patient evaluated today on the medical floor. Patient is receiving course of IV chemotherapy. Tolerating well. Bowels have been moving, tolerating diet. Hem oglobin today was 7.5. Sodium 144, potassium 3.0. Blood glucose has been mildly elevated. Discussed with patient and daughter this is likely because of the prednisone but we will monitor blood glucose and check a hemoglobin A1C. 08/15/2024 Patient evaluated in follow-up of medical floor. Patient is currently undergoing a course of IV chemotherapy for her B-cell lymphoma. Patient hemoglobin A1c did come back at 6.2. Will receive potassium and magnesium supplementation today. Her bowels are moving. 08/16/2024 Patient is evaluated in follow-up on the medical floor. She has completed a cou rse of chemotherapy for her B-cell lymphoma. She has been tolerating diet. Patient to receive her G/CSF injection today. Order reveals a white blood cell count of 4.48, hemoglobin 7.2, platelet count of 502, sodium of 141 potassium 4.0, BUN of 17.1 creatinine 0.4 magnesium of 2.1. She is afebrile heart rate of 78 blood pressure 159/76 96% on room air. Patient will discharge home today on all stable medications with the addition of oral Protonix. Review of systems: Constitutional: No reports of fatigue, fever, or chills Cardiovascular: No reports of chest pain or palpitations Respiratory: No reports of shortness of breath or cough GI: No reports of nausea, vomiting, or diarrhea, reports passing gas and having bowel movements at this time : No reports of dysuria or retention Neurovascular: reports of generalized weakness All medications have been reviewed Physical exam: Gen: This is a pleasant 68-year-old female who is awake, alert and oriented x 3, thin built, elderly appearing, pale HEENT: Head is atraumatic, normocephalic. Pupils equal, round. Sclerae is anicteric. NECK: Supple. No JVD. No lymphadenopathy. No thyromegaly. LUNGS: Diminished breath sounds bilaterally otherwise clear to auscultation. No wheezes or rhonchi. No intercostal retractions. HEART: S1, S2 are muffled ABDOMEN: Soft. Thin. Bowel sounds are present. No masses. No tenderness. EXTREMITIES: No pedal edema. No calf tenderness. NEUROLOGICAL: Patient is awake, alert and oriented x3. Cranial nerves 2 through 12 are grossly intact. Diffusely weak Assessment: Diffuse large B-cell lymphoma, currently undergoing chemotherapy inpatient History of DVT Hypertension Elevated blood glucose, hyperglycemia likely secondary to steroid effect as patient reports no history of diabetes History of back pain with T11-L1 compression fractures Antineoplastic chemotherapy induced anemia, hemoglobin is 7.0 Former smoker Moderate calorie protein malnutrition with a BMI of 20.9 GI prophylaxis DVT prophylaxis Full code Plan: Patient is admitted under oncology undergoing chemotherapy for large B-cell lymphoma Hemoglobin is 7.5 with no active bleeding noted count is and platelets are elevated Patient with hyperglycemia although no history of diabetes, may need closer monitoring as patient is on steroids during treatment. Recommend continued bowel regimen scheduled as well as as needed Encouraged to increase activity as tolerated We will continue to follow with oncology during hospitalization. Thank you kindly for this consultation The impression and plan of care has been dictated by Natalia Ramos, Nurse Practitioner as directed. Dr. Bibi MD I have performed a history and examination and MDM of this patient, discussed the same with the dictator, and agree with the dictator's assessment and plan as written ,documented as a scribe. Based on total visit time, I have performed more than 50% of the visit. Objective - Vital Signs Vital signs: Vital Signs Temp 97.9 F 08/16/24 08:00 Pulse 78 08/16/24 08:00 Resp 20 08/16/24 08:00 BP 159/76 08/16/24 08:00 Pulse Ox 96 08/16/24 08:00 FiO2 Intake & Output 08/15/24 08/16/24 08/16/24 18:59 06:59 18:59 Intake Total 240 1310 Balance 240 1310 Intake: Intake, IV Titration 600 Amount Sodium Chloride 0.9% 1, 600 000 ml @ 50 mls/hr IV . Q20H [facility] Rx#:[id number] Oral 240 710 Other: Voiding Method Toilet Toilet Toilet # Voids 3 1 - Labs CBC & Chem 7: 08/16/24 04:47 08/16/24 04:47 Labs: Abnormal Lab Results - Last 24 Hours (Table) 08/15/24 08/16/24 08/16/24 Range/Units 11:48 04:47 04:47 WBC 4.48 L (4.50-10.00) X 10*3/uL RBC 2.60 L (4.10-5.20) X 10*6/uL Hgb 7.2 L (12.0-15.0) g/dL Hct 23.6 L (37.2-46.3) % MCHC 30.5 L (32.0-37.0) g/dL RDW 15.9 H (11.5-14.5) % Plt Count 502 H (140-440) X 10*3/uL MPV 8.4 L (9.5-12.2) FL Lymphocytes # 0.10 L (0.90-5.00) X 10*3/uL Monocytes # 0.02 L (0.20-1.00) X 10*3/uL Eosinophils # 0 L (0.04-0.35) X 10*3/uL Creatinine 0.4 L (0.6-1.5) mg/dL BUN/Creatinine Ratio 42.75 H (12.00-20.00) Ratio Glucose 125 H (70-110) mg/dL POC Glucose (mg/dL) 124 H (70-110) mg/dL Uric Acid 2.3 L (2.9-7.7) mg/dL Calcium 7.7 L (8.7-10.3) mg/dL Total Protein 5.4 L (6.2-8.2) g/dL Assessment and Plan Time with Patient: Less than 30
== END 2024-08-16 12:19 | disposition home or self-care (01) | DRG 847 ==
LOC: 5NMEDONC 11:02
PROVIDERS: ADMIT Internal Medicine; ATTEND Internal Medicine
DX: Z51.11 Encounter for antineoplastic chemotherapy (principal); C83.398 Diffuse large B-cell lymphoma of other extranodal and solid organ sites; E44.0 Moderate protein-calorie malnutrition; I10 Essential (primary) hypertension; D64.81 Anemia due to antineoplastic chemotherapy; Z86.718 Personal history of other venous thrombosis and embolism; M54.9 Dorsalgia, unspecified; T45.1X5A Adverse effect of antineoplastic and immunosuppressive drugs, initial encounter; T38.0X5A Adverse effect of glucocorticoids and synthetic analogues, initial encounter; R73.9 Hyperglycemia, unspecified; K59.00 Constipation, unspecified; Z87.891 Personal history of nicotine dependence; Z87.01 Personal history of pneumonia (recurrent); Z79.01 Long term (current) use of anticoagulants; Z79.899 Other long term (current) drug therapy; Z68.20 Body mass index [BMI] 20.0-20.9, adult
CPT/HCPCS: 80053; 83036; 83735; 84132; 84550; 85025

== ENCOUNTER → 2024-08-19 | Outpatient (CLI) | payer MEDICARE ==
--- NOTE | 2024-08-19 17:03 | PE ---
EXAMINATION TYPE: PET CT fusion skull to thigh DATE OF EXAM: 08/19/2024 COMPARISON: Most recent chest CT May 16, 2024 and older CTs HISTORY: Liver cancer per technologist. 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 TECHNIQUE: Following the intravenous administration of 10.85 mCi of F-18 FDG, whole body images are performed from the skull base to the midthigh. Images are reviewed on the computer in the coronal, a xial, and sagittal planes. Reconstructed rotating images are created on independent workstation and reviewed on the computer. A localization and attenuation correction CT is performed in conjunction with the PET scan. Blood glucose level equals 93. SCAN: Subsequent Scan FINDINGS: Mean SUV liver: 2.47 Mean SUV mediastinum: 1.35 SKULL BASE AND NECK: No new areas of abnormal hypermetabolic uptake CHEST, MEDIASTINUM, AND HILAR REGION: No new areas of abnormal hypermetabolic uptake. No persistent a bnormal hypermetabolic uptake in the right axilla or right internal mammary region. ABDOMEN AND PELVIS: Resolution of prior multiple innumerable hypermetabolic hepatic lesions. No hyper metabolic retroperitoneal lymph nodes on current study. No hypermetabolic pelvic lymph nodes. No hype rmetabolic right groin lymph nodes. No new areas of abnormal hypermetabolic uptake. OSSEOUS STRUCTURES: No new or persistent areas of abnormal hypermetabolic uptake. Numerous sclerotic foci consistent with metastatic disease remain present. OTHER CT: Bilateral aphakia redemonstrated. Mild/moderate coronary artery calcification left greater than right is redemonstrated. There is new right subclavian Mediport catheter terminating in right at rium. No pneumothorax is seen. Moderate underlying emphysematous change redemonstrated. Levoconvex sc oliosis centered in the lumbar spine is redemonstrated. Moderate atherosclerotic change of the aorta is seen. A pessary type device is redemonstrated. IMPRESSION: Complete positive treatment response. No new or persistent hypermetabolic lesions. [facility] Billie Gtz, , 08/19/2024 5:01 PM
== END | disposition home or self-care (01) ==
LOC: RADPETMAIN 08:28
PROVIDERS: ATTEND Internal Medicine
DX: C22.0 Liver cell carcinoma (principal)
CPT/HCPCS: 78815; A9552

== ENCOUNTER 2024-08-24 18:51 | Emergency (ER) | payer MEDICARE ==
--- NOTE | 2024-08-24 20:31 | ED ---
General Adult HPI - General Source: patient, RN notes reviewed Mode of arrival: wheelchair Limitations: no limitations <Any Moura - Last Filed: 08/24/24 20:30> <Sofía Britt - Last Filed: 08/25/24 16:28> - General Chief complaint: Recheck/Abnormal Lab/Rx Stated complaint: Low HGB Time Seen by Provider: 08/24/24 19:30 - History of Present Illness Initial comments: Quick note: 68-year-old female presents to the emergency department sent in by [facility] for blood transfusion. The patient notes that she had blood work performed and she reports that her hemoglobin was 6. She is a chemotherapy patient. (Any Moura) 68-year-old female with history of large B cell non-Hodgkin's lymphoma presenting to the emergency department with referral from oncologist for concerns of low hemoglobin. Patient states that she has her blood drawn 2 times per week and her labs today revealed a hemoglobin that was low and was instructed to report to the emergency department for a unit of blood. She states that she is due for her upcoming chemotherapy infusion treatment the first week of August. Patient states that she has been feeling overall weak. She denies signs of bleeding such as hematochezia, melena, vaginal bleeding, hematuria, hememesis. patient is on eliquis. (Sofía Britt) - Related Data Home Medications Medication Instructions Recorded Confirmed Gabapentin [Neurontin] 400 mg PO HS@199905/15/24 08/11/24 traMADol HCl [Ultram] 50 mg PO BID PRN 06/10/24 08/11/24 Acetaminophen [Tylenol Extra 1,000 mg PO DAILY@1400 PRN 06/18/24 08/11/24 Strength] Cholecalciferol (Vitamin D3) 50 mcg PO DAILY@0800 06/18/24 08/11/24 [Vitamin D3 (50 Mcg = 2000 Iu)] Lactulose 20 gm PO DAILY PRN 06/18/24 08/11/24 Ondansetron [Zofran] 4 - 8 mg PO Q4H PRN 06/18/24 08/11/24 polyethylene glycoL 3350 [Miralax] 17 gm PO DAILY@1400 06/18/24 08/11/24 Apixaban [Eliquis] 5 mg PO BID@0800,199907/12/24 08/11/24 Lidocaine-Prilocaine Cream [Emla 1 applic TOPICAL DAILY PRN 07/19/24 08/11/24 Cream 2.5%/2.5%] amLODIPine [Norvasc] 5 mg PO DAILY@0808/09/24 08/11/24 Acetaminophen Tab [Tylenol] 1,000 mg PO DAILY@79908/11/24 08/11/24 traMADol HCL 50 mg PO HS@199908/11/24 08/11/24 Previous Rx's Medication Instructions Recorded OLANZapine [ZyPREXA] 2.5 mg PO HS #30 tab 05/25/24 Pantoprazole [Protonix] 40 mg PO AC-BRKFST #30 tab 08/16/24 Allergies Allergy/AdvReac Type Severity Reaction Status Date / Time hydromorphone [From Dilaudid] AdvReac Hallucinati Verified 08/24/24 19:20 ons Review of Systems ROS Other: All systems not noted in ROS Statement are negative. <Any Moura - Last Filed: 08/24/24 20:30> ROS Other: All systems not noted in ROS Statement are negative. <Sofía Britt - Last Filed: 08/25/24 16:28> ROS Statement: Those systems with pertinent positive or pertinent negative responses have been documented in the HPI. Past Medical History Past Medical History: Cancer, Deep Vein Thrombosis (DVT), Hypertension, Pneumonia Additional Past Medical History / Comment(s): Diffuse large B-cell lymphoma diagnosed 2024, T11-L1 compression fracture, chronic back pain, pneumonia, and DVT legs May 2024 - admitted 07/11/24 for 4th cycle of R-EPOCH- (Rituxan done at [facility] before pt. came here) History of Any Multi-Drug Resistant Organisms: None Reported Past Surgical History: No Surgical Hx Reported Additional Past Surgical History / Comment(s): Cataract surgery, PICC line placement, PICC Line removed, Infusaport placed 06/14/24, Lumbar Puncture, liver biopsies on 04/14/24 and 05/07/24 Past Anesthesia/Blood Transfusion Reactions: No Reported Reaction Past Psychological History: No Psychological Hx Reported Smoking Status: Former smoker Past Alcohol Use History: None Reported Past Drug Use History: None Reported - Past Family History Father Family Medical History: Congestive Heart Failure (CHF), Diabetes Mellitus Mother Family Medical History: Congestive Heart Failure (CHF) Sister(s) Family Medical History: Congestive Heart Failure (CHF), COPD Brother(s) Family Medical History: Congestive Heart Failure (CHF) <Any Moura - Last Filed: 08/24/24 20:30> General Exam Limitations: no limitations <Any Moura - Last Filed: 08/24/24 20:30> Head exam: Present: atraumatic, normocephalic, normal inspection Respiratory exam: Present: normal lung sounds bilaterally. Absent: respiratory distress, wheezes, rales, rhonchi, stridor Cardiovascular Exam: Present: regular rate, normal rhythm, normal heart sounds. Absent: systolic murmur, diastolic murmur, rubs, gallop, clicks GI/Abdominal exam: Present: soft, normal bowel sounds. Absent: distended, tenderness, guarding, rebound, rigid Extremities exam: Present: normal inspection, full ROM, normal capillary refill. Absent: tenderness, pedal edema, joint swelling, calf tenderness Skin exam: Present: warm, dry, intact, normal color. Absent: rash <Sofía Britt - Last Filed: 08/25/24 16:28> - General Exam Comments Initial Comments: Visual Physical Exam Vital signs reviewed General: Well-appearing, nontoxic, no acute distress. Head: Normocephalic, atraumatic Eyes: PERRLA, EOMI ENT: Airway patent Chest: Nonlabored breathing Skin: No visual rash, normal skin tone Neuro: Alert and oriented 3 Musculoskeletal: No gross abnormalities (Any Moura) Course Vital Signs 08/24/24 08/24/24 08/25/24 19:20 21:32 00:25 Temperature 98.8 F Pulse Rate 106 H 97 89 Respiratory 16 17 17 Rate Blood Pressure 116/73 118/62 111/62 O2 Sat by Pulse 97 94 L 100 Oximetry 08/25/24 08/25/24 08/25/24 01:54 02:04 02:24 Temperature 97 F L 97.2 F L 97.6 F Pulse Rate 89 87 89 Respiratory 16 17 17 Rate Blood Pressure 112/55 109/54 115/40 O2 Sat by Pulse 95 96 Oximetry 08/25/24 03:51 Temperature 97.8 F Pulse Rate 89 Respiratory 17 Rate Blood Pressure 127/60 O2 Sat by Pulse 94 L Oximetry Medical Decision Making <Any Moura - Last Filed: 08/24/24 20:30> - Lab Data Result diagrams: 08/24/24 20:30 08/24/24 20:30 <RexSofía lucas - Last Filed: 08/25/24 16:28> - Medical Decision Making Quick note performed and electronically signed by Any Moura PA-C (Any Moura) Was pt. sent in by a medical professional or institution (LEENA Shi, [employer]IST, urgent care, hospital, or group home...) When possible be specific @ -No Did you speak to anyone other than the patient for history (EMS, parent, family, police, friend...)? What history was obtained from this source @ -No Did you review nursing and triage notes (agree or disagree)? Why? @ -I reviewed and agree with nursing and triage notes Were old charts reviewed (outside hosp., previous admission, EMS record, old EKG, old radiological studies, urgent care reports/EKG's, group home records)? Report findings @ -No old charts were reviewed Differential Diagnosis (chest pain, altered mental status, abdominal pain women, abdominal pain men, vaginal bleeding, weakness, fever, dyspnea, syncope, headache, dizziness, GI bleed, back pain, seizure, CVA, palpatations, mental health, musculoskeletal)? @ -Differential GI Bleed: Esophageal varices, aortoenteric fistula, Elizabeth-Thomas, gastritis, peptic ulcer disease, diverticulosis, inflammatory bowel disease, hemorrhoids, fissure, colitis, malignancy, Meckel's diverticulum, this is not meant to be an all- inclusive list. EKG interpreted by me (3pts min.). @ -None X-rays interpreted by me (1pt min.). @ -None done CT interpreted by me (1pt min.). @ -None done U/S interpreted by me (1pt. min.). @ -None done What testing was considered but not performed or refused? (CT, X-rays, U/S, labs)? Why? @ -None What meds were considered but not given or refused? Why? @ -None Did you discuss the management of the patient with other professionals (professionals i.e. Dr., PA, [employer] REGIST[employer] SPECIALIST, lab, RT, psych nurse, web content & social media manager, hair stylist, teacher, training systems officer, high risk case manager)? Give summary @ -No Was smoking cessation discussed for >3mins.? @ -No Was critical care preformed (if so, how long)? @ -No Were there social determinants of health that impacted care today? How? (Homelessness, low income, unemployed, alcoholism, drug addiction, transportation, low edu. Level, literacy, decrease access to med. care, ch[facility], rehab)? @ -No Was there de-escalation of care discussed even if they declined (Discuss DNR or withdrawal of care, Hospice)? DNR status @ -No What co-morbidities impacted this encounter? (DM, HTN, Smoking, COPD, CAD, Ca ncer, CVA, ARF, Chemo, Hep., AIDS, mental health diagnosis, sleep apnea, morbid obesity)? @ -None Was patient admitted / discharged? Hospital course, mention meds given and route, prescriptions, significant lab abnormalities, going to OR and other pertinent info. @ -Discharge. 5-year-old female presenting labs. Patient seen recently 6.8. She is provided with a unit transfusion. She is stable for discharge. Case discussed with Dr. Vitale Undiagnosed new problem with uncertain prognosis? @ -No Drug Therapy requiring intensive monitoring for toxicity (Heparin, Nitro, Insulin, Cardizem)? @ -No Were any procedures done? @ -No Diagnosis/symptom? @ -anemia Acute, or Chronic, or Acute on Chronic? @ -acute Uncomplicated (without systemic symptoms) or Complicated (systemic symptoms)? @ -uncomplicated Side effects of treatment? @ -No Exacerbation, Progression, or Severe Exacerbation? @ -No Poses a threat to life or bodily function? How? (Chest pain, [place], [place], pneumonia, PE, COPD, DKA, ARF, appy, cholecystitis, CVA, Diverticulitis, Homicidal, Suicidal, threat to staff... and all critical care pts) @ -No (Sofía Britt) - Lab Data Lab Results 08/24/24 08/24/24 08/24/24 Range/Units 20:30 20:30 21:32 WBC 10.39 H (4.50-10.00) 10*3/uL RBC 2.40 L (4.10-5.20) 10*6/uL Hgb 6.8 L* (12.0-15.0) g/dL Hct 22.5 L (37.2-46.3) % MCV 93.8 (80.0-97.0) fL MCH 28.3 (27.0-32.0) pg MCHC 30.2 L (32.0-37.0) g/dL Plt Count 210 (140-440) 10*3/uL MPV 10.5 (9.5-12.2) fL Immature Gran % (Auto) 10.4 % Neutrophils % 64.3 % Lymphocytes % 7.2 % Monocytes % 16.7 % Eosinophils % 1.0 % Basophils % 0.4 % Immature Gran # 1.08 H (0.00-0.04) 10*3/uL Neutrophils # 6.68 (1.80-7.70) 10*3/uL Lymphocytes # 0.75 L (0.90-5.00) 10*3/uL Monocytes # 1.74 H (0.20-1.00) 10*3/uL Eosinophils # 0.10 (0.04-0.35) 10*3/uL Basophils # 0.04 (0.00-0.10) 10*3/uL Manual Slide Review Performed PT 11.4 (10.0-12.5) sec INR 1.0 (<1.2) APTT 25.6 (22.0-30.0) sec Sodium 139 (137-145) mmol/L Potassium 4.2 (3.5-5.1) mmol/L Chloride 104 (98-107) mmol/L Carbon Dioxide 24 (22-30) mmol/L Anion Gap 11 mmol/L BUN 9 (7-17) mg/dL Creatinine 0.68 (0.52-1.04) mg/dL Est GFR (CKD-EPI)AfAm >90 (>60 ml/min/1.73 sqM) Est GFR (CKD-EPI)NonAf 89 (>60 ml/min/1.73 sqM) Glucose 106 H (74-99) mg/dL Calcium 8.8 (8.4-10.2) mg/dL Total Bilirubin 0.2 (0.2-1.3) mg/dL AST 21 (14-36) U/L ALT 12 (4-34) U/L Alkaline Phosphatase 104 (38-126) U/L Total Protein 5.9 L (6.3-8.2) g/dL Albumin 3.8 (3.5-5.0) g/dL Blood Type Blood Type Recheck Bld Type Recheck Status Antibody Screen Crossmatch Spec Expiration Date 08/24/24 Range/Units 22:04 WBC (4.50-10.00) 10*3/uL RBC (4.10-5.20) 10*6/uL Hgb (12.0-15.0) g/dL Hct (37.2-46.3) % MCV (80.0-97.0) fL MCH (27.0-32.0) pg MCHC (32.0-37.0) g/dL Plt Count (140-440) 10*3/uL MPV (9.5-12.2) fL Immature Gran % (Auto) % Neutrophils % % Lymphocytes % % Monocytes % % Eosinophils % % Basophils % % Immature Gran # (0.00-0.04) 10*3/uL Neutrophils # (1.80-7.70) 10*3/uL Lymphocytes # (0.90-5.00) 10*3/uL Monocytes # (0.20-1.00) 10*3/uL Eosinophils # (0.04-0.35) 10*3/uL Basophils # (0.00-0.10) 10*3/uL Manual Slide Review PT (10.0-12.5) sec INR (<1.2) APTT (22.0-30.0) sec Sodium (137-145) mmol/L Potassium (3.5-5.1) mmol/L Chloride (98-107) mmol/L Carbon Dioxide (22-30) mmol/L Anion Gap mmol/L BUN (7-17) mg/dL Creatinine (0.52-1.04) mg/dL Est GFR (CKD-EPI)AfAm (>60 ml/min/1.73 sqM) Est GFR (CKD-EPI)NonAf (>60 ml/min/1.73 sqM) Glucose (74-99) mg/dL Calcium (8.4-10.2) mg/dL Total Bilirubin (0.2-1.3) mg/dL AST (14-36) U/L ALT (4-34) U/L Alkaline Phosphatase (38-126) U/L Total Protein (6.3-8.2) g/dL Albumin (3.5-5.0) g/dL Blood Type O Positive Blood Type Recheck O Pos Bld Type Recheck Status No Antibody Screen NEGATIVE Crossmatch See Detail Spec Expiration Date 08/27/20242303 Disposition <Any Moura - Last Filed: 08/24/24 20:30> Is patient prescribed a controlled substance at d/c from ED?: No <Sofía Britt - Last Filed: 08/25/24 16:28> Clinical Impression: Anemia Disposition: HOME SELF-CARE Condition: Stable Additional Instructions: Please return to the Emergency Department if symptoms worsen or any other concerns. Referrals: Donnie Hart MD [Primary Care Provider] - 1-2 days
[2024-08-24 20:45] LABS: Basophils # (A) 0.04 10*3/uL (0.00-0.10); Basophils % (A) 0.4 %; HCT 22.5 % (37.2-46.3); Lymphocytes # (A) 0.75 10*3/uL (0.90-5.00); Lymphocytes % (A) 7.2 %; MCH 28.3 pg (27.0-32.0); MCHC 30.2 g/dL (32.0-37.0); MCV 93.8 fL (80.0-97.0); Mean Platelet Volume 10.5 fL (9.5-12.2); Monocytes # (A) 1.74 10*3/uL (0.20-1.00); Monocytes % (A) 16.7 %; Neutrophils # (A) 6.68 10*3/uL (1.80-7.70); Neutrophils % (A) 64.3 %; Platelet Count 210 10*3/uL (140-440); RDW 17.6 % (11.5-14.5); WBC 10.39 10*3/uL (4.50-10.00)
[2024-08-24 20:53] LABS: ALT 12 U/L (4-34); AST 21 U/L (14-36); African American GFR (CKD) >90 (>60 ml/min/1.73 sqM); Albumin 3.8 g/dL (3.5-5.0); Alkaline Phosphatase 104 U/L (38-126); Anion Gap 11 mmol/L; Blood Urea Nitrogen 9 mg/dL (7-17); Calcium 8.8 mg/dL (8.4-10.2); Carbon Dioxide 24 mmol/L (22-30); Chloride 104 mmol/L (98-107); Glucose 106 mg/dL (74-99); Non-African American GFR(CKD) 89 (>60 ml/min/1.73 sqM); Potassium 4.2 mmol/L (3.5-5.1); Sodium 139 mmol/L (137-145); Total Bilirubin 0.2 mg/dL (0.2-1.3); Total Protein 5.9 g/dL (6.3-8.2)
[2024-08-24 20:56] LABS: HGB 6.8 g/dL (12.0-15.0)
[2024-08-24 22:01] LABS: Partial Thromboplastin Time 25.6 sec (22.0-30.0); Prothrombin Time 11.4 sec (10.0-12.5)
[2024-08-25] MEDS: GABAPENTIN 400 MG CAP PO STA (01:49)
[2024-08-25] MEDS: OLANZapine 2.5 MG TAB PO STA (01:49)
[2024-08-25] MEDS: traMADol 50 MG TAB PO STA (01:49)
[2024-08-25 02:06] VITALS: RESP 17
[2024-08-25 02:25] VITALS: PULSE 89
[2024-08-25 03:53] VITALS: BP 127/60; TEMP 97.8
== END 2024-08-25 04:15 | disposition home or self-care (01) ==
LOC: EC 18:51
DX: D64.9 Anemia, unspecified (principal); Z87.891 Personal history of nicotine dependence; Z88.5 Allergy status to narcotic agent
CPT/HCPCS: 36415; 86900; 86901; 80053; 85025; 85610; 85730; 86850; 86920; 99284; 36430; P9016

== ENCOUNTER 2024-09-14 09:44 | Day surgery (SDC) | payer MEDICARE ==
[2024-09-10 13:05] VITALS: BMI 20.3
[~2024-09-14 09:44] MED LIST changes: +LACTATED RINGERS 1,000 ML IV SCH; -ONDANSETRON 4 MG/2 ML VIAL IVP PRN
[2024-09-14] MEDS ORDERED: METHOTREXATE SODIUM (PF) 25 MG/ML 2 ML VIAL INTRATHECA ONE (10:45)
[2024-09-14 11:13] VITALS: TEMP 97.8
[2024-09-14] MEDS: IV FLUID CONTINUATION 1,000 ML IV ONE (11:13)
[2024-09-14] MEDS ORDERED: MIDAZOLAM 2 MG/2 ML VIAL ONE (11:19)
[2024-09-14] MEDS ORDERED: fentaNYL (PF) 50 MCG/ML 2 ML AMP ONE (11:19)
--- NOTE | 2024-09-14 11:32 | P.PCN ---
Date of Procedure: 09/14/24 Procedure(s) Performed: Procedure(s) Performed: Preoperative diagnosis:B cell lymphoma Post operative diagnoses: Same as preop diagnosis Procedure= lumbar puncture with intrathecal chemotherapy (therapy provided by oncology department [employer] Meghan chin ) Anesthesia= sedation with Versed 2 mg and fentanyl 100 mcg,( sedation started 11:19 ended 11:29) ,and local infiltration with lidocaine 1% 4 mL Condition: stable Complication: none. Description of the procedure procedure risk and benefits discussed with the patient , consent signed. Patient procedure room. placed in sitting position, was applied, back prepped with chlorhexidine 3 times local infiltration of the skin and subcutaneous tissue with lidocaine 1% 4 mL for skin and subcu interstitial frustrations at L4 5 levels then 22-gauge Quincke-type needle advanced slowly at L4- 5 interlaminar space there was positive cerebrospinal fluid which was clear, no heme, no paresthesia ,total of 4 ML of clear cerebrospinal fluid collected , then chemotherapy Methotrexate was given by nurse practitioner Meghan chin ,then the needle removed and a Band-Aid applied and patient tolerated the procedure well without any complications. Last dose of Eliquis was given more than 72 hours ago. Chemotherapy intrathecally given as prophylactic treatment
[2024-09-14] MEDS: IV FLUID CONTINUATION 700 ML IV ONE (11:39)
[2024-09-14 12:01] VITALS: BP 130/75; PULSE 86; RESP 18
--- NOTE | 2024-09-14 12:42 | P.PCN ---
Date of Procedure: 09/14/24 Preoperative Diagnosis: Double expressor DLBCL Postoperative Diagnosis: Double expressor DLBCL Procedure(s) Performed: LP with intrathecal prophylactic methotrexate administration Estimated Blood Loss (ml): 0 Urine output (ml): 0 Pathology: none sent Condition: stable Disposition: same day Indications for Procedure: Double expressor, solid organ DLBCL Description of Procedure: LP performed at bedside by Anesthesiologist, 4cc clear, CSF was removed. 12mg of preservative free methotrexate diluted to a volume of 2.4cc with preservative free NS was instilled over 2 minutes, follow by a flush of 1.6 cc of sterile NS in a latex free syringe over 1 min. Pt tolerated procedure overall well, no immediate complications, VSS throughout.
== END 2024-09-14 12:19 | disposition home or self-care (01) ==
LOC: ORPAIN 09:44
PROVIDERS: ATTEND Specialist
DX: Z51.11 Encounter for antineoplastic chemotherapy (principal); C83.398 Diffuse large B-cell lymphoma of other extranodal and solid organ sites; Z79.01 Long term (current) use of anticoagulants; Z88.5 Allergy status to narcotic agent
CPT/HCPCS: J2250; J3010; 96450

== ENCOUNTER 2024-09-15 11:19 | Inpatient (IN) | payer MEDICARE ==
[~2024-09-15 11:19] MED LIST changes: -LACTATED RINGERS 1,000 ML IV SCH; +ONDANSETRON 4 MG/2 ML VIAL IVP PRN
[2024-09-15] MEDS: SODIUM CHLORIDE 0.9% 1,000 ML IV SCH (12:39)
[2024-09-15 13:04] LABS: Basophils # (A) 0.01 10*3/uL (0.00-0.10); Basophils % (A) 0.1 %; Eosinophils # (A) 0.02 10*3/uL (0.04-0.35); Eosinophils % (A) 0.3 %; HCT 31.5 % (37.2-46.3); Lymphocytes # (A) 0.46 10*3/uL (0.90-5.00); Lymphocytes % (A) 5.9 %; MCH 28.8 pg (27.0-32.0); MCHC 30.8 g/dL (32.0-37.0); MCV 93.5 fL (80.0-97.0); Monocytes # (A) 0.07 10*3/uL (0.20-1.00); Monocytes % (A) 0.9 %; Neutrophils # (A) 7.19 10*3/uL (1.80-7.70); Neutrophils % (A) 92.5 %; Platelet Count 295 10*3/uL (140-440); RBC 3.37 10*6/uL (4.10-5.20); RDW 17.3 % (11.5-14.5); WBC 7.77 10*3/uL (4.50-10.00)
[2024-09-15 13:10] LABS: HGB 9.7 g/dL (12.0-15.0)
[2024-09-15 13:21] LABS: ALT 16 U/L (4-34); AST 29 U/L (14-36); African American GFR (CKD) >90 (>60 ml/min/1.73 sqM); Albumin 3.9 g/dL (3.5-5.0); Albumin/Globulin Ratio 1.9; Alkaline Phosphatase 127 U/L (38-126); Anion Gap 12 mmol/L; Blood Urea Nitrogen 10 mg/dL (7-17); Calcium 9.1 mg/dL (8.4-10.2); Carbon Dioxide 24 mmol/L (22-30); Chloride 104 mmol/L (98-107); Globulin 2.1 g/dL; Glucose 134 mg/dL (74-99); Non-African American GFR(CKD) >90 (>60 ml/min/1.73 sqM); Potassium 4.3 mmol/L (3.5-5.1); Sodium 140 mmol/L (137-145); Total Protein 6.0 g/dL (6.3-8.2); Uric Acid 3.2 mg/dL (3.7-7.4)
[2024-09-15] MEDS: ONDANSETRON 16 MG in SODIUM CHLORIDE 0.9% 50 ML IVPB SCH (13:30)
[2024-09-15] MEDS: predniSONE 20 MG TAB PO SCH (13:30)
[2024-09-15] MEDS: DOXORUBICIN HCL IV SCH (14:08)
[2024-09-15] MEDS: VINCRISTINE SULFATE IV SCH (14:08)
[2024-09-15] MEDS: ETOPOSIDE IV SCH (14:08)
[2024-09-15] MEDS: [UNRECOGNIZED DRUG - OTHER] IV SCH (14:08)
[2024-09-15] MEDS ORDERED: LOPERAMIDE 2 MG CAP PO PRN (19:37)
[2024-09-15] MEDS: OLANZapine 2.5 MG TAB PO SCH (20:19)
[2024-09-15] MEDS: APIXABAN 5 MG TAB PO SCH (20:19)
[2024-09-15] MEDS: SALT AND SODA MOUTHWASH 1,000 ML PO SCH (20:19)
[2024-09-15] MEDS: traMADol 50 MG TAB PO PRN (20:19)
[2024-09-15] MEDS: GABAPENTIN 400 MG CAP PO SCH (20:19)
[2024-09-16 08:08] LABS: Basophils # (A) 0 X 10*3/uL (0.00-0.10); Basophils % (A) 0 %; Eosinophils # (A) 0 X 10*3/uL (0.04-0.35); Eosinophils % (A) 0 %; HCT 29.9 % (37.2-46.3); HGB 9.0 g/dL (12.0-15.0); Immature Grans, Automated 0.40 %; Lymphocytes # (A) 0.47 X 10*3/uL (0.90-5.00); Lymphocytes % (A) 9.6 %; MCH 27.9 pg (27.0-32.0); MCHC 30.1 g/dL (32.0-37.0); MCV 92.6 FL (80.0-97.0); Monocytes # (A) 0.07 X 10*3/uL (0.20-1.00); Monocytes % (A) 1.4 %; NRBC Per 100 WBC 0 X 10*3/uL (0.00-0.01); Neutrophils # (A) 4.33 X 10*3/uL (1.80-7.70); Neutrophils % (A) 88.6 %; Platelet Count 345 X 10*3/uL (140-440); RBC 3.23 X 10*6/uL (4.10-5.20); RDW 16.8 % (11.5-14.5); WBC 4.89 X 10*3/uL (4.50-10.00)
[2024-09-16 08:21] LABS: ALT 19 U/L (8-44); AST 28 U/L (13-35); Albumin 3.7 g/dL (3.8-4.9); Albumin/Globulin Ratio 2.18 Ratio (1.60-3.17); Alkaline Phosphatase 115 U/L (41-126); Anion Gap 10.40 mmol/L (4.00-12.00); BUN/Creat Ratio 14.57 Ratio (12.00-20.00); Blood Urea Nitrogen 10.2 mg/dL (9.0-27.0); Calcium 8.7 mg/dL (8.7-10.3); Carbon Dioxide 21.6 mmol/L (21.6-31.8); Chloride 111 mmol/L (96-109); Globulin 1.7 g/dL (1.6-3.3); Glucose 151 mg/dL (70-110); Potassium 4.1 mmol/L (3.5-5.5); Sodium 143 mmol/L (135-145); Total Protein 5.4 g/dL (6.2-8.2); Uric Acid 2.9 mg/dL (2.9-7.7)
[2024-09-16] MEDS: PANTOPRAZOLE 40 MG TABLET PO SCH (08:47)
[2024-09-16] MEDS: amLODIPine 5 MG TAB PO SCH (08:48)
[2024-09-16] MEDS: CHOLECALCIFEROL 25 MCG (1000 IU) TABLET PO SCH (08:48)
--- NOTE | 2024-09-16 12:22 | P.CONS ---
History of Present Illness - Reason for Consult Consult date: 09/16/24 Medical management - History of Present Illness History of present illness; patient 68-year-old lady with history of diffuse large B-cell lymphoma who is under treatment of hematology oncology and currently undergoing chemotherapy. Patient was admitted to the hospital for her regular cycle of chemotherapy. Patient currently denies any chest pain. There is no complaint of shortness of breath. Patient denies any palpitation. There is no complaint of orthopnea or PND. Denies any nausea, vomiting abdominal pain. Patient denies any complaint of dizziness. There is no complaint of headache. Initial lab work done showed WBC 7.77, hemoglobin 9.7, platelet count 295, sodium 140, potassium 4.3, BUN 10, creatinine 0.48, glucose 132, uric acid 3.2 alk phos 127, total protein 6, Patient admitted to hematology oncology REVIEW OF SYSTEMS: CONSTITUTIONAL: No fever, no malaise, no fatigue. HEENT: No recent visual problems or hearing problems. Denied any sore throat. CARDIOVASCULAR: No chest pain, orthopnea, PND, no palpitations, no syncope. PULMONARY: No shortness of breath, no cough, no hemoptysis. GASTROINTESTINAL: No diarrhea, no nausea, no vomiting, no abdominal pain. NEUROLOGICAL: No headaches, no weakness, no numbness. HEMATOLOGICAL: Denies any bleeding or petechiae. GENITOURINARY: Denies any burning micturition, frequency, or urgency. MUSCULOSKELETAL/RHEUMATOLOGICAL: Denies any joint pain, swelling, or any muscle pain. ENDOCRINE: Denies any polyuria or polydipsia. The rest of the 14-point review of systems is negative. PHYSICAL EXAMINATION: GENERAL: The patient is alert and oriented x3, not in any acute distress. Ill looking HEENT: Pupils are round and equally reacting to light. EOMI. No scleral icterus. No conjunctival pallor. Normocephalic, atraumatic. No pharyngeal erythema. No thyromegaly. CARDIOVASCULAR: S1 and S2 present. No murmurs, rubs, or gallops. PULMONARY: Chest is clear to auscultation, no wheezing or crackles. ABDOMEN: Soft, nontender, nondistended, normoactive bowel sounds. No palpable organomegaly. MUSCULOSKELETAL: No joint swelling or deformity. EXTREMITIES: No cyanosis, clubbing, or pedal edema. NEUROLOGICAL: Gross neurological examination did not reveal any focal deficits. SKIN: No rashes. Assessment and plan Diffuse large B-cell lymphoma of extranodal site History of DVT Hypertension History of back pain with T11-L1 compression fractures Antineoplastic chemotherapy induced anemia, hemoglobin is 7.0 Former smoker Moderate calorie protein malnutrition with a BMI of 20.9 Monitor vital signs Monitor CBC Monitor CMP Continue Norvasc and continue Eliquis Continue chemotherapy per hematology oncology Aggressive bowel regimen Resume home meds Labs and medication were reviewed.. Continue same treatment. Continue with symptomatic treatment. Resume home medication. Monitor labs and vitals. DVT and GI prophylaxis. Further recommendations as per clinical course of the patient Dictation was produced using [employer] dictation software. please excuse any grammatical, word or spelling errors. Past Medical History Past Medical History: Cancer, Deep Vein Thrombosis (DVT), Hypertension, Pneumonia Additional Past Medical History / Comment(s): Diffuse large B-cell lymphoma diagnosed 2024, receiving chemo treatments, T11-L1 compression fracture, chronic back pain, pneumonia, and DVT legs May 2024. History of Any Multi-Drug Resistant Organisms: None Reported Past Surgical History: No Surgical Hx Reported Additional Past Surgical History / Comment(s): Cataract surgery, PICC line placement, PICC Line removed, Infusaport placed 06/14/24, Lumbar Punctures with Intrathecal Chemotherapy, liver biopsies 04/14/24 and 05/07/24. Past Anesthesia/Blood Transfusion Reactions: No Reported Reaction Past Psychological History: No Psychological Hx Reported Smoking Status: Former smoker Past Alcohol Use History: None Reported Additional Past Alcohol Use History / Comment(s): Quit smoking 15 yrs ago. Past Drug Use History: None Reported - Past Family History Father Family Medical History: Congestive Heart Failure (CHF), Diabetes Mellitus Mother Family Medical History: Congestive Heart Failure (CHF) Sister(s) Family Medical History: Congestive Heart Failure (CHF), COPD Brother(s) Family Medical History: Congestive Heart Failure (CHF) Medications and Allergies Home Medications Medication Instructions Recorded Confirmed Type Gabapentin [Neurontin] 400 mg PO HS@199905/15/24 09/15/24 History OLANZapine [ZyPREXA] 2.5 mg PO HS #30 tab 05/25/24 09/15/24 Rx traMADol HCl [Ultram] 50 mg PO DAILY PRN 06/10/24 09/15/24 History Acetaminophen [Tylenol Extra 1,000 mg PO DAILY@1400 PRN 06/18/24 09/15/24 History Strength] Cholecalciferol (Vitamin D3) 50 mcg PO DAILY@0800 06/18/24 09/15/24 History [Vitamin D3 (50 Mcg = 2000 Iu)] Lactulose 20 gm PO DAILY PRN 06/18/24 09/15/24 History Ondansetron [Zofran] 4 - 8 mg PO Q4H PRN 06/18/24 09/15/24 History polyethylene glycoL 3350 [Miralax] 17 gm PO DAILY@1400 PRN 06/18/24 09/15/24 History Apixaban [Eliquis] 5 mg PO BID@0800,199907/12/24 09/15/24 History Lidocaine-Prilocaine Cream [Emla 1 applic TOPICAL DAILY PRN 07/19/24 09/15/24 History Cream 2.5%/2.5%] amLODIPine [Norvasc] 5 mg PO DAILY@0800 08/09/24 09/15/24 History traMADol HCL 50 mg PO BID 08/11/24 09/15/24 History Pantoprazole [Protonix] 40 mg PO AC-BRKFST #30 tab 08/16/24 09/15/24 Rx Allergies Allergy/AdvReac Type Severity Reaction Status Date / Time hydromorphone [From Dilaudid] AdvReac Hallucinati Verified 09/15/24 13:45 ons Physical Exam Vitals: Vital Signs Temp Pulse Resp BP Pulse Ox 09/16/24 07:56 97.8 F 91 16 147/56 96 09/16/24 04:00 97.6 F 94 16 157/79 94 L 09/15/24 23:50 97.5 F L 93 16 132/74 93 L 09/15/24 20:00 97.8 F 91 16 122/70 95 09/15/24 19:50 91 16 09/15/24 14:00 97.6 F 89 16 136/59 94 L 09/15/24 12:47 97.9 F 96 16 128/58 97 Intake and Output 09/15/24 09/16/24 09/16/24 22:59 06:59 14:59 Other: Voiding Method Toilet Toilet # Voids 1 1 Results CBC & Chem 7: 09/16/24 04:51 09/16/24 04:51 Labs: Abnormal Lab Results - Last 24 Hours (Table) 09/15/24 09/15/24 09/16/24 Range/Units 12:50 12:50 04:51 RBC 3.37 L 3.23 L (4.10-5.20) 10*6/uL Hgb 9.7 L D 9.0 L (12.0-15.0) g/dL Hct 31.5 L 29.9 L (37.2-46.3) % MCHC 30.8 L 30.1 L (32.0-37.0) g/dL RDW 17.3 H 16.8 H (11.5-14.5) % MPV 9.0 L 9.2 L (9.5-12.2) fL Lymphocytes # 0.46 L 0.47 L (0.90-5.00) 10*3/uL Monocytes # 0.07 L 0.07 L (0.20-1.00) 10*3/uL Eosinophils # 0.02 L 0 L (0.04-0.35) 10*3/uL Chloride (96-109) mmol/L Creatinine 0.48 L (0.52-1.04) mg/dL Glucose 134 H (74-99) mg/dL Uric Acid 3.2 L (3.7-7.4) mg/dL Total Bilirubin (0.3-1.2) mg/dL Alkaline Phosphatase 127 H (38-126) U/L Total Protein 6.0 L (6.3-8.2) g/dL Albumin (3.8-4.9) g/dL 09/16/24 Range/Units 04:51 RBC (4.10-5.20) 10*6/uL Hgb (12.0-15.0) g/dL Hct (37.2-46.3) % MCHC (32.0-37.0) g/dL RDW (11.5-14.5) % MPV (9.5-12.2) fL Lymphocytes # (0.90-5.00) 10*3/uL Monocytes # (0.20-1.00) 10*3/uL Eosinophils # (0.04-0.35) 10*3/uL Chloride 111 H (96-109) mmol/L Creatinine (0.52-1.04) mg/dL Glucose 151 H (74-99) mg/dL Uric Acid (3.7-7.4) mg/dL Total Bilirubin 0.2 L (0.3-1.2) mg/dL Alkaline Phosphatase (38-126) U/L Total Protein 5.4 L (6.3-8.2) g/dL Albumin 3.7 L (3.8-4.9) g/dL
[2024-09-16] MEDS: FAMOTIDINE 20 MG/2 ML VIAL IV SCH (15:24)
--- NOTE | 2024-09-16 20:33 | P.HPIM ---
History of Present Illness H&P Date: 09/16/24 Chief Complaint: inpt chemo Ms. Greene is a pleasant 68-year-old female pt of Dr. Willy Kwok, diagnosed with dbl hit lymphoma 04/2024. She initially presented to [facility] on 04/13/2024 with increased weakness, abdominal pain, constipation, and lethargy. Lab investigations were significant for Ca++ 17.1, WBC 10.1 (ANC 7.8), Hgb 12.6, platelets 290. CT CAP with contrast 04/13/2024 noted multiple lytic lesions in the axial skeleton along with multiple hypodense hepatic lesions suspicious for metastatic disease. Serum protein electrophoresis, immunofixation, and kappa to lambda light chain ratio were all normal. IgG and IgM were normal. Tumor markers including CA 19-9, CA 15-3, CA 27-29 were normal. CEA was mildly elevated at 5.5. She did receive Zometa 4 mg IV, calcitonin x 1, and IV fluids for hypercalcemia. 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 The original sample was noted to have limited malignant tissue and no further differentiation of the malignancy could be made. Brain MRI performed on 04/16/2024 due to confusion that noted innumerable enhancing calvarial and cervical vertebral body lesions along with vasogenic edema in the bilateral posterior parietal and occipital lobes with no abnormal enhancement possibly representing PRES. She was seen by Neurology and started on steroid, taper. PET/CT 04/30/2024 showed extensive FDG avid metastasis throughout the osseous structures and liver. Additional metastatic lymphadenopathy with FDG avid para- aortic left iliac chain, right obturator, right inguinal and right axillary left mammary and right supraclavicular lymph nodes. Pathological fracture of the L1 vertebral body and suspected pathological fracture of the T11 vertebral body. Patient underwent repeat liver biopsy at [facility] on 05/07. 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 High grade B-cell lymphoma FISH panel was neg for MYC neg, no dbl hit lymphoma but, pt is a triple expressor. She has completed 4 cycles of R-EPOCH and prophylactic intrathecal methotrexate X4. Had IT yesterday, mAb in ofc earlier today and is now admitted for cycle 5 EPOCH. Pt has been tolerating treatment well. Today denies fevers, sweats, LAD, oral irritation, cough, chest discomfort, N,V, abd c/o, appetite is decent, no acute changes in bowel or bladder, rashes, bleeding or swelling. She is not in any pain. Review of Systems 10 point ROS is negative except as stated in the HPI Past Medical History Past Medical History: Cancer, Deep Vein Thrombosis (DVT), Hypertension, Pneumonia Additional Past Medical History / Comment(s): Diffuse large B-cell lymphoma diagnosed 2024, receiving chemo treatments, T11-L1 compression fracture, chronic back pain, pneumonia, and DVT legs May 2024. History of Any Multi-Drug Resistant Organisms: None Reported Past Surgical History: No Surgical Hx Reported Additional Past Surgical History / Comment(s): Cataract surgery, PICC line placement, PICC Line removed, Infusaport placed 06/14/24, Lumbar Punctures with Intrathecal Chemotherapy, liver biopsies 04/14/24 and 05/07/24. Past Anesthesia/Blood Transfusion Reactions: No Reported Reaction Past Psychological History: No Psychological Hx Reported Smoking Status: Former smoker Past Alcohol Use History: None Reported Additional Past Alcohol Use History / Comment(s): Quit smoking 15 yrs ago. Past Drug Use History: None Reported - Past Family History Father Family Medical History: Congestive Heart Failure (CHF), Diabetes Mellitus Mother Family Medical History: Congestive Heart Failure (CHF) Sister(s) Family Medical History: Congestive Heart Failure (CHF), COPD Brother(s) Family Medical History: Congestive Heart Failure (CHF) Medications and Allergies Home Medications Medication Instructions Recorded Confirmed Type Gabapentin [Neurontin] 400 mg PO HS@199905/15/24 09/15/24 History OLANZapine [ZyPREXA] 2.5 mg PO HS #30 tab 05/25/24 09/15/24 Rx traMADol HCl [Ultram] 50 mg PO DAILY PRN 06/10/24 09/15/24 History Acetaminophen [Tylenol Extra 1,000 mg PO DAILY@1400 PRN 06/18/24 09/15/24 History Strength] Cholecalciferol (Vitamin D3) 50 mcg PO DAILY@0800 06/18/24 09/15/24 History [Vitamin D3 (50 Mcg = 2000 Iu)] Lactulose 20 gm PO DAILY PRN 06/18/24 09/15/24 History Ondansetron [Zofran] 4 - 8 mg PO Q4H PRN 06/18/24 09/15/24 History polyethylene glycoL 3350 [Miralax] 17 gm PO DAILY@1400 PRN 06/18/24 09/15/24 History Apixaban [Eliquis] 5 mg PO BID@0800,2000 07/12/24 09/15/24 History Lidocaine-Prilocaine Cream [Emla 1 applic TOPICAL DAILY PRN 07/19/24 09/15/24 History Cream 2.5%/2.5%] amLODIPine [Norvasc] 5 mg PO DAILY@0800 08/09/24 09/15/24 History traMADol HCL 50 mg PO BID 08/11/24 09/15/24 History Pantoprazole [Protonix] 40 mg PO AC-BRKFST #30 tab 08/16/24 09/15/24 Rx Allergies Allergy/AdvReac Type Severity Reaction Status Date / Time hydromorphone [From Dilaudid] AdvReac Hallucinati Verified 09/15/24 13:45 ons Physical Exam Vitals: Vital Signs Temp Pulse Resp BP Pulse Ox 09/16/24 07:56 97.8 F 91 16 147/56 96 09/16/24 04:00 97.6 F 94 16 157/79 94 L 09/15/24 23:50 97.5 F L 93 16 132/74 93 L 09/15/24 20:00 97.8 F 91 16 122/70 95 09/15/24 19:50 91 16 09/15/24 14:00 97.6 F 89 16 136/59 94 L 09/15/24 12:47 97.9 F 96 16 128/58 97 Intake and Output 09/15/24 09/16/24 09/16/24 22:59 06:59 14:59 Other: Voiding Method Toilet Toilet # Voids 1 1 - Constitutional General appearance: average body habitus, no acute distress - EENT Eyes: anicteric sclerae, EOMI ENT: hearing grossly normal - Respiratory Respiratory: bilateral: CTA - Cardiovascular Rhythm: regular - Gastrointestinal General gastrointestinal: soft, no tenderness - Integumentary Integumentary: no cyanotic - Psychiatric Psychiatric: A&O x's 3 Results CBC & Chem 7: 09/16/24 04:51 09/16/24 04:51 Labs: Abnormal Lab Results - Last 24 Hours (Table) 09/15/24 09/15/24 09/16/24 Range/Units 12:50 12:50 04:51 RBC 3.37 L 3.23 L (4.10-5.20) 10*6/uL Hgb 9.7 L D 9.0 L (12.0-15.0) g/dL Hct 31.5 L 29.9 L (37.2-46.3) % MCHC 30.8 L 30.1 L (32.0-37.0) g/dL RDW 17.3 H 16.8 H (11.5-14.5) % MPV 9.0 L 9.2 L (9.5-12.2) fL Lymphocytes # 0.46 L 0.47 L (0.90-5.00) 10*3/uL Monocytes # 0.07 L 0.07 L (0.20-1.00) 10*3/uL Eosinophils # 0.02 L 0 L (0.04-0.35) 10*3/uL Chloride (96-109) mmol/L Creatinine 0.48 L (0.52-1.04) mg/dL Glucose 134 H (74-99) mg/dL Uric Acid 3.2 L (3.7-7.4) mg/dL Total Bilirubin (0.3-1.2) mg/dL Alkaline Phosphatase 127 H (38-126) U/L Total Protein 6.0 L (6.3-8.2) g/dL Albumin (3.8-4.9) g/dL 09/16/24 Range/Units 04:51 RBC (4.10-5.20) 10*6/uL Hgb (12.0-15.0) g/dL Hct (37.2-46.3) % MCHC (32.0-37.0) g/dL RDW (11.5-14.5) % MPV (9.5-12.2) fL Lymphocytes # (0.90-5.00) 10*3/uL Monocytes # (0.20-1.00) 10*3/uL Eosinophils # (0.04-0.35) 10*3/uL Chloride 111 H (96-109) mmol/L Creatinine (0.52-1.04) mg/dL Glucose 151 H (74-99) mg/dL Uric Acid (3.7-7.4) mg/dL Total Bilirubin 0.2 L (0.3-1.2) mg/dL Alkaline Phosphatase (38-126) U/L Total Protein 5.4 L (6.3-8.2) g/dL Albumin 3.7 L (3.8-4.9) g/dL Thrombosis Risk Factor Assmnt - DVT/VTE Prophylaxis DVT/VTE Prophylaxis: Pharmacologic Prophylaxis ordered - Choose All That Apply Any of the Below Risk Factors Present?: Yes Other Risk Factors: Yes Each Risk Factor Represents 2 Points: Age 61-74 years Each Risk Factor Represents 3 Points: History of DVT/PE Other congenital or acquired thrombophilia - If yes, enter type in comment: No Thrombosis Risk Factor Assessment Total Risk Factor Score: 5 Thrombosis Risk Factor Assessment Level: High Risk Assessment and Plan (1) Diffuse large B-cell lymphoma of extranodal site Current Visit: Yes Status: Chronic Priority: High Code(s): C83.398 - DIFFUSE LARGE B-CELL LYMPH OF EXTRNOD AND SOLID ORGAN SITES SNOMED Code(s): 922733610 Plan: Diffuse large B-cell lymphoma, triple expresser - Chemo orders reviewed prior to admission - Admit for cycle 5 of EPOCH. Patient received monoclonal antibody and intrathecal methotrexate prior to admit. -Home medications reconciled - DVT and GI prophylaxis -Regular diet, early and frequent ambulation, liberal fluids - Supportive care medications ordered - Labs daily -Patient will be receiving continuous IV chemotherapy for approximately 5 days. Will be scheduled for G-CSF day after she completes treatment Doctor attests: I performed a history and physical examination of this patient, developed impression and plan of care. Discussed with dictator. I agree with dictators note, documented as a scribe.
[2024-09-17 08:00] LABS: Basophils # (A) 0 X 10*3/uL (0.00-0.10); Basophils % (A) 0 %; Eosinophils # (A) 0 X 10*3/uL (0.04-0.35); Eosinophils % (A) 0 %; HCT 27.8 % (37.2-46.3); HGB 8.5 g/dL (12.0-15.0); Immature Grans, Automated 0.60 %; Lymphocytes # (A) 0.33 X 10*3/uL (0.90-5.00); Lymphocytes % (A) 4.8 %; MCH 28.0 pg (27.0-32.0); MCHC 30.6 g/dL (32.0-37.0); MCV 91.4 FL (80.0-97.0); Monocytes # (A) 0.05 X 10*3/uL (0.20-1.00); Monocytes % (A) 0.7 %; NRBC Per 100 WBC 0 X 10*3/uL (0.00-0.01); Neutrophils # (A) 6.48 X 10*3/uL (1.80-7.70); Neutrophils % (A) 93.9 %; Platelet Count 302 X 10*3/uL (140-440); RBC 3.04 X 10*6/uL (4.10-5.20); RDW 16.9 % (11.5-14.5); WBC 6.90 X 10*3/uL (4.50-10.00)
[2024-09-17 08:06] LABS: Uric Acid 2.3 mg/dL (2.9-7.7)
[2024-09-17 08:21] LABS: ALT 35 U/L (8-44); AST 41 U/L (13-35); Albumin 3.7 g/dL (3.8-4.9); Albumin/Globulin Ratio 2.18 Ratio (1.60-3.17); Alkaline Phosphatase 106 U/L (41-126); Anion Gap 9.70 mmol/L (4.00-12.00); BUN/Creat Ratio 33.80 Ratio (12.00-20.00); Blood Urea Nitrogen 16.9 mg/dL (9.0-27.0); Calcium 8.3 mg/dL (8.7-10.3); Carbon Dioxide 21.3 mmol/L (21.6-31.8); Chloride 111 mmol/L (96-109); Globulin 1.7 g/dL (1.6-3.3); Glucose 139 mg/dL (70-110); Potassium 3.4 mmol/L (3.5-5.5); Sodium 142 mmol/L (135-145); Total Protein 5.4 g/dL (6.2-8.2)
--- NOTE | 2024-09-17 16:37 | P.PN ---
Subjective Progress Note Date: 09/17/24 No acute events overnight. Pt reporting she is feeling well. No n/v/d. Tolerating oral intake. HDS Objective - Vital Signs Vital signs: Vital Signs Temp 97.6 F 09/17/24 16:00 Pulse 77 09/17/24 16:00 Resp 16 09/17/24 16:00 BP 152/75 09/17/24 16:00 Pulse Ox 96 09/17/24 16:00 FiO2 Intake & Output 09/16/24 09/17/24 09/17/24 18:59 06:59 18:59 Intake Total 240 540 Balance 240 540 Intake: Oral 240 540 Other: Voiding Method Toilet Toilet Toilet # Voids 3 1 2 - Constitutional General appearance: Present: no acute distress - EENT Eyes: Present: anicteric sclerae, EOMI ENT: Present: hearing grossly normal - Respiratory Details: breathing is even and unlabored - Cardiovascular Details: skin warm and dry - Gastrointestinal General gastrointestinal: Present: soft. Absent: tenderness - Integumentary Integumentary: Absent: cyanotic, jaundiced - Psychiatric Psychiatric: Present: A&O x's 3 - Labs CBC & Chem 7: 09/17/24 05:54 09/17/24 05:54 Labs: Abnormal Lab Results - Last 24 Hours (Table) 09/17/24 09/17/24 Range/Units 05:54 05:54 RBC 3.04 L (4.10-5.20) X 10*6/uL Hgb 8.5 L (12.0-15.0) g/dL Hct 27.8 L (37.2-46.3) % MCHC 30.6 L (32.0-37.0) g/dL RDW 16.9 H (11.5-14.5) % MPV 9.2 L (9.5-12.2) FL Lymphocytes # 0.33 L (0.90-5.00) X 10*3/uL Monocytes # 0.05 L (0.20-1.00) X 10*3/uL Eosinophils # 0 L (0.04-0.35) X 10*3/uL Potassium 3.4 L (3.5-5.5) mmol/L Chloride 111 H (96-109) mmol/L Carbon Dioxide 21.3 L (21.6-31.8) mmol/L Creatinine 0.5 L (0.6-1.5) mg/dL BUN/Creatinine Ratio 33.80 H (12.00-20.00) Ratio Glucose 139 H (70-110) mg/dL Uric Acid 2.3 L (2.9-7.7) mg/dL Calcium 8.3 L (8.7-10.3) mg/dL Total Bilirubin <0.2 L (0.3-1.2) mg/dL AST 41 H (13-35) U/L Total Protein 5.4 L (6.2-8.2) g/dL Albumin 3.7 L (3.8-4.9) g/dL Assessment and Plan (1) Diffuse large B-cell lymphoma of extranodal site Current Visit: Yes Status: Chronic Priority: High Code(s): C83.398 - DIFFUSE LARGE B-CELL LYMPH OF EXTRNOD AND SOLID ORGAN SITES SNOMED Code(s): 838783133 Plan: Diffuse large B-cell lymphoma, triple expresser - Chemo orders reviewed prior to admission - Admit for cycle 5 of EPOCH. Patient received monoclonal antibody and intrathecal methotrexate prior to admit. -Home medications reconciled - DVT and GI prophylaxis - Regular diet, early and frequent ambulation, liberal fluids - Supportive care medications ordered - Labs daily - Day 3 of 5 of chemo. Tolerating treatment well, with no reported adverse side effects. Will be scheduled for G-CSF day after she completes treatment Doctor attests: I performed a history and physical examination of this patient, developed impression and plan of care. Discussed with dictator. I agree with dictators note, documented as a scribe.
[2024-09-18 08:56] LABS: Basophils # (A) 0 X 10*3/uL (0.00-0.10); Basophils % (A) 0 %; Eosinophils # (A) 0 X 10*3/uL (0.04-0.35); Eosinophils % (A) 0 %; HCT 29.3 % (37.2-46.3); HGB 8.9 g/dL (12.0-15.0); Immature Grans, Automated 0.40 %; Lymphocytes # (A) 0.24 X 10*3/uL (0.90-5.00); Lymphocytes % (A) 5.0 %; MCH 28.0 pg (27.0-32.0); MCHC 30.4 g/dL (32.0-37.0); MCV 92.1 FL (80.0-97.0); Monocytes # (A) 0.02 X 10*3/uL (0.20-1.00); Monocytes % (A) 0.4 %; NRBC Per 100 WBC 0 X 10*3/uL (0.00-0.01); Neutrophils # (A) 4.54 X 10*3/uL (1.80-7.70); Neutrophils % (A) 94.2 %; Platelet Count 306 X 10*3/uL (140-440); RBC 3.18 X 10*6/uL (4.10-5.20); RDW 16.4 % (11.5-14.5); WBC 4.82 X 10*3/uL (4.50-10.00)
[2024-09-18 09:04] LABS: BUN/Creat Ratio 40.00 Ratio (12.00-20.00); Blood Urea Nitrogen 16.0 mg/dL (9.0-27.0); Chloride 110 mmol/L (96-109); Glucose 126 mg/dL (70-110); Potassium 3.0 mmol/L (3.5-5.5); Sodium 143 mmol/L (135-145); Uric Acid 2.3 mg/dL (2.9-7.7)
[2024-09-18 09:05] LABS: ALT 34 U/L (8-44); AST 26 U/L (13-35); Albumin 3.7 g/dL (3.8-4.9); Albumin/Globulin Ratio 2.31 Ratio (1.60-3.17); Alkaline Phosphatase 93 U/L (41-126); Anion Gap 11.20 mmol/L (4.00-12.00); Calcium 7.9 mg/dL (8.7-10.3); Carbon Dioxide 21.8 mmol/L (21.6-31.8); Globulin 1.6 g/dL (1.6-3.3); Total Protein 5.3 g/dL (6.2-8.2)
[2024-09-18] MEDS ORDERED: Potassium Replacement Protocol 1 EACH MISC MISCELLANE PRN ×2 (11:30→16:46)
[2024-09-18] MEDS: POTASSIUM CHLORIDE ER 20 MEQ TAB.ER PO SCH ×2 (12:06→17:24)
--- NOTE | 2024-09-18 15:40 | P.PN ---
Subjective Progress Note Date: 09/18/24 Principal diagnosis: Diffuse large B-cell lymphoma -Afebrile, no acute events overnight -Continues to feel well without any nausea, vomiting, diarrhea, fevers, or chills Objective - Vital Signs Vital signs: Vital Signs Temp 97.7 F 09/18/24 12:00 Pulse 75 09/18/24 12:00 Resp 16 09/18/24 12:00 BP 159/73 09/18/24 12:00 Pulse Ox 97 09/18/24 12:00 FiO2 Intake & Output 09/17/24 09/18/24 09/18/24 18:59 06:59 18:59 Intake Total 1080 Balance 1080 Intake: Oral 1080 Other: Voiding Method Toilet Toilet Toilet # Voids 0 1 - Constitutional General appearance: Present: cooperative, no acute distress - EENT Eyes: Present: EOMI - Respiratory Details: Nonlabored breathing - Cardiovascular Details: Warm and well-perfused - Gastrointestinal General gastrointestinal: Present: soft. Absent: distended - Integumentary Integumentary Comment(s): Decreased paleness Integumentary: Present: flushed (Cheeks bilaterally, mild) - Neurologic Neurologic: Present: CNII-XII intact. Absent: focal deficits - Psychiatric Psychiatric: Present: A&O x's 3 - Labs CBC & Chem 7: 09/18/24 04:25 09/18/24 04:25 Labs: Abnormal Lab Results - Last 24 Hours (Table) 09/18/24 09/18/24 Range/Units 04:25 04:25 RBC 3.18 L (4.10-5.20) X 10*6/uL Hgb 8.9 L (12.0-15.0) g/dL Hct 29.3 L (37.2-46.3) % MCHC 30.4 L (32.0-37.0) g/dL RDW 16.4 H (11.5-14.5) % MPV 8.8 L (9.5-12.2) FL Lymphocytes # 0.24 L (0.90-5.00) X 10*3/uL Monocytes # 0.02 L (0.20-1.00) X 10*3/uL Eosinophils # 0 L (0.04-0.35) X 10*3/uL Potassium 3.0 L (3.5-5.5) mmol/L Chloride 110 H (96-109) mmol/L Creatinine 0.4 L (0.6-1.5) mg/dL BUN/Creatinine Ratio 40.00 H (12.00-20.00) Ratio Glucose 126 H (70-110) mg/dL Uric Acid 2.3 L (2.9-7.7) mg/dL Calcium 7.9 L (8.7-10.3) mg/dL Total Bilirubin <0.2 L (0.3-1.2) mg/dL Total Protein 5.3 L (6.2-8.2) g/dL Albumin 3.7 L (3.8-4.9) g/dL Assessment and Plan (1) Diffuse large B-cell lymphoma of extranodal site Current Visit: Yes Status: Chronic Priority: High Code(s): C83.398 - DIFFUSE LARGE B-CELL LYMPH OF EXTRNOD AND SOLID ORGAN SITES SNOMED Code(s): 280572189 Plan: Diffuse large B-cell lymphoma, triple expresser - Chemo orders reviewed prior to admission - Admit for cycle 5 of dose adjusted R-EPOCH. Patient received rituximab and intrathecal methotrexate prior to admit - Home medications reconciled - DVT and GI prophylaxis - Regular diet, early and frequent ambulation, liberal fluids - Supportive care medications ordered - Labs daily - No indications for transfusion with hemoglobin 8.5 and platelets 302 today - Day 4 of 5 of chemo. Tolerating treatment well, with no reported adverse side effects. Will be scheduled for G-CSF day after she completes treatment Willy Kwok MD
[2024-09-18] MEDS: LACTULOSE 20 GM/30 ML CUP PO PRN (20:07)
[2024-09-19 12:28] LABS: Basophils # (A) 0.01 10*3/uL (0.00-0.10); Basophils % (A) 0.1 %; Eosinophils # (A) 0.00 10*3/uL (0.04-0.35); Eosinophils % (A) 0.0 %; HCT 28.9 % (37.2-46.3); HGB 9.4 g/dL (12.0-15.0); Lymphocytes # (A) 0.25 10*3/uL (0.90-5.00); Lymphocytes % (A) 1.7 %; MCH 28.8 pg (27.0-32.0); MCHC 32.5 g/dL (32.0-37.0); MCV 88.7 fL (80.0-97.0); Monocytes # (A) 0.04 10*3/uL (0.20-1.00); Monocytes % (A) 0.3 %; Neutrophils # (A) 14.35 10*3/uL (1.80-7.70); Neutrophils % (A) 97.6 %; Platelet Count 289 10*3/uL (140-440); RBC 3.26 10*6/uL (4.10-5.20); RDW 15.8 % (11.5-14.5); WBC 14.69 10*3/uL (4.50-10.00)
[2024-09-19 12:39] LABS: African American GFR (CKD) >90 (>60 ml/min/1.73 sqM); Anion Gap 7 mmol/L; Blood Urea Nitrogen 15 mg/dL (7-17); Calcium 8.3 mg/dL (8.4-10.2); Carbon Dioxide 24 mmol/L (22-30); Chloride 109 mmol/L (98-107); Glucose 97 mg/dL (74-99); Non-African American GFR(CKD) >90 (>60 ml/min/1.73 sqM); Potassium 4.1 mmol/L (3.5-5.1); Sodium 140 mmol/L (137-145)
--- NOTE | 2024-09-19 14:19 | P.PN ---
Subjective Progress Note Date: 09/19/24 Principal diagnosis: Diffuse large B-cell lymphoma -Afebrile, no acute events overnight -Continues to feel well without any nausea, vomiting, diarrhea, fevers, or chills -She did note annoyance for extra blood draw obtained to check her potassium outside of CBC/BMP -She did take lactulose yesterday and had a bowel movement this morning Objective - Vital Signs Vital signs: Vital Signs Temp 97.9 F 09/19/24 12:00 Pulse 78 09/19/24 12:00 Resp 16 09/19/24 12:00 BP 136/74 09/19/24 12:00 Pulse Ox 97 09/19/24 12:00 FiO2 Intake & Output 09/18/24 09/19/24 09/19/24 18:59 06:59 18:59 Intake Total 1080 Balance 1080 Intake: Oral 1080 Other: Voiding Method Toilet Toilet Toilet # Voids 1 1 3 # Bowel Movements 1 3 - Constitutional General appearance: Present: cooperative, no acute distress - EENT Eyes: Present: EOMI - Respiratory Details: Nonlabored breathing - Cardiovascular Details: Warm and well-perfused - Gastrointestinal General gastrointestinal: Present: soft. Absent: distended - Integumentary Integumentary: Present: pale - Neurologic Neurologic: Present: CNII-XII intact. Absent: focal deficits - Psychiatric Psychiatric: Present: A&O x's 3 - Labs CBC & Chem 7: 09/19/24 12:14 09/19/24 12:14 Labs: Abnormal Lab Results - Last 24 Hours (Table) 09/18/24 09/19/24 09/19/24 Range/Units 15:25 12:14 12:14 WBC 14.69 H (4.50-10.00) 10*3/uL RBC 3.26 L (4.10-5.20) 10*6/uL Hgb 9.4 L (12.0-15.0) g/dL Hct 28.9 L (37.2-46.3) % RDW 15.8 H (11.5-14.5) % MPV 8.6 L (9.5-12.2) fL Neutrophils # 14.35 H (1.80-7.70) 10*3/uL Lymphocytes # 0.25 L (0.90-5.00) 10*3/uL Monocytes # 0.04 L (0.20-1.00) 10*3/uL Eosinophils # 0.00 L (0.04-0.35) 10*3/uL Potassium 2.8 L (3.5-5.1) mmol/L Chloride 109 H (98-107) mmol/L Creatinine 0.43 L (0.52-1.04) mg/dL Calcium 8.3 L (8.4-10.2) mg/dL Assessment and Plan (1) Diffuse large B-cell lymphoma of extranodal site Current Visit: Yes Status: Chronic Priority: High Code(s): C83.398 - DIFFUSE LARGE B-CELL LYMPH OF EXTRNOD AND SOLID ORGAN SITES SNOMED Code(s): 850315894 Plan: Diffuse large B-cell lymphoma, triple expresser - Chemo orders reviewed prior to admission - Admit for cycle 5 of dose adjusted R-EPOCH. Patient received rituximab and intrathecal methotrexate prior to admit - Home medications reconciled - DVT and GI prophylaxis - Regular diet, early and frequent ambulation, liberal fluids - Supportive care medications ordered - Labs daily - CBC for today still pending - Day 5 of 5 of chemo. Tolerating treatment well, with no reported adverse side effects. She will complete the fourth bag of etoposide/doxazosin/vincristine today and receive cyclophosphamide afterwards - Anticipate discharge tomorrow as long as she is not requiring any transfusions - We will arrange for G-CSF injection as well as labs 3 times weekly for the first 2 weeks Willy Kwok MD
[2024-09-20 08:00] LABS: BUN/Creat Ratio 35.50 Ratio (12.00-20.00); Blood Urea Nitrogen 14.2 mg/dL (9.0-27.0); Glucose 125 mg/dL (70-110)
[2024-09-20 08:01] LABS: Anion Gap 12.70 mmol/L (4.00-12.00); Calcium 7.9 mg/dL (8.7-10.3); Carbon Dioxide 23.3 mmol/L (21.6-31.8); Chloride 107 mmol/L (96-109); Potassium 3.4 mmol/L (3.5-5.5); Sodium 143 mmol/L (135-145)
[2024-09-20] MEDS: POTASSIUM CHLORIDE ER 20 MEQ TAB.ER PO SCH (08:59)
[2024-09-20 12:42] VITALS: BP 166/71; PULSE 70; RESP 16; TEMP 98.1
--- NOTE | 2024-09-20 13:15 | P.DS ---
Providers Date of admission: 09/15/24 11:20 Attending physician: Willy Kwok MD Consults: 09/15/24 19:38 Consult Physician Routine Consulting Provider: Rogelio Mtz Consult Reason/Comments: inpt chemo, medical management Do you want consulting provider notified?: Yes Primary care physician: Donnie Hart MD - Discharge Diagnosis(es) (1) Diffuse large B-cell lymphoma of extranodal site Current Visit: Yes Status: Chronic Priority: High Hospital Course: S/p cycle 5 R-EPOCH Pt tolerated treatment very well. Hypokalemia, s/p replacement Assessment: Pt stable, feeling well, HDS Patient Condition at Discharge: Good Plan - Discharge Summary New Discharge Prescriptions: No Action RX: polyethylene glycoL 3350 [Miralax] 17 gm PO DAILY@1400 PRN PRN Reason: Constipation RX: Ondansetron [Zofran] 4 - 8 mg PO Q4H PRN PRN Reason: Nausea RX: Lidocaine-Prilocaine Cream [Emla Cream 2.5%/2.5%] 1 applic TOPICAL DAILY PRN PRN Reason: port access RX: amLODIPine [Norvasc] 5 mg PO DAILY@0800 RX: Gabapentin [Neurontin] 400 mg PO HS@1999 RX: OLANZapine [ZyPREXA] 2.5 mg PO HS #30 tab RX: traMADol HCl [Ultram] 50 mg PO DAILY PRN PRN Reason: Pain RX: Lactulose 20 gm PO DAILY PRN PRN Reason: Constipation RX: Acetaminophen [Tylenol Extra Strength] 1,000 mg PO DAILY@1400 PRN PRN Reason: Pain RX: Cholecalciferol (Vitamin D3) [Vitamin D3 (50 Mcg = 2000 Iu)] 50 mcg PO DAILY@0800 RX: Apixaban [Eliquis] 5 mg PO BID@799,1999 RX: traMADol HCL 50 mg PO BID RX: Pantoprazole [Protonix] 40 mg PO AC-BRKFST #30 tab Discharge Medication List RX: Gabapentin [Neurontin] 400 mg PO HS@199905/15/24 [History] RX: OLANZapine [ZyPREXA] 2.5 mg PO HS #30 tab 05/25/24 [Rx] RX: traMADol HCl [Ultram] 50 mg PO DAILY PRN 06/10/24 [History] RX: Acetaminophen [Tylenol Extra Strength] 1,000 mg PO DAILY@1400 PRN 06/18/24 [History] RX: Cholecalciferol (Vitamin D3) [Vitamin D3 (50 Mcg = 2000 Iu)] 50 mcg PO DAILY@0800 06/18/24 [History] RX: Lactulose 20 gm PO DAILY PRN 06/18/24 [History] RX: Ondansetron [Zofran] 4 - 8 mg PO Q4H PRN 06/18/24 [History] RX: polyethylene glycoL 3350 [Miralax] 17 gm PO DAILY@1400 PRN 06/18/24 [ History] RX: Apixaban [Eliquis] 5 mg PO BID@0800,2000 07/12/24 [History] RX: Lidocaine-Prilocaine Cream [Emla Cream 2.5%/2.5%] 1 applic TOPICAL DAILY PRN 07/19/24 [History] RX: amLODIPine [Norvasc] 5 mg PO DAILY@0800 08/09/24 [History] RX: traMADol HCL 50 mg PO BID 08/11/24 [History] RX: Pantoprazole [Protonix] 40 mg PO AC-BRKFST #30 tab 08/16/24 [Rx] Patient Instructions/Handouts: Intravenous Chemotherapy (GEN) Plan of Treatment: NDS tomorrow, will recheck neal
== END 2024-09-20 13:37 | disposition home or self-care (01) | DRG 847 ==
LOC: UNDOADMIN 11:19 → 2ORMAIN 11:19 → 5NMEDONC 11:20
PROVIDERS: ADMIT Internal Medicine; ATTEND Internal Medicine
DX: Z51.11 Encounter for antineoplastic chemotherapy (principal); C83.398 Diffuse large B-cell lymphoma of other extranodal and solid organ sites; E44.0 Moderate protein-calorie malnutrition; I10 Essential (primary) hypertension; D64.81 Anemia due to antineoplastic chemotherapy; E87.6 Hypokalemia; T45.1X5A Adverse effect of antineoplastic and immunosuppressive drugs, initial encounter; Z68.20 Body mass index [BMI] 20.0-20.9, adult; Z79.01 Long term (current) use of anticoagulants; Z79.899 Other long term (current) drug therapy; Z86.718 Personal history of other venous thrombosis and embolism; Z87.891 Personal history of nicotine dependence
CPT/HCPCS: 80048; 80053; 84132; 84550; 85025